=== PATIENT | male | born 1960 | race Caucasian/White ===

== ENCOUNTER 2017-12-13 15:13 | Emergency (ER) | payer BC, SELFPAY ==
[2017-12-13 15:14] VITALS: BP 144/106; PULSE 95; RESP 16; TEMP 37.2; O2SAT 99; BMI 25.1
--- NOTE | 2017-12-13 16:21 | RAD_ITS ---
STUDY: X-RAY - LEFT FEMUR REASON FOR STUDY: Male, 57 years old. Laceration TECHNIQUE: Frontal and lateral views of the femur were obtained. COMPARISON: None. FINDINGS: Bones: There are no acute osseous abnormalities. Joints: The visualized joints are normal in appearance. Soft tissues: The soft tissues are unremarkable. RAD/Femur Min 2 Views IMPRESSION: No acute abnormalities are seen in the left upper leg. Electronically Signed: Lalitha St MD at 17:15 EDT Tel Direct: [phone], Service support ,
[2017-12-13] MEDS: Diphth,Pertuss(Acell),Tet Vac 0.5 ML Vial IM (16:30)
--- NOTE | 2017-12-13 16:55 | ED.VISSUMM ---
- ER Visit Summary Date of Service: 12/13/17 Chief Complaint: Lacerations History of Present Illness: The patient is a 57 M with laceration to his left thigh. This happened just prior to arrival. He cut himself on a bark grinder wheel that broke apart. He is not sure of his last tetanus immunization. Patient is not on blood thinners. Physical Examination: Patient has 2 lacerations, one over the anterior mid thigh, 3 cm, partial-thickness, linear. The other laceration is more distal and medial, measuring 5 cm, full-thickness, mild contamination. No active bleeding. Neurovascular intact distally. Test Results: Official x-ray read is pending. I do not appreciate any significant, large foreign bodies, or any other acute issue. Emergency Department Course and Treatment: Tetanus updated. Wounds were infiltrated with lidocaine. Irrigated copiously with saline and Betadine. Particulate matter removed as much as possible. Procedure performed under good lighting. No active bleeding. 3 cm laceration was closed with 3 simple interrupted sutures. 5 center meter laceration was closed with 7 simple interrupted sutures. Patient tolerated this well. Dressings applied. Patient will be discharged to follow-up with primary care in about 10 days. Return for any new or worsening issues. Will put on Keflex prophylaxis. I advised him that there may be small foreign body still in the wounds, and he will monitor for any issues. Treatment Plan: As above Disposition: Discharged Impression: 1. Left thigh laceration, 3 cm, simple 2. Left thigh laceration, 5 cm, simple This note was generated with [employer] dictation software. It may contain incorrect words, spelling, and punctuation that were not noted in review of the chart prior to signing ED Disposition - Plan for ED Patient: Chief Complaint: Laceration Referrals: You Bragg MD [Primary Care Provider] -
--- NOTE | 2017-12-13 16:59 | ED.DCSUM_ITS ---
- ER Visit Summary Date of Service: 12/13/17 Chief Complaint: Lacerations History of Present Illness: The patient is a 57 M with laceration to his left thigh. This happened just prior to arrival. He cut himself on a tool and cutter grinder wheel that broke apart. He is not sure of his last tetanus immunization. Patient is not on blood thinners. Physical Examination: Patient has 2 lacerations, one over the anterior mid thigh , 3 cm, partial-thickness, linear. The other laceration is more distal and medial, measuring 5 cm, full-thickness, mild contamination. No active bleeding. Neurovascular intact distally. Test Results: Official x-ray read is pending. I do not appreciate any significant, large foreign bodies, or any other acute issue. Emergency Department Course and Treatment: Tetanus updated. Wounds were infiltrated with lidocaine. Irrigated copiously with saline and Betadine. Particulate matter removed as much as possible. Procedure performed under good lighting. No active bleeding. 3 cm laceration was closed with 3 simple interrupted sutures. 5 center meter laceration was closed with 7 simple interrupted sutures. Patient tolerated this well. Dressings applied. Patient will be discharged to follow-up with primary care in about 10 days. Return for any new or worsening issues. Will put on Keflex prophylaxis. I advised him that there may be small foreign body still in the wounds, and he will monitor for any issues. Treatment Plan: As above Disposition: Discharged Impression: 1. Left thigh laceration, 3 cm, simple 2. Left thigh laceration, 5 cm, simple This note was generated with [employer] dictation software. It may contain incorrect words, spelling, and punctuation that were not noted in review of the chart prior to signing ED Disposition - Plan for ED Patient: Chief Complaint: Laceration Referrals: You Bragg MD [Primary Care Provider] -
--- NOTE | 2017-12-13 16:59 | ED.DEP ---
ED Disposition - Plan for ED Patient: Chief Complaint: Laceration Instructions: ED Laceration All Prescriptions: Cephalexin [Keflex] 500 mg PO Q6 #20 cap Referrals: You Bragg MD [Primary Care Provider] -
[2017-12-13 17:17] VITALS: PULSE 66; RESP 17; O2SAT 98
== END 2017-12-13 17:20 | disposition home or self-care (01) ==
PROVIDERS: Emergency Provider Emergency Medicine; Family Provider Family Medicine; PCP Family Medicine
DX: S71.122A Laceration with foreign body, left thigh, initial encounter (principal); W26.8XXA Contact with other sharp object(s), not elsewhere classified, initial encounter; Y93.9 Activity, unspecified; Y92.9 Unspecified place or not applicable; I10 Essential (primary) hypertension; Z72.0 Tobacco use
CPT/HCPCS: 12004; 73552; 90471; 90715; 99282

== ENCOUNTER → 2018-07-15 10:36 | Outpatient (CLI) | payer BC, SELFPAY ==
[2018-07-15 12:03] LABS: Absolute Lymphocyte Count 2.65 X10^3/ul (0.83-4.51); Absolute Neutrophil Count 5.4 X10^3/uL (2.0-7.7); Basophil# 0.06 X10^3/uL; Basophil% 0.6 % (0-1); Eosinophil# 0.27 X10^3/uL; Eosinophils% 2.8 % (0-5); Hematocrit 47.1 % (40-54); Hemoglobin 15.7 g/dl (13.0-16.5); Lymphocyte # 2.65 X10^3/ul (4.0); Lymphocyte % 27.8 % (19-41); Mean Corp Hgb Conc 33.3 g/gl (32-36); Mean Corpuscular Hgb 30.1 pg (27.0-32.0); Mean Corpuscular Volume 90.2 fL (80-94); Mean Platelet Vol. 11.6 fl (6.2-12.0); Monocyte% 11.5 % (0-10); Neutrophil # 5.43 X10^3/uL (2.7-7.7); Neutrophil % 57.1 % (47-70); POSITIVE COUNT NO; POSITIVE DIFFERENTIAL NO; POSITIVE MORPHOLOGY NO; Platelet Count 236 K/mm3 (150-450); RBC Distribution Width CV 13.3 % (11.6-14.6); RBC Distribution Width SD 43.9 fl (35.1-43.9); Red Blood Count 5.22 M/mm3 (4.6-6.2); White Blood Count 9.5 K/mm3 (4.4-11.0)
[2018-07-15 12:42] LABS: ALB/GLOB Ratio 1.1 RATIO (0.9-2.4); AST(SGOT) 23 U/L (15-37); Alanine Aminotransfer ALT/SGPT 32 U/L (16-61); Alkaline Phosphatase 75 U/L (45-117); Anion Gap 9 (5-15); BUN 18 mg/dL (7-18); BUN/Creat Ratio 21.6 RATIO (10-20); CRP < 2.90 mg/L (0.0-3.0); Calcium,Total 9.1 mg/dL (8.5-10.1); Chloride 105 mmol/L (98-107); Creatinine, Serum 0.84 mg/dL (0.70-1.30); EST Glomerular Filtration Rate 101 mL/min (>60); Est Glom Filt Rate - Afr Amer 122 mL/min (>60); Globulin 3.6 g/dL (2.2-4.2); Glucose 87 mg/dL (74-106); Potassium 4.3 mmol/L (3.5-5.1); Protein, Total 7.6 g/dL (6.4-8.2); Sodium Level 140 mmol/L (136-145)
== END ==
PROVIDERS: Family Provider Family Medicine; PCP Family Medicine; Visit Provider Family Medicine
DX: R23.3 Spontaneous ecchymoses (principal)
CPT/HCPCS: 36415; 80053; 85025; 86140

== ENCOUNTER 2018-11-04 12:00 | Day surgery (SDC) | payer OTHER, SELFPAY ==
[2018-11-04 12:42] VITALS: BP 119/76; PULSE 66; RESP 16; TEMP 36.8; O2SAT 97; BMI 24.9
[2018-11-04] MEDS: Bupivacaine Mpf 0.5% 30 ML VIAL (13:35)
[2018-11-04] MEDS: Cefazolin 2 GM in 0.9% Normal Saline 100 ML IV (13:47)
--- NOTE | 2018-11-04 14:18 | OP.PCM_ITS ---
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 Patient wished to proceed with left open carpal tunnel release. After discussing risks and benefits including but not limited to blood loss, DVTs, PEs, neurovascular damage, infection, hematoma and general risk of anesthesia, the patient demonstrated understanding wish to proceed with left open carpal tunnel release Procedure: On the date of the procedure, the patient's left upper extremity was marked in the preoperative area. Patient was taken back to the operating room, where the tourniquet was placed on the right upper extremity. Patient was given light sedation. All bony prominences are identified well-padded. Anesthesia assumed control C-spine and airway and remained in control throughout the remainder the procedure. Deal block was administered by anesthesia. The left upper extremity was prepped in sterile fashion. Surgeon then scrub. Upon reentering the room, the left upper extremity was prepped in a standard orthopedic fashion. A timeout was called and everyone agreed upon the side, the site, the procedure to be performed, patient identity and antibiotics given. The incision was marked out. Incision was taken at the skin subtenons tissue fat down to fascia. Fascia was then lightly tethered until the median nerve was visible. A [place] was placed proximally and distally, and then scissors were placed proximally and distally to release the transverse carpal ligament. During the release the others were never completely closed. The [place] was then placed proximally and distally once more to verify the transverse carpal ligament had been adequately released. The wound was then copiously irrigated out with normal saline. Wound was then closed using 3-0 nylon suture. 10 cc of 50-50 mixture of 1% lidocaine and 0.5% Sensorcaine without epinephrine injection was given. Xeroform dressing was placed, sterile dressing was placed, compressive dressing was placed. Tourniquet was let down. Volar splint was placed. Patient was awakened by anesthesia and transferred to the PACU for recovery. Postoperative plan: The patient will follow up in 2 weeks for removal splint removal sutures. At that time if they are doing well they will follow-up as needed. - Complications No intraoperative complications - Admit VTE Documentation VTE Present on Admission: No VTE Mechan Device Prophylaxis: SCD's, Thigh High TAYLER Egan VTE Pharm Prophylaxis ordered?: Yes
[2018-11-04 14:23] VITALS: BP 119/76; BP 88/64; PULSE 54; RESP 18; TEMP 36.4; O2SAT 96
[2018-11-04 14:25] VITALS: BP 119/76; BP 90/65; PULSE 54; RESP 18; O2SAT 97
[2018-11-04 14:30] VITALS: BP 119/76; BP 96/67; PULSE 56; RESP 18; O2SAT 95
[2018-11-04 14:32] VITALS: BP 119/76; BP 96/67; PULSE 55; RESP 18; TEMP 36.2; O2SAT 96
== END 2018-11-04 15:19 | disposition home or self-care (01) ==
LOC: SDC 12:01 → AC 12:05
PROVIDERS: Family Provider Family Medicine; PCP Family Medicine; Referring Provider Specialist; Visit Provider Specialist
PROC: (CPT 64721; principal; 2018-11-04 14:00)
DX: G56.03 Carpal tunnel syndrome, bilateral upper limbs (principal); I10 Essential (primary) hypertension; F17.210 Nicotine dependence, cigarettes, uncomplicated
CPT/HCPCS: 01810; 64721; J7120

== ENCOUNTER 2019-03-17 07:54 | Emergency (ER) | payer OTHER, SELFPAY ==
[2019-03-17 07:55] VITALS: BP 118/85; PULSE 79; RESP 16; TEMP 36.6; BMI 25.1
--- NOTE | 2019-03-17 08:10 | RAD_ITS ---
STUDY: X-RAY - RIGHT FOOT CLINICAL: Male, 58 years old. Pain following injury. TECHNIQUE: 3z view(s) of the foot. COMPARISON: None. FINDINGS: Normal talus, calcaneus, and tarsal bones. Normal visualized subtalar, talonavicular, calcaneocuboid, tarsal and tarsometatarsal articulations. Normal metatarsi. Normal metatarsophalangeal joint of the great toe. Normal tibial and fibular sesamoid bones. Normal interphalangeal joint of the great toe. Normal phalanges of the great toe. Normal second through fifth metatarsophalangeal joints. Normal interphalangeal joints and phalanges of the lesser toes. Dorsal soft tissue swelling. RAD/Foot min 3 Views IMPRESSION: Dorsal soft tissue swelling. Electronically Signed: Thaddeus Farias, at 9:15 EDT , Service support ,
--- NOTE | 2019-03-17 08:18 | ED.VISSUMM ---
- ER Visit Summary Date of Service: 03/17/19 Chief Complaint: Right foot injury History of Present Illness: The patient is a 58 M who was at work this morning when a steel bar fell across the top of his foot. He was wearing boots at the time. He states he has increased pain with ambulation. Physical Examination: Vital signs unremarkable. Patient sitting upright in bed no acute distress. Right lower extremity examination reveals a small 2 cm area of erythema across the dorsum of the right foot with mild edema. Cap refill and sensation is noted distally. Minimal tenderness. Test Results: Right foot x-rays per my review reveals soft tissue swelling with no evidence of fracture. Emergency Department Course and Treatment: Prem wrap is applied to the foot. He started to develop some early ecchymosis along with the edema. He is already on meloxicam and will continue this. Treatment Plan: [] Disposition: Discharge Impression: Crush injury right foot This note was generated with [employer] dictation software. It may contain incorrect words, spelling, and punctuation that were not noted in review of the chart prior to signing ED Disposition - Plan for ED Patient: Disposition: Home or Assisted Living Instructions: CRUSH INJURY, Foot/Toe Referrals: [facility] [GROUP OF PHYSICIANS] - 3-5 Days
[2019-03-17 08:55] VITALS: BP 115/81; PULSE 65; RESP 16; O2SAT 100
== END 2019-03-17 08:57 | disposition home or self-care (01) ==
PROVIDERS: Emergency Provider Emergency Medicine; Family Provider Family Medicine; PCP Family Medicine
DX: S97.81XA Crushing injury of right foot, initial encounter (principal); W20.8XXA Other cause of strike by thrown, projected or falling object, initial encounter; Y93.9 Activity, unspecified; Y92.9 Unspecified place or not applicable; Y99.0 Civilian activity done for income or pay; I10 Essential (primary) hypertension; Z72.0 Tobacco use
CPT/HCPCS: 73630; 99282

== ENCOUNTER 2019-04-05 17:22 | Emergency (ER) | payer OTHER, SELFPAY ==
[2019-04-05 17:23] VITALS: BP 153/90; PULSE 72; RESP 16; TEMP 36.7; O2SAT 97; BMI 25.1
--- NOTE | 2019-04-05 17:27 | RAD_ITS ---
STUDY: X-RAY - RIGHT HAND, ATTENTION SECOND FINGER REASON FOR EXAM: Male, 58 years old. Injury TECHNIQUE: 3 view(s) of the finger were obtained. COMPARISON: None. FINDINGS: There is a comminuted moderately distracted fracture of the second distal phalanx tuft. There are no significant degenerative changes. There are no radiodense foreign bodies. RAD/Finger(s) Min 2 Views IMPRESSION: Comminuted moderately distracted fracture of the second distal phalanx tuft. Electronically Signed: Adalberto Comer, at 17:42 EDT Tel , Service support ,
--- NOTE | 2019-04-05 20:01 | ED.DCSUM_ITS ---
- ER Visit Summary Date of Service: 04/05/19 Chief Complaint: Finger injury History of Present Illness: The patient is a 58 M who injured his right index finger in an auto [employer] prior to arrival. Tetanus is up-to-date. Physical Examination: The proximal portion of his nail is displaced through the skin. The laceration extends medial and laterally. Otherwise skin is intact and nailbed is intact. Mild subungual hematoma. Good range of motion. Normal capillary refill. Test Results: X-rays show a comminuted tuft fracture of the distal phalanx. Emergency Department Course and Treatment: Digital block was performed by me. Wound was soaked by the patient. Nail was reduced. Anchored in place with a single suture. Patient will be started on Keflex and follow-up with hand surgery. Keep the area clean and dry. Return for signs of infection. Risks such as bone infection, loss of the finger, loss of the nail, and other complications were discussed. Treatment Plan: As above Disposition: Discharged Impression: 1. Tuft fracture right index finger 2. Nailbed repair This note was generated with [employer] dictation software. It may contain incorrect words, spelling, and punctuation that were not noted in review of the chart prior to signing ED Disposition - Plan for ED Patient: Referrals: You Bragg MD [Primary Care Provider] -
--- NOTE | 2019-04-05 20:04 | ED.DEP ---
ED Disposition - Plan for ED Patient: Instructions: FRACTURE, Finger (Open) Prescriptions: Cephalexin [Keflex] 500 mg PO Q6 #40 cap Prescription Printed Referrals: Dedrick Lawrence MD [STAFF PHYSICIAN] -
[2019-04-05] MEDS: Cephalexin 250 MG Capsule 500 MG PO (20:17)
[2019-04-05 20:24] VITALS: RESP 16
== END 2019-04-05 20:24 | disposition home or self-care (01) ==
LOC: ED 18:27
PROVIDERS: Emergency Provider Emergency Medicine; Family Provider Family Medicine; PCP Family Medicine
DX: S62.630A Displaced fracture of distal phalanx of right index finger, initial encounter for closed fracture (principal); X58.XXXA Exposure to other specified factors, initial encounter; Y93.9 Activity, unspecified; Y92.9 Unspecified place or not applicable; Y99.0 Civilian activity done for income or pay; Z72.0 Tobacco use
CPT/HCPCS: 11760; 73140; 99282

== ENCOUNTER 2019-04-07 12:47 | Day surgery (SDC) | payer OTHER, SELFPAY ==
[2019-04-06 15:02] VITALS: BMI 25.1
--- NOTE | 2019-04-07 09:59 | PCM.HP.BLA ---
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 He complains of pain in his right index finger. He went to the ED where an x-ray was obtained which showed a comminuted moderately distracted fracture of distal phalanx tuft right index finger. Sutures were used to stabilize the torn nail place off the nail bed. He was started on Keflex antibiotics. He complains of pain and swelling in his right index finger. He can bend his right index finger a little bit but he cannot make a fist completely. He is right hand dominant. He comes in today for further evaluation and treatment. PAST MEDICAL HISTORY Alcohol abuse Arthritis Back problem Carpal tunnel syndrome Frequent headaches Hepatitis C History of pneumonia High blood pressure PAST SURGICAL HISTORY carpal tunnel release ALLERGIES bee venom protein (honey bee) MEDICATIONS Lisinopril [Zestril] Meloxicam Cephalexin [Keflex] doxycycline hyclate hydrocodone 5 mg-acetaminophen FAMILY HISTORY Mother - History of blood clots, Cancer, Heart disease SOCIAL HISTORY Smoking Status: Current every day smoker counseling given: provider counseling, counseling >10 minutes alcohol intake: current substance use type: does not use REVIEW OF SYSTEMS General - Denies fever, fatigue, and weight loss. Eyes - Denies cataracts and glaucoma. ENT - Denies nasal congestion and sore throat. Endocrine - Denies excessive thirst and urination. Skin - Denies suspicious lesions and skin cancer. Musculoskeletal - Denies joint pain, joint stiffness, weakness of muscles and joints, and arthritis. Has back pain. Sustained crush injury to right index finger tip. Has comminuted moderately distracted fracture of the distal phalanx tuft of the right index finger. Also sustained a subungual hematoma and nail bed injury right index finger. Neuro - Has headaches. Cardiovascular - Denies chest pain, fatigue, and shortness of breath with exertion. Psych - Denies anxiety and depression. Respiratory - Denies chronic cough and shortness of breath. Patient is a smoker. Gastrointestinal - Denies nausea, vomiting, diarrhea, and constipation. Hematologic - Denies abnormal bruising and bleeding. Genitourinary - Denies hematuria and urinary frequency. PHYSICAL EXAMINATION General - Alert and Oriented. HEENT - PERRL. EOMI. Throat is clear. Neck - Supple and nontender. No cervical adenopathy. Lungs - Clear to auscultation. Heart - Regular rate and rhythm. Abdomen - Soft and nondistended. Extremities - FROM left upper extremity. No axillary adenopathy. Radial pulses are palpable. Fingers are warm with good capillary refill. Patient is right hand dominant. There is some swelling right index finger. Subungual hematoma noted underneath the nail plate right index finger. There is an injury to the eponychial fold. He can flex his right index finger at the PIP and DIP joints but not as easily as compared to his other fingers probably secondary to pain and swelling and associated crush injury component. Neuro - CN II-XII grossly intact. Psych - Normal mood and affect. ASSESSMENT 1. Open displaced fracture distal tuft of distal phalanx right index finger. 2. Subungual hematoma right index finger. 3. Nail bed injury right index finger. 4. Crushing injury right index finger tip. 5. Smoker. PLAN X-ray reviewed. There is a comminuted moderately distracted fracture of the distal phalanx tuft right index finger. Recommend operative intervention of the right index finger with drainage of the subungual hematoma and repair of the nail bed injury. Will also debride and excise the displaced multiple fracture fragments distal phalanx tuft right index finger for osteomyelitis. With the crushing nature of the injury, may need to explore the volar side of the right index finger with a zig zag incision to explore and evaluate the flexor tendons. Any injuries will be repaired. If the tendons are intact, then will irrigate the wound and proceed with a complex closure repair. Will place a tip splint postoperatively to minimize pain when he bumps his right index finger. A tendon injury that is repaired will necessitate a longer splint during the healing process. Will plan on the surgery this week under local anesthesia and IV sedation with digital tourniquet control on an outpatient basis. In the meantime, continue the Keflex. Will change the antibiotics at the time of surgery to Doxycycline which has better bony coverage for Staph because of possible risk of osteomyelitis. Wrote a script for [place] for pain (40 tabs). Wrote a script for Doxycycline (28 tabs) and 2 refills. Due to the crushing nature of the injury, he is at risk for ocean transportation intermediary pain and stiffness of his right index finger that may necessitate revision surgery in the future with a tip amputation. He is aware of that possibility and wishes to proceed. Patient was informed of the risks and complications of the procedure including alternatives to surgery. These were discussed with the patient personally. Patient voices understanding and wishes to proceed. Some of the risks and complications were included in a form from the [employer]. Some of the risks and complications that were discussed included but were not inclusive of failure to diagnose including symptom relief, pain, infection, numbness, stiffness, loss of digit, RSD (CRPS), need for further surgery, contracture, and wound healing problems. Encouraged patient to stop smoking as it may have deleterious effects on wound healing.
[2019-04-07 12:30] VITALS: BP 113/89; PULSE 58; RESP 16; TEMP 36.3; O2SAT 96; BMI 24.3
--- NOTE | 2019-04-07 14:30 | BON_PTH ---
PATIENT: CHERRIE TREVIÑO LOC: [facility] [place] U#:[id number] AGE/SX: 58/M ROOM: RE04/07/[address]: Dr. Dedrick Lawrence MD : 1960 BED: DIS: 04/07/2019 SPEC #: [id number] RECD: 04/07/19 16:44 STATUS: VAUGHN REQ #: [id number] WILTON: 04/07/19 14:[address]: Dedrick Lawrence DEPT: SURGICAL PATHOLOGY RECD BY: Jose A Wang ENTERED: 04/08/19 10:14 SP TYPE: Bone OTHR DR: Dr. You Bragg MD Tissues: A - Finger, NOS B - Finger, NOS Procedures: Decalcification bone/plaque Surgery Specimen Level IV HEADER OPERATION: Repair nailbed injury, index finger debridement PRE-OP DIAGNOSIS: Open displaced fracture right index finger; subungual hematoma right index finger; nailbed injury right index finger; crush injury right index finger TISSUE SUBMITTED: A - Bone right index finger, B - Soft tissue right index finger MICROSCOPIC DIAGNOSIS A. Bone, right index finger, biopsy: Focal changes suggestive of acute osteomyelitis. Reparative and reactive change. B. Soft tissue, right index finger, biopsy: Skin and soft tissue with minimal chronic inflammation. MAHI:biju 04/14/19 MICROSCOPIC DESCRIPTION Slides are reviewed. GROSS DESCRIPTION A - Received in fixative is one container labeled with the patient's name and designated bone right index finger. The specimen consists of two pieces of bone that in aggregate measure 1.5 x 0.5 x 0.3 cm. The entire specimen is submitted in one cassette after decalcification. B - Received in fixative is one container labeled with the patient's name and designated soft tissue right index finger. The specimen consists of multiple pieces of castro-white to brown soft tissue that in aggregate measure 1.5 x 1 x 0.2 cm. The specimen is totally submitted in one cassette. / SJ:rg 04/08/19 TC: 2 CPT: 95236 x2, [id number]
[2019-04-07] MEDS: Mupirocin Ointment 22gm Tube 1 APPLIC (15:40)
[2019-04-07 16:40] VITALS: BP 113/89; BP 124/70; PULSE 58; RESP 14; TEMP 36.3; O2SAT 98
--- NOTE | 2019-04-07 16:42 | PCM.OPRPT ---
Report of Operation Date of Procedure: 04/07/19 Pre-Operative Diagnosis: 1. Open displaced fracture distal tuft of distal phalanx right index finger. 2. Subungual hematoma right index finger. 3. Nail bed injury right index finger. 4. Crushing injury right index finger tip. 5. Smoker. Post-Operative Diagnosis: Same. Surgery/Procedure Performed:: 1. Repair of nail bed injury right index finger. 2. Drainage of subungual hematoma right index finger. 3. Excisional debridement displaced distal phalanx tuft fracture right index finger with partial ostectomy for osteomyelitis. 4. Exploration flexor tendon crushing injury volar aspect right index finger with excisional debridement and 3 cm complex closure repair. 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 He complains of pain in his right index finger. He went to the ED where an x-ray was obtained which showed a comminuted moderately distracted fracture of distal phalanx tuft right index finger. Sutures were used to stabilize the torn nail place off the nail bed. He was started on Keflex antibiotics. He complains of pain and swelling in his right index finger. He can bend his right index finger a little bit but he cannot make a fist completely. He is right hand dominant. Patient was informed of the risks and complications of the procedure including alternatives to surgery. These were discussed with the patient personally. Patient voices understanding and wishes to proceed. Some of the risks and complications were included in a form from the [employer]. Some of the risks and complications that were discussed included but were not inclusive of failure to diagnose including symptom relief, pain, infection, numbness, stiffness, loss of digit, RSD (CRPS), need for further surgery, contracture, and wound healing problems. Encouraged patient to stop smoking as it may have deleterious effects on wound healing. Total tourniquet time - 54 minutes. Flexor digitorum profundus (PDP) tendon and flexor digitorum superficialis (FDS) tendon are intact and a little swollen. 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 Right index finger tip soft tissue to Pathology and Microbiology. 2. Right index finger tip bone to Pathology and Microbiology. Drains: None. Estimated Blood Loss (mL): 10 ml. Description of Procedure: Patient was taken to OR in supine position and was placed under general anesthesia. The right upper extremity was prepped and draped in the usual fashion. A tourniquet was placed. SCD's were placed for DVT prophylaxis. Perioperative antibiotics were given intravenously. The right upper extremity was elevated and was wrapped with an Esmarch bandage as the tourniquet was elevated to 250 mmHg. Using xylocaine with epinephrine, a digital metacarpal block was infiltrated for postop pain relief for the right index finger. Under loupe magnification, I removed the nail plate. There was a congealed hematoma present that extended through the stellate nail bed injury and involved the distal phalanx. The hematoma was drained and the congealed portion of the hematoma was excised and debrided. Using an elevator, I elevated the remaining nail bed off the distal phalanx. Some loose pieces of bone were excised and debrided. Using a rongeur, I excised the distal portion of the distal phalanx to evaluate for osteomyelitis. A rasp was used to smooth out the bony edge. The stellate nail bed injury was swollen with presence of exudate which was excised and debrided. From the pressure of the subungual hematoma, there was some loss of nail bed and the bone was exposed. I shortened the nail bed a little bit to minimize a floppy finger tip. I wanted the soft tissue to be close to the bone to minimize this floppiness. By shortening the nail bed a little bit, I was able to repair the nail bed without having to resort to a nail bed graft. This complex nail bed repair was done with 7-0 Vicryl simple interrupted sutures. Since I was able to repair the nail bed, a two stage thenar flap will not be necessary at this time. I cleaned off any residual blood and debris from the nail plate and placed the nail plate back on the finger and underneath the eponychial fold. The nail plate was secured with 5-0 Nylon simple interrupted sutures. Half the soft tissue and half the bone was sent to Pathology for analysis to rule out carcinoma and to evaluate for osteomyelitis. Half the soft tissue and half the bone was sent to Microbiology for culture. A positive culture will necessitate antibiotic therapy. Because of the crushing nature of the injury, I explored the volar surface of the right index finger to evaluate the flexor tendons. There was some difficulty with flexion preoperatively which was probably secondary to swelling from the crushing injury, I wanted to make sure there was no associated flexor tendon injury as well. A zig zag incision was made on the volar surface of the right index finger at the level of the DIP joint crease to evaluate both tendons. Dissection was carried down to the flexor tendon sheath. There was a lot of swelling and some bleeding in the subcutaneous tissue. A small incision was made in the A5 cindy. The flexor tendons were visualized in the tendon sheath. They were quite swollen and yellowish in color as a result of the crushing injury. Both flexor tendons (flexor digitorum profundus and flexor digitorum superficialis) were intact. The wound was irrigated with saline. The wound was then closed with 5-0 Nylon simple interrupted sutures and vertical mattress sutures. The length of the zig zag complex closure was 3 cm. The tourniquet was released after 54 minutes. Hemostasis was obtained with gentle pressure and elevation. Antibiotic ointment was applied to the finger tip followed by Xeroform gauze and 2x2 gauze followed by 2 inch Sienna wrap and a compression mckay wrap. A new alumafoam splint will be given to the patient to help with protecting the finger tip when bumped. With a bulky surgical dressing at present, he won't need the splint until after the first dressing change in the office. Patient tolerated the procedure well and was sent to PACU in satisfactory condition. Patient will be sent home on antibiotics and pain medication. He will keep his right hand elevated during the initial postop period. He will wear a plastic bag over his right hand when showering. Patient will followup in a couple of days on Friday for a wound check and for discussion of the pathology report and for discussion of the Microbiology report. Will remove the sutures in 2-3 weeks. Depending on his degree of stiffness postop, may need OT for range of motion exercises, strengthening, and edema management. Grafts/Implants Used: None. - Complications None. - Admit VTE Documentation VTE Present on Admission: No VTE Mechan Device Prophylaxis: SCD's VTE Pharm Prophylaxis ordered?: No Code Visit Surgery Charges CPT - 95840 ICD-10 - S69.91xA, S62.630B, S67.190A, S60.121A, F17.200 33737 S60.121A, S62.630B, S67.190A, S69.91xA, F17.200 [id number] S62.630B, S67.190A, S69.91xA, S60.121A, F17.200 [id number] S67.190A, S62.630B, S69.91xA, S60.121A, F17.200
[2019-04-07 16:45] VITALS: BP 113/89; BP 115/73; PULSE 75; RESP 16; O2SAT 95
--- NOTE | 2019-04-07 16:45 | PCM.DC ---
You will use the following diet at home:: No restrictions Discharge Activity: May not drive while taking narcotic pain medications., May Shower - wear plastic bag over right hand when showering. Return to work on:: 05/16/19 - tentative. May shower in (days): 1 - wear plastic bag over right hand when showering. May resume sexual activity in: No Restrictions Weight Bearing Status: Weight bearing as tolerated Lifting Restrictions: no lifting with rigiht hand. Keep extremity elevated above heart level: Right Arm Call your doctor if your incision/area has: Continuous Slow Oozing, Sudden Increased Bleeding, Increased Pain/ Swelling, Increased Redness, Foul Smelling Discharge, Swelling at the incision site Call your doctor if you observe: Fever of 101 or Higher, Coldness, Increased Pain, Shortness of breath, Chest pain, Calf discomfort, Uncontrolled pain Suture Line Care: - - apply antibiotic ointment to suture line after dressing is removed in the office. Change Dressing in (Days):: 2 - will change dressing in the office. Cleanse incision/area with: - - wear plastic bag over right hand when showering. Additional Instructions: Patient has Doxycycline and [place] at home which he will continue. Allergies/Adverse Reactions: Allergies bee venom protein (honey bee) Allergy (Verified 04/06/19 14:47) Anaphylaxis Medications to take at Discharge Lisinopril [Zestril] 5 mg PO DAILY #30 tab 08/19/17 Meloxicam 15 mg PO DAILY 10/28/18 Cephalexin [Keflex] 500 mg PO Q6 #40 cap 04/05/19 doxycycline hyclate 100 mg capsule 100 mg PO BID 14 Days #28 cap 04/06/19 hydrocodone 5 mg-acetaminophen 325 mg tablet 1 tab PO Q4H PRN 7 Days #40 tab 04/06/19 Primary Care Physician: You Bragg MD [Primary Care Provider] - Test Results: Test results from this visit will be discussed in further detail at your follow-up appointment, if applicable. Please Follow Up With: Dedrick Lawrence MD When: Friday04/09/19. call [phone] for appt. Proposed Discharge Date: 04/07/19
[2019-04-07 17:00] VITALS: BP 113/89; BP 116/75; PULSE 68; RESP 16; O2SAT 98
[2019-04-07 17:07] VITALS: BP 113/89; BP 117/82; PULSE 63; RESP 16; TEMP 36.4; O2SAT 95
[2019-04-07 17:32] VITALS: BP 113/89; BP 124/85; PULSE 63; RESP 18; TEMP 36.6; O2SAT 98
== END 2019-04-07 17:39 | disposition home or self-care (01) ==
LOC: SDC 12:48 → AC 12:49
PROVIDERS: Family Provider Family Medicine; PCP Family Medicine; Referring Provider Surgery; Visit Provider Surgery
PROC: (CPT 11740; principal; 2019-04-07 14:15)
DX: S67.190A Crushing injury of right index finger, initial encounter (principal); S62.630B Displaced fracture of distal phalanx of right index finger, initial encounter for open fracture; S60.121A Contusion of right index finger with damage to nail, initial encounter; W31.89XA Contact with other specified machinery, initial encounter; Y93.K2 Activity, milking an animal; Y92.9 Unspecified place or not applicable; Y99.0 Civilian activity done for income or pay; M86.141 Other acute osteomyelitis, right hand; I10 Essential (primary) hypertension; M19.90 Unspecified osteoarthritis, unspecified site; F17.220 Nicotine dependence, chewing tobacco, uncomplicated; Z79.899 Other long term (current) drug therapy
CPT/HCPCS: 00400; 11740; 11760; 13132; 26236; 87070; 87075; 87077; 87102; 87186; 87205; 87206; 88305; 88311; J7120; J2405

== ENCOUNTER → 2020-01-31 | Outpatient (CLI) | payer OTHER, SELFPAY ==
[2020-01-31 09:31] VITALS: BMI 25.2
[2020-01-31 15:32] LABS: Bacteria 0 SEEN /hpf (None Seen); Mucous, Urine 0 SEEN /hpf (<or=2+); Red Blood Cells-Urine 0 SEEN /hpf (0-5); Squamous Epithelial Cells - UA 0 SEEN /hpf (0-5); White Blood Cells 0 SEEN /hpf (0-5)
[2020-01-31 15:50] LABS: Color, Urine Yellow (Yellow); Glucose, Dipstick Normal (Normal); Ketone-Dipstick Negative (Negative); Leukocyte Esterase-Dipstick Negative /ul (Negative); Nitrite-Dipstick Negative (Negative); Occult Blood-Urine Negative /ul (Negative); Protein-Dipstick Negative (Negative); Urine Bilirubin Dipstick Negative (Negative); Urine Clarity Clear (Clear); Urine Urobilinogen Normal (Normal)
== END | disposition home or self-care (01) ==
LOC: LABSPEC 14:34
PROVIDERS: PCP Family Medicine; Referring Provider Physician Assistant; Visit Provider Physician Assistant
DX: M54.5 Low back pain (principal)
CPT/HCPCS: 81001; 87086

== ENCOUNTER → 2020-02-01 10:31 | Outpatient (CLI) | payer OTHER, SELFPAY ==
[2020-01-31 09:31] VITALS: BMI 25.2
[2020-02-01 12:46] LABS: Absolute Lymphocyte Count 3.03 X10^3/uL (0.83-4.51); Absolute Neutrophil Count 6.2 X10^3/uL (2.0-7.7); Basophil# 0.06 X10^3/uL; Basophil% 0.6 % (0-1); Eosinophil# 0.24 X10^3/uL; Eosinophils% 2.3 % (0-5); Hematocrit 46.5 % (40-54); Hemoglobin 15.3 g/dL (13.0-16.5); Lymphocyte # 3.03 X10^3/ul (4.0); Mean Corp Hgb Conc 32.9 g/dL (32-36); Mean Corpuscular Hgb 29.7 pg (27.0-32.0); Mean Corpuscular Volume 90.3 fL (80-94); Mean Platelet Vol. 12.1 fl (6.2-12.0); Monocyte# 0.88 X10^3/uL; Monocyte% 8.4 % (0-10); NRBC Flagged by Analyzer 0 % (0-5); Neutrophil % 59.3 % (47-70); Platelet Count 228 K/mm3 (150-450); RBC Distribution Width CV 13.1 % (11.6-14.6); RBC Distribution Width SD 43.2 fl (35.1-43.9); Red Blood Count 5.15 M/mm3 (4.6-6.2); White Blood Count 10.5 K/mm3 (4.4-11.0)
[2020-02-01 13:14] LABS: AST(SGOT) 23 U/L (15-37); Alanine Aminotransfer ALT/SGPT 27 U/L (16-61); Albumin, Serum 3.8 g/dL (3.2-5.0); Alkaline Phosphatase 72 U/L (45-117); Anion Gap 6 (5-15); BUN 17 mg/dL (7-18); BUN/Creat Ratio 20.3 RATIO (10-20); Bilirubin, Direct 0.11 mg/dL (0.00-0.30); Calcium,Total 8.9 mg/dL (8.5-10.1); Chloride 105 mmol/L (98-107); Creatinine, Serum 0.84 mg/dL (0.70-1.30); EST Glomerular Filtration Rate 100 mL/min (>60); Est Glom Filt Rate - Afr Amer 121 mL/min (>60); Globulin 3.4 g/dL (2.2-4.2); Glucose 114 mg/dL (74-106); Potassium 3.7 mmol/L (3.5-5.1); Protein, Total 7.2 g/dL (6.4-8.2); Sodium Level 139 mmol/L (136-145)
== END ==
PROVIDERS: PCP Family Medicine; Visit Provider Family Medicine
DX: R10.32 Left lower quadrant pain (principal); Z86.19 Personal history of other infectious and parasitic diseases
CPT/HCPCS: 36415; 80048; 80076; 85025

== ENCOUNTER → 2020-02-02 06:35 | Outpatient (CLI) | payer OTHER, SELFPAY ==
[2020-01-31 09:31] VITALS: BMI 25.2
--- NOTE | 2020-02-02 06:48 | CT_ITS ---
STUDY: CT ABDOMEN AND PELVIS WITH CONTRAST REASON FOR EXAM: Male, 59 years old. LLQ PAIN/DIVERTICULITIS RADIATION DOSAGE (If Supplied By Facility): CTDIvol = ( 15.15 ) mGy, DLP = ( 668.13 ) mGycm TECHNIQUE: Transaxial images were obtained from the dome of the diaphragm to the symphysis pubis without oral contrast. Oral and amp; IV Readi-CAT and amp; 100mL Isovue-300 was administered. Sagittal and coronal images were reconstructed. Low density in the debris. Alternatively he Individualized dose optimization techniques were used for this CT. COMPARISON: None. FINDINGS: The visualized lung bases are unremarkable. The visualized portions of the heart are within normal limits. Normal liver. Normal gallbladder and extrahepatic biliary system. Normal spleen. Normal pancreas. Normal bilateral adrenal glands. Normal right kidney. There is a stone in the left kidney measures 12 mm without hydronephrosis. Normal visualized stomach. Normal small intestine. Normal colon. The appendix is visualized and appears normal. Normal abdominal aorta. Normal inferior vena cava. Normal retroperitoneum. Normal urinary bladder. Normal abdominal wall. There are diffuse degenerative changes of the visualized lumbar spine. There is mild old compression fracture of L1. CT/Abdomen/Pelvis WITH Contrast IMPRESSION: There is a stone in the left kidney measures 12 mm without hydronephrosis. Electronically Signed: Francia Dey, at 11:24 EDT Tel , Service support ,
== END ==
PROVIDERS: PCP Family Medicine; Referring Provider Family Medicine; Visit Provider Family Medicine
DX: R10.32 Left lower quadrant pain (principal)
CPT/HCPCS: 74177; Q9967

== ENCOUNTER 2020-06-14 09:10 | Emergency (ER) | payer OTHER, SELFPAY ==
[2020-01-31 09:31] VITALS: BMI 25.2
[2020-06-14 09:11] VITALS: BP 153/103; PULSE 83; RESP 17; TEMP 36.5; O2SAT 98; BMI 26.6
--- NOTE | 2020-06-14 09:25 | ED.VIS.GEN ---
History of Present Illness Chief Complaint: Dizziness Detail of Chief Complaint: Defined dizziness as lightheadedness Informant: Patient Onset: Today Context: Sudden Onset Timing: Intermittent Quality: Lightheadedness when he bent over also complained of wooziness, fatigue Location: Generalized and upper extremity electrical sensation Current Severity: Mild Maximum Severity: Moderate Worsened by: Bending over Relieved by: Improved in upright position Associated Symptoms: Electrical shocks upper extremities involving all digits Narrative: Is a middle-age male with history of smoking 1 pack/day x 40 years, 3-4 drinks per evening who presents with lightheadedness when he bent over to perform a task at work. He reports wooziness and electrical sensation in his right and left upper extremity distal the elbows. He denied headache, ocular, visual or auditory symptoms. No trouble with speech or swallowing. He did not appear pale. He states he went into the restroom. He did not vomit. He is on an NSAID. He denies black or maroon stool. He denies bruising easily. He denies chest discomfort, shortness of breath, dyspnea on exertion. He denies leg pain, swelling or discoloration. There is no history of VTE. He denies neck pain or problems with his neck. He denies history of TIA or CVA. Prior similar symptoms: No Recent Illness/Hospitalization: No - Colonoscopy/polypectomy 2 months ago, benign - Past Medical History (1) Smoker Status: Chronic (2) Nicotine abuse Status: Chronic (3) Chest pain Status: Acute Past Medical History - Allergies and Home Meds Allergies/Adverse Reactions: Allergies bee venom protein (honey bee) Allergy (Verified 06/14/20 09:13) Anaphylaxis codeine Allergy (Verified 06/14/20 09:13) Hives Primary Care Physician: You Bragg MD [Primary Care Provider] - Prior records reviewed: Yes - History of hypertension Surgical History: no surgical history, noncontributory, - - Colonoscopy with polypectomy x2 [address] Bragg Smoking Status: Current every day smoker Alcohol: Heavy Drugs: None Review of Systems General: Reports: Malaise. Denies: Chills, Fever, Subjective, Sweats Eyes: Denies: Visual changes - bilaterally, Blurred Vision - bilaterally, Diplopia ENT: Denies: Bilateral ear pain, Rhinorrhea, Sore throat Cardiovascular: Denies: Chest pain, Palpitations, Heart racing Respiratory: Denies: Dyspnea, Cough, Sputum, Dyspnea on exertion, Orthopnea, Paroxysmal nocturnal dyspnea Gastrointestinal: Denies: Abdominal pain, Nausea, Vomiting, Diarrhea, Melena, Hematochezia Genitourinary: Denies: Dysuria, Hematuria, Frequency Musculoskeletal: Denies: Myalgias, Arthralgias, Neck pain, Back pain, Swelling, Extremity Pain Skin: Denies: Rash, Wounds Neurological: Reports: Weakness, Parasthesia. Denies: Headache Endocrine: Denies: Polyuria, Polydipsia Hematologic: Denies: Easy bruising, Easy bleeding Physical Exam Vital Signs/Narrative: Vital Signs Temp Pulse Resp BP Pulse Ox 06/14/20 09:11 97.7 F L 83 17 153/103 H 98 Inital Vital Signs reviewed: Yes General: Well nourished, Well developed, No Acute Distress Head: Normocephalic, Atraumatic Eyes: Perrl, EOMI. Negative for: Pale conjunctiva, Scleral icterus ENT: Moist mucous membranes, No rhinorrhea Neck: Supple, Nontender, No lymphadenopathy, No JVD Cardiovascular: Regular rate, Regular rhythm, No murmurs Respiratory: No distress, CTA bilaterally, Chest nontender Abdomen: Soft, Nontender, Nondistended, Normal bowel sounds, No masses. Negative for: Hepatomegaly, Splenomegaly, Mass, Pulsatile mass Rectal: Deferred Back: Nontender, Normal Inspection Extremities: Nontender, No edema Skin: Normal color, No rash, No Trauma. Negative for: Cyanosis, Diaphoresis, Jaundice Neurological: Alert, Oriented x3, Cranial nerves II-XII grossly intact, Normal Strength, Normal Sensation, Normal DTR Psychological: Normal affect, Normal Mood Diagnostic/Tx/Re-eval Laboratory Results 06/14/20 06/14/20 06/14/20 09:32 09:32 10:07 WBC 8.3 RBC 5.15 Hgb 15.5 Hct 46.3 MCV 89.9 MCH 30.1 MCHC 33.5 RDW Std Deviation 43.0 RDW Coeff of Shila 13.1 Plt Count 232 MPV 10.8 Immature Gran % (Auto) 0.400 Neut % (Auto) 55.1 Lymph % (Auto) 33.0 [place] % (Auto) 8.9 Eos % (Auto) 1.9 Baso % (Auto) 0.7 Absolute Neuts (auto) 4.6 Absolute Lymphs (auto) 2.74 Nucleated RBC % 0 Sodium 138 Potassium 4.1 Chloride 105 Carbon Dioxide 30.0 Anion Gap 3 L BUN 17 Creatinine 0.85 Estim Creat Clear Calc 94.73 Est GFR (MDRD) Af Amer 119 Est GFR (MDRD) Non-Af 99 BUN/Creatinine Ratio 20.1 H Glucose 83 Calcium 9.1 Total Bilirubin 0.30 AST 19 ALT 29 Alkaline Phosphatase 73 Total Protein 7.8 Albumin 4.1 Globulin 3.7 Albumin/Globulin Ratio 1.1 Urine Color Yellow Urine Clarity Clear Urine pH 7.0 Ur Specific [place] 1.015 Urine Protein 15 H Urine Glucose (UA) Normal Urine Ketones Negative Urine Occult Blood 25 H Urine Nitrite Negative Urine Bilirubin Negative Urine Urobilinogen 1 H Ur Leukocyte Esterase 25 H Creatinine ratio is slightly greater than 20-1. Urine specific gravity is 1.015 which is not significant. Orthostatic vital signs indicates a 30 beat rise. - Medical Decision Making Diagnosis includes orthostatic hypotension, vasovagal near syncope, dysrhythmia. Patient placed on a monitor to assess rhythm and if he has any ectopy or dysrhythmia. Blood work to assess H&H, renal function, electrolytes and liver function since he has significant history with respect to drinking. Orthostatic vital signs were ordered since his complaint is lightheadedness. ED Disposition - Plan for ED Patient: Disposition: Home or Assisted Living Diagnosis: Orthostatic hypotension, Acute prerenal azotemia Instructions: ED Hypotension Orthostatic Referrals: You Bragg MD [Primary Care Provider] - 3-5 Days if not improving
[2020-06-14 09:38] VITALS: BP 144/87; PULSE 68; RESP 20; O2SAT 95
[2020-06-14 09:42] LABS: Absolute Lymphocyte Count 2.74 X10^3/uL (0.83-4.51); Absolute Neutrophil Count 4.6 X10^3/uL (2.0-7.7); Basophil# 0.06 X10^3/uL; Basophil% 0.7 % (0-1); Eosinophil# 0.16 X10^3/uL; Eosinophils% 1.9 % (0-5); Hematocrit 46.3 % (40-54); Hemoglobin 15.5 g/dL (13.0-16.5); Lymphocyte # 2.74 X10^3/ul (4.0); Mean Corp Hgb Conc 33.5 g/dL (32-36); Mean Corpuscular Hgb 30.1 pg (27.0-32.0); Mean Corpuscular Volume 89.9 fL (80-94); Mean Platelet Vol. 10.8 fl (6.2-12.0); Monocyte# 0.74 X10^3/uL; Monocyte% 8.9 % (0-10); NRBC Flagged by Analyzer 0 % (0-5); Neutrophil # 4.57 X10^3/uL (2.7-7.7); Neutrophil % 55.1 % (47-70); Platelet Count 232 K/mm3 (150-450); RBC Distribution Width CV 13.1 % (11.6-14.6); Red Blood Count 5.15 M/mm3 (4.6-6.2); White Blood Count 8.3 K/mm3 (4.4-11.0)
[2020-06-14 09:44] VITALS: BP 135/83; BP 140/99; BP 159/112; PULSE 67; PULSE 75; PULSE 91
[2020-06-14 10:09] LABS: ALB/GLOB Ratio 1.1 RATIO (0.9-2.4); AST(SGOT) 19 U/L (15-37); Alanine Aminotransfer ALT/SGPT 29 U/L (16-61); Albumin, Serum 4.1 g/dL (3.2-5.0); Alkaline Phosphatase 73 U/L (45-117); Anion Gap 3 (5-15); BUN 17 mg/dL (7-18); BUN/Creat Ratio 20.1 RATIO (10-20); Calcium,Total 9.1 mg/dL (8.5-10.1); Chloride 105 mmol/L (98-107); Creatinine, Serum 0.85 mg/dL (0.70-1.30); EST Glomerular Filtration Rate 99 mL/min (>60); Est Glom Filt Rate - Afr Amer 119 mL/min (>60); Estimated Creatinine Clearance 94.73 ml/min; Globulin 3.7 g/dL (2.2-4.2); Glucose 83 mg/dL (74-106); Potassium 4.1 mmol/L (3.5-5.1); Protein, Total 7.8 g/dL (6.4-8.2); Sodium Level 138 mmol/L (136-145)
[2020-06-14 10:20] LABS: Color, Urine Yellow (Yellow); Glucose, Dipstick Normal (Normal); Ketone-Dipstick Negative (Negative); Leukocyte Esterase-Dipstick 25 /ul (Negative); Nitrite-Dipstick Negative (Negative); Occult Blood-Urine 25 /ul (Negative); Protein-Dipstick 15 mg/dl (Negative); Specific Gravity, Urine 1.015 (1.002-1.030); Urine Bilirubin Dipstick Negative (Negative); Urine Clarity Clear (Clear); Urine Urobilinogen 1 mg/dl (Normal)
[2020-06-14] MEDS: 0.9% Normal Saline 1,000 ML 1000 ML IV (10:50)
[2020-06-14 12:08] VITALS: BP 151/79; PULSE 78; RESP 16; O2SAT 98
== END 2020-06-14 12:11 | disposition home or self-care (01) ==
PROVIDERS: Emergency Provider Emergency Medicine; PCP Family Medicine
DX: I95.1 Orthostatic hypotension (principal); F17.200 Nicotine dependence, unspecified, uncomplicated; R79.89 Other specified abnormal findings of blood chemistry; I10 Essential (primary) hypertension
CPT/HCPCS: 80053; 81002; 85025; 99285; J7030

== ENCOUNTER → 2020-08-29 14:38 | Outpatient (CLI) | payer OTHER, SELFPAY ==
[2020-08-29 14:12] VITALS: BMI 26.4
--- NOTE | 2020-08-29 14:43 | CT_ITS ---
STUDY: LOW DOSE CT LUNG CANCER SCREENING REASON FOR EXAM: Male, 59 years old. LUNG CANCER SCREENING, 46 YR SMOKER X 1 PPD, OA=428, HTN RADIATION DOSAGE (If Supplied By Facility): CTDIvol = ( 2.55 ) mGy, DLP = ( 88.06 ) mGycm TECHNIQUE: No contrast was administered. Low dose technique was utilized (average mAS-38 and kVp 120). 1.25 mm axial source images with a slice interval of 1.25-mm were reconstructed in lung windows. 2.5 mm axial source images with a slice interval of 2.5-mm were reconstructed in lung windows. 5.0 mm axial source images with a slice interval of 5.0-mm were reconstructed in soft tissue windows. Nodule measured using lung windows on PACS and/or independent workstation with automated measurement of minimum and maximum diameter. Nodule measurement reported as average diameter rounded to the nearest whole number. Growth is defined as an increase ins size of greater than 1.5 mm. COMPARISON: None. NODULES: No suspicious nodules are seen. Emphysema: No significant emphysematous changes. Endobronchial lesion: None Aorta: Atherosclerotic plaque at the level of the aortic arch. Coronary arteries: Unremarkable Heart: Unremarkable Mediastinal nodes: Small benign-appearing mediastinal lymph nodes. Other chest and abdominal findings: CT/Low Dose CT Lung Screening IMPRESSION: Lung-RADS category 2 - Continue annual screening with LDCT in 12 months. IMPORTANT NOTES FOR USE: ACR Lung-RADS Version 1.0 Assessment Categories Release Date: January 10, 2014 Category: Coded 0-4 bases on nodule(s) with highest degree of suspicion. Negative screen is defined as categories 1 and 2; a positive screen is defined as categories 3 and 4. Category 3 and 4A nodules that are unchanged on interval CT should be coded as category 2, and individuals returned to screening in 12 months. Category 4X: Category 3 or 4 nodules with additional imaging findings that increase the suspicion of lung cancer, such as spiculation, GGN that doubles in size in 1 year, enlarged lymph notes, etc. Category Modifiers: S (significant finding unrelated to lung cancer) and C (prior history of treated lung cancer) may be added to the 0-4 Lung-RADS Electronically Signed: Thaddeus Farias, at 15:42 EST , Service support ,
== END ==
PROVIDERS: PCP Family Medicine; Referring Provider Nurse Practitioner Family; Visit Provider Nurse Practitioner Family
DX: Z12.2 Encounter for screening for malignant neoplasm of respiratory organs (principal); F17.209 Nicotine dependence, unspecified, with unspecified nicotine-induced disorders
CPT/HCPCS: G0297

== ENCOUNTER 2021-01-23 19:08 | Emergency (ER) | payer OTHER, SELFPAY ==
[2020-08-29 14:12] VITALS: BMI 26.4
[2021-01-23 19:09] VITALS: BP 164/102; PULSE 77; RESP 15; TEMP 36; O2SAT 97; BMI 26.6
--- NOTE | 2021-01-23 19:37 | RAD_ITS ---
STUDY: X-RAY CHEST REASON FOR EXAM: Male, 60 years old. Shortness of breath. Inhalation of fumes TECHNIQUE: Frontal and lateral views of the chest. COMPARISON: 08/18/2017 FINDINGS: There is no new focal consolidation. The lungs remain hyperinflated. Normal size heart. Normal mediastinum and mihaela. Normal visualized pulmonary arteries. Normal visualized aortic arch and descending thoracic aorta. Normal visualized thoracic spine. Normal visualized ribs, clavicles, and shoulders. There is no demonstrated abnormality of the visualized soft tissue structures of the upper abdomen. RAD/Chest PA and Lateral IMPRESSION: No acute cardiopulmonary process. Electronically Signed: Corazon Mosley MD at 20:44 EDT Tel , Service support ,
[2021-01-23] MEDS: Ipratropium/Albuterol Sulfate 3 ML AMPUL.NEB INHALATION (19:46)
[2021-01-23 19:56] VITALS: O2SAT 98
[2021-01-23 20:20] VITALS: BP 135/82
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
[2021-01-23] MEDS: Ondansetron ODT 4 MG Tablet PO (21:23)
[2021-01-23 21:28] VITALS: BP 135/82
== END 2021-01-23 21:28 | disposition home or self-care (01) ==
PROVIDERS: Emergency Provider Emergency Medicine; PCP Family Medicine
DX: T65 Toxic effect of other and unspecified substances (principal); T30.4 Corrosion of unspecified body region, unspecified degree; Y93.89 Activity, other specified; Y92.9 Unspecified place or not applicable; Y99.0 Civilian activity done for income or pay; R06.02 Shortness of breath; I10 Essential (primary) hypertension; M19.90 Unspecified osteoarthritis, unspecified site; F17.210 Nicotine dependence, cigarettes, uncomplicated; F17.220 Nicotine dependence, chewing tobacco, uncomplicated; Z79.899 Other long term (current) drug therapy
CPT/HCPCS: 71046; 99283

== ENCOUNTER → 2021-05-31 | Outpatient (CLI) | payer OTHER, SELFPAY | END | disposition home or self-care (01) | LOC: LABSPEC 17:06 | PROVIDERS: PCP Family Medicine; Visit Provider Family Medicine | DX: Z20.822 Contact with and (suspected) exposure to COVID-19 (principal) | CPT/HCPCS: 87635; U0005; U0003 ==

== ENCOUNTER 2021-06-23 11:15 | Emergency (ER) | payer OTHER, SELFPAY ==
[2021-06-23 11:16] VITALS: BP 150/108; PULSE 82; RESP 16; TEMP 36.5; O2SAT 97; BMI 25.8
--- NOTE | 2021-06-23 11:35 | VDLE_ITS ---
Reason For Study: RLE PAIN RIGHT GSV is normal. CFV is compressible, spontaneous, phasic, competent and demonstrates normal augmentation. FV is compressible, spontaneous, phasic, competent and demonstrates normal augmentation. POP V is compressible, spontaneous, phasic, competent and demonstrates normal augmentation. T/P Trunk is compressible. PTV is compressible. RT PerV is compressible. Procedure This is a venous duplex using B-mode, color flow and spectral Doppler. Exam performed portable in ED. The exam was diagnostic. A preliminary report was called and/or faxed to Dr. Lozano @ 1:00pm. VL/Venous Duplex US, Unilateral Interpretation Summary Deep veins of the right lower extremity are patent and compressible segmentally . There is no evidence of right lower extremity deep vein thrombosis. Valvular competence papo ears intact within the proximal deep venous system on the right . The right great saphenous vein a ppears patent and compressible segmentally. Ordering Physician: Alfie Lozano Referring Physician: You Bragg Performed By: Tracy Griffin, KEENA, RVT
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
== END 2021-06-23 13:41 | disposition home or self-care (01) ==
PROVIDERS: Emergency Provider Emergency Medicine; PCP Family Medicine
DX: S83.91XA Sprain of unspecified site of right knee, initial encounter (principal); X50.1XXA Overexertion from prolonged static or awkward postures, initial encounter; Y93.9 Activity, unspecified; Y92.9 Unspecified place or not applicable; Y99.9 Unspecified external cause status; I10 Essential (primary) hypertension; M19.90 Unspecified osteoarthritis, unspecified site; F17.210 Nicotine dependence, cigarettes, uncomplicated; F17.220 Nicotine dependence, chewing tobacco, uncomplicated; Z79.899 Other long term (current) drug therapy
CPT/HCPCS: 93971; 99282

== ENCOUNTER 2021-10-09 15:01 | Outpatient (CLI) | payer OTHER, SELFPAY ==
--- NOTE | 2021-10-09 15:05 | CT_ITS ---
STUDY: LOW DOSE CT LUNG CANCER SCREENING REASON FOR EXAM: Male, 61 years old. Lung cancer screening -- 46 pk yr hx; current smoker; asymptomatic RADIATION DOSAGE (If Supplied By Facility): CTDIvol = ( 3.02 ) mGy, DLP = ( 111.74 ) mGycm TECHNIQUE: No contrast was administered. Low dose technique was utilized (average mAS-38 and kVp 120). 1.25 mm axial source images with a slice interval of 1.25-mm were reconstructed in lung windows. 2.5 mm axial source images with a slice interval of 2.5-mm were reconstructed in lung windows. 5.0 mm axial source images with a slice interval of 5.0-mm were reconstructed in soft tissue windows. Nodule measured using lung windows on PACS and/or independent workstation with automated measurement of minimum and maximum diameter. Nodule measurement reported as average diameter rounded to the nearest whole number. Growth is defined as an increase ins size of greater than 1.5 mm. COMPARISON: Comparison is made with prior study of 08/29/2020. NODULES: No suspicious nodules are seen. Emphysema: No significant emphysematous changes are present. Endobronchial lesion: None Aorta: Atherosclerotic plaque formation of the aortic arch. Coronary arteries: Unremarkable Heart: Unremarkable Pulmonary artery: Unremarkable Mediastinal nodes: Stable small benign-appearing mediastinal lymph nodes. Other chest and abdominal findings: CT/Low Dose CT Lung Screening IMPRESSION: Lung-RADS category 2 - Continue annual screening with LDCT in 12 months. IMPORTANT NOTES FOR USE: ACR Lung-RADS Version 1.1 Assessment Categories Release Date: 2018 Category: Coded 0-4 bases on nodule(s) with highest degree of suspicion. Negative screen is defined as categories 1 and 2; a positive screen is defined as categories 3 and 4. Category 3 and 4A nodules that are unchanged on interval CT should be coded as category 2, and individuals returned to screening in 12 months. Category 4X: Category 3 or 4 nodules with additional imaging findings that increase the suspicion of lung cancer, such as spiculation, GGN that doubles in size in 1 year, enlarged lymph notes, etc. Category Modifiers: S (significant finding unrelated to lung cancer) Electronically Signed: Thaddeus Farias MD at 15:26 EST ,
== END 2021-10-09 23:59 | disposition short-term general hospital (02) ==
PROVIDERS: PCP Family Medicine; Visit Provider Nurse Practitioner Family
DX: Z12.2 Encounter for screening for malignant neoplasm of respiratory organs (principal); Z87.891 Personal history of nicotine dependence
CPT/HCPCS: 71271

== ENCOUNTER → 2022-02-21 | Outpatient (CLI) | payer OTHER, SELFPAY ==
[2022-02-21 17:52] LABS: Absolute Neutrophil Count 4.7 X10^3/uL (2.0-7.7); Basophil# 0.07 X10^3/uL; Basophil% 0.7 % (0-1); Eosinophil# 0.24 X10^3/uL; Eosinophils% 2.5 % (0-5); Hematocrit 43.1 % (40-54); Hemoglobin 14.6 g/dL (13.0-16.5); Lymphocyte % 35.4 % (19-41); Mean Corp Hgb Conc 33.9 g/dL (32-36); Mean Corpuscular Volume 88.7 fL (80-94); Mean Platelet Vol. 11.6 fl (6.2-12.0); Monocyte# 1.13 X10^3/uL; Monocyte% 11.8 % (0-10); NRBC Flagged by Analyzer 0 % (0-5); Neutrophil # 4.74 X10^3/uL (2.7-7.7); Neutrophil % 49.3 % (47-70); Platelet Count 241 K/mm3 (150-450); RBC Distribution Width CV 12.7 % (11.6-14.6); RBC Distribution Width SD 41.7 fl (35.1-43.9); Red Blood Count 4.86 M/mm3 (4.6-6.2); White Blood Count 9.6 K/mm3 (4.4-11.0)
[2022-02-21 18:34] LABS: Albumin, Serum 3.8 g/dL (3.2-5.0); BUN 16 mg/dL (7-18); BUN/Creat Ratio 19.2 RATIO (10-20); Creatinine, Serum 0.83 mg/dL (0.70-1.30); EST Glomerular Filtration Rate 100 mL/min (>60); Est Glom Filt Rate - Afr Amer 121 mL/min (>60); Glucose 87 mg/dL (74-106); Protein, Total 7.2 g/dL (6.4-8.2)
[2022-02-21 18:35] LABS: ALB/GLOB Ratio 1.1 RATIO (0.9-2.4); AST(SGOT) 23 U/L (15-37); Alanine Aminotransfer ALT/SGPT 33 U/L (16-61); Alkaline Phosphatase 66 U/L (45-117); Anion Gap 7 (5-15); Calcium,Total 9.3 mg/dL (8.5-10.1); Chloride 107 mmol/L (98-107); Globulin 3.4 g/dL (2.2-4.2); Potassium 4.1 mmol/L (3.5-5.1); Sodium Level 140 mmol/L (136-145); Thyroid Stim Hormone (TSH) 2.25 uIU/mL (0.358-3.74)
== END | disposition home or self-care (01) ==
LOC: MTLAB 16:47
PROVIDERS: PCP Family Medicine; Referring Provider Family Medicine; Visit Provider Family Medicine
DX: R56.9 Unspecified convulsions (principal); I10 Essential (primary) hypertension
CPT/HCPCS: 36415; 80053; 84443; 85025

== ENCOUNTER → 2022-07-03 | Outpatient (CLI) | payer OTHER, SELFPAY ==
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
[2022-07-03 13:15] LABS: EGFR FINGERSTICK > 60.0000 mL/min (>60)
== END | disposition home or self-care (01) ==
PROVIDERS: PCP Family Medicine; Referring Provider Emergency Medicine; Visit Provider Emergency Medicine
DX: S32.039A Unspecified fracture of third lumbar vertebra, initial encounter for closed fracture (principal); S32.049A Unspecified fracture of fourth lumbar vertebra, initial encounter for closed fracture; S22.41XA Multiple fractures of ribs, right side, initial encounter for closed fracture; W19.XXXA Unspecified fall, initial encounter; R31.9 Hematuria, unspecified
CPT/HCPCS: 71250; 74160; Q9967

== ENCOUNTER → 2022-07-09 | Outpatient (CLI) | payer OTHER, SELFPAY ==
[2022-07-09 10:18] LABS: Hemoglobin 15.5 g/dL (13.0-16.5); Mean Corp Hgb Conc 34.4 g/dL (32-36); Mean Corpuscular Hgb 30.8 pg (27.0-32.0); Mean Corpuscular Volume 89.3 fL (80-94); Mean Platelet Vol. 10.9 fl (6.2-12.0); Platelet Count 248 K/mm3 (150-450); RBC Distribution Width CV 13.1 % (11.6-14.6); RBC Distribution Width SD 42.7 fl (35.1-43.9); Red Blood Count 5.04 M/mm3 (4.6-6.2); White Blood Count 8.2 K/mm3 (4.4-11.0)
[2022-07-09 10:42] LABS: ALB/GLOB Ratio 0.9 RATIO (0.9-2.4); AST(SGOT) 20 U/L (15-37); Alanine Aminotransfer ALT/SGPT 27 U/L (16-61); Albumin, Serum 3.4 g/dL (3.2-5.0); Alkaline Phosphatase 72 U/L (45-117); BUN 9 mg/dL (7-18); BUN/Creat Ratio 12.7 RATIO (10-20); Calcium,Total 8.8 mg/dL (8.5-10.1); Creatinine, Serum 0.71 mg/dL (0.70-1.30); EST Glomerular Filtration Rate 121 mL/min (>60); Est Glom Filt Rate - Afr Amer 146 mL/min (>60); Globulin 3.8 g/dL (2.2-4.2); Glucose 111 mg/dL (74-106); Protein, Total 7.2 g/dL (6.4-8.2)
[2022-07-09 10:43] LABS: Anion Gap 5 (5-15); Chloride 109 mmol/L (98-107); Potassium 3.8 mmol/L (3.5-5.1); Sodium Level 138 mmol/L (136-145); Thyroid Stim Hormone (TSH) 4.03 uIU/mL (0.358-3.74)
[2022-07-09 10:58] LABS: Amphetamine Urine VISTA NEGATIVE (<1000 ng/mL); Barbiturate Urine VISTA POSITIVE (< 200 ng/mL); Benzodiazepine Urine VISTA NEGATIVE (< 200 ng/mL); Cocaine Urine VISTA NEGATIVE (< 300 ng/mL); Ecstacy Urine VISTA NEGATIVE (< 500 ng/mL); Methadone Urine VISTA NEGATIVE (< 300 ng/mL); PCP Urine VISTA NEGATIVE (< 25 ng/mL); THC Urine VISTA NEGATIVE (< 50 ng/mL); Vista UDS pH Range 5
== END | disposition home or self-care (01) ==
LOC: MTLAB 08:01
PROVIDERS: PCP Family Medicine; Referring Provider Psychiatry & Neurology Neurology; Visit Provider Psychiatry & Neurology Neurology
DX: G25.0 Essential tremor (principal); G43.109 Migraine with aura, not intractable, without status migrainosus
CPT/HCPCS: 36415; 80053; 80307; 82140; 84443; 85027

== ENCOUNTER 2022-07-15 08:01 | Emergency (ER) | payer OTHER, SELFPAY ==
[2022-07-15 08:01] VITALS: BP 117/80; PULSE 60; RESP 16; TEMP 36.1; O2SAT 99; BMI 25.8
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
[2022-07-15] MEDS: Ondansetron 4 MG/2 ML Vial IV (08:25)
[2022-07-15] MEDS: 0.9% Normal Saline 1,000 ML 999 ML IV (08:25)
[2022-07-15 08:30] LABS: Absolute Lymphocyte Count 2.42 X10^3/uL (0.83-4.51); Absolute Neutrophil Count 4.1 X10^3/uL (2.0-7.7); Basophil# 0.04 X10^3/uL; Basophil% 0.5 % (0-1); Eosinophil# 0.03 X10^3/uL; Eosinophils% 0.4 % (0-5); Hematocrit 45.8 % (40-54); Hemoglobin 15.4 g/dL (13.0-16.5); Lymphocyte # 2.42 X10^3/ul (0.83-4.51); Lymphocyte % 29.4 % (19-41); Mean Corp Hgb Conc 33.6 g/dL (32-36); Mean Corpuscular Volume 89.1 fL (80-94); Mean Platelet Vol. 10.3 fl (6.2-12.0); Monocyte# 1.62 X10^3/uL; Monocyte% 19.7 % (0-10); NRBC Flagged by Analyzer 0 % (0-5); Neutrophil # 4.06 X10^3/uL (2.7-7.7); Neutrophil % 49.2 % (47-70); POSITIVE DIFFERENTIAL YES; Platelet Count 270 K/mm3 (150-450); RBC Distribution Width CV 13.2 % (11.6-14.6); RBC Distribution Width SD 43.1 fl (35.1-43.9); Red Blood Count 5.14 M/mm3 (4.6-6.2); White Blood Count 8.2 K/mm3 (4.4-11.0)
[2022-07-15 08:34] LABS: Differential Indicated SCAN CRITERIA MET
[2022-07-15 08:43] LABS: ALB/GLOB Ratio 0.9 RATIO (0.9-2.4); AST(SGOT) 26 U/L (15-37); Alanine Aminotransfer ALT/SGPT 28 U/L (16-61); Albumin, Serum 3.5 g/dL (3.2-5.0); Alkaline Phosphatase 72 U/L (45-117); Anion Gap 9 (5-15); BUN 13 mg/dL (7-18); BUN/Creat Ratio 13.5 RATIO (10-20); Calcium,Total 8.8 mg/dL (8.5-10.1); Chloride 102 mmol/L (98-107); Creatinine, Serum 0.96 mg/dL (0.70-1.30); EST Glomerular Filtration Rate 85 mL/min (>60); Est Glom Filt Rate - Afr Amer 102 mL/min (>60); Estimated Creatinine Clearance 81.83 ml/min; Globulin 3.7 g/dL (2.2-4.2); Glucose 98 mg/dL (74-106); Potassium 4.3 mmol/L (3.5-5.1); Protein, Total 7.2 g/dL (6.4-8.2); Sodium Level 136 mmol/L (136-145)
== END 2022-07-15 10:06 | disposition home or self-care (01) ==
PROVIDERS: Emergency Provider Emergency Medicine; PCP Family Medicine; Visit Provider Emergency Medicine
DX: K92.1 Melena (principal); F17.210 Nicotine dependence, cigarettes, uncomplicated; F17.220 Nicotine dependence, chewing tobacco, uncomplicated; I10 Essential (primary) hypertension; Z79.899 Other long term (current) drug therapy
CPT/HCPCS: 80053; 85025; 96365; 96375; 99283; J7030; A4216; J2405; J3490

== ENCOUNTER → 2022-07-18 | Outpatient (CLI) | payer OTHER, SELFPAY ==
[2022-07-18 18:07] LABS: Absolute Lymphocyte Count 3.61 X10^3/uL (0.83-4.51); Basophil# 0.03 X10^3/uL; Basophil% 0.4 % (0-1); Eosinophil# 0.17 X10^3/uL; Eosinophils% 2.2 % (0-5); Hematocrit 43.7 % (40-54); Hemoglobin 15.2 g/dL (13.0-16.5); Lymphocyte # 3.61 X10^3/ul (0.83-4.51); Lymphocyte % 45.9 % (19-41); Mean Corp Hgb Conc 34.8 g/dL (32-36); Mean Corpuscular Hgb 30.8 pg (27.0-32.0); Mean Corpuscular Volume 88.5 fL (80-94); Mean Platelet Vol. 11.3 fl (6.2-12.0); Monocyte# 0.97 X10^3/uL; Monocyte% 12.3 % (0-10); NRBC Flagged by Analyzer 0 % (0-5); Neutrophil # 3.04 X10^3/uL (2.7-7.7); Neutrophil % 38.7 % (47-70); Platelet Count 251 K/mm3 (150-450); RBC Distribution Width CV 13.2 % (11.6-14.6); RBC Distribution Width SD 42.5 fl (35.1-43.9); Red Blood Count 4.94 M/mm3 (4.6-6.2); White Blood Count 7.9 K/mm3 (4.4-11.0)
[2022-07-18 18:11] LABS: Prothrombin Time (Protime)PT. 12.6 SECONDS (11.7-14.9)
[2022-07-18 18:25] LABS: Erythrocyte Sedimentation Rate 16 mm/hr (0-20)
[2022-07-18 19:17] LABS: AST(SGOT) 23 U/L (15-37); Alanine Aminotransfer ALT/SGPT 28 U/L (16-61); Albumin, Serum 3.6 g/dL (3.2-5.0); Alkaline Phosphatase 80 U/L (45-117); Anion Gap 8 (5-15); BUN 13 mg/dL (7-18); BUN/Creat Ratio 17.2 RATIO (10-20); CRP < 2.90 mg/L (0.0-3.0); Calcium,Total 8.7 mg/dL (8.5-10.1); Chloride 108 mmol/L (98-107); Creatinine, Serum 0.76 mg/dL (0.70-1.30); EST Glomerular Filtration Rate 112 mL/min (>60); Est Glom Filt Rate - Afr Amer 135 mL/min (>60); Ferritin 454 ng/mL (26-388); Globulin 3.5 g/dL (2.2-4.2); Glucose 103 mg/dL (74-106); Iron 48 ug/dL (65-175); Iron Binding Capacity,Total 334 ug/dL (250-450); LDH 235 U/L (87-241); PERCENT IRON SATURATION 14.4 % (15.0-55.0); Potassium 3.8 mmol/L (3.5-5.1); Protein, Total 7.1 g/dL (6.4-8.2); Sodium Level 137 mmol/L (136-145)
[2022-07-20 14:10] LABS: Anti-Centromere B Ab <0.2 AI (0.0-0.9); Anti-Chromatin <0.2 AI (0.0-0.9); Anti-Jo <0.2 AI (0.0-0.9); Anti-Scleroderma-70 AB <0.2 AI (0.0-0.9); RNP Ab 0.2 AI (0.0-0.9); SJOGREN'S Anti-SS-A test < 0.2 AI (0.0-0.9); SJOGREN'S Anti-SS-B test < 0.2 AI (0.0-0.9); Smith Ab <0.2 AI (0.0-0.9)
[2022-07-20 15:22] LABS: Anti-Mitochondrial AB <20.0 Units (0.0-20.0); Anti-dsDNA Ab 2 IU/mL (0-9)
[2022-07-22 19:07] LABS: Cytoplasmic Ab (C-ANCA) <1:20 titer (Neg:<1:20); Endomysial Antibody IgA Negative (Negative); HCV Quant. RNA PCR HCV Not Detected IU/mL (.); Immunoglobulin A 281 mg/dL (90-386)
[2022-07-26 14:27] LABS: AFP, Tumor Marker 3.1 ng/mL (0.0-8.4); Anti-Smooth Muscle ABS 9 Units (0-19); Perinuclear Ab (P-ANCA) <1:20 titer (Neg:<1:20); t-Transglutaminase IgA <2 U/mL (0-3)
== END | disposition home or self-care (01) ==
LOC: MTLAB 14:53
PROVIDERS: PCP Family Medicine; Referring Provider Nurse Practitioner Adult Health; Visit Provider Nurse Practitioner Adult Health
DX: R19.7 Diarrhea, unspecified (principal); Z86.19 Personal history of other infectious and parasitic diseases
CPT/HCPCS: 36415; 80053; 82105; 82140; 82728; 82784; 83516; 83540; 83550; 83615; 85025; 85610; 85652; 86140; 86225; 86235; 86255; 86256; 87522

== ENCOUNTER → 2022-07-20 | Outpatient (CLI) | payer OTHER, SELFPAY ==
[2022-07-26 14:30] LABS: Calprotectin, Stool 135 ug/g (0-120)
== END | disposition home or self-care (01) ==
LOC: LABSPEC 09:30
PROVIDERS: PCP Family Medicine; Referring Provider Nurse Practitioner Adult Health; Visit Provider Nurse Practitioner Adult Health
DX: R19.7 Diarrhea, unspecified (principal); K58.9 Irritable bowel syndrome, unspecified; Z86.19 Personal history of other infectious and parasitic diseases
CPT/HCPCS: 83630; 83993; 87177; 87209; 87493; 87506

== ENCOUNTER 2022-07-26 09:51 | Day surgery (SDC) | payer OTHER, SELFPAY ==
--- NOTE | 2022-07-26 | CALC_PTH ---
PATIENT: CHERRIE TREVIÑO [place] [facility] [id number] AGE/SX: 61/M ROOM: RE07/26/[address]: Dr. Ted Jefferson MD : 1960 BED: DIS: 07/26/2022 SPEC #: [id number] RECD: 07/26/22 15:39 STATUS: VAUGHN LAI #: [id number] WILTON: 07/26/22 00:[address]: Ted Jefferson DEPT: SURGICAL PATHOLOGY RECD BY: Ivan Hernandez ENTERED: 07/29/22 09:36 SP TYPE: Calculi OTHR DR: Dr. You Bragg MD Tissues: CALCULI Procedures: Surgery Specimen Level I HEADER OPERATION: Left ureteroscopy, laser left ureteral calculi PRE-OP DIAGNOSIS: Left ureteral calculi TISSUE SUBMITTED: Left ureteral calculi pieces GROSS DIAGNOSIS A fragment of stone, clinically Left ureteral calculus. /SJ 07/30/22 COMMENT The calculus is submitted in its entirety for chemical stone analysis. The results from this study will be reported separately. GROSS DESCRIPTION Received without fixative labeled with the patient's name and designated ureteral calculi. The specimen consists of a fragment of brown stone measuring 0.2 x 0.1 x 0.1 cm. The entire specimen is submitted for stone analysis. /TY:alexander 07/29/22 CPT: 89194
[2022-07-26 10:09] VITALS: BP 136/81; PULSE 70; RESP 16; TEMP 36.4; O2SAT 97; BMI 24.7
[2022-07-26] MEDS: Lactated Ringers 1,000 ML 15 ML IV ×2 (10:13→13:00)
[2022-07-26] MEDS: Cefazolin 2 GM in 0.9% Normal Saline 100 ML IV (12:28)
--- NOTE | 2022-07-26 12:36 | DCINST_ITS ---
Discharge Instructions Diet Discharge Diet: No restrictions, Light diet - advance as tolerated and Soft diet Activity Discharge Activity: Return to Normal Activity Additional Activity Instructions:: use tylenol 500mg q 4h prn pain, Ibuprofen 600mg 1 po q4 hours prn pain, OTC AZO for bladder for burning with urination. Follow Up Care Please Follow Up With: Ted Jefferson MD When: next week to remove stent Test Results: Test results from this visit will be discussed in further detail at your follow- up appointment, if applicable. Discharge Plan Admission Primary Reason for Your Visit: kidney stone Attending Provider: Ted Jefferson Primary Care Provider: You Bragg Instructions Patient Instructions: Having a Ureteral Stent Discharge Orders/Prescriptions Prescriptions: New ciprofloxacin HCl [Cipro] 500 mg tablet 500 mg PO BID Qty: 6 0RF Continued tamsulosin 0.4 mg capsule 0.4 mg PO DAILY propranolol [Inderal LA] 60 mg capsule,extended release 24 hr 60 mg PO DAILY topiramate 50 mg tablet 50 mg .ROUTE .COMPLEX Qty: 60 4RF Rx Instructions: Take 1/2 tablet PO twice per day for 1 week then 1 tablet twice per day thereafter ondansetron HCl 4 mg tablet 4 mg PO TID PRN (Reason: nausea and vomiting) Qty: 90 3RF pantoprazole 40 mg tablet,delayed release (DR/EC) 40 mg PO DAILY Qty: 90 1RF lisinopril 5 MG tablet 5 mg PO DAILY Qty: 30 0RF meloxicam 15 MG tablet 15 mg PO DAILY albuterol sulfate [Ventolin HFA] 90 mcg/actuation HFA aerosol inhaler 1 - 2 puff inhalation Q4H PRN PRN (Reason: Wheezing) Qty: 1 0RF sumatriptan succinate 50 mg tablet 50 mg PO BID Rx Instructions: 50 mg PO every two hours as needed for headache up to two tablets per day sucralfate [Carafate] 1 gram tablet 1 g PO TID 14 Days Qty: 42 0RF Referrals / Follow Up: Ted Jefferson MD [Med Staff - Active Staff] - Yuo Bragg MD [Primary Care Provider] - Disposition Disposition (needs filled in before D/C Order can be placed): Home, Self Care
--- NOTE | 2022-07-26 12:38 | OP.PCM_ITS ---
Report of Operation Date of Procedure: 07/26/22 Pre-Operative Diagnosis: left mid ureterl calculi Post-Operative Diagnosis: same Surgery/Procedure Performed:: Cystoscopy, balloon dilation of the left ureter, left ureteroscopy laser lithotripsy of stone, left stent placement, left retrograde Polygram interpretation fluoroscopic images Description of Surgical Findings:: This is a patient who presents to the hospital for treatment for an obstructing distal ureter calculi. I discussed with the patient how the surgery would be performed and we reviewed the risks and benefits of the surgery. The risk and benefits include the risk of failure to remove the stone completely and that the patient may need multiple procedures. We discussed the risk of an infection, the risk of bleeding. We discussed the very rare risk of serious complicated injury to the ureter. The patient understands that if the stone is not able to be removed safely that we may abort the procedure and place a stent. After full discussion and all questions address with the patient the consent form was signed the side was marked appropriately and the patient was taken back to the operating room for the procedure. The patient was taken back to the operating room. After induction of anesthesia by the anesthesiology team the patient was placed in dorsolithotomy position. The genitals were prepped and draped in usual sterile fashion. I went into the bladder with a 21 Gabonese rigid cystourethroscope through the urethra. Upon entering the bladder I inspected the trigone the left and right ureteral orifice and the bladder itself. I then cannulated the LEFT ureteral orifice and advanced a 0.038 Glidewire up into the kidney. Then over the Glidewire I advanced a 5 Fr Ureteral catheter and performed a retrograde pyelogram with about 10cc of contrast, to delineate the anatomy and identify the stone location. Then a ureteral balloon dilator was advanced over the wire and the distal ureter was balloon dilated with a 12 Fr x 5cm balloon dilator. After 3 minutes of dilating the ureter the balloon was backloaded off the 0.038 glidewire then the safety wire was left in place. I then placed a second 0.038 Guidewire as a working wire and over the working 0.038 guidewire I went in with the flexible 7.5fr ureteroscope. I was able to go inside with the 7.5Fr utereroscope and I pulled out the working guidewire and then through the ureteroscope I engage the stone with laser lithotripsy using a 270miron laser fiber with energy setting of 6 Hertz and 0.6 J until the stone was lasered into tiny little pieces that should pass on their own. A retrograde pyelogram was performed with 10cc of contrast and no extravasation of contrast or perforation was identified in the ureter there was some mild irritation of the ureter where the stone was located. I then backed out of the ureter left the wire in place and then over the 0.038 guidewire I placed a double coiled pigtail ureteral stent. The ureteral stent was advanced over the 0.038 guidewire under direct fluoroscopic guidance and direct cystoscopic visual guidance, once the stent was in good position I pulled the wire and the stent coiled in the kidney and bladder in good position. I then drained the patient's bladder and the cystoscope was removed and the patient was taken back to the recovery room in good position. The patient was given discharge instructions to call the office for instructions on when to come to the office to have the stent removed. The stone was impacted in the ureter and the ureter is a risk for stricture so will leave a stent in for two weeks to hopefully avoid a stricture. Surgeon: Ted Jefferson Type of Anesthesia: General Drains: stent Admit VTE Documentation VTE Present on Admission: No
[2022-07-26 13:25] VITALS: BP 115/82; BP 136/81; PULSE 51; RESP 16; TEMP 35.8; O2SAT 98
[2022-07-26 13:30] VITALS: BP 111/71; BP 136/81; PULSE 53; RESP 16; O2SAT 97
[2022-07-26 13:45] VITALS: BP 117/83; BP 136/81; PULSE 60; RESP 16; O2SAT 98
[2022-07-26 13:55] VITALS: BP 136/81; BP 139/99; PULSE 57; RESP 16; TEMP 36.1; O2SAT 98
[2022-07-26 14:07] VITALS: BP 136/81
[2022-08-10 12:56] LABS: Source LEFT URETER
== END 2022-07-26 14:28 | disposition home or self-care (01) ==
LOC: SDC 09:53 → AC 09:54
PROVIDERS: PCP Family Medicine; Referring Provider Urology; Visit Provider Urology
PROC: 0TJ98ZZ Inspection of Ureter, Via Natural or Artificial Opening Endoscopic (ICD-10-PCS; CPT 52352; principal; 2022-07-26 11:50)
DX: N20.1 Calculus of ureter (principal)
CPT/HCPCS: 52353; 00918; 76000; 82360; 88300; J7120; C1769; C2617; J2405

== ENCOUNTER → 2022-08-12 | Outpatient (CLI) | payer OTHER, SELFPAY ==
--- NOTE | 2022-08-12 07:12 | US_ITS ---
STUDY: ABDOMINAL ULTRASOUND - RIGHT UPPER QUADRANT REASON FOR VISIT: Male, 61 years old elevated ammonia, hx hep c, elastography TECHNIQUE: Ultrasound evaluation of the right upper quadrant was performed with real-time and static mora-scale imaging. TECHNICAL QUALITY: Adequate. COMPARISON: Comparison is made with prior study 03/22/2015. FINDINGS: Liver: The liver measures 14.6 cm. There is normal echogenicity of the liver. The bile ducts are within normal limits. There is hepatic color flow. The direction of portal flow is hepatopetal. There is no demonstrated mass lesion. Gallbladder: Normal distended gallbladder. The gallbladder wall measures 1.7 mm. There is a negative sonographic Coffey''s sign. There is no pericholecystic fluid. There are no gallstones. Common Bile Duct (C.B.D.): The common bile duct measures 4.4 mm. Pancreas: Normal size of the head, body and tail of the pancreas. There is normal echogenicity of the pancreas. There is no demonstrated pancreatic mass or cyst. Right Kidney: Normal size of the right kidney. The right kidney measures 11.4 cm x 5.7 cm x 4.4 cm. Normal renal cortex. The right cortex measures 1.2 cm. There is a 1.2 cm x 1.2 cm x 1.1 cm cyst in the upper pole of the right kidney. There is no right hydronephrosis. US/Abdomen Limited IMPRESSION: Right renal cysts. Electronically Signed: Thaddeus Farias MD at 15:33 EST ,
--- NOTE | 2022-08-12 07:12 | US_ITS ---
STUDY: ABDOMINAL ULTRASOUND - ELASTOGRAPHY REASON FOR VISIT: Male, 61 years old. TECHNIQUE: Liver stiffness measurements were obtained on a [employer] RS 85 ultrasound machine using a CA 1-7 probe following the SRU guidelines. 3 measurements were obtained using a 2-D-SWE method. The IQR/M was 17% suggesting a quality data set. TECHNICAL QUALITY: Adequate. COMPARISON: Comparison is made with prior study done earlier in the day. FINDINGS: Liver: There is no demonstrated mass lesion. Median liver stiffness measured 5.9 kPa. US/Elastography Parenchyma/Organ IMPRESSION: Liver stiffness measures 5.9 kPa compatible with F2-F3 (Mild to moderate liver fibrosis) Metavir score. Electronically Signed: Thaddeus Farias MD at 15:34 EST ,
== END | disposition home or self-care (01) ==
PROVIDERS: PCP Family Medicine; Referring Provider Nurse Practitioner Adult Health; Visit Provider Nurse Practitioner Adult Health
DX: E72.20 Disorder of urea cycle metabolism, unspecified (principal); Z86.19 Personal history of other infectious and parasitic diseases
CPT/HCPCS: 76705; 76981

== ENCOUNTER 2022-09-19 06:11 | Day surgery (SDC) | payer OTHER, SELFPAY ==
[2022-09-19] VITALS (7 sets, daily range): BP systolic 80–155; BP diastolic 53–94; PULSE 57–69; RESP 16; TEMP 36.1–36.6; O2SAT 95–99; BMI 25.1
--- NOTE | 2022-09-19 06:31 | HP.PCM_ITS ---
History and Physical Date of Admission: 09/19/22 CHERRIE TREVIÑO, is a 61 M who presents to the office today for f/u ED visit on 07/15/22 for vomiting yellow and black goo and black stools. He had been taking lots of Pepto Bismol. Hgb was 15.4. He was put on sucralfate, ondansetron and pantoprazole. He does feel better--still has some nausea but much less, no further vomiting. He gets motion sickness easily now. No dysphagia. No heartburn. No abd pain. Still some intermittent cramps in mid and lower abdomen. Intermittent watery diarrhea, that follows a normal BM. Can have diarrhea 6x a day, can be urgent, the diarrhea has awoken him in the night. No hematochezia. GI symptoms began about a month ago. Has lost a few lbs of weight this past week, decreased appetite. 07/03/22 CT abd pel w/ IV: unremarkable GI; incidental finding obstructing left ureteral stone. He will have lithotripsy by Dr Jefferson next week for 8 mm left ureteral stone w/ hydronephrosis found incidentally on CT done following a fall for which he was seen in the ED. Has felt tired this past year. Seeing neurologist Dr Izaguirre for headaches. Takes meloxicam daily for back arthritis Colonosopy [facility] about 2 yrs ago, polyps, told to repeat 5 yrs Paternal grandmother colon cancer Hx hepatitis C treated at [facility] about 18 yrs ago Reports hx alcohol abuse. Smoker x 45 yrs, and chews tobacco. ROS Const Constitutional: Positive for fatigue ENT ENT: No difficulty swallowing Gastro GI: No abdominal pain, belching, bloating, change in bowel habits, change in stool character, coffee ground emesis, constipation, cramping, diarrhea, heartburn, difficulty swallowing, feeling full early, excessive flatus, incontinent of stools, Vomiting blood/hematemesis, Blood in stool, loose stools, Black,tarry stools, nausea/dyspepsia, pain with swallowing, vomiting or other Musc Musculoskeletal: Positive for muscle cramps, muscle weakness, numbness and Arthritis; No joint pain Skin Skin: No yellowing of the eye or itchy eyes Neuro Neurology: Positive for numbness Psych Psychiatric: No anxiety and No depression Endo Endocrine: Positive for fatigue Aller/Imm Allergy/Immunologic: No itchy eyes Barrera/Lymp Hematologic/Lymphatic: No easy bleeding or easy bruising Exam Const General: cooperative and comfortable Nutritional Appearance: average body habitus Orientation: alert, awake and oriented x3 HENMT Head: normal to inspection Eyes General: appearance normal, both eyes and all related structures Resp Effort & Inspection: normal respiratory effort GI Inspection: normal to inspection Palpation: soft, no hepatosplenomegaly, no masses and nontender Skin General: no rashes or lesions noted and no jaundice Neuro Gait: normal gait Quality Reporting Tobacco Screening (CMS 138) Smoking Status: Current every day smoker Assessment and Plan Assessment and Plan (1) Diarrhea: ?Status:?Acute ?Plan: 61-year-old male with recent ED visit for concern for coffee-ground emesis and black stools; with normal hemoglobin this was felt to be discoloration due to Pepto-Bismol.? He has been taking Pepto-Bismol due to diarrhea.? His nausea, vomiting have improved significantly on sucralfate, ondansetron and pantoprazole.? He is scheduled for lithotripsy for an obstructing left ureteral stone next week.? Today we will get blood tests and stool tests ordered.? He will be scheduled for EGD and colonoscopy.? He will continue pantoprazole, Rx was sent in.? Differential diagnosis includes esophagitis, peptic ulcer disease, malignancy, infection.? We will also get labs to follow-up his history of hepatitis C which was treated almost 20 years ago.? Follow-up after endoscopies. (2) Hx of hepatitis C: ?Status:?Acute ?Plan: Labs today ? ? ? Orders: Orders CRP Today R19.7 - Diarrhea, unspecified, Z86.19 - Personal history of other infectious and parasitic diseases ? Erythrocyte Sed Rate Today R19.7 - Diarrhea, unspecified, Z86.19 - Personal history of other infectious and parasitic diseases ? Celiac Disease Profile Today R19.7 - Diarrhea, unspecified, Z86.19 - Personal history of other infectious and parasitic diseases ? Comprehensive Metabolic Profil Today R19.7 - Diarrhea, unspecified, Z86.19 - Personal history of other infectious and parasitic diseases ? CBC W/Diff, Automated Today R19.7 - Diarrhea, unspecified, Z86.19 - Personal history of other infectious and parasitic diseases ? LDH Today R19.7 - Diarrhea, unspecified, Z86.19 - Personal history of other infectious and parasitic diseases ? Calprotectin, Stool Today R19.7 - Diarrhea, unspecified, Z86.19 - Personal history of other infectious and parasitic diseases ? Stool Lactoferrin/WBC Today K58.9 - Irritable bowel syndrome without diarrhea, R19.7 - Diarrhea, unspecified, Z86.19 - Personal history of other infectious and parasitic diseases ? AFP, Tumor Marker Today R19.7 - Diarrhea, unspecified, Z86.19 - Personal history of other infectious and parasitic diseases ? Hepatitis C,RNA PCR Viral Load Today R19.7 - Diarrhea, unspecified, Z86.19 - Personal history of other infectious and parasitic diseases ? Prothrombin Time w/INR Today R19.7 - Diarrhea, unspecified, Z86.19 - Personal history of other infectious and parasitic diseases ? Ammonia Today R19.7 - Diarrhea, unspecified, Z86.19 - Personal history of other infectious and parasitic diseases ? Ferritin Today R19.7 - Diarrhea, unspecified, Z86.19 - Personal history of other infectious and parasitic diseases ? OMAR Comprehensive Panel Today R19.7 - Diarrhea, unspecified, Z86.19 - Personal history of other infectious and parasitic diseases ? ANCA Today R19.7 - Diarrhea, unspecified, Z86.19 - Personal history of other infectious and parasitic diseases ? Anti-Smooth Muscle ABS Today R19.7 - Diarrhea, unspecified, Z86.19 - Personal history of other infectious and parasitic diseases ? Anti-Mitochondrial AB Today R19.7 - Diarrhea, unspecified, Z86.19 - Personal history of other infectious and parasitic diseases ? Iron+Iron Binding Capacity Today R19.7 - Diarrhea, unspecified, Z86.19 - Personal history of other infectious and parasitic diseases ? ENTERIC PATHOGEN PANEL STOOL Today K58.9 - Irritable bowel syndrome without diarrhea ? CDIFF (PCR) Today R19.7 - Diarrhea, unspecified ? Ova and Parasites 8623 Today K58.9 - Irritable bowel syndrome without diarrhea ? Medications: Refilled pantoprazole 40 mg? PO DAILY 90 tabs 1RF ? ? I have examined the patient and the H&P has been reviewed. There are no clinical changes since date of exam.
[2022-09-19] MEDS: Lactated Ringers 1,000 ML 15 ML IV (06:43)
--- NOTE | 2022-09-19 07:15 | EGD_PTH ---
PATIENT: CHERRIE TREVIÑO LOC: EN U#:[id number] AGE/SX: 62/M ROOM: RE09/19/[address]: Dr. Wiliam Squires DO : 1960 BED: DIS: 09/19/2022 SPEC #: [id number] RECD: 09/19/22 10:28 STATUS: VAUGHN RERe #: [id number] WILTON: 09/19/22 07:[address]: Wiliam Squires DEPT: SURGICAL PATHOLOGY RECD BY: Brandy Mitchell ENTERED: 09/19/22 12:23 SP TYPE: EGD BIOPSY OT DR: Dr. You Bragg MD Tissues: A - Duodenum, NOS B - Gastric mucous membrane C - Esophagus, NOS D - Ileum, NOS E - COLON BIOPSY Procedures: Special Stain Group II Surgery Specimen Level IV Alcian Blue/PAS (control) HEADER OPERATION: Colonoscopy, EGD [place] [place] PRE-OP DIAGNOSIS: Diarrhea, history of hepatitis C TISSUE SUBMITTED: A - Duodenal ulcer biopsy, B - Gastric cardia biopsy, C - Distal esophagus biopsy, D - Terminal ileum biopsy, E - Random colonic biopsy MICROSCOPIC DIAGNOSIS A. Duodenal ulcer, biopsy: Mild chronic inflammation and associated reactive epithelial changes. B. Gastric cardia, biopsy: Mild chronic gastritis. See comment. C. Distal esophagus, biopsy: Gastroesophageal junctional mucosa with chronic inflammation. 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 No evidence of dysplasia. See comment. D. Terminal ileum, biopsy: No pathologic change. E. Colon, random biopsy: No pathologic change. AM:sunita 09/20/2022 COMMENT B. The results of immunohistochemistry for Helicobacter pylori will be reported separately ([id number]). C. Immunohistochemistry ([id number]) for P53 and Ki-67 will be performed and results will be reported separately. Alcian blue/PAS stain with matched control supports the above diagnosis. MICROSCOPIC DESCRIPTION Slides are reviewed. GROSS DESCRIPTION A - Received in fixative is one container labeled with the patient's name and designated duodenal ulcer biopsy. The specimen consists of multiple irregular fragments of light castro soft tissue that in aggregate measure 0.6 x 0.5 x 0.1 cm. The specimen is totally submitted in one cassette. B - Received in fixative is one container labeled with the patient's name and designated gastric cardia biopsy. The specimen consists of one irregular fragment of light castro soft tissue that measures 0.7 x 0.2 x 0.1 cm. The specimen is totally submitted in one cassette. C - Received in fixative is one container labeled with the patient's name and designated distal esophagus biopsy. The specimen consists of two irregular fragments of light castro soft tissue that in aggregate measure 0.6 x 0.6 x 0.1 cm. The specimen is totally submitted in one cassette. D - Received in fixative is one container labeled with the patient's name and designated terminal ileum biopsy. The specimen consists of one irregular fragment of light castro soft tissue that measures 0.5 x 0.5 x 0.1 cm. The specimen is totally submitted in one cassette. E - Received in fixative is one container labeled with the patient's name and designated random colon biopsy. The specimen consists of multiple irregular fragments of light castro soft tissue that in aggregate measure 1.2 x 0.6 x 0.1 cm. The specimen is totally submitted in one cassette. / AM:sunita 09/19/2022 TC:3 CPT: 23968 x5, 36112
--- NOTE | 2022-09-19 07:15 | IMM_PTH ---
PATIENT: CHERRIE TREVIÑO LOC: EN U#:[id number] AGE/SX: 62/M ROOM: RE09/19/[address]: Dr. Wiliam Squires DO : 1960 BED: DIS: 09/19/2022 SPEC #: [id number] RECD: 09/19/22 14:49 STATUS: VAUGHN REQ #: [id number] WILTON: 09/19/22 07:[address]: Wiliam Squires DEPT: IMMUNOHISTOCHEMISTRY RECD BY: Whitney Matthew ENTERED: 09/19/22 14:50 SP TYPE: IMMUNO OTHR DR: Dr. You Bragg MD Tissues: B - Stomach, NOS C - Esophagus, NOS Procedures: H Pylori (initial) P53 (initial) KI-67 (add) PHYSICIAN & INSTITUTION [place] [id number] SPECIMEN INFORMATION: Tissue Source: B ? Gastric cardia biopsy, C ? Distal esophagus biopsy Clinical Info: Diarrhea, history of hepatitis C Specimen Number: [id number] B & C CPT code: 76396 x2, 00484 METHODOLOGY: Deparaffinized sections of prefer/formalin-fixed tissue or PAP/DQ stained slides are incubated with monoclonal/polyclonal antibodies/oligonucleotide probes. Localization is made via biotin free immunoperoxidase method. Appropriate controls are performed and reacted as expected. Results on target cell population are indicated in the following table: RESULTS: ANTIBODY / CLONE RESULT Block B H Pylori (polyclonal) negative Block C P53 (DO-7) negative Ki-67 (30-9) negative These tests were developed and their performance characteristics determined by [facility]. They may not have been cleared or approved by the U.S. Food and Drug Administration. The FDA has determined that such clearance or approval is not necessary. The above immunohistochemical/dualISH markers are ordered and reviewed by the Pathologist. INTERPRETATION: B. Gastric cardia, biopsy: Negative for Helicobacter pylori organisms. C. Distal esophagus, biopsy: No evidence of dysplasia. AM:sunita 09/23/2022
--- NOTE | 2022-09-19 07:48 | OP.EGD_ITS ---
Patient Name: Titus Morrow Procedure Date: 09/19/2022 7:12 AM Date of : 1960 Age: 62 Procedure: Upper GI endoscopy Indications: Epigastric abdominal pain Providers: Wiliam Squires DO Medicines: Monitored Anesthesia Care Patient Profile: This is a 62 year old male. Refer to note in patient chart for documentation of history and physical. Patient has symptoms of chronic right upper quadrant abdominal pain and chronic nausea. Complications: No immediate complications. Procedure: Pre-Anesthesia Assessment: - Prior to the procedure, a History and Physical was performed, and patient medications and allergies were reviewed. The risks and benefits of the procedure and the sedation options and risks were discussed with the patient. All questions were answered and informed consent was obtained. Patient identification and proposed procedure were verified by the physician in the pre-procedure area. Mental Status Examination: alert and oriented. Airway Examination: normal oropharyngeal airway and neck mobility. Respiratory Examination: clear to auscultation. CV Examination: normal. Prophylactic Antibiotics: The patient does not require prophylactic antibiotics. Prior Anticoagulants: The patient has taken no previous anticoagulant or antiplatelet agents. After reviewing the risks and benefits, the patient was deemed in satisfactory condition to undergo the procedure. The anesthesia plan was to use monitored anesthesia care (MAC). Immediately prior to administration of medications, the patient was re-assessed for adequacy to receive sedatives. The heart rate, respiratory rate, oxygen saturations, blood pressure, adequacy of pulmonary ventilation, and response to care were monitored throughout the procedure. The physical status of the patient was re-assessed after the procedure. After obtaining informed consent, the endoscope was passed under direct vision. Throughout the procedure, the patient's blood pressure, pulse, and oxygen saturations were monitored continuously. The colonoscope was introduced through the mouth, and advanced to the second part of duodenum. The upper GI endoscopy was accomplished without difficulty. The patient tolerated the procedure well. Scope In: 7:20:09 AM Scope Out: 7:25:16 AM Total Procedure Duration Time 0 hours 5 minutes 7 seconds Findings: LA Grade A (one or more mucosal breaks less than 5 mm, not extending between tops of 2 mucosal folds) esophagitis with no bleeding was found 36 to 38 cm from the incisors. Biopsies were taken with a cold forceps for histology. Verification of patient identification for the specimen was done. Estimated blood loss was minimal. A small hiatal hernia was present. No other significant abnormalities were identified in a careful examination of the stomach. Two non-bleeding cratered duodenal ulcers with no stigmata of bleeding were found in the duodenal bulb. The largest lesion was 8 mm in largest dimension. Biopsies were taken with a cold forceps for histology. Verification of patient identification for the specimen was done. Estimated blood loss was minimal. Impression: - LA Grade A reflux esophagitis. Biopsied. - Small hiatal hernia. - Multiple non-bleeding duodenal ulcers with no stigmata of bleeding. Biopsied. Recommendation: - Discharge patient to home. - Resume previous diet. - Continue present medications. - Await pathology results. - Repeat upper endoscopy in 3 months for surveillance. - No aspirin, ibuprofen, naproxen, or other non-steroidal anti-inflammatory drugs for 8 days. - Use Protonix (pantoprazole) 40 mg PO BID for 8 weeks. - Use sucralfate tablets 1 gram PO BID for 4 weeks. - Nystatin suspension 100,000 units PO QID for 5 days. Procedure Code(s): --- Professional --- 14649, Esophagogastroduodenoscopy, flexible, transoral; with biopsy, single or multiple CPT copyright 2017 [employer]. All rights reserved. The codes documented in this report are preliminary and upon broiler chef or cook review may be revised to meet current compliance requirements. Wiliam Squires DO 09/19/2022 7:47:42 AM This report has been signed electronically. Number of Addenda: 0 Note Initiated On: 09/19/2022 7:12 AM
--- NOTE | 2022-09-19 07:48 | OP.CCLET_ITS ---
09/19/2022 You Bragg Re : Upper GI endoscopy procedure for Titus Morrow Dear Mahsa This procedure was performed on September. My impressions and recommendations are as follows: Impressions : - LA Grade A reflux esophagitis. Biopsied. - Small hiatal hernia. - Multiple non-bleeding duodenal ulcers with no stigmata of bleeding. Biopsied. Recommendations : - Discharge patient to home. - Resume previous diet. - Continue present medications. - Await pathology results. - Repeat upper endoscopy in 3 months for surveillance. - No aspirin, ibuprofen, naproxen, or other non-steroidal anti-inflammatory drugs for 8 days. - Use Protonix (pantoprazole) 40 mg PO BID for 8 weeks. - Use sucralfate tablets 1 gram PO BID for 4 weeks. - Nystatin suspension 100,000 units PO QID for 5 days. My findings are described in the full procedure note, which is enclosed. If I can be of further assistance, please feel free to contact me at . Sincerely, Wiliam Friend, 09/19/2022 7:47:42 AM This report has been signed electronically.
--- NOTE | 2022-09-19 07:52 | OP.COLON_ITS ---
Patient Name: Titus Morrow Procedure Date: 09/19/2022 7:25 AM Date of : 1960 Age: 62 Procedure: Colonoscopy Indications: Screening for colorectal malignant neoplasm Providers: Wiliam Squires DO Medicines: Monitored Anesthesia Care Patient Profile: This is a 62 year old male. Refer to note in patient chart for documentation of history and physical. Patient has symptoms of chronic right upper quadrant abdominal pain and chronic nausea. Last Colonoscopy: none. The patient's first colonoscopy is today. Complications: No immediate complications. Procedure: Pre-Anesthesia Assessment: - Prior to the procedure, a History and Physical was performed, and patient medications and allergies were reviewed. The risks and benefits of the procedure and the sedation options and risks were discussed with the patient. All questions were answered and informed consent was obtained. Patient identification and proposed procedure were verified by the physician in the pre-procedure area. Mental Status Examination: alert and oriented. Airway Examination: normal oropharyngeal airway and neck mobility. Respiratory Examination: clear to auscultation. CV Examination: normal. Prophylactic Antibiotics: The patient does not require prophylactic antibiotics. Prior Anticoagulants: The patient has taken no previous anticoagulant or antiplatelet agents. After reviewing the risks and benefits, the patient was deemed in satisfactory condition to undergo the procedure. The anesthesia plan was to use monitored anesthesia care (MAC). Immediately prior to administration of medications, the patient was re-assessed for adequacy to receive sedatives. The heart rate, respiratory rate, oxygen saturations, blood pressure, adequacy of pulmonary ventilation, and response to care were monitored throughout the procedure. The physical status of the patient was re-assessed after the procedure. After I obtained informed consent, the scope was passed under direct vision. Throughout the procedure, the patient's blood pressure, pulse, and oxygen saturations were monitored continuously. The colonoscope was introduced through the anus and advanced to the terminal ileum. The terminal ileum, ileocecal valve, appendiceal orifice, and rectum were photographed. Moderate Sedation: Moderate (conscious) sedation was administered by the endoscopy nurse and supervised by the endoscopist. The following parameters were monitored: oxygen saturation, heart rate, blood pressure, respiratory rate, EKG, adequacy of pulmonary ventilation, and response to care. Scope In: 7:26:50 AM Scope Withdrawal Time 0 hours 7 minutes 12 seconds Scope Out: 7:36:37 AM Total Procedure Duration Time 0 hours 9 minutes 47 seconds Findings: The perianal and digital rectal examinations were normal. An area of mildly congested mucosa was found in the sigmoid colon, in the descending colon and in the transverse colon. Biopsies were taken with a cold forceps for histology. Verification of patient identification for the specimen was done. Estimated blood loss was minimal. The terminal ileum appeared normal. Biopsies were taken with a cold forceps for histology. Verification of patient identification for the specimen was done. Estimated blood loss was minimal. Non-bleeding internal hemorrhoids were found during retroflexion. The hemorrhoids were Grade II (internal hemorrhoids that prolapse but reduce spontaneously). Impression: - Congested mucosa in the sigmoid colon, in the descending colon and in the transverse colon. Biopsied. - The examined portion of the ileum was normal. Biopsied. Recommendation: - Discharge patient to home. - Resume previous diet. - Continue present medications. - Await pathology results. - Repeat colonoscopy in 10 years for screening purposes. Procedure Code(s): --- Professional --- 63673, Colonoscopy, flexible; with biopsy, single or multiple CPT copyright 2017 [employer]. All rights reserved. The codes documented in this report are preliminary and upon network technical analyst review may be revised to meet current compliance requirements. Wiliam Squires DO 09/19/2022 7:51:48 AM This report has been signed electronically. Number of Addenda: 0 Note Initiated On: 09/19/2022 7:25 AM
--- NOTE | 2022-09-19 07:52 | OP.CCLET_ITS ---
09/19/2022 You Bragg Re : Colonoscopy procedure for Titus Morrow Dear Mahsa This procedure was performed on September. My impressions and recommendations are as follows: Impressions : - Congested mucosa in the sigmoid colon, in the descending colon and in the transverse colon. Biopsied. - The examined portion of the ileum was normal. Biopsied. Recommendations : - Discharge patient to home. - Resume previous diet. - Continue present medications. - Await pathology results. - Repeat colonoscopy in 10 years for screening purposes. My findings are described in the full procedure note, which is enclosed. If I can be of further assistance, please feel free to contact me at . Sincerely, Wiliam Squires, 09/19/2022 7:51:48 AM This report has been signed electronically.
== END 2022-09-19 09:02 | disposition home or self-care (01) ==
LOC: EN 06:12 → AC 06:13
PROVIDERS: PCP Family Medicine; Referring Provider Family Medicine; Visit Provider Internal Medicine Gastroenterology
PROC: 0DJD8ZZ Inspection of Lower Intestinal Tract, Via Natural or Artificial Opening Endoscopic (ICD-10-PCS; CPT 45378; principal; 2022-09-19 07:10)
DX: K22.70 Barrett's esophagus without dysplasia (principal); K29.50 Unspecified chronic gastritis without bleeding; K26.7 Chronic duodenal ulcer without hemorrhage or perforation; K44.9 Diaphragmatic hernia without obstruction or gangrene; K21.00 Gastro-esophageal reflux disease with esophagitis, without bleeding; K64.1 Second degree hemorrhoids; K63.89 Other specified diseases of intestine; F17.200 Nicotine dependence, unspecified, uncomplicated; I10 Essential (primary) hypertension; Z79.899 Other long term (current) drug therapy
CPT/HCPCS: 43239; 45380; 88305; 88313; 88341; 88342; J7120; J2405

== ENCOUNTER → 2023-02-01 | Outpatient (CLI) | payer OTHER, SELFPAY ==
[2023-02-01 10:10] LABS: T4 Free Direct 0.91 ng/dL (0.76-1.46); Thyroid Stim Hormone (TSH) 1.53 uIU/mL (0.358-3.74)
[2023-02-04 15:08] LABS: Topiramate 2.1 ug/mL (2.0-25.0)
== END | disposition home or self-care (01) ==
LOC: LAB 09:14
PROVIDERS: PCP Family Medicine; Referring Provider Psychiatry & Neurology Neurology; Visit Provider Psychiatry & Neurology Neurology
DX: G43.109 Migraine with aura, not intractable, without status migrainosus (principal); G25.0 Essential tremor; R79.89 Other specified abnormal findings of blood chemistry
CPT/HCPCS: 36415; 80201; 82140; 84439; 84443

== ENCOUNTER 2023-07-10 07:43 | Observation (INO) | payer OTHER, SELFPAY ==
--- NOTE | 2023-06-23 06:45 | EKG12_ITS ---
Test Reason : PRE OP Blood Pressure : / mmHG Vent. Rate : 066 BPM Atrial Rate : 066 BPM P-R Int : 130 ms QRS Dur : 094 ms QT Int : 404 ms P-R-T Axes : 076 077 057 degrees QTc Int : 423 ms Normal sinus rhythm Normal ECG Confirmed by KARI HOOK, KEVIN ([id number]), health editor RITESH LUNDY ([id number]) on 06/24/2023 12:51:07 PM Referred By: Adalberto Murray Confirmed By:KEVIN PIERCE MD
--- NOTE | 2023-06-23 06:45 | RAD_ITS ---
INDICATION: PRE-OP EXAMINATION/TECHNIQUE: X-RAY - XR Chest 2 Views COMPARISON: Prior study dated: 01/23/2021 FINDINGS: LINES/DEVICES: None. LUNGS: The lungs are well expanded. No consolidation, edema or effusion. No pneumothorax. MEDIASTINUM AND CARDIOVASCULAR STRUCTURES: Cardiac silhouette not enlarged. Central airways and mediastinal contour are unremarkable. BONES AND SOFT TISSUES: No acute abnormality. Mild degenerative changes of the spine. RAD/Chest PA and Lateral IMPRESSION: No acute pulmonary finding. Electronically Signed: José Miguel Louis MD at 10:00 EDT ,
[2023-06-23 07:59] LABS: Partial Thromboplast Time 29.8 Seconds (24.1-36.2)
[2023-06-23 08:04] LABS: Absolute Neutrophil Count 5.1 X10^3/uL (2.0-7.7); Basophil# 0.09 X10^3/uL; Basophil% 0.9 % (0-1); Eosinophil# 0.13 X10^3/uL; Eosinophils% 1.4 % (0-5); Hematocrit 51.1 % (40-54); Hemoglobin 16.3 g/dL (13.0-16.5); Lymphocyte % 31.4 % (19-41); Mean Corp Hgb Conc 31.9 g/dL (32-36); Mean Corpuscular Hgb 30.5 pg (27.0-32.0); Mean Corpuscular Volume 95.5 fL (80-94); Mean Platelet Vol. 11.8 fl (6.2-12.0); Monocyte# 1.17 X10^3/uL; Monocyte% 12.2 % (0-10); NRBC Flagged by Analyzer 0 % (0-5); Neutrophil # 5.11 X10^3/uL (2.7-7.7); Neutrophil % 53.5 % (47-70); Platelet Count 214 K/mm3 (150-450); RBC Distribution Width CV 12.9 % (11.6-14.6); RBC Distribution Width SD 45.8 fl (35.1-43.9); Red Blood Count 5.35 M/mm3 (4.6-6.2); White Blood Count 9.6 K/mm3 (4.4-11.0)
[2023-06-23 08:28] LABS: Anion Gap 5 (5-15); BUN 8 mg/dL (7-18); BUN/Creat Ratio 9.7 RATIO (10-20); Calcium,Total 9.3 mg/dL (8.5-10.1); Chloride 106 mmol/L (98-107); Creatinine, Serum 0.82 mg/dL (0.70-1.30); EST Glomerular Filtration Rate 101 mL/min (>60); Est Glom Filt Rate - Afr Amer 122 mL/min (>60); Glucose 116 mg/dL (74-106); Potassium 3.9 mmol/L (3.5-5.1); Sodium Level 141 mmol/L (136-145)
[2023-07-10] VITALS (10 sets, daily range): BP systolic 105–137; BP diastolic 66–97; PULSE 55–94; RESP 16–18; TEMP 36.1–37.3; O2SAT 98–100; BMI 25.0
[2023-07-10] MEDS: Lactated Ringers 1,000 ML 15 ML IV ×2 (06:48→08:54)
--- NOTE | 2023-07-10 07:30 | RAD_ITS ---
PROCEDURE: L4-L5 lumbar fusion. DATE OF EXAMINATION: July 10, 2023. INDICATION: Male, 62 years old. Chronic low back pain. FLUOROSCOPY TIME (if supplied): (2 minutes and 17 seconds) minutes/seconds. 37.07 mGy. 6 images were obtained. RAD/Lumbar Spine 2 or 3 Views IMPRESSION: The patient is status post L4-L5 and L5-S1 level fusion with prosthetic disc placement. Electronically Signed: Thaddeus Farias MD at 15:23 EDT ,
--- NOTE | 2023-07-10 07:37 | PCM.OPRPT ---
Problems Associated Problem List Diagnoses (1) Lumbar stenosis: Report of Operation Date of Procedure: 07/10/23 Description of Surgical Findings:: Preop diagnosis: 1. Lumbar stenosis, L4-5, L5-S1 with spondylosis 2. Lumbar degenerative disc disease L4-5, L5-S1 Postop diagnosis: 1. Lumbar stenosis, L4-5, L5-S1 with spondylosis 2. Lumbar degenerative disc disease L4-5, L5-S1 Procedures performed: 1. L4-5 posterior lumbar interbody fusion 2. L5-S1 posterior lumbar interbody fusion 3.Insertion of intervertebral biomechanical device x2 4. Structural allograft for spinal fusion 5. L4 bilateral laminectomies, foraminotomies, facetectomies, decompression of bilateral nerve roots 6. L5 bilateral laminectomies, foraminotomies, facetectomies, decompression of bilateral nerve roots 7. S1 bilateral laminectomies, foraminotomies, facetectomies, decompression of bilateral nerve roots 8. L4-5 posterolateral fusion 9..L5-S1 posterolateral fusion 10.. Pedicle screw fixation 11.. Local autograft for spinal fusion 12.. Neuro monitoring bilateral upper and bilateral lower extremities Statement of medical necessity: The patient is a 62-year-old male with intractable back and leg pain. Image studies confirm the above diagnoses. They have failed conservative treatments to include medications physical therapy and injections and have opted for operative intervention understanding the risk to include but not limited to infection, bleeding, damage to nerves arteries and veins, possibility of spinal fluid leak, nonunion, hardware failure, continued pain, need for further surgery, deep vein thrombosis, pulmonary embolism, heart attack, risk of stroke or . Description of the procedure: The patient was identified in the preoperative holding area. There they received preoperative IV antibiotics and was then transferred to the operative suite. Once in the operative suite after general endotracheal anesthesia was established, the patient was positioned prone on the [place] operating table. All bony prominences were padded accordingly. The lumbar spine was prepped and draped in a standard fashion. Bear hugger's were not turned on until the drapes were placed and sealed with Ioban. A midline incision was made and taken down to the fascia. The fascia was divided and subperiosteal dissection was taken down to the level of the transverse processes and sacral ala of L4, L5, and S1 bilaterally. Deep retractors were placed. A bone scalpel was used to make cuts in the lamina and then a series of rongeurs and Kerrisons were used removing the spinous process and lamina of L4 and L5 and partially at S1. Then at L4-5 and L5-S1 facetectomies of greater than 50% were performed as well as foraminotomies decompressing the bilateral nerve roots. Given the severity of the stenosis I needed to perform wide bilateral laminectomies and near complete facetectomies in order to decompress the neural elements. Disc created instability necessitating the fusion. I then proceeded with interbody fusion. The nerve roots and dura were identified and retracted medially. A knife was utilized to perform an annulotomy at L4-5 on the right. Endplate elevators, curettes, and pituitaries were utilized to remove disc material. Endplates were prepared with a rasp. An appropriate sized intervertebral peek cage device measuring 10 mm was packed with structural allograft and impacted into position completing the posterior lumbar interbody fusion at the L4-5 level. The same steps were repeated at L5-S1 using an intervertebral peek cage device measuring 9 mm completing the interbody fusion at the L5-S1 level. I then proceeded with pedicle screw fixation. Starting points were found at the junction of the superior articular process and transverse processes and sacral ala of L4, L5, and S1. A power bur was used for the starting points. Pedicle probes were placed bilaterally and then 6.5 x 55 mm screws were placed bilaterally at L4 and L5, 6.5 x 50 mm screws were placed bilaterally at S1. The screws were tested with intraoperative neurophysiologic monitoring and tested within normal limits. Connector rods were applied and secured with set screws. I then proceeded with the posterolateral fusion. This was accomplished by decorticating the transverse processes bilaterally at L4 and L5 and the sacral ala bilaterally at S1. This decorticated bone was then bridged with local autograft from the decompression as well as morselized cancellous allograft completing the posterolateral fusion of the L4-5 and L5-S1 levels. The incision was thoroughly irrigated. Tisseel was placed over the dura as a hemostatic agent. A deep drain was placed. The fascia was closed with #1 Vicryl, subcutaneous with 2-0 Vicryl and skin with 2-0 nylon. A sterile dressing was applied with 4 x 4's ABD and tape. Sponge instrument and needle counts were correct at the end of the case. Neurophysiologic monitoring was maintained at baseline throughout the duration of the case. The patient was extubated and taken to the PACU without incident Surgeon: Adalberto Murray Type of Anesthesia: General Drains: Hemovac Estimated Blood Loss (mL): 480 cc Fluids Replaced: 2500 cc Grafts/Implants Used: Unified spine Complications None Admit VTE Documentation VTE Present on Admission: No
--- NOTE | 2023-07-10 07:38 | PCM.PN.ORT ---
Subjective Subjective Seen and examined postop. Resting comfortably. Pain controlled. No complaints Objective Data Objective Data Vital Signs: Vital Signs Temp Pulse Resp BP Pulse Ox O2 Del Method 97.3 F L 64 18 137/92 H 98 Room Air 07/10/23 06:30 07/10/23 06:30 07/10/23 06:30 07/10/23 06:30 07/10/23 06:30 07/10/23 06:30 Oxygen Delivery Method Room Air Weight: 169 lb 12.095 oz Body Mass Index (BMI) 25.0 Lab / Micro Data 06/23/23 06:39 06/23/23 06:39 Physical Exam Const alert and no apparent distress General Appearance: cooperative, comfortable and well kempt HEENT normocephalic and head/scalp atraumatic Head and Scalp: normal to inspection Eyes EOMs intact bilaterally and conjunctivae normal Neck full ROM General: normal visual inspection Chest inspection of chest normal and palpation of chest normal Resp normal respiratory effort and normal air movement Cardio regular rate, regular rhythm and peripheral pulses 2+ throughout GI soft to palpation, non-tender and non-distended Back/Spine Back/Spine Narrative: Dressing clean dry and intact. Cervical Spine: cervical ROM normal Lumbar Spine / Lower Back: normal to inspection Pelvis: buttocks normal Extremity normal to inspection, full ROM, normal capillary refill, no clubbing, cyanosis or edema and no calf tenderness Skin no rashes or lesions noted General Skin Exam: no breakdown Neuro oriented x3, CN's II-XII intact bilaterally, moves all extremities, no focal motor deficits, no sensory deficits noted and deep tendon reflexes 2+ bilaterally Motor Exam: muscle tone normal throughout Assessment & Plan Assessment/Plan (1) Lumbar stenosis: PLAN: Okay to admit See orders Discharge planning, likely home tomorrow
--- NOTE | 2023-07-10 07:38 | PCM.DC.SUM ---
Providers Date of Admission: 07/10/23 Primary Care Physician: Dr. Daljit Chou DO Reason For Visit: LUMBAR 4 - LUMBAR 5, LUMBAR 5 - SAC Diagnosis Discharge Diagnosis (1) Lumbar stenosis: Status: Acute Code(s): M48.061 - Spinal stenosis, lumbar region without neurogenic claudication Medications at Discharge Home Medications albuterol sulfate 90 mcg/actuation aerosol inhaler (Ventolin HFA) 1 - 2 puff inhalation Q4H PRN PRN Wheezing #1 pkg 01/23/21 ondansetron HCl 4 mg tablet 4 mg PO TID PRN nausea and vomiting #90 tabs 06/18/22 propranolol 60 mg capsule,24 hr,extended release (Inderal LA) 60 mg PO DAILY #30 caps 04/07/23 sumatriptan succinate 50 mg tablet 50 mg .Route .COMPLEX MIGRAINES #9 tabs 04/07/23 topiramate 50 mg tablet 50 mg PO BID #60 tabs 04/07/23 pantoprazole 40 mg tablet,delayed release See Rx Instructions .Route .COMPLEX #60 tabs 04/22/23 gabapentin 100 mg capsule 100 mg PO TID 06/19/23 tizanidine 2 mg tablet 2 mg PO TID 06/19/23 hydrocodone-acetaminophen 5-325mg 5mg-325mg 1 tab PO Q6H 7 days #28 tabs 07/10/23 Hospital Course Operations - (L4-5, L5-S1 posterior lumbar interbody fusion, decompression, posterior spinal fusion with instrumentation, use of allograft) Summary of Care Provided Minutes Spent on Discharge: 15 Hospital Course: The patient is a 62-year-old male who underwent L4-5 and L5-S1 fusion on 07/10/2023. He was subsequently admitted. The hospitalist was consulted for medical management. He progressed well. His pain was controlled and he was mobilizing well. His drain was pulled on POD 1. No significant medical issues were reported. He was subsequently discharged home on 07/11/2023 to follow-up with Dr. Murray in 3 weeks Physical Exam Const alert, oriented x3 and no apparent distress General Appearance: cooperative, comfortable and well kempt Neck full ROM General: normal visual inspection Chest inspection of chest normal and palpation of chest normal Resp normal respiratory effort and normal air movement Effort and Inspection: able to speak in complete sentences Cardio regular rate and peripheral pulses 2+ throughout GI soft to palpation, non-tender and non-distended Back/Spine Back/Spine Narrative: Dressing clean dry and intact. Incision well approximated with interrupted sutures in place. No tenderness erythema drainage or fluctuance Cervical Spine: cervical ROM normal Thoracic Spine / Upper Back: normal to inspection Lumbar Spine / Lower Back: normal to inspection Extremity normal to inspection, full ROM, normal capillary refill, no clubbing, cyanosis or edema and no calf tenderness Skin no rashes or lesions noted General Skin Exam: no breakdown Neuro oriented x3, CN's II-XII intact bilaterally, moves all extremities, no focal motor deficits, no sensory deficits noted and deep tendon reflexes 2+ bilaterally Motor Exam: strength 5/5 throughout and muscle tone normal throughout Weight / BMI Weight Weight: 169 lb 12.095 oz Body Mass Index (BMI) 25.0 ABG / Lab / Microbiology Data 06/23/23 06:39 06/23/23 06:39 D/C Instructions Discharge Diet: No restrictions Weight Bearing Status: Weight bearing as tolerated Additional Activity Instructions: Wear back brace at all times. No repetitive bending twisting or lifting greater than 5 pounds Call your doctor if your incision/area has: Continuous Slow Oozing, Sudden Increased Bleeding, Increased Pain/ Swelling, Increased Redness, Foul Smelling Discharge and Swelling at the incision site Call your doctor if you observe: Fever of 101 or Higher, Coldness, Increased Pain, Numbness or Tingling, Change in Color, Inability to urinate, Inability to have a bowel movement, Using more than 1 pad per hour, Shortness of breath, Dizziness, Fainting spells, Swelling in the ankles, Chest pain, Prolonged hiccupping, Increased palpitations (irregular heartbeat), Calf discomfort and Uncontrolled pain Cleanse incision/area with: Do not get Incision Wet and Keep Dressing Clean & Dry Additional Dressing/Incision Instructions: Change dressing daily with iodine gauze and tape. Use waterproof dressing to shower Please Follow Up With: Adalberto Murray DO When: 3 weeks Meaningful Use Info Meaningful Use Diagnoses (Choose all that apply): None applicable Discharge Plan Admission Admit Date/Time: 07/10/23 07:43 Attending Provider: Adalberto Murray Primary Care Provider: Daljit Chou Consulting Providers: Alfie Phillips Instructions Additional Instructions / Restrictions: 1. During your procedure, you received sedation through your IV. Please follow these instructions for the next 24 hours: Do not drive a motor vehicle, do not drink any alcoholic beverages, and do not sign any legal documents or make personal or business decisions. A responsible adult should stay with you at least 6 hours after the procedure. 2. Keep your surgical site/incision clean and the dressing dry and intact. You may use an ice pack at the surgical site to reduce any swelling or discomfort. 3. Monitor the incision site for any signs or symptoms of infection. Watch for redness, excessive swelling or drainage, or continued pain at the incision site after 3 days. Contact your physician immediately for a fever, chills or a temperature of 101.5? F or greater. 4. Take your medication exactly as prescribed by your physician. Do not attempt to wean yourself off any of your medications even though your pain is improving. This process needs to be carefully monitored by your doctor. Take any antibiotics prescribed exactly as directed and until they are gone. 5. Avoid stretching, bending, pulling, twisting or any sudden movements. Do not bend or twist at the waist. Wear back brace at all times 6. No lifting greater than 5 pounds. 7. Do not operate a motor vehicle, equipment or a power tool while taking pain medication 8. Do not have any manipulation done by a chiropractor or any other physician without first consulting with the surgeon 9. Please contact our office if you are even scheduled for a CT scan or an MRI. 10. Please call us if you have any questions, problems or concerns. Discharge Orders/Prescriptions Prescriptions: New hydrocodone-acetaminophen 5-325 mg tablet 1 tab PO Q6H 7 Days Qty: 28 0RF Continued ondansetron HCl 4 mg tablet 4 mg PO TID PRN (Reason: nausea and vomiting) Qty: 90 3RF propranolol [Inderal LA] 60 mg capsule,extended release 24 hr 60 mg PO DAILY Qty: 30 7RF topiramate 50 mg tablet 50 mg PO BID Qty: 60 6RF sumatriptan succinate 50 mg tablet 50 mg .ROUTE .COMPLEX Qty: 9 6RF Rx Instructions: Take one tablet PO every two hours as needed for headache up to two tablets per day albuterol sulfate [Ventolin HFA] 90 mcg/actuation HFA aerosol inhaler 1 - 2 puff inhalation Q4H PRN PRN (Reason: Wheezing) Qty: 1 0RF gabapentin 100 mg capsule 100 mg PO TID tizanidine 2 mg tablet 2 mg PO TID pantoprazole 40 mg tablet,delayed release (DR/EC) See Rx Instructions .ROUTE .COMPLEX Qty: 60 2RF Dose Instruction: TAKE 1 TABLET BY MOUTH TWICE A DAY Rx Instructions: TAKE 1 TABLET BY MOUTH TWICE A DAY Referrals / Follow Up: Adalberto Murray DO [Med Staff - Active Staff] - Daljit Chou DO [Primary Care Provider] - Disposition Disposition (needs filled in before D/C Order can be placed): Home, Self Care
[2023-07-10] MEDS: Cefazolin 2 GM in 0.9% Normal Saline (100mL Bag) 100 ML IV (07:40)
[2023-07-10] MEDS: Heparin 10,000 UNITS/10 ML Vial 10000 UNITS (08:30)
[2023-07-10] MEDS: THROMBIN (RECOMBINANT) 20,000 UNIT VIAL 20000 UNIT TOPICAL (08:30)
[2023-07-10] MEDS: 0.9% Normal Saline (1000mL) 1,000 ML 15 ML IV (11:15)
[2023-07-10] MEDS: Bupivacaine 0.25% 30 ML Vial (12:08)
--- NOTE | 2023-07-10 13:11 | PCM.PN.HOSP ---
Reason for Visit Reason for Visit: Lumbar spinal stenosis Subjective Subjective Mr. Valentine is a 62-year-old white male who presented for an elective L4-L5/L5-S1 lumbar interbody fusion along with bilateral laminectomies/foraminectomy/facetectomy/decompression of nerve roots at the same level. He been having intractable back and leg pain for some time and had failed outpatient conservative management including physical therapy and injections. He has a past medical history of alcohol abuse, essential tremor, migraine headaches, GERD with previous duodenal ulcers, hepatitis C, tobacco abuse, hypertension, and chronic pain. We have been consulted in the postoperative period to assist with management of his chronic medical issues. Patient was seen postoperatively on the medical floor. Intent is for discharge home tomorrow as long as he remains stable. Patient states he is feeling well. Is sitting up in bed eating dinner. Admits to smoking about a pack of cigarettes daily. Denies the need for any nicotine replacement therapy. We did discuss the importance of cessation especially in healing and he voiced understanding. He also states he does drink about 4-6 beers several nights a week. He has never had any issues with withdrawing if he is not drinking and states he is feeling fine right now. Objective Data Objective Data Vital Signs: Vital Signs Temp Pulse Resp BP Pulse Ox O2 Del Method 97.7 F L 55 L 18 120/76 100 Room Air 07/10/23 12:34 07/10/23 12:45 07/10/23 12:45 07/10/23 12:45 07/10/23 12:45 07/10/23 12:45 Oxygen Delivery Method Room Air Weight: 77 kg Body Mass Index (BMI) 25.0 Intake & Output: Intake and Output for Last 24 Hours 07/08/23 07/09/23 07/10/23 23:59 23:59 23:59 Intake Total 1110 / 1110 Output Total 300 / 300 Balance 810 / 810 Lab / Micro Data 06/23/23 06:39 06/23/23 06:39 Physical Exam Const alert, oriented x3, no apparent distress, healthy appearing and well nourished Constitutional Narrative: Pleasant, middle-aged, white male, sitting up in bed eating dinner watching television, appears comfortable and nontoxic HEENT head/scalp atraumatic and moist oral mucous membranes HEENT Narrative: Mallampati 2, no thrush Head and Scalp: normocephalic Resp normal respiratory effort, no retractions, no use of accessory muscles and clear to auscultation bilaterally Resp Narrative: Diffusely diminished but clear Auscultation: Negative for rales, rhonchi or wheezes Cardio regular rate, regular rhythm, S1 normal heart sound, S2 normal heart sound, no murmurs, no rub, no gallops and no clicks GI normal to inspection, nondistended, normoactive bowel sounds, soft to palpation and non-tender Extremity no clubbing, cyanosis or edema Extremity Narrative: Pedal pulses are 2+ Neuro oriented x3 and no focal motor deficits Speech: speech normal Psych affect normal Psych Narrative: Very pleasant, interacts appropriately Assessment & Plan Assessment/Plan (1) Lumbar stenosis: PLAN: Plan Lumbar spinal stenosis at L4-S1 -Postop day 0 L4-L5/L5-S1 lumbar interbody fusion along with bilateral laminectomies/foraminectomy/facetectomy/decompression of nerve roots at the same level -Management per primary service -We will add scheduled MiraLAX for potential constipation with use of narcotics and Flomax to facilitate Fel[place]o removal and avoid urinary retention -PT/OT per primary service GERD/history of duodenal ulcers/Pal's esophagus -Continue home Protonix 40 mg daily -Recommend continued outpatient follow-up with gastroenterology per Dr. Squires's recommendations Hypertension -Continue home propranolol History of migraines -Continue home sumatriptan -Continue home Topamax Alcohol abuse -Patient states he drinks 4-6 beers most nights but not every night -Never has any issues if he goes without alcohol -We will monitor clinically -No current signs of withdrawal Tobacco abuse -Still currently smokes about a pack of cigarettes daily -Denies the need for any nicotine replacement therapy -I did let him know that smoking cessation would improve his healing and help with his chronic low back issues -He voiced understanding DVT prophylaxis -Per primary service Disposition: Patient appears to be medically stable will sign off. Please reconsult if needed. Charges/Coding Visit Charges Inpatient E&M: 19199 Subs Hosp L2
[2023-07-10] MEDS: Lactated Ringers 1,000 ML 100 ML IV (14:15)
[2023-07-10] MEDS: Gabapentin 100 MG Capsule PO ×2 (14:15→21:01)
[2023-07-10] MEDS: Acetaminophen 500 MG Tablet 1000 MG PO ×2 (14:15→21:01)
[2023-07-10] MEDS: oxyCODONE 5 MG Tablet PO ×2 (14:32→21:01)
[2023-07-10] MEDS: Cefazolin 1 GM/50 ML BAG IV ×2 (15:14→23:24)
[2023-07-10] MEDS: Tamsulosin HCl 0.4 MG Capsule PO (16:58)
[2023-07-10] MEDS: 0.9% Saline Lock 10 ML Syringe IV (16:58)
[2023-07-10] MEDS: Polyethylene Glycol 3350 17 GM PACKET PO (16:59)
[2023-07-10] MEDS: Morphine 4 MG/ML Syringe IV ×2 (16:59→23:36)
[2023-07-10] MEDS: Topiramate 50 MG Tablet PO (21:02)
[2023-07-11 01:33] VITALS: BP 111/80; PULSE 91; RESP 16; TEMP 37.1; O2SAT 100
[2023-07-11] MEDS: oxyCODONE 5 MG Tablet PO ×3 (01:33→10:04)
[2023-07-11 03:51] VITALS: BP 112/80; PULSE 86; RESP 18; TEMP 36.4; O2SAT 99
[2023-07-11] MEDS: Morphine 4 MG/ML Syringe IV ×2 (03:55→07:41)
[2023-07-11] MEDS: Acetaminophen 500 MG Tablet 1000 MG PO (06:02)
[2023-07-11] MEDS: Gabapentin 100 MG Capsule PO (06:02)
[2023-07-11] MEDS: Propranolol LA 60 MG Capsule PO (07:40)
[2023-07-11] MEDS: Topiramate 50 MG Tablet PO (07:40)
[2023-07-11] MEDS: Ensure Surgery 237 ML LIQUID PO (07:40)
[2023-07-11] MEDS: Polyethylene Glycol 3350 17 GM PACKET PO (07:40)
[2023-07-11] MEDS: 0.9% Saline Lock 10 ML Syringe IV (07:41)
[2023-07-11 08:00] VITALS: BP 112/69; PULSE 85; RESP 18; TEMP 36.8; O2SAT 98
--- NOTE | 2023-07-11 09:48 | CASEMGMT ---
TRISTA OSORIO Assessment: Face to Face with pt for initial transition planning/care coordination assessment. TRISTA OSORIO introduced self and role at [facility], pt voices understanding and consents to assessment. Pt is A&O x4 and answers all questions appropriately at this time. Pt. is sitting up in chair at bedside. Care providers, pharmacy, and demographics verified/updated. Admitting Dx: Lumbar 4 - Lumbar 5, Lumbar 5 - SAC PCP: José Antonio Specialists:Pt. states none Preferred Pharmacy:[facility] ([place]) Insurance: [employer] [facility] Prescription Benefit: yes LNOK: Gillian Gaspar () Living Will/HCPOA: No and No. Pt's states he would like information on ADs. Pt. provided information on ADs in his discharge folder. Pt. informed that he can make an appt. with [facility] to establish these docuement if desired. Living Arrangements: Pt lives at home with in a 2 story home with FFSU. 2 steps no railing to enter; 10 steps wth railing to 2nd story. Prior to this admission, pt. states he was ambulating stairs without difficulty. Pt. is I in all ADLs/IADLs. Transportation: Pt drives self. States also drives DME: raised toilet seat (does not use), cane, crutches, hand held shower, walker. Pt. denies need for additional DME at this time. HHC/SNF: Denies any previous SNF or HHC. Pt states no concerns with going home at time of dc. Pt states no further concerns/needs. CM to follow. Advised pt to ask CM if any further question/concerns/needs arise, voices understanding. Pt Goal: Home with support of . Pt. states his is fine to do his dressing changes and pt. states he has ll supplies he needs for this. Plan: Pt. to discharge home with family support and follow-up plans in place.
[2023-07-11] MEDS: Influenza Virus Vac Quad 23-24 60 MCG/0.5 ML SYRINGE IM (10:55)
[2023-07-11 11:20] VITALS: BP 142/89; PULSE 83; RESP 18; TEMP 36.6; O2SAT 100
== END 2023-07-11 11:35 | disposition home or self-care (01) ==
LOC: ACINP 13:14 → SDC 13:15 → MS3 16:10
PROVIDERS: Admitting Provider Orthopaedic Surgery; PCP Family Medicine; Referring Provider Orthopaedic Surgery; Visit Provider Orthopaedic Surgery
PROC: 0SG10AJ Fusion of 2 or more Lumbar Vertebral Joints with Interbody Fusion Device, Posterior Approach, Anterior Column, Open Approach (ICD-10-PCS; CPT 22630; principal; 2023-07-10 07:00)
DX: M48.061 Spinal stenosis, lumbar region without neurogenic claudication (principal); M46.98 Unspecified inflammatory spondylopathy, sacral and sacrococcygeal region; M46.96 Unspecified inflammatory spondylopathy, lumbar region; F17.210 Nicotine dependence, cigarettes, uncomplicated; M51.36 Other intervertebral disc degeneration, lumbar region; M47.26 Other spondylosis with radiculopathy, lumbar region; I10 Essential (primary) hypertension; Z79.899 Other long term (current) drug therapy; M21.372 Foot drop, left foot; K21.9 Gastro-esophageal reflux disease without esophagitis; F17.290 Nicotine dependence, other tobacco product, uncomplicated; G25.0 Essential tremor; Z23 Encounter for immunization; R06.02 Shortness of breath
CPT/HCPCS: 20930; 22633; 22634; 63052; 63053 ×2; 20936; 22842; 22853; 00670; 36415; 71046; 72100; 76000; 80048; 85025; 85610; 85730; 93005; 94668; 96361; 96365; 96366; 96375; 96376; 97161; 97802; 99221; C1713; J7030; J7120; 90686; A4216; G0378; J2405

== ENCOUNTER 2023-08-12 12:28 | Observation (INO) | payer OTHER, SELFPAY ==
[2023-08-12] VITALS (12 sets, daily range): BP systolic 114–173; BP diastolic 71–154; PULSE 61–73; RESP 16–28; TEMP 36.2–36.8; O2SAT 93–100; BMI 25.5
[2023-08-12] MEDS: Lactated Ringers 1,000 ML 15 ML IV (11:16)
--- NOTE | 2023-08-12 12:24 | OP.PCM_ITS ---
Report of Operation Date of Procedure: 08/12/23 Description of Surgical Findings:: Preop diagnosis: 1. Delayed wound healing, lumbar Postop diagnosis: 1. Delayed wound healing, lumbar Procedures performed: 1. Lumbar irrigation, debridement, wound exploration 2. Application of wound VAC Statement of medical necessity: The patient is a 62-year-old male who underwent lumbar fusion and subsequently developed delayed wound healing. They have opted for operative intervention understanding the risk to include but not limited to infection, bleeding, damage to nerves arteries and veins, possibility of spinal fluid leak, continued pain, need for further surgery, deep vein thrombosis, pulmonary embolism, heart attack, risk of stroke or . Description of the procedure: The patient was identified in the preoperative holding area. There they received preoperative IV antibiotics and was then transferred to the operative suite. Once in the operative suite after general endotracheal anesthesia was established, the patient was positioned prone on the operating table. All bony prominences were padded accordingly. The lumbar spine was prepped and draped in a standard fashion. Bear hugger's were not turned on until the drapes were placed and sealed with Ioban. The previous midline incision was reopened. A moderate amount of dark fluid was encountered. Cultures were taken. Necrotic tissue around the wound margins was sharply excised with a 15 blade scalpel. The wound was thoroughly explored. All necrotic tissue and fluid was debrided. The incision and cavity measured 15 long x 5 wide x 3 cm deep. The fascia was inspected and found to be intact. The incision was thoroughly irrigated with 3 L of saline through a pulse 3 year olds preschool teacher. The wound VAC was then placed. Sponge instrument and needle counts were correct at the end of the case. . The patient was extubated and taken to the PACU without incident Surgeon: Adalberto Murray Type of Anesthesia: General Specimen's removed: Lumbar wound cultures Estimated Blood Loss (mL): 10 cc Fluids Replaced: 700 cc Complications None Admit VTE Documentation VTE Present on Admission: No
--- NOTE | 2023-08-12 12:24 | PCM.PN.ORT ---
Subjective Subjective Seen and examined postop. Resting comfortably. Pain controlled. No complaints Objective Data Objective Data Vital Signs: Vital Signs Temp Pulse Resp BP Pulse Ox O2 Del Method 97.5 F L 66 16 119/76 100 Room Air 08/12/23 11:11 08/12/23 11:11 08/12/23 11:11 08/12/23 11:11 08/12/23 11:11 08/12/23 11:11 Oxygen Delivery Method Room Air Weight: 167 lb 15.876 oz Body Mass Index (BMI) 25.5 Physical Exam Const alert, oriented x3 and no apparent distress General Appearance: cooperative, comfortable and well kempt HEENT normocephalic and head/scalp atraumatic Eyes EOMs intact bilaterally and conjunctivae normal Neck full ROM General: normal visual inspection Chest inspection of chest normal and palpation of chest normal Resp normal respiratory effort and normal air movement Cardio regular rate, regular rhythm and peripheral pulses 2+ throughout GI soft to palpation, non-tender and non-distended Back/Spine Back/Spine Narrative: Wound VAC in place and functioning Cervical Spine: cervical ROM normal Thoracic Spine / Upper Back: normal to inspection Lumbar Spine / Lower Back: normal to inspection Extremity normal to inspection, full ROM, normal capillary refill, no clubbing, cyanosis or edema and no calf tenderness Skin no rashes or lesions noted General Skin Exam: no breakdown Neuro oriented x3, CN's II-XII intact bilaterally, moves all extremities, no focal motor deficits, no sensory deficits noted and deep tendon reflexes 2+ bilaterally Motor Exam: strength 5/5 throughout and muscle tone normal throughout Assessment & Plan Assessment/Plan (1) Delayed surgical wound healing: PLAN: See orders (2) Back pain:
--- NOTE | 2023-08-12 12:26 | CASEMGMT ---
Discharge Planning A list of?HH providers including quality and resource use data and consistent with the patient's preferred geographic region, medical needs, and insurance network was created in [facility] Guide.? This list was provided to the RN JO. Iwona Davies, Discharge Planning Asst.
--- NOTE | 2023-08-12 12:36 | CASEMGMT ---
Addendum entered by Alta Pena 08/12/23 15:28: Received acceptance by [facility] for SOC on . No copay for visits and pt does not have to be homebound. TC to PACU, spoke with Brannon who will make pt aware that [facility] will see him on . Original Note: Received notification by [facility] nurse that pt has no preference of [employer]. TC to [facility], spoke with Katalina, referral made, will await acceptance.
--- NOTE | 2023-08-12 12:56 | WOUNDNOTE ---
Home VAC approved and was taken down to AC prior to patient having surgery. Talked with patient and about wound VAC alarms, returning VAC, dressing changes, etc. Pt aware he is only to shower on days the VAC dressing is changed and should be within the hour of home health care so the VAC is not off too long. pt will shower with dressing in place and then home health care will remove and reapply a wound VAC dressing. Dr Murray plans to place the VAC in the OR. TRISTA Holm CM working on getting home health care for VAC changes. Pt is scheduled for outpatient surgery today so plan is to discharge after recovery today.
[2023-08-12] MEDS: Cefazolin 2 GM in 0.9% Normal Saline (100mL Bag) 100 ML IV (13:07)
[2023-08-12] MEDS: Vancomycin IV 1,000 MG/20 ML Vial 1000 MG OPERA.SITE (14:00)
[2023-08-12] MEDS: oxyCODONE 5 MG Tablet PO ×2 (16:56→21:06)
[2023-08-12] MEDS: Lactated Ringers 1,000 ML 100 ML IV (17:27)
[2023-08-12] MEDS: Acetaminophen 500 MG Tablet 1000 MG PO (18:50)
--- NOTE | 2023-08-12 20:06 | PCM.PN.HOSP ---
Reason for Visit Reason for Visit: Consult requested by Dr. Murray for medical mgmt. Subjective Subjective Feels well. Had some severe back pain post op. Objective Data Objective Data Vital Signs: Vital Signs Temp Pulse Resp BP Pulse Ox O2 Del Method 36.2 C L 64 18 133/89 H 100 Room Air 08/12/23 18:40 08/12/23 18:40 08/12/23 18:40 08/12/23 18:40 08/12/23 18:40 08/12/23 18:40 Oxygen Delivery Method Room Air Weight: 76.2 kg Body Mass Index (BMI) 25.5 Intake & Output: Intake and Output for Last 24 Hours 08/10/23 08/11/23 08/12/23 23:59 23:59 23:59 Intake Total 1110 / 1110 Balance 1110 / 1110 Physical Exam Const alert and no apparent distress HEENT head/scalp atraumatic Resp normal respiratory effort Extremity normal to inspection Skin Skin Narrative: large back wound with clean margins and wound vac in place. Neuro oriented x3 and moves all extremities Sensorium / Orientation: awake and alert Psych affect normal Assessment & Plan Assessment/Plan (1) Delayed surgical wound healing: PLAN: Plan Delayed surgical wound healing: underwent I+D today where necrotic tissue was removed. Wound vac in place. On cephalexin. Cultures performed and pending. Continue current abx, but change if cultures show resistance. Chronic conditions: HTN, migraines: continue home meds Disposition: plan to monitor pt over night and discharge tomorrow. Patient is medically stable for discharge. Thank you for the consult. The Hospitalist service will follow. Charges/Coding Visit Charges Inpatient E&M: 02286 Subs Hosp L2
[2023-08-12] MEDS: Cefazolin 1 GM/50 ML BAG IV (20:43)
[2023-08-12] MEDS: Gabapentin 100 MG Capsule 200 MG PO (21:05)
[2023-08-12] MEDS: Topiramate 50 MG Tablet PO (21:06)
[2023-08-13 02:15] VITALS: BP 125/92; PULSE 75; RESP 16; TEMP 36.6; O2SAT 96
[2023-08-13] MEDS: Acetaminophen 500 MG Tablet 1000 MG PO ×2 (02:15→11:28)
[2023-08-13] MEDS: oxyCODONE 5 MG Tablet PO ×3 (02:20→11:34)
[2023-08-13] MEDS: Cefazolin 1 GM/50 ML BAG IV (05:51)
[2023-08-13 06:37] VITALS: BP 112/78; PULSE 78; RESP 16; TEMP 36.8; O2SAT 99
[2023-08-13] MEDS: Gabapentin 100 MG Capsule 200 MG PO ×2 (06:39→13:37)
[2023-08-13 08:00] VITALS: BP 114/74; PULSE 78; RESP 16; TEMP 37.1; O2SAT 99
--- NOTE | 2023-08-13 08:50 | WOUNDNOTE ---
In to assess the wound VAC dressing. patient already has the home VAC in place since patient was originally scheduled as an outpatient surgery. Pt states I just was in too much pain to go home last night. My didn't think I was ready either. This nurse had already reviewed the wound VAC. canister change, alarms, etc. with patient and prior to surgery yesterday. [facility] will be changing the VAC dressings at home. Pt will most likely be discharged home today. Pain appears to be well controlled. patient was able to easily sit at the edge of the bed for this nurse to assess the dressing and then was able to get legs back up into the bed easily himself. Did not appear to have any discomfort with movement. will monitor as needed. Pt denies further needs at this time.
[2023-08-13] MEDS: Losartan Potassium 25 MG Tablet PO (09:19)
[2023-08-13] MEDS: Propranolol LA 60 MG Capsule PO (09:19)
[2023-08-13] MEDS: Topiramate 50 MG Tablet PO (09:19)
[2023-08-13] MEDS: Cephalexin 500 MG Capsule PO (13:41)
[2023-08-13 13:42] VITALS: BP 113/67; PULSE 64; RESP 18; TEMP 36.9; O2SAT 99
--- NOTE | 2023-08-13 15:28 | DCINST_ITS ---
Discharge Instructions Diet Discharge Diet: No restrictions Activity Discharge Activity: - (No lifting greater than 5 pounds) Weight Bearing Status: Full weight bearing Dressing / Incision Call your doctor if your incision/area has: Foul Smelling Discharge Call your doctor if you observe: Fever of 101 or Higher and Uncontrolled pain Follow Up Care Test Results: Test results from this visit will be discussed in further detail at your follow- up appointment, if applicable. Discharge Plan Admission Admit Date/Time: 08/12/23 12:28 Primary Reason for Your Visit: wound infection back Attending Provider: Adalberto Murray Primary Care Provider: Daljit Chou Consulting Providers: Merline Chan; Peng Fisher; Mariella Cintron; Mariella Armstrong; King Randle; Filomena Hickman; Nita Llanos; Tesfaye Holguin; Tesfaye Eason; Nakul Bailey; Alfie Phillips; Julito Louise; Ahmet Garcia; Dedrick Lim; Chet White; Lina Conklin; Daljit Hobbs; Jenn Thurman; Donnell Peacock; Oswald Ramirez; Prasad Rice; Sangeetha Gary; Jose A Parham; Martha Hurt NP; Georgi Hurley Instructions Additional Instructions / Restrictions: 1. During your procedure, you received sedation through your IV. Please follow these instructions for the next 24 hours: Do not drive a motor vehicle, do not drink any alcoholic beverages, and do not sign any legal documents or make personal or business decisions. A responsible adult should stay with you at least 6 hours after the procedure. 2. Keep your surgical site/incision clean and the dressing dry and intact. Do not remove wound VAC. You may use an ice pack at the surgical site to reduce any swelling or discomfort. 3. Monitor the incision site for any signs or symptoms of infection. Watch for redness, excessive swelling or drainage, or continued pain at the incision site after 3 days. Contact your physician immediately for a fever, chills or a temperature of 101.5? F or greater. 4. Take your medication exactly as prescribed by your physician. Do not attempt to wean yourself off any of your medications even though your pain is improving. This process needs to be carefully monitored by your doctor. Take any antibiotics prescribed exactly as directed and until they are gone. 5. Avoid stretching, bending, pulling, twisting or any sudden movements. Wear back brace as instructed 6. No lifting greater than 5 pounds. 7. Do not operate a motor vehicle, equipment or a power tool while taking pain medication 8. Do not have any manipulation done by a chiropractor or any other physician without first consulting with the physician who placed your spinal cord stimulator. 9. Please contact our office if you are even scheduled for a CT scan or an MRI. 10. Please call us if you have any questions, problems or concerns. Discharge Orders/Prescriptions Prescriptions: New oxycodone 5 mg Tablet 2.5 - 5 mg PO Q4H PRN PRN (Reason: Pain Score 6-10) 5 Days Qty: 15 0RF Continued ondansetron HCl 4 mg tablet 4 mg PO TID PRN (Reason: nausea and vomiting) Qty: 90 3RF propranolol [Inderal LA] 60 mg capsule,extended release 24 hr 60 mg PO DAILY Qty: 30 7RF topiramate 50 mg tablet 50 mg PO BID Qty: 60 6RF sumatriptan succinate 50 mg tablet 50 mg .ROUTE .COMPLEX Qty: 9 6RF Rx Instructions: Take one tablet PO every two hours as needed for headache up to two tablets per day albuterol sulfate [Ventolin HFA] 90 mcg/actuation HFA aerosol inhaler 1 - 2 puff inhalation Q4H PRN PRN (Reason: Wheezing) Qty: 1 0RF gabapentin 100 mg capsule 200 mg PO TID losartan 25 mg tablet 25 mg PO DAILY cephalexin 500 mg capsule 500 mg PO TID pantoprazole 40 mg tablet,delayed release (DR/EC) See Rx Instructions .ROUTE .COMPLEX Qty: 60 2RF Dose Instruction: TAKE 1 TABLET BY MOUTH TWICE A DAY Rx Instructions: TAKE 1 TABLET BY MOUTH TWICE A DAY Referrals / Follow Up: Adalberto Murray DO [Med Staff - Active Staff] - See Referral Note (in one week- call for an appointment) Daljit Chou DO [Primary Care Provider] - Disposition Disposition (needs filled in before D/C Order can be placed): Home, Self Care
--- NOTE | 2023-08-13 15:29 | CASEMGMT ---
Addendum entered by Alta Pena 08/13/23 16:01: TRISTA OSORIO into pt room, pt aware that [facility] will be out tomorrow to see him. Discussed using the back brace with the vac as long as it does not kink the tubing and does not cause pressure issues. Pt is aware that [facility] is [employer] 07/04 and should he have any issue with the vac, to call. Pt ready for dc. Original Note: TC yecenia Darden at [facility], left vm that pt is being dc'd today.
--- NOTE | 2023-08-13 15:41 | PN.HOSP_ITS ---
Reason for Visit Reason for Visit: Diagnoses Dorsalgia, unspecified (08/12/23) Other complications of procedures, not elsewhere classified, initial encounter (08/12/23) Subjective Subjective Patient was seen and examined today, he had a bowel movement today and is up moving around. I talked to Dr. Murray by phone today who stated that the patient could be discharged home, I filled out his discharge paperwork and sent a prescription for narcotics for back pain to [facility] pharmacy for the patient. Objective Data Objective Data Vital Signs: Vital Signs Temp Pulse Resp BP Pulse Ox O2 Del Method 98.4 F 64 18 113/67 99 Room Air 08/13/23 13:42 08/13/23 13:42 08/13/23 13:42 08/13/23 13:42 08/13/23 13:42 08/13/23 13:42 Oxygen Delivery Method Room Air Weight: 76.2 kg Body Mass Index (BMI) 25.5 Intake & Output: Intake and Output for Last 24 Hours 08/11/23 08/12/23 08/13/23 23:59 23:59 23:59 Intake Total 1460 / 1460 1133.33 / 1133.33 Balance 1460 / 1460 1133.33 / 1133.33 Lab / Micro Data Micro: Microbiology 08/12/23 Unknown Wound Drainage - Aerobic & Anaerobic Swabs Gram Stain - Final 08/12/23 Unknown Wound Drainage - Aerobic & Anaerobic Swabs Gram Stain - Final 08/12/23 Unknown Wound Drainage - Aerobic & Anaerobic Swabs Wound Culture - Preliminary Coag Negative Staph Physical Exam Const alert, oriented x3, no apparent distress and healthy appearing General Appearance: cooperative, well kempt and well developed Orientation / Consciousness: awake, oriented to person, oriented to place and oriented to time HEENT normocephalic and moist oral mucous membranes Eyes PERRL, EOMs intact bilaterally and conjunctivae normal Neck supple, no JVD, thyroid normal and no carotid bruits General: trachea midline Resp normal respiratory effort and clear to auscultation bilaterally Auscultation: Negative for rales, rhonchi or wheezes Cardio regular rate, regular rhythm, no murmurs, no rub and no gallops GI normal to inspection, nondistended, normoactive bowel sounds, soft to palpation, non-tender and non-distended Extremity no clubbing, cyanosis or edema Skin Skin Narrative: Patient has a wound VAC in place over an open area in the mid lumbar spine area, the area does not look reddened Neuro oriented x3, CN's II-XII intact bilaterally, moves all extremities, no focal motor deficits and no sensory deficits noted Sensorium / Orientation: awake, alert, oriented to person, oriented to place and oriented to time Speech: speech normal Psych affect normal Assessment & Plan Assessment/Plan (1) Delayed surgical wound healing: PLAN: Plan 1. Essential hypertension-patient will remain on his present medications after discharge #2 lumbar stenosis-status post lumbar fusion #3 delayed surgical wound healing lumbar spine #4 chronic migraine-patient uses sumatriptan Patient appears medically stable for discharge, he will remain on Keflex as an outpatient per Dr. Murray Total clinical time spent by myself addressing the patient's medical issues, reviewing all of his data, and collaborating with patient's care team: 25 minutes Charges/Coding Visit Charges Inpatient E&M: 75872 Subs Hosp L1
== END 2023-08-13 16:25 | disposition home health service (06) ==
LOC: SDC 17:28 → MS3 17:28
PROVIDERS: Admitting Provider Orthopaedic Surgery; PCP Family Medicine; Referring Provider Orthopaedic Surgery; Visit Provider Orthopaedic Surgery
PROC: (CPT 20102; principal; 2023-08-12 12:10)
DX: T81.31XA Disruption of external operation (surgical) wound, not elsewhere classified, initial encounter (principal); K21.9 Gastro-esophageal reflux disease without esophagitis; M48.061 Spinal stenosis, lumbar region without neurogenic claudication; M48.07 Spinal stenosis, lumbosacral region; F17.210 Nicotine dependence, cigarettes, uncomplicated; M51.36 Other intervertebral disc degeneration, lumbar region; M51.37 Other intervertebral disc degeneration, lumbosacral region; I10 Essential (primary) hypertension; G43.709 Chronic migraine without aura, not intractable, without status migrainosus; Z79.899 Other long term (current) drug therapy; Y83.8 Other surgical procedures as the cause of abnormal reaction of the patient, or of later complication, without mention of misadventure at the time of the procedure; M47.27 Other spondylosis with radiculopathy, lumbosacral region; M47.26 Other spondylosis with radiculopathy, lumbar region
CPT/HCPCS: 20102; 00300; 87070; 87075; 87077; 87102; 87186; 87205; 87206; 94668; 96361; 96365; 96366; 97802; 99221; 99252; 99406; J7120; G0378; G0463; J2405

== ENCOUNTER 2023-08-13 18:20 | Emergency (ER) | payer OTHER, SELFPAY ==
[2023-08-13 18:21] VITALS: BP 146/82; PULSE 72; RESP 18; TEMP 36.2; O2SAT 100; BMI 27.1
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
== END 2023-08-13 18:43 | disposition home or self-care (01) ==
LOC: ED 18:37
PROVIDERS: Emergency Provider Emergency Medicine; PCP Family Medicine; Visit Provider Emergency Medicine
DX: Z51.89 Encounter for other specified aftercare (principal); J44.9 Chronic obstructive pulmonary disease, unspecified; F17.210 Nicotine dependence, cigarettes, uncomplicated
CPT/HCPCS: 99282

== ENCOUNTER → 2023-08-27 | Outpatient (CLI) | payer OTHER, SELFPAY ==
[2023-08-27 13:58] LABS: Absolute Neutrophil Count 6.6 X10^3/uL (2.0-7.7); Basophil# 0.07 X10^3/uL; Basophil% 0.6 % (0-1); Eosinophil# 0.15 X10^3/uL; Eosinophils% 1.4 % (0-5); Hemoglobin 12.6 g/dL (13.0-16.5); Lymphocyte % 24.7 % (19-41); Mean Corp Hgb Conc 31.5 g/dL (32-36); Mean Corpuscular Hgb 29.4 pg (27.0-32.0); Mean Corpuscular Volume 93.2 fL (80-94); Mean Platelet Vol. 10.4 fl (6.2-12.0); Monocyte# 1.33 X10^3/uL; Monocyte% 12.2 % (0-10); NRBC Flagged by Analyzer 0 % (0-5); Neutrophil % 60.3 % (47-70); Platelet Count 430 K/mm3 (150-450); RBC Distribution Width CV 13.2 % (11.6-14.6); RBC Distribution Width SD 45.3 fl (35.1-43.9); Red Blood Count 4.29 M/mm3 (4.6-6.2); White Blood Count 10.9 K/mm3 (4.4-11.0)
[2023-08-27 14:05] LABS: Prothrombin Time (Protime)PT. 13.5 SECONDS (11.7-14.9)
[2023-08-27 14:24] LABS: Vitamin D,25 Hydroxy 17.1 ng/mL
[2023-08-27 14:26] LABS: ALB/GLOB Ratio 0.7 RATIO (0.9-2.4); AST(SGOT) 14 U/L (15-37); Alanine Aminotransfer ALT/SGPT 17 U/L (16-61); Alkaline Phosphatase 77 U/L (45-117); Anion Gap 4 (5-15); BUN 13 mg/dL (7-18); BUN/Creat Ratio 17.9 RATIO (10-20); Calcium,Total 8.8 mg/dL (8.5-10.1); Chloride 108 mmol/L (98-107); Cholesterol 160 mg/dL (200); Creatinine, Serum 0.73 mg/dL (0.70-1.30); EST Glomerular Filtration Rate 116 mL/min (>60); Est Glom Filt Rate - Afr Amer 141 mL/min (>60); Ferritin 170 ng/mL (26-388); Globulin 4.2 g/dL (2.2-4.2); Glucose 96 mg/dL (74-106); High Density Lipoprotein 42 mg/dL; Iron 23 ug/dL (65-175); Iron Binding Capacity,Total 249 ug/dL (250-450); PERCENT IRON SATURATION 9.2 % (15.0-55.0); Potassium 4.1 mmol/L (3.5-5.1); Protein, Total 7.2 g/dL (6.4-8.2); Sodium Level 139 mmol/L (136-145); Triglycerides 124 mg/dL; Very Low Density Lipoprotein 25 mg/dL (5-40)
[2023-08-27 15:28] LABS: Hemoglobin A1c 5.2 % (3.8-5.6)
[2023-08-29 04:07] LABS: AFP, Tumor Marker 3.1 ng/mL (0.0-8.4)
== END | disposition home or self-care (01) ==
LOC: LAB 13:37
PROVIDERS: PCP Family Medicine; Referring Provider Internal Medicine; Visit Provider Internal Medicine
DX: K22.70 Barrett's esophagus without dysplasia (principal); K58.0 Irritable bowel syndrome with diarrhea; Z86.19 Personal history of other infectious and parasitic diseases
CPT/HCPCS: 36415; 80053; 80061; 82105; 82274; 82306; 82728; 83036; 83540; 83550; 83630; 85025; 85610; 86140; 87506

== ENCOUNTER 2023-09-05 11:58 | Outpatient (RCR) | payer OTHER, SELFPAY | END 2023-09-14 18:00 | disposition home or self-care (01) | LOC: HHLAB 11:58 | PROVIDERS: PCP Family Medicine | DX: M54.9 Dorsalgia, unspecified (principal); F17.210 Nicotine dependence, cigarettes, uncomplicated | CPT/HCPCS: 87493 ==

== ENCOUNTER 2023-09-17 08:52 | Emergency (ER) | payer OTHER, SELFPAY ==
[2023-09-17 08:53] VITALS: BP 129/99; PULSE 116; RESP 22; TEMP 36; O2SAT 99
--- NOTE | 2023-09-17 09:05 | CT_ITS ---
STUDY: CT LUMBAR SPINE WITH CONTRAST REASON FOR EXAM: Male, 63 years old. Wound Infection RADIATION DOSAGE (If Supplied By Facility): CTDIvol = ( 11.72 ) mGy, DLP = ( 367.00 ) mGycm TECHNIQUE: The patient was scanned in a multi detector CT scanner. High resolution transaxial imaging was performed following the intravenous administration of IV 100mL [id number]-300. Images were obtained from T12 to upper S5. Sagittal and coronal images were reconstructed. Individualized dose optimization techniques were used for this CT. COMPARISON: CT abdomen and pelvis with IV contrast 02/02/2020. FINDINGS: Normal lumbar lordosis. There is no substantial scoliosis. No acute fractures. No lytic or blastic lesions throughout the lumbar spine. T12-L1: Normal T12 inferior endplate. Old anterior wedge compression fracture of the upper L1 vertebral body causing increased anterior disc space height. Normal facet joints. Normal central canal and bilateral lateral recesses. Normal bilateral intervertebral neural foramina. L1-2: Normal endplates. Moderate disc space height narrowing. No significant facet arthropathy. Prominent dorsal epidural lipomatosis. Moderately pronounced central canal stenosis with an AP canal diameter of 6 mm. Normal bilateral lateral recesses. Normal bilateral intervertebral neural foramina. L2-3: Schmorl''s node in the anterior L3 superior endplate. Normal endplates. Minimal degenerative retrolisthesis of L2 on L3. Moderate posterior disc space height narrowing. Mild bilateral degenerative facet arthropathy. Prominent dorsal epidural lipomatosis. Moderately pronounced central canal stenosis with an AP canal diameter of 6 mm. Normal bilateral lateral recesses. Moderate stenosis of the right intervertebral neural foramen. Normal left intervertebral neural foramen. L3-4: Normal endplates. Mild disc space height narrowing. Minimal degenerative retrolisthesis of L3 on L4. Mild bilateral degenerative facet arthropathy. Mild dorsal epidural lipomatosis. Pronounced central canal stenosis with an AP canal diameter of 4.5 mm. Normal bilateral lateral recesses. Normal bilateral intervertebral neural foramina. L4-5: Normal endplates. Mild disc space height narrowing contains disc implant. Pedicular screws and rods causing streak artifacts. Postsurgical absence of the spinous processes and lamina. Limited visualization of the central canal due to absence of intrathecal contrast. Moderate stenosis of the left intervertebral neural foramen. Normal right intervertebral neural foramen. L5-S1: Normal endplates. Disc implant inside the disc space. Minimal degenerative retrolisthesis of L5 on S1. L5 and S1 pedicular screws and rods causing streak artifacts. Suboptimal visualization of the sac due to absence of intrathecal contrast. Postsurgical absence of the L5 spinous process and lamina. Moderately pronounced stenosis of the left intervertebral neural foramen. Mild stenosis of the right intervertebral neural foramen. Normal visualized paraspinous soft tissue structures. No obvious central intradural or extradural enhancing lesions with IV contrast. CT/Spine Lumbar WITH Contrast IMPRESSION: 1. Limited study due to absence of intrathecal contrast in addition to metallic streak artifacts coming from pedicular screws and rods at L4-L5 and L5-S1 disc space levels. 2. No obvious enhancing lesions intradurally and extradurally. 3. Postsurgical absence of the spinous processes and lamina with placement of disc implant, pedicular screws and rods at L4-L5 and L5-S1 disc space levels. 4. Pronounced central canal stenosis at L3-L4 disc space level with an AP canal diameter of 4.5 mm and minimal degenerative retrolisthesis of L3 on L4 but unchanged when compared to 07/03/2022. 5. Moderately pronounced stenosis of the left L5-S1 intervertebral neural foramen is unchanged. 6. Moderately pronounced central canal stenosis at L1-L2 and L2-L3 disc space levels are unchanged. Electronically Signed: Gabe Isidro MD at 10:30 EST ,
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
[2023-09-17] MEDS: 0.9% Normal Saline (1000mL) 1,000 ML 999 ML IV (09:15)
[2023-09-17] MEDS: Ondansetron 4 MG/2 ML Vial IV (09:15)
[2023-09-17 09:25] LABS: Absolute Lymphocyte Count 2.48 X10^3/uL (0.83-4.51); Absolute Neutrophil Count 16.7 X10^3/uL (2.0-7.7); Basophil# 0.05 X10^3/uL; Basophil% 0.2 % (0-1); Hematocrit 39.3 % (40-54); Hemoglobin 12.6 g/dL (13.0-16.5); Lymphocyte # 2.48 X10^3/ul (0.83-4.51); Lymphocyte % 11.4 % (19-41); Mean Corp Hgb Conc 32.1 g/dL (32-36); Mean Corpuscular Hgb 28.3 pg (27.0-32.0); Mean Corpuscular Volume 88.3 fL (80-94); Mean Platelet Vol. 10.2 fl (6.2-12.0); Monocyte# 2.42 X10^3/uL; Monocyte% 11.1 % (0-10); NRBC Flagged by Analyzer 0 % (0-5); Neutrophil # 16.69 X10^3/uL (2.7-7.7); Neutrophil % 76.3 % (47-70); POSITIVE DIFFERENTIAL YES; Platelet Count 462 K/mm3 (150-450); RBC Distribution Width CV 13.3 % (11.6-14.6); RBC Distribution Width SD 43.5 fl (35.1-43.9); Red Blood Count 4.45 M/mm3 (4.6-6.2); White Blood Count 21.9 K/mm3 (4.4-11.0)
[2023-09-17 09:27] LABS: Differential Indicated SCAN CRITERIA MET
[2023-09-17 09:40] LABS: Anion Gap 5 (5-15); BUN 10 mg/dL (7-18); BUN/Creat Ratio 11.7 RATIO (10-20); Calcium,Total 9.7 mg/dL (8.5-10.1); Chloride 100 mmol/L (98-107); Creatinine, Serum 0.85 mg/dL (0.70-1.30); EST Glomerular Filtration Rate 97 mL/min (>60); Est Glom Filt Rate - Afr Amer 117 mL/min (>60); Glucose 120 mg/dL (74-106); Potassium 3.9 mmol/L (3.5-5.1); Sodium Level 134 mmol/L (136-145)
[2023-09-17 09:44] LABS: Differential Comment SCANNED
[2023-09-17] MEDS: Morphine 4 MG/ML Syringe IV (10:32)
[2023-09-17 10:59] LABS: Lactic Acid 1.5 mmol/L (0.4-1.9)
[2023-09-17 11:24] VITALS: BP 130/78; PULSE 79; RESP 18; O2SAT 99; BMI 28.1
[2023-09-19 10:44] LABS: Pathologist Review Reviewed
== END 2023-09-17 11:28 | disposition home or self-care (01) ==
PROVIDERS: Emergency Provider Emergency Medicine; PCP Family Medicine; Visit Provider Emergency Medicine
DX: M48.061 Spinal stenosis, lumbar region without neurogenic claudication (principal); M54.42 Lumbago with sciatica, left side; T81.89XA Other complications of procedures, not elsewhere classified, initial encounter; X58.XXXA Exposure to other specified factors, initial encounter; D72.829 Elevated white blood cell count, unspecified; F17.220 Nicotine dependence, chewing tobacco, uncomplicated; Z98.1 Arthrodesis status
CPT/HCPCS: 72132; 80048; 83605; 85025; 87040; 87077; 87149; 87186; 96361; 96374; 96375; 99283; J7030; Q9967; A4216; J2405

== ENCOUNTER 2023-09-19 11:25 | Inpatient (IN) | payer OTHER, SELFPAY ==
[2023-09-19 11:26] VITALS: BP 136/93; PULSE 80; RESP 14; TEMP 37.2; O2SAT 97
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
[2023-09-19 12:27] VITALS: BMI 26.6
[2023-09-19] MEDS: Morphine 4 MG/ML Syringe IV ×2 (12:32→16:17)
[2023-09-19] MEDS: Ondansetron 4 MG/2 ML Vial IV (12:32)
[2023-09-19] MEDS: 0.9% Normal Saline (1000mL) 1,000 ML 150 ML IV ×2 (12:32→19:17)
[2023-09-19 12:40] LABS: Erythrocyte Sedimentation Rate 100 mm/hr (0-20)
[2023-09-19 12:42] LABS: Absolute Lymphocyte Count 1.39 X10^3/uL (0.83-4.51); Basophil# 0.07 X10^3/uL; Basophil% 0.4 % (0-1); Eosinophil# 0.03 X10^3/uL; Eosinophils% 0.2 % (0-5); Hematocrit 34.6 % (40-54); Hemoglobin 11.3 g/dL (13.0-16.5); Lymphocyte # 1.39 X10^3/ul (0.83-4.51); Lymphocyte % 8.6 % (19-41); Mean Corp Hgb Conc 32.7 g/dL (32-36); Mean Corpuscular Hgb 28.1 pg (27.0-32.0); Mean Corpuscular Volume 86.1 fL (80-94); Mean Platelet Vol. 11.1 fl (6.2-12.0); Monocyte# 1.56 X10^3/uL; Monocyte% 9.6 % (0-10); NRBC Flagged by Analyzer 0 % (0-5); Neutrophil # 12.98 X10^3/uL (2.7-7.7); Neutrophil % 80.3 % (47-70); POSITIVE DIFFERENTIAL YES; Platelet Count 371 K/mm3 (150-450); RBC Distribution Width CV 13.4 % (11.6-14.6); RBC Distribution Width SD 42.3 fl (35.1-43.9); Red Blood Count 4.02 M/mm3 (4.6-6.2); White Blood Count 16.2 K/mm3 (4.4-11.0)
[2023-09-19 12:46] LABS: Differential Indicated SCAN CRITERIA MET
[2023-09-19] MEDS: Piperacil/Tazobactam 3.375 GM in 0.9% Normal Saline (50mL MB+) 50 ML IV ×2 (12:49→23:29)
[2023-09-19 13:04] LABS: Anion Gap 8 (5-15); BUN 16 mg/dL (7-18); BUN/Creat Ratio 15.5 RATIO (10-20); Calcium,Total 8.9 mg/dL (8.5-10.1); Chloride 95 mmol/L (98-107); Creatinine, Serum 1.03 mg/dL (0.70-1.30); EST Glomerular Filtration Rate 78 mL/min (>60); Est Glom Filt Rate - Afr Amer 94 mL/min (>60); Estimated Creatinine Clearance 71.94 ml/min; Glucose 112 mg/dL (74-106); Potassium 3.6 mmol/L (3.5-5.1); Sodium Level 127 mmol/L (136-145)
[2023-09-19 13:09] LABS: Lactic Acid 1.3 mmol/L (0.4-1.9)
[2023-09-19] MEDS: Vancomycin HCl 1,250 MG in 0.9% Normal Saline (250mL Bag) 250 ML 167 MG IV (13:30)
[2023-09-19] MEDS: 0.9% Normal Saline (500mL Bag) 500 ML 999 ML IV (13:44)
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
[2023-09-19 14:42] VITALS: BP 102/76; PULSE 76; RESP 18; O2SAT 96
[2023-09-19 14:43] VITALS: BP 106/71; PULSE 76; RESP 14; TEMP 36.2; O2SAT 96
--- NOTE | 2023-09-19 14:49 | ECHOD_ITS ---
Reason For Study: Bacteremia Procedure This was a 2D Doppler, Color Flow transthoracic echocardiogram. Exam performed portable in ED. Left Ventricle Normal size and thickness. The left ventricular ejection fraction is 65 %. Normal diastology for age. Right Ventricle Normal right ventricle. Atria The left and right atria are normal. Mitral Valve Trivial mitral valve insufficiency. Tricuspid Valve Trivial tricuspid valve insufficiency. Unable to estimate RV systolic pressure due to insufficient tricuspid regurgitant envelope. Aortic Valve Trisinus/trileaflet aortic valve. Pulmonic Valve The pulmonic valve is not well visualized. Great Vessels The aortic root is not well visualized. Pericardium/Pleural No pericardial effusion. MMode/2D Measurements & Calculations LVIDd: 5.3 cm IVSd: 0.88 cm LA dimension: 3.7 cm LVIDs: 4.0 cm LVPWd: 0.94 cm RVDd: 3.8 cm FS: 25.0 % LAV(MOD-bp): 55.3 ml LVAd ap4: 30.9 cm2 SV(MOD-sp4): 47.3 ml LAV(MOD-bp) Indexed: 28.6 ml/m2 LVLd ap4: 8.0 cm LAV(MOD-sp2): 57.9 ml EDV(MOD-sp4): 97.2 ml LAV(MOD-sp4): 46.8 ml EDV(sp4-el): 101.0 ml LVAs ap4: 19.6 cm2 LVLs ap4: 6.6 cm ESV(MOD-sp4): 49.8 ml ESV(sp4-el): 49.1 ml EF(MOD-sp4): 48.7 % EF(sp4-el): 51.3 % SV(sp4-el): 51.9 ml LA A4 area: 17.9 cm2 RA A4 area: 19.5 cm2 Time Measurements MV dec time: 0.26 sec Doppler Measurements & Calculations MV E max matthew: 74.7 cm/sec Lat Peak E' Matthew: 14.5 cm/sec Med Peak E' Matthew: 11.8 cm/sec MV A max matthew: 39.6 cm/sec E/E' lat: 5.2 E/E' med: 6.3 MV E/A: 1.9 MV V2 max: 76.0 cm/sec MV P1/2t max matthew: 77.0 cm/sec Ao V2 max: 132.2 cm/sec MV max P.3 mmHg MV P1/2t: 74.1 msec Ao max P.0 mmHg MV V2 mean: 45.4 cm/sec Ao V2 mean: 93.5 cm/sec MV mean P.96 mmHg MV dec slope: 304.6 cm/sec2 Ao mean P.0 mmHg MV V2 VTI: 22.7 cm MVA(P1/2t): 3.0 cm2 Ao V2 VTI: 26.7 cm AV (velocity ratio): 0.71 LV V1 max: 106.1 cm/sec PA V2 max: 67.1 cm/sec LV V1 max P.5 mmHg LV V1 mean P.3 mmHg LV V1 mean: 70.2 cm/sec LV V1 VTI: 18.9 cm ECHO/Echo Complete Interpretation Summary The left ventricular ejection fraction is 65 %. No vegetations noted on the surface study. Consider ZOHAIB for further evaluation if clinically indicated. Ordering Physician: Sangeetha Gary Referring Physician: Daljit Chou Performed By: Carlos Cantu RCS
[2023-09-19 15:35] VITALS: BP 141/79; PULSE 75; RESP 16; TEMP 37.2; O2SAT 95
[2023-09-19 17:18] VITALS: BMI 26.6
[2023-09-19 17:28] VITALS: BP 136/80; PULSE 86; RESP 18; TEMP 37.1; O2SAT 99
--- NOTE | 2023-09-19 17:39 | PCM.RX.CS ---
Consult Antibiotic Management Pharmacy has been consulted to manage selected antibiotic: Vancomycin Type of Intervention Type of Consult: New start Suspected Infection Suspected Infection: Other (SPINAL POST-OP INFECTION) Labs Labs: Sodium 127 mmol/L (136-145) L 09/19/23 11:50 Potassium 3.6 mmol/L (3.5-5.1) 09/19/23 11:50 Chloride 95 mmol/L (98-107) L 09/19/23 11:50 Carbon Dioxide 24.0 mmol/L (21.0-32.0) 09/19/23 11:50 Anion Gap 8 (5-15) 09/19/23 11:50 BUN 16 mg/dL (7-18) 09/19/23 11:50 Creatinine 1.03 mg/dL (0.70-1.30) 09/19/23 11:50 Est GFR (MDRD) Af Amer 94 mL/min (>60) 09/19/23 11:50 Est GFR (MDRD) Non-Af 78 mL/min (>60) 09/19/23 11:50 BUN/Creatinine Ratio 15.5 RATIO (10-20) 09/19/23 11:50 Glucose 112 mg/dL (74-106) H 09/19/23 11:50 Microbiology Microbiology: Microbiology 09/19/23 12:40 Mucosa - Nasopharyngeal SARS-CoV-2, Influenza & RSV (PCR) - Final Pharmacy Plan for Drug Dosing Pharmacy Plan for Drug Dosing: NEW START IV VANCOMYCIN Consulting Physician: EDINSON Indication: POST-OP SPINAL INFECTION/BACTEREMIA Goal Trough: 15-20 MG/DL SrCr: SCR 1.03 MG/DL (09/19) CrCl: 71.94 ML/MIN Comments: STANDARD INITIAL DOSE OF 1250MG GIVEN 09/19 @ 1330 IN ER Vancomycin Dose: LOADING DOSE ENTERED FIRST DOSE BUT PATIENT HAD STANDARD DOSE IN ER SO WILL START NEXT SCHEDULED DOSE SOONER. WILL START 1000MG Q12 @ 2130 (8 HOURS AFTER ER DOSE) AND GET A LEVEL PRIOR TO 4TH TOTAL DOSE. Pending Level: 09/20/23 @ 2100 Pharmacy Service will continue to monitor and adjust dosing as required.
[2023-09-19] MEDS: Acetaminophen 500 MG Tablet 1000 MG PO ×2 (17:47→22:05)
[2023-09-19] MEDS: oxyCODONE 5 MG Tablet PO (18:37)
[2023-09-19 19:36] LABS: Osmolality, Serum 270 mOsm/KG (280-301)
[2023-09-19] MEDS: Vancomycin IV 1,000 MG/200 ML BAG 200 MG IV (21:52)
[2023-09-19 22:00] VITALS: BP 105/90; PULSE 71; RESP 18; TEMP 36.4; O2SAT 99
[2023-09-19] MEDS: Pantoprazole Sodium 40 MG Tablet PO (22:05)
[2023-09-19] MEDS: Gabapentin 100 MG Capsule 200 MG PO (22:05)
[2023-09-19] MEDS: Topiramate 50 MG Tablet PO (22:13)
[2023-09-19] MEDS: Morphine 2 MG/ML Syringe IV (22:13)
[2023-09-20 02:10] VITALS: BP 104/69; PULSE 64; RESP 16; TEMP 36.6; O2SAT 99
[2023-09-20] MEDS: oxyCODONE 5 MG Tablet PO ×5 (02:13→22:45)
[2023-09-20] MEDS: 0.9% Normal Saline (1000mL) 1,000 ML 150 ML IV ×3 (06:09→21:48)
[2023-09-20] MEDS: Piperacil/Tazobactam 3.375 GM in 0.9% Normal Saline (50mL MB+) 50 ML IV ×3 (06:09→22:43)
[2023-09-20] MEDS: Acetaminophen 500 MG Tablet 1000 MG PO ×3 (06:10→22:43)
[2023-09-20 06:22] LABS: Absolute Lymphocyte Count 0.72 X10^3/uL (0.83-4.51); Absolute Neutrophil Count 9.8 X10^3/uL (2.0-7.7); Basophil# 0.02 X10^3/uL; Basophil% 0.2 % (0-1); Eosinophil# 0.29 X10^3/uL; Eosinophils% 2.4 % (0-5); Hematocrit 34.3 % (40-54); Hemoglobin 10.8 g/dL (13.0-16.5); Lymphocyte # 0.72 X10^3/ul (0.83-4.51); Mean Corp Hgb Conc 31.5 g/dL (32-36); Mean Corpuscular Hgb 28.3 pg (27.0-32.0); Mean Platelet Vol. 10.7 fl (6.2-12.0); Monocyte# 1.09 X10^3/uL; Monocyte% 9.1 % (0-10); NRBC Flagged by Analyzer 0 % (0-5); Neutrophil # 9.82 X10^3/uL (2.7-7.7); Neutrophil % 81.7 % (47-70); Platelet Count 342 K/mm3 (150-450); RBC Distribution Width CV 13.6 % (11.6-14.6); RBC Distribution Width SD 45.1 fl (35.1-43.9); Red Blood Count 3.81 M/mm3 (4.6-6.2)
[2023-09-20 06:42] LABS: Erythrocyte Sedimentation Rate 45 mm/hr (0-20)
[2023-09-20 07:06] LABS: ALB/GLOB Ratio 0.5 RATIO (0.9-2.4); AST(SGOT) 19 U/L (15-37); Alanine Aminotransfer ALT/SGPT 17 U/L (16-61); Albumin, Serum 2.3 g/dL (3.2-5.0); Alkaline Phosphatase 63 U/L (45-117); Anion Gap 5 (5-15); BUN 13 mg/dL (7-18); BUN/Creat Ratio 15.9 RATIO (10-20); Calcium,Total 8.4 mg/dL (8.5-10.1); Chloride 103 mmol/L (98-107); Creatinine, Serum 0.82 mg/dL (0.70-1.30); EST Glomerular Filtration Rate 101 mL/min (>60); Est Glom Filt Rate - Afr Amer 122 mL/min (>60); Estimated Creatinine Clearance 90.37 ml/min; Globulin 4.2 g/dL (2.2-4.2); Glucose 99 mg/dL (74-106); Potassium 3.8 mmol/L (3.5-5.1); Protein, Total 6.5 g/dL (6.4-8.2); Sodium Level 134 mmol/L (136-145)
--- NOTE | 2023-09-20 08:10 | PN.HOSP_ITS ---
Subjective Subjective Still with back pain. States that it began after he was leaning forward to put on his socks. States he been having numbness down his left leg since event as well as pain that flares up periodically. Objective Data Objective Data Vital Signs: Vital Signs Temp Pulse Resp BP Pulse Ox O2 Del Method 36.6 C 64 16 104/69 99 Room Air 09/20/23 02:10 09/20/23 02:10 09/20/23 02:10 09/20/23 02:10 09/20/23 02:10 09/20/23 02:10 Oxygen Delivery Method Room Air Weight: 79.5 kg Body Mass Index (BMI) 26.6 Intake & Output: Intake and Output for Last 24 Hours 09/18/23 09/19/23 09/20/23 23:59 23:59 23:59 Intake Total 2024 1800 / 1800 Balance 2024 1800 / 1800 Lab / Micro Data 09/20/23 05:25 09/20/23 05:25 Labs: Laboratory Results - last 24 hr 09/19/23 11:50: WBC 16.2 H, RBC 4.02 L, Hgb 11.3 L, Hct 34.6 L, MCV 86.1, MCH 28.1, MCHC 32.7, RDW Std Deviation 42.3, RDW Coeff of Shila 13.4, Plt Count 371, MPV 11.1, Immature Gran % (Auto) 0.900, Neut % (Auto) 80.3 H, Lymph % (Auto) 8.6 L, [place] % (Auto) 9.6, Eos % (Auto) 0.2, Baso % (Auto) 0.4, Absolute Neuts (auto) 13.0 H, Absolute Lymphs (auto) 1.39, Nucleated RBC % 0, Diff Path Review January, ESR 100 H, Sodium 127 L, Potassium 3.6, Chloride 95 L, Carbon Dioxide 24.0, Anion Gap 8, BUN 16, Creatinine 1.03, Estim Creat Clear Calc 71.94, Est GFR (MDRD) Af Amer 94, Est GFR (MDRD) Non-Af 78, BUN/Creatinine Ratio 15.5, Glucose 112 H, Serum Osmolality 270 L, Lactic Acid 1.3, Calcium 8.9, C-React Prot Ext Range 240.00 H 09/20/23 05:25: WBC 12.0 H, RBC 3.81 L, Hgb 10.8 L, Hct 34.3 L, MCV 90.0, MCH 28.3, MCHC 31.5 L, RDW Std Deviation 45.1 H, RDW Coeff of Shila 13.6, Plt Count 342, MPV 10.7, Immature Gran % (Auto) 0.600, Neut % (Auto) 81.7 H, Lymph % (Auto) 6.0 L, [place] % (Auto) 9.1, Eos % (Auto) 2.4, Baso % (Auto) 0.2, Absolute Neuts (auto) 9.8 H, Absolute Lymphs (auto) 0.72 L, Nucleated RBC % 0, ESR 45 H, Sodium 134 L, Potassium 3.8, Chloride 103, Carbon Dioxide 26.0, Anion Gap 5, BUN 13, Creatinine 0.82, Estim Creat Clear Calc 90.37, Est GFR (MDRD) Af Amer 122, Est GFR (MDRD) Non-Af 101, BUN/Creatinine Ratio 15.9, Glucose 99, Calcium 8.4 L, Total Bilirubin 0.30, AST 19, ALT 17, Alkaline Phosphatase 63, C-React Prot Ext Range 208.00 H, Total Protein 6.5, Albumin 2.3 L, Globulin 4.2, Albumin/Globulin Ratio 0.5 L Micro: Microbiology 09/19/23 12:40 Mucosa - Nasopharyngeal SARS-CoV-2, Influenza & RSV (PCR) - Final Physical Exam Const alert and no apparent distress Resp normal respiratory effort, no retractions and no use of accessory muscles Cardio regular rate, regular rhythm, S1 normal heart sound and S2 normal heart sound GI normal to inspection, nondistended, normoactive bowel sounds, soft to palpation and non-tender Skin Skin Narrative: Back with wound with wound VAC sponge in place. No surrounding erythema. Assessment & Plan Assessment/Plan (1) Staphylococcus aureus bacteremia: (2) Wound infection after surgery: (3) Migraine headache with aura: QUALIFIERS: Intractability: not intractable Status migrainosus presence: without status migrainosus Qualified Code(s): G43.109 - Migraine with aura, not intractable, without status migrainosus (4) Tobacco use disorder, continuous: PLAN: Plan post op lumbar fusion infection * complicated by staph aureus (Likely MSSA) bacteremia * Initial surgery June 2023 at L4-5 and L5-S1 with Dr. Murray with subsequent necrotic tissue debrided in July and treated with cephalexin. * CT imaging 09/17/23 unremarkable (though limited given artifact) * abx with vancomycin and pip/tazo * Consult spine and ID * check MRI * ESR 100 to 45, CRP 208 S. aureus bacteremia * suspect MSSA. Suspect source if from his prior surgeries * ID and Spine consulted. * TTE negative. If ongoing, may need to consider ZOHAIB. Back pain * Secondary to potential lumbar infection but may also be a component of a herniated disc as patient was bent forward when the symptoms began. * Takes gabapentin 300 3 times daily at home, will increase that to 600 3 times daily. Schedule acetaminophen, as needed ketorolac and Lidoderm patch. Hyponatremia * improved. * likely benign and perhaps due to beer potomania (doubt SIADH, etc.), hold off on additional work up unless persists. Chronic conditions: * History of seizures-Continue Topamax and gabapentin * Hypertension-On losartan and propranolol * GERD-Continue PPI * Alcohol use-Drinks up to 4-6 12 oz 4% beers a night, denies withdrawal sx or concerns with cessation-CIWA without coverage at this time, can add coverage if pt begins to score or if further concerns * tobacco use-Advise cessation-Patient does not want nicotine replacement * HCV in history-Hepatitis C listed in patient history, HCV not detected 022 DVT ppx: SCDs Charges/Coding Visit Charges Inpatient E&M: 56322 Subs Hosp L2
[2023-09-20 08:18] VITALS: BP 91/71; PULSE 80; RESP 16; TEMP 36.7; O2SAT 98
[2023-09-20] MEDS: Gabapentin 100 MG Capsule 200 MG PO ×2 (08:23→12:08)
[2023-09-20] MEDS: Vancomycin IV 1,000 MG/200 ML BAG 200 MG IV (09:39)
[2023-09-20 09:41] LABS: Osmolality, Urine 494 mOsm/KG
[2023-09-20 09:47] LABS: Urea Nitrogen, Urine 767 mg/dL (NO RANGE EST.); Urine Chloride 56 mmol/L (Not Establ.); Urine Sodium 38 mmol/L (Not Establ.)
[2023-09-20] MEDS: Pantoprazole Sodium 40 MG Tablet PO ×2 (09:49→22:43)
[2023-09-20] MEDS: Losartan Potassium 25 MG Tablet PO (09:49)
[2023-09-20] MEDS: Topiramate 50 MG Tablet PO ×2 (09:49→22:43)
--- NOTE | 2023-09-20 13:52 | CASEMGMT ---
TRISTA OSORIO Assessment: Face to Face with pt for initial transition planning/care coordination assessment. RN JO introduced self and role at [facility], pt voices understanding and consents to assessment. Pt is A&O x4 and answers all questions appropriately at this time. Pt sitting up in bed in no distress with at bedside. Care providers, pharmacy, and demographics verified/updated. Admitting Dx: post op wound infection PCP:José Antonio Specialists:Terri, ortho; Dmitriy, neuro; Friend, GI Preferred Pharmacy: [facility] Insurance: MMO Prescription Benefit: yes LNOK: Gillian Gaspar, Living Arrangements: Pt lives with in a two story home with [facility] with 2 steps to enter. Pt reports he is I in ADL's and denies concerns at home. Transportation: Pt drives self and denies concerns with transportation. DME:shower chair, cane, crutches, BSC, FWW, bp cuff HHC/SNF: Pt is active with [facility] SN for wound vac changes. Pt denies SNF stays. Pt states no concerns with going home at time of dc. Discussed if the need is for IV atb pt preference, pt would like to do them at home if need be. Pt states she would be willing to learn as well. RN CM to follow ID rec. Pt states no further concerns/needs. CM to follow. Advised pt to ask CM if any further question/concerns/needs arise, voices understanding. Pt Goal: Home with [facility] resuming Plan: Home with [facility] resuming, follow for IV atb
[2023-09-20 14:51] VITALS: BP 130/72; PULSE 79; RESP 18; TEMP 37.4; O2SAT 98
[2023-09-20] MEDS: Gabapentin 600 MG Tablet PO (16:52)
[2023-09-20] MEDS: Ensure Plus High Protein 120 ML LIQUID PO (16:58)
[2023-09-20 20:00] VITALS: BP 114/70; PULSE 80; RESP 18; TEMP 36.6; O2SAT 98
[2023-09-20] MEDS: Ketorolac 15 MG/ML Vial IV (20:05)
[2023-09-20 21:29] LABS: Vancomycin, Trough Level 10.8 ug/mL (5.0-15.0)
--- NOTE | 2023-09-20 21:46 | PCM.RX.CS ---
Consult Antibiotic Management Pharmacy has been consulted to manage selected antibiotic: Vancomycin Type of Intervention Type of Consult: Follow-up Suspected Infection Suspected Infection: Bacteremia Labs Labs: Sodium 134 mmol/L (136-145) L 09/20/23 05:25 Potassium 3.8 mmol/L (3.5-5.1) 09/20/23 05:25 Chloride 103 mmol/L (98-107) 09/20/23 05:25 Carbon Dioxide 26.0 mmol/L (21.0-32.0) 09/20/23 05:25 Anion Gap 5 (5-15) 09/20/23 05:25 BUN 13 mg/dL (7-18) 09/20/23 05:25 Creatinine 0.82 mg/dL (0.70-1.30) 09/20/23 05:25 Est GFR (MDRD) Af Amer 122 mL/min (>60) 09/20/23 05:25 Est GFR (MDRD) Non-Af 101 mL/min (>60) 09/20/23 05:25 BUN/Creatinine Ratio 15.9 RATIO (10-20) 09/20/23 05:25 Glucose 99 mg/dL (74-106) 09/20/23 05:25 Vancomycin Trough 10.8 ug/mL (5.0-15.0) 09/20/23 20:30 Microbiology Microbiology: Microbiology 09/19/23 12:45 Blood Culture (Wb) - Left Forearm Bacteria Detection (PCR) - Preliminary Staphylococcus aureus 09/19/23 12:45 Blood Culture (Wb) - Left Forearm Blood Culture - Preliminary 09/19/23 12:40 Mucosa - Nasopharyngeal SARS-CoV-2, Influenza & RSV (PCR) - Final Dosing Weight Weight used for dosin.5 kg Estimated Creatinine Clearance Estimated Creatinine Clearance: 90 Goal Trough Goal Trough: 15-20 mcg/mL Pharmacy Plan for Drug Dosing Pharmacy Plan for Drug Dosing: Vancomycin trough level of 10.8, drawn 11hrs post-dose, was below the target range of 15-20. This coincides with improvement in renal function (SCr from 1.03 to 0.82). Will increase dose to 1500mg q12h, and will draw another trough prior to fourth dose of the new regimen. Pharmacy Service will continue to monitor and adjust dosing as required. Follow-Up Labs Follow-Up Labs: Trough: Vancomycin Date/Time Labs Ordered Labs to be done on [date and time ordered]: 09/22/23 @1800
[2023-09-20] MEDS: Vancomycin HCl 1,500 MG in 0.9% Normal Saline (500mL Bag) 500 ML 250 MG IV (21:49)
[2023-09-21 02:45] VITALS: BP 119/75; PULSE 77; RESP 16; TEMP 36.5; O2SAT 99
[2023-09-21] MEDS: Morphine 2 MG/ML Syringe IV ×2 (03:03→08:36)
[2023-09-21] MEDS: 0.9% Normal Saline (1000mL) 1,000 ML 150 ML IV ×3 (06:50→20:05)
[2023-09-21] MEDS: Piperacil/Tazobactam 3.375 GM in 0.9% Normal Saline (50mL MB+) 50 ML IV ×3 (06:51→21:43)
[2023-09-21] MEDS: Acetaminophen 500 MG Tablet 1000 MG PO ×3 (06:53→21:42)
[2023-09-21 07:37] LABS: Absolute Lymphocyte Count 1.35 X10^3/uL (0.83-4.51); Absolute Neutrophil Count 6.7 X10^3/uL (2.0-7.7); Basophil# 0.01 X10^3/uL; Basophil% 0.1 % (0-1); Eosinophil# 0.38 X10^3/uL; Hematocrit 31.1 % (40-54); Hemoglobin 9.6 g/dL (13.0-16.5); Lymphocyte # 1.35 X10^3/ul (0.83-4.51); Lymphocyte % 14.1 % (19-41); Mean Corp Hgb Conc 30.9 g/dL (32-36); Mean Corpuscular Hgb 28.1 pg (27.0-32.0); Mean Corpuscular Volume 90.9 fL (80-94); Monocyte# 1.05 X10^3/uL; NRBC Flagged by Analyzer 0 % (0-5); Neutrophil % 70.2 % (47-70); Platelet Count 315 K/mm3 (150-450); RBC Distribution Width CV 13.9 % (11.6-14.6); RBC Distribution Width SD 46.8 fl (35.1-43.9); Red Blood Count 3.42 M/mm3 (4.6-6.2); White Blood Count 9.6 K/mm3 (4.4-11.0)
[2023-09-21 07:45] LABS: Anion Gap 3 (5-15); BUN 7 mg/dL (7-18); Calcium,Total 8.2 mg/dL (8.5-10.1); Chloride 112 mmol/L (98-107); EST Glomerular Filtration Rate 121 mL/min (>60); Est Glom Filt Rate - Afr Amer 146 mL/min (>60); Estimated Creatinine Clearance 105.86 ml/min; Glucose 128 mg/dL (74-106); Potassium 3.5 mmol/L (3.5-5.1); Sodium Level 139 mmol/L (136-145)
[2023-09-21 08:07] VITALS: BP 118/72; PULSE 68; RESP 18; TEMP 36.4; O2SAT 100
[2023-09-21] MEDS: Ensure Plus High Protein 120 ML LIQUID PO ×3 (08:36→16:51)
[2023-09-21] MEDS: Gabapentin 600 MG Tablet PO ×3 (08:36→16:51)
--- NOTE | 2023-09-21 09:23 | PN.HOSP_ITS ---
Subjective Subjective Still with radicular back pain with movement at times. Objective Data Objective Data Vital Signs: Vital Signs Temp Pulse Resp BP Pulse Ox O2 Del Method 36.4 C L 68 18 118/72 100 Room Air 09/21/23 08:07 09/21/23 08:07 09/21/23 08:07 09/21/23 08:07 09/21/23 08:07 09/21/23 08:07 Oxygen Delivery Method Room Air Weight: 79.5 kg Body Mass Index (BMI) 26.6 Intake & Output: Intake and Output for Last 24 Hours 09/19/23 09/20/23 09/21/23 23:59 23:59 23:59 Intake Total 2024 4100 / 4600 2380 / 2380 Balance 2024 4100 / 4600 2380 / 2380 Lab / Micro Data 09/21/23 06:16 09/21/23 06:16 Labs: Laboratory Results - last 24 hr 09/20/23 09:10: Urine Osmolality 494, Ur Random Sodium 38, Urine Creatinine 129.00, Urine Potassium 29.0, Urine Chloride 56, Urine Urea Nitrogen 767 09/20/23 20:30: Vancomycin Trough 10.8 09/21/23 06:16: WBC 9.6, RBC 3.42 L, Hgb 9.6 L, Hct 31.1 L, MCV 90.9, MCH 28.1, MCHC 30.9 L, RDW Std Deviation 46.8 H, RDW Coeff of Shila 13.9, Plt Count 315, MPV 11.0, Immature Gran % (Auto) 0.600, Neut % (Auto) 70.2 H, Lymph % (Auto) 14.1 L, [place] % (Auto) 11.0 H, Eos % (Auto) 4.0, Baso % (Auto) 0.1, Absolute Neuts (auto) 6.7, Absolute Lymphs (auto) 1.35, Nucleated RBC % 0, Sodium 139, Potassium 3.5, Chloride 112 H, Carbon Dioxide 24.0, Anion Gap 3 L, BUN 7, Creatinine 0.70, Estim Creat Clear Calc 105.86, Est GFR (MDRD) Af Amer 146, Est GFR (MDRD) Non-Af 121, BUN/Creatinine Ratio 10.0, Glucose 128 H, Calcium 8.2 L Micro: Microbiology 09/19/23 12:45 Blood Culture (Wb) - Left Forearm Bacteria Detection (PCR) - Final Staphylococcus aureus 09/19/23 12:45 Blood Culture (Wb) - Left Forearm Blood Culture - Preliminary 09/19/23 12:40 Mucosa - Nasopharyngeal SARS-CoV-2, Influenza & RSV (PCR) - Final Radiography Diagnostic Testing: Radiology Impression Echocardiogram 09/19/23 14:49 Interpretation Summary The left ventricular ejection fraction is 65 %. No vegetations noted on the surface study. Consider ZOHAIB for further evaluation if clinically indicated. Ordering Physician: Sangeetha Gary Referring Physician: Daljit Chou Performed By: Carlos Cantu RCS Physical Exam Const alert and no apparent distress Resp normal respiratory effort Extremity normal to inspection and no clubbing, cyanosis or edema Neuro moves all extremities Sensorium / Orientation: awake and alert Psych affect normal Assessment & Plan Assessment/Plan (1) Staphylococcus aureus bacteremia: (2) Wound infection after surgery: (3) Migraine headache with aura: QUALIFIERS: Intractability: not intractable Status migrainosus presence: without status migrainosus Qualified Code(s): G43.109 - Migraine with aura, not intractable, without status migrainosus PLAN: Plan post op lumbar fusion infection * complicated by staph aureus (Likely MSSA) bacteremia * Initial surgery June 2023 at L4-5 and L5-S1 with Dr. Murray with subsequent necrotic tissue debrided in July and treated with cephalexin. * CT imaging 09/17/23 unremarkable (though limited given artifact) * abx with vancomycin and pip/tazo * Consult spine and ID. Wound care to managed wound vac. * check MRI * ESR 100 to 45, CRP 208 S. aureus bacteremia * suspect MSSA. Suspect source if from his prior surgeries * ID and Spine consulted. * TTE negative. If ongoing, may need to consider ZOHAIB. * Continue vanc and pip/tazo for now. Back pain * Secondary to potential lumbar infection but may also be a component of a herniated disc as patient was bent forward when the symptoms began. * Takes gabapentin 300 3 times daily at home, will increase that to 600 3 times daily. Schedule acetaminophen, as needed ketorolac and Lidoderm patch. * Advised pt to take oxycodone as needed, but perhaps take before getting up to amulate distances. Hyponatremia * resolved * likely benign and perhaps due to beer potomania (doubt SIADH, etc.), hold off on additional work up unless persists. Chronic conditions: * History of seizures-Continue Topamax and gabapentin * Hypertension-On losartan and propranolol * GERD-Continue PPI * Alcohol use-Drinks up to 4-6 12 oz 4% beers a night, denies withdrawal sx or concerns with cessation-CIWA without coverage at this time, can add coverage if pt begins to score or if further concerns * tobacco use-Advise cessation-Patient does not want nicotine replacement * HCV in history-Hepatitis C listed in patient history, HCV not detected 07/18/2022 DVT ppx: SCDs Charges/Coding Visit Charges Inpatient E&M: 91005 Subs Hosp L2
[2023-09-21] MEDS: Pantoprazole Sodium 40 MG Tablet PO ×2 (10:49→21:42)
[2023-09-21] MEDS: Losartan Potassium 25 MG Tablet PO (10:49)
[2023-09-21] MEDS: Vancomycin HCl 1,500 MG in 0.9% Normal Saline (500mL Bag) 500 ML 250 MG IV ×2 (10:49→21:42)
[2023-09-21] MEDS: Topiramate 50 MG Tablet PO ×2 (10:49→21:42)
[2023-09-21] MEDS: 0.9% Saline Lock 10 ML Syringe IV (10:52)
[2023-09-21] MEDS: Lidocaine 5% Patch 1 PATCH TOPICAL (10:59)
[2023-09-21] MEDS: oxyCODONE 5 MG Tablet PO (13:55)
[2023-09-21] MEDS: Loperamide 2 MG Capsule PO (16:34)
[2023-09-21 16:38] VITALS: BP 128/83; PULSE 74; RESP 16; TEMP 36.8; O2SAT 99
[2023-09-21 21:22] VITALS: BP 141/86; PULSE 88; RESP 16; TEMP 37.2; O2SAT 98
[2023-09-21] MEDS: Morphine 4 MG/ML Syringe IV (21:43)
[2023-09-22 02:58] VITALS: BP 130/80; PULSE 71; RESP 14; TEMP 36.8; O2SAT 100
[2023-09-22] MEDS: 0.9% Normal Saline (1000mL) 1,000 ML 150 ML IV ×3 (02:59→17:57)
[2023-09-22] MEDS: Ketorolac 15 MG/ML Vial IV ×3 (02:59→23:43)
[2023-09-22] MEDS: Loperamide 2 MG Capsule PO (03:00)
[2023-09-22] MEDS: Piperacil/Tazobactam 3.375 GM in 0.9% Normal Saline (50mL MB+) 50 ML IV ×2 (06:12→13:17)
[2023-09-22] MEDS: Acetaminophen 500 MG Tablet 1000 MG PO ×3 (06:12→21:28)
[2023-09-22 06:26] LABS: Absolute Lymphocyte Count 2.29 X10^3/uL (0.83-4.51); Absolute Neutrophil Count 6.8 X10^3/uL (2.0-7.7); Basophil# 0.03 X10^3/uL; Basophil% 0.3 % (0-1); Eosinophil# 0.27 X10^3/uL; Eosinophils% 2.5 % (0-5); Hematocrit 31.3 % (40-54); Hemoglobin 9.8 g/dL (13.0-16.5); Lymphocyte # 2.29 X10^3/ul (0.83-4.51); Lymphocyte % 21.2 % (19-41); Mean Corp Hgb Conc 31.3 g/dL (32-36); Mean Corpuscular Hgb 27.9 pg (27.0-32.0); Mean Corpuscular Volume 89.2 fL (80-94); Mean Platelet Vol. 10.3 fl (6.2-12.0); Monocyte# 1.34 X10^3/uL; Monocyte% 12.4 % (0-10); NRBC Flagged by Analyzer 0 % (0-5); Neutrophil # 6.82 X10^3/uL (2.7-7.7); Platelet Count 369 K/mm3 (150-450); RBC Distribution Width SD 45.4 fl (35.1-43.9); Red Blood Count 3.51 M/mm3 (4.6-6.2); White Blood Count 10.8 K/mm3 (4.4-11.0)
[2023-09-22 06:52] LABS: Anion Gap 3 (5-15); BUN 10 mg/dL (7-18); BUN/Creat Ratio 16.3 RATIO (10-20); Calcium,Total 8.6 mg/dL (8.5-10.1); Chloride 116 mmol/L (98-107); Creatinine, Serum 0.61 mg/dL (0.70-1.30); EST Glomerular Filtration Rate 142 mL/min (>60); Est Glom Filt Rate - Afr Amer 172 mL/min (>60); Estimated Creatinine Clearance 121.48 ml/min; Glucose 92 mg/dL (74-106); Potassium 3.9 mmol/L (3.5-5.1); Sodium Level 142 mmol/L (136-145)
[2023-09-22 08:04] VITALS: BP 134/88; PULSE 73; RESP 18; TEMP 36.6; O2SAT 98
[2023-09-22] MEDS: Topiramate 50 MG Tablet PO ×2 (08:19→21:28)
[2023-09-22] MEDS: Losartan Potassium 25 MG Tablet PO (08:19)
[2023-09-22] MEDS: oxyCODONE 5 MG Tablet PO ×2 (08:19→13:17)
[2023-09-22] MEDS: Ensure Plus High Protein 120 ML LIQUID PO ×3 (08:19→17:27)
[2023-09-22] MEDS: Lidocaine 5% Patch 1 PATCH TOPICAL (08:19)
[2023-09-22] MEDS: Pantoprazole Sodium 40 MG Tablet PO ×2 (08:19→21:28)
[2023-09-22] MEDS: Gabapentin 600 MG Tablet PO ×3 (08:19→17:26)
[2023-09-22] MEDS: 0.9% Saline Lock 10 ML Syringe IV (11:34)
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
[2023-09-22 12:13] LABS: Vancomycin, Trough Level 15.3 ug/mL (5.0-15.0)
--- NOTE | 2023-09-22 12:36 | PCM.RX.CS ---
Consult Antibiotic Management Pharmacy has been consulted to manage selected antibiotic: Vancomycin Type of Intervention Type of Consult: Follow-up Suspected Infection Suspected Infection: Skin/Soft tissue Prior Doses of Antibiotics Prior Doses of Antibiotics Received/Current Regimen: Vancomycin 1500 mg IV Q12H given 09/20 @ 2149, 09/21 @ 1049, 09/21 @ 2141 Labs Labs: Sodium 142 mmol/L (136-145) 09/22/23 06:17 Potassium 3.9 mmol/L (3.5-5.1) 09/22/23 06:17 Chloride 116 mmol/L (98-107) H 09/22/23 06:17 Carbon Dioxide 23.0 mmol/L (21.0-32.0) 09/22/23 06:17 Anion Gap 3 (5-15) L 09/22/23 06:17 BUN 10 mg/dL (7-18) 09/22/23 06:17 Creatinine 0.61 mg/dL (0.70-1.30) L 09/22/23 06:17 Est GFR (MDRD) Af Amer 172 mL/min (>60) 09/22/23 06:17 Est GFR (MDRD) Non-Af 142 mL/min (>60) 09/22/23 06:17 BUN/Creatinine Ratio 16.3 RATIO (10-20) 09/22/23 06:17 Glucose 92 mg/dL (74-106) 09/22/23 06:17 Vancomycin Trough 15.3 ug/mL (5.0-15.0) H 09/22/23 11:37 Microbiology Microbiology: Microbiology 09/19/23 12:45 Blood Culture (Wb) - Left Forearm Bacteria Detection (PCR) - Final Staphylococcus aureus 09/19/23 12:45 Blood Culture (Wb) - Left Forearm Blood Culture - Final Staphylococcus aureus 09/19/23 11:50 Blood Culture (Wb) - Right Forearm Blood Culture - Preliminary No growth in 48 hours. 09/19/23 12:40 Mucosa - Nasopharyngeal SARS-CoV-2, Influenza & RSV (PCR) - Final Dosing Weight Weight used for dosin.5 kg Estimated Creatinine Clearance Estimated Creatinine Clearance: > 120 Goal Trough Goal Trough: 15-20 mcg/mL Pharmacy Plan for Drug Dosing Pharmacy Plan for Drug Dosing: Vancomycin trough drawn 1130 this morning was 15.3, continue current dosing, trough in 2 days. Pharmacy Service will continue to monitor and adjust dosing as required. Follow-Up Labs Follow-Up Labs: Trough: Vancomycin Date/Time Labs Ordered Labs to be done on [date and time ordered]: 09/24 @ 0037
[2023-09-22] MEDS: Vancomycin HCl 1,500 MG in 0.9% Normal Saline (500mL Bag) 500 ML 250 MG IV (13:11)
--- NOTE | 2023-09-22 13:20 | MRI_ITS ---
EXAM: MR LUMBAR SPINE WITHOUT AND WITH INTRAVENOUS CONTRAST CLINICAL INDICATION: back pain. -- VO FROM DR BALTAZAR TO GIVE CONTRAST,, KD 09/22/23 TECHNIQUE: Multiplanar and multisequence MR images of the lumbar spine without and with intravenous contrast. CONTRAST: 17 CC IV CLARISCAN COMPARISON: CT lumbar spine 09/17/2023 FINDINGS: VERTEBRAE: No bone marrow edema. Normal alignment of the vertebral bodies. SPINAL CORD: Normal. Normal position and signal intensity of the conus medullaris. SOFT TISSUES: Soft tissue loss superficial to the dorsal spinous processes of L1-L5 related to postoperative scarring. Multiple foci of dark T1 and dark T2 signal intensity within the posterior soft tissues consistent with bone chips from spinal fusion. DISCS/SPINAL CANAL/NEURAL FORAMINA: T12-L1: Chronic superior endplate deformity of L1. No disc herniation. No spinal or neural foraminal narrowing. L1-L2: Moderate disc space narrowing. Right posterior lateral disc extrusion extends inferiorly causing marked narrowing of the right lateral recess, mild spinal stenosis and moderate narrowing of the right neural foramen. L2-L3: Moderate disc space narrowing. Broad-based disc osteophyte complex, ligamentous hypertrophy and facet arthropathy results in moderate spinal stenosis and severe right and moderate left neural foraminal narrowing. 2.5 x 1.4 cm collection is noted posterior to the right L2-3 facet joint without peripheral contrast enhancement suggestive of seroma. L3-L4: Broad-based disc protrusion, ligamentous hypertrophy and facet arthropathy result in mild to moderate spinal stenosis and moderate bilateral neural foraminal narrowing. L4-L5: Posterior laminectomy with bilateral interpedicular screw fixation. Disc implant in place with mild to moderate narrowing of the intervertebral disc space. Mild disc bulging, ligamentous hypertrophy and facet arthropathy result in mild narrowing of the thecal sac and severe left and moderate to severe right neural foraminal narrowing. Multiloculated collection noted along the dorsal epidural space at the level of the laminectomy defect which may represent postoperative seroma measuring 18 mm in cephalocaudad dimension, 11 mm in AP dimension and 2.8 cm in lateral dimension. An additional collection noted within the left posterior soft tissues at the L4-5 laminectomy level measuring 1.8 cm in cephalocaudad dimension, 2.9 cm in AP dimension and 4.3 cm in lateral dimension. No contrast enhancement of the periphery of these collections to suggest abscess. L5-S1: L5 laminectomy with interpedicular screw fixation has bilaterally. Disc implant in place. Moderate disc space narrowing. Central disc protrusion without significant impingement on the thecal sac. Moderate neural foraminal narrowing related to facet arthropathy. MRI/Spine Lumbar W/WO Contrast IMPRESSION: 1. Postoperative changes at L4-5 and L5-S1. 2. Posterior fluid collections at L4 and L5 which may represent postoperative seromas. 3. Multilevel spinal and neural foraminal stenoses as described. Electronically Signed: Haresh Roca MD at 11:20 EST ,
--- NOTE | 2023-09-22 13:38 | WOUNDNOTE ---
wound photo: mid lower back
[2023-09-22 14:17] VITALS: BP 135/90; PULSE 80; RESP 18; TEMP 36.8; O2SAT 100
[2023-09-22] MEDS: HYDROmorphone 0.5 MG/0.5 ML SYRINGE IV ×2 (16:12→21:27)
--- NOTE | 2023-09-22 16:24 | PCM.PN.HOSP ---
Reason for Visit Reason for Visit: Diagnoses Methicillin susceptible Staphylococcus aureus infection as the cause of diseases classified elsewhere (09/19/23) Nicotine dependence, unspecified, with unspecified nicotine-induced disorders (09/19/23) Migraine with aura, not intractable, without status migrainosus (09/19/23) Spinal stenosis, lumbar region without neurogenic claudication (09/19/23) Bacteremia (09/19/23) Infection following a procedure, other surgical site, initial encounter (09/19/23) Other complications of procedures, not elsewhere classified, initial encounter (09/19/23) Subjective Subjective Patient seen at bedside this afternoon, present. Patient was down getting his lumbar MRI done this morning. Patient was standing at edge of the bed on my interview, was reporting moderate back pain at that time. However, he did not have much difficulty ambulating to the bathroom to urinate during my interview. Patient states he has had neck pain and low left back radiating down his left buttock and thigh over the last several days. States the oxycodone has not been very helpful. Morphine has been moderately helpful. Unsure if the Toradol has been effective for him. Otherwise denies any acute concerns at this time. Objective Data Objective Data Vital Signs: Vital Signs Temp Pulse Resp BP Pulse Ox O2 Del Method 98.2 F 80 18 135/90 H 100 Room Air 09/22/23 14:17 09/22/23 14:17 09/22/23 14:17 09/22/23 14:17 09/22/23 14:17 09/22/23 14:17 Oxygen Delivery Method Room Air Weight: 79.5 kg Body Mass Index (BMI) 26.6 Intake & Output: Intake and Output for Last 24 Hours 09/20/23 09/21/23 09/22/23 23:59 23:59 23:59 Intake Total 4100 / 4600 5960 / 6360 4329.17 / 4329.17 Balance 4100 / 4600 5960 / 6360 4329.17 / 4329.17 Lab / Micro Data 09/22/23 06:17 09/22/23 06:17 Labs: Laboratory Results - last 24 hr 09/22/23 06:17: WBC 10.8, RBC 3.51 L, Hgb 9.8 L, Hct 31.3 L, MCV 89.2, MCH 27.9, MCHC 31.3 L, RDW Std Deviation 45.4 H, RDW Coeff of Shila 14.0, Plt Count 369, MPV 10.3, Immature Gran % (Auto) 0.600, Neut % (Auto) 63.0, Lymph % (Auto) 21.2, [place] % (Auto) 12.4 H, Eos % (Auto) 2.5, Baso % (Auto) 0.3, Absolute Neuts (auto) 6.8, Absolute Lymphs (auto) 2.29, Nucleated RBC % 0, Sodium 142, Potassium 3.9, Chloride 116 H, Carbon Dioxide 23.0, Anion Gap 3 L, BUN 10, Creatinine 0.61 L, Estim Creat Clear Calc 121.48, Est GFR (MDRD) Af Amer 172, Est GFR (MDRD) Non-Af 142, BUN/Creatinine Ratio 16.3, Glucose 92, Calcium 8.6 09/22/23 11:37: Vancomycin Trough 15.3 H Micro: Microbiology 09/19/23 12:45 Blood Culture (Wb) - Left Forearm Bacteria Detection (PCR) - Final Staphylococcus aureus 09/19/23 12:45 Blood Culture (Wb) - Left Forearm Blood Culture - Final Staphylococcus aureus 09/19/23 11:50 Blood Culture (Wb) - Right Forearm Blood Culture - Preliminary No growth in 48 hours. 09/19/23 12:40 Mucosa - Nasopharyngeal SARS-CoV-2, Influenza & RSV (PCR) - Final Radiography Diagnostic Testing: Radiology Impression Lumbar Spine MRI 09/22/23 13:20 IMPRESSION: 1. Postoperative changes at L4-5 and L5-S1. 2. Posterior fluid collections at L4 and L5 which may represent postoperative seromas. 3. Multilevel spinal and neural foraminal stenoses as described. Electronically Signed: Haresh Roca MD at 11:20 EST , Physical Exam Const alert, oriented x3, no apparent distress and average body habitus Constitutional Narrative: Sitting comfortably at edge of bed, conversing normally, no acute distress. General Appearance: cooperative and comfortable HEENT normocephalic, head/scalp atraumatic, hearing grossly normal bilaterally, nasal mucous membranes and turbinates normal and moist oral mucous membranes Eyes PERRL, EOMs intact bilaterally and conjunctivae normal Neck full ROM, no lymphadenopathy and supple Lymph Lymphatic: no lymphadenopathy noted Chest inspection of chest normal Resp normal respiratory effort, normal air movement, no use of accessory muscles and clear to auscultation bilaterally Cardio regular rate, regular rhythm, no murmurs and peripheral pulses 2+ throughout GI normal to inspection, nondistended, normoactive bowel sounds, soft to palpation, non-tender and non-distended Back/Spine normal ROM Back/Spine Narrative: Wound VAC in place in center of low back. Mild tenderness to palpation in left paraspinal muscular area, no point tenderness to palpation, no external abnormalities. Extremity normal to inspection, full ROM and no pedal edema Skin no rashes or lesions noted Neuro no focal motor deficits and no sensory deficits noted Speech: speech normal Psych mental status grossly normal Assessment & Plan Assessment/Plan (1) Wound infection after surgery: (2) Post-op pain: (3) Staphylococcus aureus bacteremia: PLAN: Plan Patient is a 63-year-old male who presented to [facility] ED on 09/19/2023 with worsening low back pain. 1. Postoperative lumbar fusion infection Initial surgery June 2023, had fusion of L4-5 and L5-S1 with Dr. Murray. Subsequently had necrotic tissue debrided in July, was treated with cephalexin at that time with wound VAC placement. CT L-spine was unremarkable but limited due to artifact. MRI L-spine on 09/22 showed fluid collection in subcutaneous tissue external to the dura. ? Orthopedics following. Planning for lumbar irrigation, debridement, wound exploration and reapplication of wound VAC on 09/24. N.p.o. at midnight on 09/23. Continue IV vancomycin for now, follow-up intraoperative wound cultures. Infectious disease consulted. 2. Staph aureus bacteremia ? Presumed secondary to postop infection as noted above. Blood cultures 09/19 positive for MSSA. Repeat blood cultures 09/20 pending. De-escalated from vancomycin to Ancef on 09/22. TTE negative, but if repeat blood cultures are positive may need to consider ZOHAIB. Infectious disease consulted. 3. Low back pain ? Presumed secondary to lumbar infection. Patient notably had resolution of pain for about 4 weeks postoperatively, followed by acute worsening of pain due to this infection. Will treat as acute pain for now with scheduled Tylenol, oxycodone as needed, IV Dilaudid as needed. Continue gabapentin at increased dose. As needed Toradol. Lidocaine patch. PT/OT/case management consulted. 4. Hyponatremia, resolved ? Sodium 127 on admit, possible secondary to beer potomania versus poor p.o. intake. Resolved by 09/21. Chronic medical conditions: ? History of seizures: Continue home Topamax and gabapentin. ? Hypertension: Continue home losartan and propranolol. ? GERD: Continue PPI. ? Alcohol use: Drinks up to 4 to 612 ounce beers at night. On CIWA protocol, no withdrawal symptoms noted, monitor. ? Tobacco use: Advised cessation. Denied need for nicotine replacement therapy. DVT prophylaxis: SCDs CODE STATUS: Full code, verified Expected disposition: Home with home health care, TBD Total clinical time spent by myself addressing the patient's medical issues, reviewing all the data, and collaborating with patient's care team: 35 minutes. Charges/Coding Visit Charges Inpatient E&M: 04926 Subs Hosp L2
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
[2023-09-22] MEDS: OXACILLIN SODIUM IV ×2 (17:26→21:30)
[2023-09-22] MEDS: NORMAL SALINE 0.9% IV ×2 (17:26→21:30)
[2023-09-22] MEDS: 0.9% Normal Saline (250mL Bag) 250 ML 15 ML IV (17:27)
[2023-09-22 20:20] VITALS: BP 130/89; PULSE 76; RESP 16; TEMP 36.6; O2SAT 99
[2023-09-23] MEDS: 0.9% Normal Saline (1000mL) 1,000 ML 150 ML IV ×3 (00:36→17:36)
[2023-09-23 02:07] VITALS: BP 129/79; PULSE 53; RESP 16; TEMP 36.6; O2SAT 98
[2023-09-23] MEDS: OXACILLIN SODIUM IV ×5 (02:07→20:09)
[2023-09-23] MEDS: NORMAL SALINE 0.9% IV ×5 (02:07→20:09)
[2023-09-23] MEDS: HYDROmorphone 0.5 MG/0.5 ML SYRINGE IV ×2 (04:50→14:35)
[2023-09-23] MEDS: Acetaminophen 500 MG Tablet 1000 MG PO ×3 (06:05→21:46)
[2023-09-23] MEDS: Ketorolac 15 MG/ML Vial IV ×3 (06:06→18:44)
[2023-09-23 07:56] LABS: Hematocrit 29.3 % (40-54); Hemoglobin 9.2 g/dL (13.0-16.5); Mean Corp Hgb Conc 31.4 g/dL (32-36); Mean Corpuscular Volume 89.3 fL (80-94); Mean Platelet Vol. 10.8 fl (6.2-12.0); Platelet Count 411 K/mm3 (150-450); RBC Distribution Width SD 45.5 fl (35.1-43.9); Red Blood Count 3.28 M/mm3 (4.6-6.2); White Blood Count 10.4 K/mm3 (4.4-11.0)
[2023-09-23 08:10] VITALS: BP 132/70; PULSE 71; RESP 18; TEMP 36.3; O2SAT 100
[2023-09-23] MEDS: Losartan Potassium 25 MG Tablet PO (08:11)
[2023-09-23] MEDS: Gabapentin 600 MG Tablet PO ×3 (08:11→17:36)
[2023-09-23] MEDS: Pantoprazole Sodium 40 MG Tablet PO ×2 (08:11→21:46)
[2023-09-23] MEDS: Topiramate 50 MG Tablet PO ×2 (08:12→21:47)
[2023-09-23] MEDS: Loperamide 2 MG Capsule PO (08:15)
[2023-09-23 08:21] LABS: Anion Gap 5 (5-15); BUN 12 mg/dL (7-18); BUN/Creat Ratio 25.4 RATIO (10-20); Calcium,Total 8.7 mg/dL (8.5-10.1); Chloride 116 mmol/L (98-107); Creatinine, Serum 0.47 mg/dL (0.70-1.30); EST Glomerular Filtration Rate 191 mL/min (>60); Est Glom Filt Rate - Afr Amer 232 mL/min (>60); Estimated Creatinine Clearance 157.66 ml/min; Glucose 86 mg/dL (74-106); Potassium 3.8 mmol/L (3.5-5.1); Sodium Level 142 mmol/L (136-145)
[2023-09-23 09:08] LABS: International Normalized Ratio 1.2; Prothrombin Time (Protime)PT. 15.4 SECONDS (11.7-14.9)
[2023-09-23 10:22] LABS: Pathologist Review Reviewed
--- NOTE | 2023-09-23 10:45 | PCM.PN.ID ---
Physical Exam Narrative Feeling a little better, no fever, some loose stool. Const alert and no apparent distress General Appearance: cooperative Resp normal air movement and clear to auscultation bilaterally Cardio regular rate, regular rhythm and no murmurs GI soft to palpation, non-tender and non-distended Skin no rashes or lesions noted ID ID: Route of nutrition/ use of supplements: [] Nutritional Intake: [] IV Site: [] Feliciano Catheter: [] Assessment & Plan Assessment/Plan (1) Staphylococcus aureus bacteremia: PLAN: MSSA bacteremia, suspected source is lumbar surgical site with possible hardware involvement. MRI done. OR planned with Dr. Murray. Prior surgical site cx 08/12/23 with MRSE which was resistant to keflex. Will cont vanc for the MRSE and oxacillin for the MSSA. TTE showed no sign of vegetation, and no evidence of endocarditis on exam. Will follow (2) Wound infection after surgery:
[2023-09-23] MEDS: 0.9% Saline Lock 10 ML Syringe IV ×5 (10:50→21:49)
--- NOTE | 2023-09-23 11:08 | PCM.RX.CS ---
Consult Antibiotic Management Pharmacy has been consulted to manage selected antibiotic: Vancomycin Type of Intervention Type of Consult: New start Suspected Infection Suspected Infection: Bacteremia Labs Labs: Sodium 142 mmol/L (136-145) 09/23/23 07:11 Potassium 3.8 mmol/L (3.5-5.1) 09/23/23 07:11 Chloride 116 mmol/L (98-107) H 09/23/23 07:11 Carbon Dioxide 21.0 mmol/L (21.0-32.0) 09/23/23 07:11 Anion Gap 5 (5-15) 09/23/23 07:11 BUN 12 mg/dL (7-18) 09/23/23 07:11 Creatinine 0.47 mg/dL (0.70-1.30) L 09/23/23 07:11 Est GFR (MDRD) Af Amer 232 mL/min (>60) 09/23/23 07:11 Est GFR (MDRD) Non-Af 191 mL/min (>60) 09/23/23 07:11 BUN/Creatinine Ratio 25.4 RATIO (10-20) H 09/23/23 07:11 Glucose 86 mg/dL (74-106) 09/23/23 07:11 Vancomycin Trough 15.3 ug/mL (5.0-15.0) H 09/22/23 11:37 Microbiology Microbiology: Microbiology 09/19/23 12:45 Blood Culture (Wb) - Left Forearm Bacteria Detection (PCR) - Final Staphylococcus aureus 09/19/23 12:45 Blood Culture (Wb) - Left Forearm Blood Culture - Final Staphylococcus aureus 09/19/23 11:50 Blood Culture (Wb) - Right Forearm Blood Culture - Preliminary No growth in 48 hours. 09/19/23 12:40 Mucosa - Nasopharyngeal SARS-CoV-2, Influenza & RSV (PCR) - Final Dosing Weight Weight used for dosin.8 kg Estimated Creatinine Clearance Estimated Creatinine Clearance: > 100 Goal Trough Goal Trough: 15-20 mcg/mL Pharmacy Plan for Drug Dosing Pharmacy Plan for Drug Dosing: NEW START IV VANCOMYCIN Consulting Physician: Dr. Morales Indication: MSSA bacteremia resistant to Keflex Goal Trough: 15-20 SrCr: 0.41 CrCl: > 100 (AdjBW 72.8 kg) Comments: Loading dose 1750mg x1 scheduled for 12:00 09/23/23 Vancomycin Dose: 1500mg Q12H to start @ 22:00 09/23/23 (based on previous therapeutic dosing) Pending Level: Vancomycin trough @ 21:30 09/24/23 Pharmacy Service will continue to monitor and adjust dosing as required. Follow-Up Labs Follow-Up Labs: Trough: Vancomycin (21:30 09/24/23)
[2023-09-23] MEDS: Vancomycin HCl 1,750 MG in 0.9% Normal Saline (500mL Bag) 500 ML 250 MG IV (12:40)
[2023-09-23 14:30] VITALS: BP 156/100; PULSE 70; RESP 18; TEMP 36.4; O2SAT 100
--- NOTE | 2023-09-23 15:54 | PN.HOSP_ITS ---
Reason for Visit Reason for Visit: Diagnoses Methicillin susceptible Staphylococcus aureus infection as the cause of diseases classified elsewhere (09/19/23) Nicotine dependence, unspecified, with unspecified nicotine-induced disorders (09/19/23) Migraine with aura, not intractable, without status migrainosus (09/19/23) Other acute postprocedural pain (09/19/23) Spinal stenosis, lumbar region without neurogenic claudication (09/19/23) Bacteremia (09/19/23) Infection following a procedure, other surgical site, initial encounter (09/19/23) Other complications of procedures, not elsewhere classified, initial encounter ( 09/19/23) Subjective Subjective Patient seen at bedside this morning. Sitting comfortably in bed, conversing normally, no acute distress. Patient states the intermittent doses of low-dose IV Dilaudid overnight were all for first pain and helped him to sleep. He has mild pain this morning, improved yesterday. Denies any fevers or chills. No other acute concerns morning. Objective Data Objective Data Vital Signs: Vital Signs Temp Pulse Resp BP Pulse Ox O2 Del Method 97.5 F L 70 18 156/100 H 100 Room Air 09/23/23 14:30 09/23/23 14:30 09/23/23 14:30 09/23/23 14:30 09/23/23 14:30 09/23/23 14:30 Oxygen Delivery Method Room Air Weight: 79.5 kg Body Mass Index (BMI) 26.6 Intake & Output: Intake and Output for Last 24 Hours 09/21/23 09/22/23 09/23/23 23:59 23:59 23:59 Intake Total 5960 / 6360 5490.17 / 6240.17 3305.0 / 3305.0 Balance 5960 / 6360 5490.17 / 6240.17 3305.0 / 3305.0 Lab / Micro Data 09/23/23 07:11 09/23/23 07:11 Labs: Laboratory Results - last 24 hr 09/19/23 11:50: Diff Path Review Reviewed 09/23/23 07:11: WBC 10.4, RBC 3.28 L, Hgb 9.2 L, Hct 29.3 L, MCV 89.3, MCH 28.0, MCHC 31.4 L, RDW Std Deviation 45.5 H, RDW Coeff of Shila 14.0, Plt Count 411, MPV 10.8, PT 15.4 H, INR 1.2, Sodium 142, Potassium 3.8, Chloride 116 H, Carbon Dioxide 21.0, Anion Gap 5, BUN 12, Creatinine 0.47 L, Estim Creat Clear Calc 157.66, Est GFR (MDRD) Af Amer 232, Est GFR (MDRD) Non-Af 191, BUN/Creatinine Ratio 25.4 H, Glucose 86, Calcium 8.7 Micro: Microbiology 09/19/23 12:45 Blood Culture (Wb) - Left Forearm Bacteria Detection (PCR) - Final Staphylococcus aureus 09/19/23 12:45 Blood Culture (Wb) - Left Forearm Blood Culture - Final Staphylococcus aureus 09/19/23 11:50 Blood Culture (Wb) - Right Forearm Blood Culture - Preliminary No growth in 48 hours. 09/19/23 12:40 Mucosa - Nasopharyngeal SARS-CoV-2, Influenza & RSV (PCR) - Final Physical Exam Const alert, oriented x3, no apparent distress and average body habitus Constitutional Narrative: Sitting comfortably at edge of bed, conversing normally, no acute distress. General Appearance: cooperative and comfortable HEENT normocephalic, head/scalp atraumatic, hearing grossly normal bilaterally, nasal mucous membranes and turbinates normal and moist oral mucous membranes Eyes PERRL, EOMs intact bilaterally and conjunctivae normal Neck full ROM, no lymphadenopathy and supple Lymph Lymphatic: no lymphadenopathy noted Chest inspection of chest normal Resp normal respiratory effort, normal air movement, no use of accessory muscles and clear to auscultation bilaterally Cardio regular rate, regular rhythm, no murmurs and peripheral pulses 2+ throughout GI normal to inspection, nondistended, normoactive bowel sounds, soft to palpation, non-tender and non-distended Back/Spine normal ROM Back/Spine Narrative: Wound VAC in place in center of low back. Mild tenderness to palpation in left paraspinal muscular area, no point tenderness to palpation, no external abnormalities. Extremity normal to inspection, full ROM and no pedal edema Skin no rashes or lesions noted Neuro no focal motor deficits and no sensory deficits noted Speech: speech normal Psych mental status grossly normal Assessment & Plan Assessment/Plan (1) Wound infection after surgery: (2) Post-op pain: (3) Staphylococcus aureus bacteremia: PLAN: Plan Patient is a 63-year-old male who presented to [facility] ED on 09/19/2023 with worsening low back pain. 1. Postoperative lumbar fusion infection Initial surgery June 2023, had fusion of L4-5 and L5-S1 with Dr. Murray. Subsequently had necrotic tissue debrided in July, was treated with cephalexin at that time with wound VAC placement. CT L-spine was unremarkable but limited due to artifact. MRI L-spine on 09/22 showed fluid collection in subcutaneous tissue external to the dura. ? Orthopedics following. Planning for lumbar irrigation, debridement, wound exploration and reapplication of wound VAC on 09/24. N.p.o. at midnight on 09/23. Continue IV vancomycin and oxacillin for now. 2. Staph aureus bacteremia ? Infectious disease following. Presumed secondary to postop infection as noted above. Blood cultures 09/19 positive for MSSA. Repeat blood cultures 09/20 with no growth to date. Notably had MRSE bacteremia after his procedure in 07/2023. TTE negative for vegetations, no clinical signs of endocarditis. Continue vancomycin and oxacillin. Will follow-up wound cultures postoperatively. 3. Low back pain ? Presumed secondary to lumbar infection. Patient notably had resolution of pain for about 4 weeks postoperatively, followed by acute worsening of pain due to this infection. Will treat as acute pain for now with scheduled Tylenol, oxycodone as needed, IV Dilaudid as needed. Continue gabapentin at increased dose. As needed Toradol. Lidocaine patch. PT/OT/case management consulted. 4. Hyponatremia, resolved ? Sodium 127 on admit, possible secondary to beer potomania versus poor p.o. intake. Resolved by 09/21. Chronic medical conditions: ? History of seizures: Continue home Topamax and gabapentin. ? Hypertension: Continue home losartan and propranolol. ? GERD: Continue PPI. ? Alcohol use: Drinks up to 4 to 612 ounce beers at night. On CIWA protocol, no withdrawal symptoms noted, monitor. ? Tobacco use: Advised cessation. Denied need for nicotine replacement therapy. DVT prophylaxis: SCDs CODE STATUS: Full code, verified Expected disposition: Home with home health care, 2 to 3 days Total clinical time spent by myself addressing the patient's medical issues, reviewing all the data, and collaborating with patient's care team: 35 minutes. Charges/Coding Visit Charges Inpatient E&M: 49665 Subs Hosp L2
--- NOTE | 2023-09-23 16:18 | CASEMGMT ---
Addendum entered by Lara Madera 09/23/23 16:26: [facility] called and this RN CM left a message stating the pt is anticipating DC Friday and the JORGE to be Friday as the IV med will most likely be due on Friday. Original Note: A list of [facility] providers including quality and resource use data and consistent with the patient's preferred geographic region, medical needs, and insurance network were printed and provided. Pt states he would be willing to go through [facility]. Pt states that he is still wanting to DC home with [facility] and refused all other options. Will follow for ATB needs.
[2023-09-23] MEDS: Ensure Plus High Protein 120 ML LIQUID PO (17:36)
[2023-09-23 20:00] VITALS: BP 142/86; PULSE 68; RESP 16; TEMP 36.6; O2SAT 100
[2023-09-23] MEDS: Vancomycin HCl 1,500 MG in 0.9% Normal Saline (500mL Bag) 500 ML 250 MG IV (21:47)
[2023-09-24] VITALS (12 sets, daily range): BP systolic 111–145; BP diastolic 59–90; PULSE 72–94; RESP 16–20; TEMP 36.2–37.1; O2SAT 93–100
[2023-09-24] MEDS: HYDROmorphone 0.5 MG/0.5 ML SYRINGE IV ×4 (00:12→21:59)
[2023-09-24] MEDS: 0.9% Normal Saline (1000mL) 1,000 ML 150 ML IV ×2 (00:12→05:33)
[2023-09-24] MEDS: Ketorolac 15 MG/ML Vial IV (00:12)
[2023-09-24] MEDS: NORMAL SALINE 0.9% IV ×5 (01:49→21:27)
[2023-09-24] MEDS: OXACILLIN SODIUM IV ×5 (01:49→21:27)
[2023-09-24 07:34] LABS: Hematocrit 32.7 % (40-54); Hemoglobin 10.1 g/dL (13.0-16.5); Mean Corp Hgb Conc 30.9 g/dL (32-36); Mean Corpuscular Hgb 27.5 pg (27.0-32.0); Mean Corpuscular Volume 89.1 fL (80-94); Mean Platelet Vol. 10.5 fl (6.2-12.0); Platelet Count 483 K/mm3 (150-450); RBC Distribution Width SD 45.4 fl (35.1-43.9); Red Blood Count 3.67 M/mm3 (4.6-6.2); White Blood Count 10.8 K/mm3 (4.4-11.0)
--- NOTE | 2023-09-24 08:10 | WOUNDNOTE ---
Pt will be going to surgery later today. will leave VAC dressing in place.
[2023-09-24 08:11] LABS: AST(SGOT) 16 U/L (15-37); Alanine Aminotransfer ALT/SGPT 22 U/L (16-61); Albumin, Serum 2.2 g/dL (3.2-5.0); Alkaline Phosphatase 74 U/L (45-117); Anion Gap 4 (5-15); BUN 10 mg/dL (7-18); BUN/Creat Ratio 16.8 RATIO (10-20); Bilirubin, Direct 0.12 mg/dL (0.00-0.30); Calcium,Total 8.5 mg/dL (8.5-10.1); Chloride 117 mmol/L (98-107); EST Glomerular Filtration Rate 146 mL/min (>60); Est Glom Filt Rate - Afr Amer 177 mL/min (>60); Globulin 3.9 g/dL (2.2-4.2); Glucose 83 mg/dL (74-106); Potassium 3.7 mmol/L (3.5-5.1); Protein, Total 6.1 g/dL (6.4-8.2); Sodium Level 142 mmol/L (136-145)
[2023-09-24] MEDS: Losartan Potassium 25 MG Tablet PO (08:14)
[2023-09-24] MEDS: Gabapentin 600 MG Tablet PO ×3 (08:15→18:15)
[2023-09-24] MEDS: Topiramate 50 MG Tablet PO ×2 (08:15→21:28)
[2023-09-24] MEDS: 0.9% Saline Lock 10 ML Syringe IV ×3 (08:15→21:59)
[2023-09-24 09:02] LABS: International Normalized Ratio 1.2; Prothrombin Time (Protime)PT. 14.7 SECONDS (11.7-14.9)
[2023-09-24 09:03] LABS: Partial Thromboplast Time 39.8 Seconds (24.1-36.2)
--- NOTE | 2023-09-24 09:52 | CASEMGMT ---
Discharge Planning Referral sent via [facility] to [facility]. Iwona Davies, Discharge Planning Asst.
[2023-09-24] MEDS: Vancomycin HCl 1,500 MG in 0.9% Normal Saline (500mL Bag) 500 ML 250 MG IV (09:56)
--- NOTE | 2023-09-24 10:34 | NURSING ---
[facility] called and said they were ready for pt. Pt slightly agitated about short notice, but compliant. Sent to OR with transport
--- NOTE | 2023-09-24 11:06 | OP.PCM_ITS ---
Report of Operation Date of Procedure: 09/24/23 Description of Surgical Findings:: Preop diagnosis: 1. Delayed wound healing 2. Postop wound infection status post lumbar fusion Postop diagnosis: 1. Delayed wound healing 2. Postop wound infection status post lumbar fusion Procedures performed: 1. Lumbar irrigation, debridement, wound exploration 2. Application of wound VAC, lumbar Statement of medical necessity: The patient is a 63-year-old male with postop wound infection status post lumbar fusion. Image studies confirm the above diagnoses. They have opted for operative intervention understanding the risk to include but not limited to infection, bleeding, damage to nerves arteries and veins, possibility of spinal fluid leak, nonunion, hardware failure, continued pain, need for further surgery, deep vein thrombosis, pulmonary embolism, heart attack, risk of stroke or . Description of the procedure: The patient was identified in the preoperative holding area. There they received preoperative IV antibiotics and was then transferred to the operative suite. Once in the operative suite after general endotracheal anesthesia was established, the patient was positioned prone on the [facility]dy operating table. All bony prominences were padded accordingly. The lumbar spine was prepped and draped in a standard fashion. Bear hugger's were not turned on until the drapes were placed and sealed with Ioban. Previous wound VAC in the lumbar region was removed. The previous incision was exposed measuring approximately 6 inches x 3 inches. A knife was utilized to reopen this incision. The fascia was found to be partially dehisced at the superior aspect. The fascia was reopened and all hardware was exposed. A small pocket of dark fluid was encountered and this was cultured. A small pocket of castro purulent material was also encountered around the left inferior screws and this was cultured as well. The incision was thoroughly irrigated with 3 L of saline solution from a pulse head school custodian. Minimal necrotic tissue was noted and this was sharply debrided. The wound edges were also sharply debrided of any necrotic tissue with a 15 blade scalpel.. A wound VAC was then applied to the incision. Sponge instrument and needle counts were correct at the end of the case. The patient was extubated and taken to the PACU without incident Surgeon: Adalberto Murray Type of Anesthesia: General Specimen's removed: Lumbar cultures Estimated Blood Loss (mL): 30 cc Fluids Replaced: 300 cc Grafts/Implants Used: Wound VAC Complications None Admit VTE Documentation VTE Present on Admission: No
[2023-09-24] MEDS: Acetaminophen 500 MG Tablet 1000 MG PO ×2 (14:02→21:27)
--- NOTE | 2023-09-24 15:26 | PN.HOSP_ITS ---
Reason for Visit Reason for Visit: Diagnoses Methicillin susceptible Staphylococcus aureus infection as the cause of diseases classified elsewhere (09/19/23) Nicotine dependence, unspecified, with unspecified nicotine-induced disorders (09/19/23) Migraine with aura, not intractable, without status migrainosus (09/19/23) Other acute postprocedural pain (09/19/23) Spinal stenosis, lumbar region without neurogenic claudication (09/19/23) Bacteremia (09/19/23) Infection following a procedure, other surgical site, initial encounter (09/19/23) Other complications of procedures, not elsewhere classified, initial encounter ( 09/19/23) Subjective Subjective Patient seen at bedside this morning prior to his planned procedure with orthopedic surgery today. Patient was sitting comfortably in bed, conversing normally, no acute distress. States his pain is fairly well-controlled this morning. States he is looking forward to getting this procedure done and going home soon. No other acute concerns. Objective Data Objective Data Vital Signs: Vital Signs Temp Pulse Resp BP Pulse Ox O2 Del Method O2 Flow Rate 98.4 F 74 18 118/75 97 Room Air 2 09/24/23 14:12 09/24/23 14:12 09/24/23 14:12 09/24/23 14:12 09/24/23 14:12 09/24/23 14:12 09/24/23 08:23 Oxygen Flow Rate (L/min) 2 Oxygen Delivery Method Room Air Weight: 79.5 kg Body Mass Index (BMI) 26.6 Intake & Output: Intake and Output for Last 24 Hours 09/22/23 09/23/23 09/24/23 23:59 23:59 23:59 Intake Total 5490.17 / 6240.17 4900.0 / 4900.0 2990.0 / 2990.0 Output Total 400 / 400 Balance 5490.17 / 6240.17 4900.0 / 4900.0 2590.0 / 2590.0 Lab / Micro Data 09/24/23 07:04 09/24/23 07:04 Labs: Laboratory Results - last 24 hr 09/24/23 07:04: WBC 10.8, RBC 3.67 L, Hgb 10.1 L, Hct 32.7 L, MCV 89.1, MCH 27.5, MCHC 30.9 L, RDW Std Deviation 45.4 H, RDW Coeff of Shila 14.0, Plt Count 483 H, MPV 10.5, PT 14.7, INR 1.2, APTT 39.8 H, Sodium 142, Potassium 3.7, Chloride 117 H, Carbon Dioxide 21.0, Anion Gap 4 L, BUN 10, Creatinine 0.60 L, Estim Creat Clear Calc 123.50, Est GFR (MDRD) Af Amer 177, Est GFR (MDRD) Non-Af 146, BUN/Creatinine Ratio 16.8, Glucose 83, Calcium 8.5, Total Bilirubin 0.30, Direct Bilirubin 0.12, AST 16, ALT 22, Alkaline Phosphatase 74, Total Protein 6.1 L, Albumin 2.2 L, Globulin 3.9 Micro: Microbiology 09/22/23 15:37 Blood Culture (Wb) - Anticubital Right Blood Culture - Preliminary No growth in 48 hours. 09/19/23 11:50 Blood Culture (Wb) - Right Forearm Blood Culture - Final No growth in 5 days. 09/19/23 12:45 Blood Culture (Wb) - Left Forearm Bacteria Detection (PCR) - Final Staphylococcus aureus 09/19/23 12:45 Blood Culture (Wb) - Left Forearm Blood Culture - Final Staphylococcus aureus 09/19/23 12:40 Mucosa - Nasopharyngeal SARS-CoV-2, Influenza & RSV (PCR) - Final Physical Exam Const alert, oriented x3, no apparent distress and average body habitus Constitutional Narrative: Sitting comfortably in bed, conversing normally, no acute distress. General Appearance: cooperative and comfortable HEENT normocephalic, head/scalp atraumatic, hearing grossly normal bilaterally, nasal mucous membranes and turbinates normal and moist oral mucous membranes Eyes PERRL, EOMs intact bilaterally and conjunctivae normal Neck full ROM, no lymphadenopathy and supple Lymph Lymphatic: no lymphadenopathy noted Chest inspection of chest normal Resp normal respiratory effort, normal air movement, no use of accessory muscles and clear to auscultation bilaterally Cardio regular rate, regular rhythm, no murmurs and peripheral pulses 2+ throughout GI normal to inspection, nondistended, normoactive bowel sounds, soft to palpation, non-tender and non-distended Back/Spine normal ROM Back/Spine Narrative: Wound VAC in place in center of low back. Mild tenderness to palpation in left paraspinal muscular area, no point tenderness to palpation, no external abnormalities. Extremity normal to inspection, full ROM and no pedal edema Skin no rashes or lesions noted Neuro no focal motor deficits and no sensory deficits noted Speech: speech normal Psych mental status grossly normal Assessment & Plan Assessment/Plan (1) Wound infection after surgery: (2) Post-op pain: (3) Staphylococcus aureus bacteremia: PLAN: Plan Patient is a 63-year-old male who presented to [facility] ED on 09/19/2023 with worsening low back pain. 1. Postoperative lumbar fusion infection Initial surgery June 2023, had fusion of L4-5 and L5-S1 with Dr. Murray. Subsequently had necrotic tissue debrided in July, was treated with c ephalexin at that time with wound VAC placement. CT L-spine was unremarkable but limited due to artifact. MRI L-spine on 09/22 showed fluid collection in subcutaneous tissue external to the dura. ? Orthopedics and infectious disease following. Planning for lumbar irrigation, debridement, wound exploration and reapplication of wound VAC on 09/24. Continue IV vancomycin and oxacillin as below. 2. Staph aureus bacteremia ? Infectious disease following as above. Presumed secondary to postop infection as noted above. Blood cultures 09/19 positive for MSSA. Repeat blood cultures 09/20 negative at 48 hours. Notably had MRSE bacteremia after his procedure in 07/2023. TTE negative for vegetations, no clinical signs of endocarditis. Continue vancomycin and oxacillin, will need at least 6 weeks of IV antibiotics. Follow-up postoperative wound cultures. Since blood cultures from 09/20 are negative, okay to have PICC line placed on 09/25 with likely discharge home soon after that. 3. Low back pain ? Presumed secondary to lumbar infection. Patient notably had resolution of pain for about 4 weeks postoperatively, followed by acute worsening of pain due to this infection. Will treat as acute pain for now with scheduled Tylenol, oxycodone as needed, IV Dilaudid as needed. Continue gabapentin at increased dose. As needed Toradol. Lidocaine patch. PT/OT/case management consulted, planning for home with home health care on discharge. Will need to decide on home pain regimen prior to discharge. 4. Hyponatremia, resolved ? Sodium 127 on admit, possible secondary to beer potomania versus poor p.o. intake. Resolved by 09/21. Chronic medical conditions: ? History of seizures: Continue home Topamax and gabapentin. ? Hypertension: Continue home losartan and propranolol. ? GERD: Continue PPI. ? Alcohol use: Drinks up to 4 to 612 ounce beers at night. On CIWA protocol, no withdrawal symptoms noted, monitor. ? Tobacco use: Advised cessation. Denied need for nicotine replacement therapy. DVT prophylaxis: SCDs CODE STATUS: Full code, verified Expected disposition: Home with home health care, 2 to 3 days Total clinical time spent by myself addressing the patient's medical issues, reviewing all the data, and collaborating with patient's care team: 35 minutes. Charges/Coding Visit Charges Inpatient E&M: 48812 Subs Hosp L2
--- NOTE | 2023-09-24 16:18 | CASEMGMT ---
[facility] states they are accepting the pt for IV infusion medications and supplies. They state Patient is covered at 100% once the annual deductible and OOP requirements are met, per their agreement with their health plan.
[2023-09-24] MEDS: oxyCODONE 5 MG Tablet PO (21:26)
[2023-09-24] MEDS: Pantoprazole Sodium 40 MG Tablet PO (21:27)
[2023-09-24 21:35] LABS: Vancomycin, Trough Level 23.6 ug/mL (5.0-15.0)
--- NOTE | 2023-09-24 21:40 | PCM.RX.CS ---
Consult Antibiotic Management Pharmacy has been consulted to manage selected antibiotic: Vancomycin Type of Intervention Type of Consult: Follow-up Labs Labs: Sodium 142 mmol/L (136-145) 09/24/23 07:04 Potassium 3.7 mmol/L (3.5-5.1) 09/24/23 07:04 Chloride 117 mmol/L (98-107) H 09/24/23 07:04 Carbon Dioxide 21.0 mmol/L (21.0-32.0) 09/24/23 07:04 Anion Gap 4 (5-15) L 09/24/23 07:04 BUN 10 mg/dL (7-18) 09/24/23 07:04 Creatinine 0.60 mg/dL (0.70-1.30) L 09/24/23 07:04 Est GFR (MDRD) Af Amer 177 mL/min (>60) 09/24/23 07:04 Est GFR (MDRD) Non-Af 146 mL/min (>60) 09/24/23 07:04 BUN/Creatinine Ratio 16.8 RATIO (10-20) 09/24/23 07:04 Glucose 83 mg/dL (74-106) 09/24/23 07:04 Vancomycin Trough 23.6 ug/mL (5.0-15.0) H 09/24/23 21:05 Microbiology Microbiology: Microbiology 09/22/23 15:37 Blood Culture (Wb) - Anticubital Right Blood Culture - Preliminary No growth in 48 hours. 09/19/23 11:50 Blood Culture (Wb) - Right Forearm Blood Culture - Final No growth in 5 days. 09/19/23 12:45 Blood Culture (Wb) - Left Forearm Bacteria Detection (PCR) - Final Staphylococcus aureus 09/19/23 12:45 Blood Culture (Wb) - Left Forearm Blood Culture - Final Staphylococcus aureus 09/19/23 12:40 Mucosa - Nasopharyngeal SARS-CoV-2, Influenza & RSV (PCR) - Final Goal Trough Goal Trough: 15-20 mcg/mL Pharmacy Plan for Drug Dosing Pharmacy Plan for Drug Dosing: Pharmacy Service will continue to monitor and adjust dosing as required. TROUGH 23.6 @ 11 HOURS. HOLD CURRENT DOSE, DRAW RANDOM LEVEL IN 10 HOURS Follow-Up Labs Follow-Up Labs: Trough: Vancomycin Date/Time Labs Ordered Labs to be done on [date and time ordered]: 09/25 @ 0700
[2023-09-25] MEDS: OXACILLIN SODIUM IV ×6 (01:38→22:33)
[2023-09-25] MEDS: NORMAL SALINE 0.9% IV ×6 (01:38→22:33)
[2023-09-25] MEDS: HYDROmorphone 0.5 MG/0.5 ML SYRINGE IV (03:54)
[2023-09-25] MEDS: 0.9% Saline Lock 10 ML Syringe IV (03:54)
[2023-09-25 04:01] VITALS: BP 119/78; PULSE 72; RESP 16; TEMP 36.5; O2SAT 95
[2023-09-25] MEDS: Acetaminophen 500 MG Tablet 1000 MG PO ×3 (06:47→22:34)
[2023-09-25 07:35] LABS: Hematocrit 29.6 % (40-54); Hemoglobin 8.9 g/dL (13.0-16.5); Mean Corp Hgb Conc 30.1 g/dL (32-36); Mean Corpuscular Hgb 27.6 pg (27.0-32.0); Mean Corpuscular Volume 91.6 fL (80-94); Mean Platelet Vol. 10.3 fl (6.2-12.0); Platelet Count 573 K/mm3 (150-450); RBC Distribution Width CV 14.2 % (11.6-14.6); Red Blood Count 3.23 M/mm3 (4.6-6.2)
[2023-09-25 08:06] LABS: Vancomycin, Random Level 22.8 ug/mL (0.0-15.0)
[2023-09-25 08:13] LABS: Anion Gap 6 (5-15); BUN 16 mg/dL (7-18); BUN/Creat Ratio 14.2 RATIO (10-20); Calcium,Total 8.9 mg/dL (8.5-10.1); Chloride 114 mmol/L (98-107); Creatinine, Serum 1.13 mg/dL (0.70-1.30); EST Glomerular Filtration Rate 70 mL/min (>60); Est Glom Filt Rate - Afr Amer 85 mL/min (>60); Estimated Creatinine Clearance 65.58 ml/min; Glucose 91 mg/dL (74-106); Potassium 3.8 mmol/L (3.5-5.1); Sodium Level 143 mmol/L (136-145)
--- NOTE | 2023-09-25 08:51 | PCM.RX.CS ---
Consult Antibiotic Management Pharmacy has been consulted to manage selected antibiotic: Vancomycin Type of Intervention Type of Consult: Follow-up Suspected Infection Suspected Infection: Bacteremia Prior Doses of Antibiotics Prior Doses of Antibiotics Received/Current Regimen: Previously on 1500mg iv q12h. Labs Labs: Sodium 143 mmol/L (136-145) 09/25/23 06:52 Potassium 3.8 mmol/L (3.5-5.1) 09/25/23 06:52 Chloride 114 mmol/L (98-107) H 09/25/23 06:52 Carbon Dioxide 23.0 mmol/L (21.0-32.0) 09/25/23 06:52 Anion Gap 6 (5-15) 09/25/23 06:52 BUN 16 mg/dL (7-18) 09/25/23 06:52 Creatinine 1.13 mg/dL (0.70-1.30) 09/25/23 06:52 Est GFR (MDRD) Af Amer 85 mL/min (>60) 09/25/23 06:52 Est GFR (MDRD) Non-Af 70 mL/min (>60) 09/25/23 06:52 BUN/Creatinine Ratio 14.2 RATIO (10-20) 09/25/23 06:52 Glucose 91 mg/dL (74-106) 09/25/23 06:52 Vancomycin Trough 23.6 ug/mL (5.0-15.0) H 09/24/23 21:05 Random Vancomycin 22.8 ug/mL (0.0-15.0) H 09/25/23 06:52 Microbiology Microbiology: Microbiology 09/22/23 15:37 Blood Culture (Wb) - Anticubital Right Blood Culture - Preliminary No growth in 48 hours. 09/19/23 11:50 Blood Culture (Wb) - Right Forearm Blood Culture - Final No growth in 5 days. 09/19/23 12:45 Blood Culture (Wb) - Left Forearm Bacteria Detection (PCR) - Final Staphylococcus aureus 09/19/23 12:45 Blood Culture (Wb) - Left Forearm Blood Culture - Final Staphylococcus aureus 09/19/23 12:40 Mucosa - Nasopharyngeal SARS-CoV-2, Influenza & RSV (PCR) - Final Dosing Weight Weight used for dosin.5 kg Estimated Creatinine Clearance Estimated Creatinine Clearance: 76 ml/min Goal Trough Goal Trough: 15-20 mcg/mL Pharmacy Plan for Drug Dosing Pharmacy Plan for Drug Dosing: Random level this AM elevated at 22.8. This was ~21 hrs post last dose. Trough last night 23.6 @2105. Will hold dosing for now. New random level ordered for this PM 12 hrs post this AM's. Pharmacy Service will continue to monitor and adjust dosing as required. Follow-Up Labs Follow-Up Labs: Trough: Other (random 1.11.24 @1900)
[2023-09-25 09:42] VITALS: BP 111/68; PULSE 80; RESP 18; TEMP 36.8; O2SAT 99
[2023-09-25] MEDS: Gabapentin 600 MG Tablet PO ×3 (09:44→17:02)
[2023-09-25] MEDS: Vancomycin Trough/Random Due 1 LAB MC (09:44)
[2023-09-25] MEDS: Losartan Potassium 25 MG Tablet PO (09:45)
[2023-09-25] MEDS: Pantoprazole Sodium 40 MG Tablet PO ×2 (09:46→22:34)
[2023-09-25] MEDS: Topiramate 50 MG Tablet PO ×2 (09:47→22:34)
[2023-09-25] MEDS: Ensure Plus High Protein 120 ML LIQUID PO ×3 (09:58→17:00)
[2023-09-25] MEDS: oxyCODONE 5 MG Tablet PO (09:58)
--- NOTE | 2023-09-25 10:51 | PCM.PN.ID ---
Physical Exam Narrative Feeling better, ongoing back pain. No fever. Const alert and no apparent distress General Appearance: cooperative Resp normal air movement and clear to auscultation bilaterally Cardio regular rate and regular rhythm GI soft to palpation, non-tender and non-distended Skin no rashes or lesions noted ID ID: Route of nutrition/ use of supplements: [] Nutritional Intake: [] IV Site: [] Feliciano Catheter: [] Assessment & Plan Assessment/Plan (1) Staphylococcus aureus bacteremia: PLAN: MSSA bacteremia, suspected source is lumbar surgical site with possible hardware involvement. MRI done. OR 09/24/23 for I&D of abscess with Dr. Murray. Prior surgical site cx 08/12/23 with MRSE which was resistant to keflex. Will cont vanc for the MRSE and oxacillin for the MSSA. TTE showed no sign of vegetation, and no evidence of endocarditis on exam. Will order picc. Plan on 6 weeks rifampin po and oxacillin iv with stop date 11/05/23 with weekly labs and ID followup in 2 weeks. Some new DEVON. Vanc trough mildly elevated. Will follow (2) Wound infection after surgery:
--- NOTE | 2023-09-25 11:03 | PCM.PN.ORT ---
Subjective Subjective Patient seen and examined postop day 1 status post lumbar I&D with wound VAC placement. Lying in bed resting comfortably. Pain minimal. No numbness tingling or weakness. Patient is mobilizing well Objective Data Objective Data Vital Signs: Vital Signs Temp Pulse Resp BP Pulse Ox O2 Del Method O2 Flow Rate 98.3 F 80 18 111/68 99 Room Air 2 09/25/23 09:42 09/25/23 09:42 09/25/23 09:42 09/25/23 09:42 09/25/23 09:42 09/25/23 09:42 09/24/23 08:23 Oxygen Flow Rate (L/min) 2 Oxygen Delivery Method Room Air Weight: 175 lb 4.28 oz Body Mass Index (BMI) 26.6 Intake & Output: Intake and Output for Last 24 Hours 09/23/23 09/24/23 09/25/23 23:59 23:59 23:59 Intake Total 4900.0 / 4900.0 3190.0 / 3190.0 200 / 200 Output Total 400 / 400 Balance 4900.0 / 4900.0 2790.0 / 2790.0 200 / 200 Lab / Micro Data 09/25/23 06:52 09/25/23 06:52 Labs: Laboratory Results - last 24 hr 09/24/23 21:05: Vancomycin Trough 23.6 H 09/25/23 06:52: WBC 14.0 H, RBC 3.23 L, Hgb 8.9 L, Hct 29.6 L, MCV 91.6, MCH 27.6, MCHC 30.1 L, RDW Std Deviation 48.0 H, RDW Coeff of Shila 14.2, Plt Count 573 H, MPV 10.3, Sodium 143, Potassium 3.8, Chloride 114 H, Carbon Dioxide 23.0, Anion Gap 6, BUN 16, Creatinine 1.13, Estim Creat Clear Calc 65.58, Est GFR (MDRD) Af Amer 85, Est GFR (MDRD) Non-Af 70, BUN/Creatinine Ratio 14.2, Glucose 91, Calcium 8.9, Random Vancomycin 22.8 H Micro: Microbiology 09/22/23 15:37 Blood Culture (Wb) - Anticubital Right Blood Culture - Preliminary No growth in 48 hours. 09/19/23 11:50 Blood Culture (Wb) - Right Forearm Blood Culture - Final No growth in 5 days. 09/19/23 12:45 Blood Culture (Wb) - Left Forearm Bacteria Detection (PCR) - Final Staphylococcus aureus 09/19/23 12:45 Blood Culture (Wb) - Left Forearm Blood Culture - Final Staphylococcus aureus 09/19/23 12:40 Mucosa - Nasopharyngeal SARS-CoV-2, Influenza & RSV (PCR) - Final Physical Exam Const alert, oriented x3 and no apparent distress General Appearance: cooperative, comfortable and well kempt Neck full ROM Resp normal respiratory effort and normal air movement Effort and Inspection: able to speak in complete sentences Cardio regular rate and peripheral pulses 2+ throughout GI soft to palpation, non-tender and non-distended Back/Spine Back/Spine Narrative: Wound VAC in place and functioning Cervical Spine: cervical ROM normal Thoracic Spine / Upper Back: normal to inspection Lumbar Spine / Lower Back: normal to inspection Extremity normal to inspection, full ROM, normal capillary refill, no clubbing, cyanosis or edema and no calf tenderness Skin no rashes or lesions noted General Skin Exam: no breakdown Neuro oriented x3, CN's II-XII intact bilaterally, moves all extremities, no focal motor deficits, no sensory deficits noted and deep tendon reflexes 2+ bilaterally Motor Exam: strength 5/5 throughout and muscle tone normal throughout Assessment & Plan Assessment/Plan (1) Wound infection after surgery: (2) Delayed surgical wound healing: (3) Lumbar stenosis: PLAN: Plan I had a lengthy discussion with the patient. He is doing well status post lumbar I&D with wound VAC placement. Okay to discharge from spine point of view when arrangements made for home health with VAC changes as well as antibiotics per infectious disease. Patient will follow-up with me in clinic in 3 weeks. He understands and agrees with the treatment plan
--- NOTE | 2023-09-25 11:12 | CASEMGMT ---
Per Dr. Fisher, the plan is DC the pt tomorrow around noon. This RN CM calls and updates [facility] and requests to come to the pt house around 3-4pm to start the IV ATB infusion. They state they are able to accommodate that. Prescription faxed to [facility]. Discharge mental health assistant to send prescription to [facility] and requests total costs for the week.
[2023-09-25] MEDS: oxyCODONE 5 MG Tablet 10 MG PO ×2 (13:15→19:59)
--- NOTE | 2023-09-25 15:16 | CASEMGMT ---
Addendum entered by Lara Madera 09/25/23 15:40: returns call and states they were not planning to send a SW to his house. Referral updated to have a SW come to the home. Original Note: Pt updated at this time regarding the POC. Pt updated that [facility] will be at his home tomorrow around 1600. Pt updated that the infusion company will deliver the medication prior to HH arriving. Pt is agreeable to this plan. Pt updated on the benefits on the infusion. Pt denies need for any therapy. Pt states that [facility] was going to send out a SW to assist with his short term disability. Left message with to confirm.
--- NOTE | 2023-09-25 15:21 | PCM.OP.PRO ---
Procedure Report Date of Procedure: 09/25/23 Assessment & Plan Assessment/Plan (1) Wound infection after surgery: (2) Staphylococcus aureus bacteremia: Procedures Radiology Radiology Access Procedures: PICC Procedure Time Out Time Out Informed consent given: Yes Consent signed: Yes Time out checklist: patient, procedure, site marked/identified, positioning of patient, supplies available and allergies confirmed Time out verified: Yes Time out date: 09/25/23 Time out time: 14:10 PICC Line Consent Screening tool completed:: Yes Consent obtained:: Yes Consent given by (patient or responsible constitution party):: patient Line successful (if no, document why in comments):: Yes Insertion Reason for Insertion: Fitting Room Attendant Medication Date of Insertion: 09/25/23 Ok to use: Yes Type of PICC inserted: Single Power PICC PICC Lot #: [id number] PICC Reference #: [id number] Microintroducer Used: Yes (in kit) Ultrasound/Equipment Used: Probe Cover Kit Trimmed Length (cm): 46 Insertion Length (cm): 43 Exposed Length (cm): 3 Tip Placement: Caval Atrial Junction Placement Confirmation: 3CG Insertion Vein: Right Brachial Insertion Attempts: 1 Local Anesthesia Used: Lidocaine 1% (in kit) Dressing Applied: Statlock and Tegaderm CHG Arm Measurement above site (in cm): 30 Patient Tolerated Procedure: Well Threading Difficulties: No Comments Comment: Patient identity was verified with two patient identifiers. Informed consent was obtained and time-out was completed. Hands were sanitized. The patient was positioned supine with right arm arm at 90 degrees. The patient's upper arm vasculature was assessed using ultrasound, and the right brachial vein was externally marked. An external measurement was obtained of 46 cm. External leads were applied to the patient's right upper chest and laterally and inferior of the umbilicus on the mid axillary line. Cap, mask, and prep gloves were donned. The underdrape was placed under the patient's arm. The site was prepped with chlorhexidine, and tourniquet was loosely applied. Prep gloves were discarded, and hands were sanitized. The sterile kit was opened with additional supplies dropped in. Sterile gown and gloves were donned, and the patient was draped. The sterile kit was assembled with all needle, introducer, connector, and catheter flushed with sterile normal saline. The marked site of insertion was anesthetized with 1% lidocaine. Patient tolerated well. The right brachial vein was then accessed using ultrasound guidance and guidewire was inserted to safety janene. The tourniquet was released. The access needle was removed while securing the guidewire in place. The site was again anesthetized with 1% lidocaine, prior to insertion of introducer sheath and dilator. Patient tolerated well. The catheter was trimmed to a length of 46 cm. Using 3C guidance, the catheter was then inserted through the introducer sheath, slowly. There was no resistance on insertion. Maximal p-wave, without deflection, was obtained at an insertion length of 43 cm, leaving 3 cm external. The introducer sheath was retracted and peeled away, incrementally, while keeping the catheter secured. The stylet was removed. A flushed needleless connector was attached to the single-lumen. Blood return was verified and the lumen was flushed with sterile normal saline in a pulsatile fashion. Total sterile flushes used for the insertion was 3 10 ml syringes, including 1 from the kit. Finally, the insertion site was cleaned with chlorhexidine, and the catheter was secured using a StatLock. The site was covered with a Tegaderm CHG Dressing. Baseline arm circumference was obtained at the insertion site and measured 30 cm. The patient was provided with a patient education handout on PICC line care and verbalized understanding of infection prevention, heavy lifting restriction, maintaining mobility, and watching for any signs of infection. Charge and primary nurse are aware that the PICC line is ready for use.
--- NOTE | 2023-09-25 15:27 | PN.HOSP_ITS ---
Reason for Visit Reason for Visit: Diagnoses Methicillin susceptible Staphylococcus aureus infection as the cause of diseases classified elsewhere (09/19/23) Nicotine dependence, unspecified, with unspecified nicotine-induced disorders (09/19/23) Migraine with aura, not intractable, without status migrainosus (09/19/23) Other acute postprocedural pain (09/19/23) Spinal stenosis, lumbar region without neurogenic claudication (09/19/23) Bacteremia (09/19/23) Infection following a procedure, other surgical site, initial encounter (09/19/23) Other complications of procedures, not elsewhere classified, initial encounter ( 09/19/23) Subjective Subjective Patient seen at bedside this morning. Laying comfortably in bed, conversing normally, no acute distress. Patient states that the IV Dilaudid has been helping his pain, but states the low-dose p.o. oxycodone has not seem to help as much. His pain is fairly similar now to prior to surgery. No worsening of his pain since then. Otherwise has been eating and drinking well, no other acute concerns today. Objective Data Objective Data Vital Signs: Vital Signs Temp Pulse Resp BP Pulse Ox O2 Del Method O2 Flow Rate 98.3 F 80 18 111/68 99 Room Air 2 09/25/23 09:42 09/25/23 09:42 09/25/23 09:42 09/25/23 09:42 09/25/23 09:42 09/25/23 09:42 09/24/23 08:23 Oxygen Flow Rate (L/min) 2 Oxygen Delivery Method Room Air Weight: 79.5 kg Body Mass Index (BMI) 26.6 Intake & Output: Intake and Output for Last 24 Hours 09/23/23 09/24/23 09/25/23 23:59 23:59 23:59 Intake Total 4900.0 / 4900.0 3190.0 / 3190.0 300 / 300 Output Total 400 / 400 Balance 4900.0 / 4900.0 2790.0 / 2790.0 300 / 300 Lab / Micro Data 09/25/23 06:52 09/25/23 06:52 Labs: Laboratory Results - last 24 hr 09/24/23 21:05: Vancomycin Trough 23.6 H 09/25/23 06:52: WBC 14.0 H, RBC 3.23 L, Hgb 8.9 L, Hct 29.6 L, MCV 91.6, MCH 27.6, MCHC 30.1 L, RDW Std Deviation 48.0 H, RDW Coeff of Shila 14.2, Plt Count 573 H, MPV 10.3, Sodium 143, Potassium 3.8, Chloride 114 H, Carbon Dioxide 23.0, Anion Gap 6, BUN 16, Creatinine 1.13, Estim Creat Clear Calc 65.58, Est GFR (MDRD) Af Amer 85, Est GFR (MDRD) Non-Af 70, BUN/Creatinine Ratio 14.2, Glucose 91, Calcium 8.9, Random Vancomycin 22.8 H Micro: Microbiology 09/24/23 Unknown Wound - Aerobic Swab Gram Stain - Final 09/24/23 Unknown Wound - Aerobic Swab Wound Culture - Preliminary Staphylococcus aureus 09/24/23 Unknown Wound - Aerobic Swab Gram Stain - Final 09/22/23 15:37 Blood Culture (Wb) - Anticubital Right Blood Culture - Preliminary No growth in 48 hours. 09/19/23 11:50 Blood Culture (Wb) - Right Forearm Blood Culture - Final No growth in 5 days. 09/19/23 12:45 Blood Culture (Wb) - Left Forearm Bacteria Detection (PCR) - Final Staphylococcus aureus 09/19/23 12:45 Blood Culture (Wb) - Left Forearm Blood Culture - Final Staphylococcus aureus 09/19/23 12:40 Mucosa - Nasopharyngeal SARS-CoV-2, Influenza & RSV (PCR) - Final Physical Exam Const alert, oriented x3, no apparent distress and average body habitus Constitutional Narrative: Sitting comfortably in bed, conversing normally, no acute distress. General Appearance: cooperative and comfortable HEENT normocephalic, head/scalp atraumatic, hearing grossly normal bilaterally, nasal mucous membranes and turbinates normal and moist oral mucous membranes Eyes PERRL, EOMs intact bilaterally and conjunctivae normal Neck full ROM, no lymphadenopathy and supple Lymph Lymphatic: no lymphadenopathy noted Chest inspection of chest normal Resp normal respiratory effort, normal air movement, no use of accessory muscles and clear to auscultation bilaterally Cardio regular rate, regular rhythm, no murmurs and peripheral pulses 2+ throughout GI normal to inspection, nondistended, normoactive bowel sounds, soft to palpation, non-tender and non-distended Back/Spine normal ROM Back/Spine Narrative: Wound VAC in place in center of low back. Mild tenderness to palpation in left paraspinal muscular area, no point tenderness to palpation, no external abnormalities. Extremity normal to inspection, full ROM and no pedal edema Skin no rashes or lesions noted Neuro no focal motor deficits and no sensory deficits noted Speech: speech normal Psych mental status grossly normal Assessment & Plan Assessment/Plan (1) Wound infection after surgery: (2) Post-op pain: (3) Staphylococcus aureus bacteremia: PLAN: Plan Patient is a 63-year-old male who presented to [facility] ED on 09/19/2023 with worsening low back pain. 1. Postoperative lumbar fusion infection Initial surgery June 2023, had fusion of L4-5 and L5-S1 with Dr. Murray. Subsequently had necrotic tissue debrided in July, was treated with cephalexin at that time with wound VAC placement. CT L-spine was unremarkable but limited due to artifact. MRI L-spine on 09/22 showed fluid collection in subcutaneous tissue external to the dura. S/p lumbar I&D with wound VAC placement with Dr. Murray on 09/24. ? Orthopedics and infectious disease following. Patient tolerated procedure well on 09/24, no acute postop issues. If remains stable tomorrow, okay for discharge home from orthopedic standpoint. Management of bacteremia and pain as noted below. 2. Staph aureus bacteremia ? Infectious disease following as above. Presumed secondary to postop infection as noted above. Blood cultures 09/19 positive for MSSA. Repeat blood cultures 09/20 negative at 48 hours. Notably had MRSE bacteremia after his procedure in 07/2023. TTE negative for vegetations, no clinical signs of endocarditis. PICC line placement planned for 09/25. Planning for 6 weeks of p.o. rifampin and IV o xacillin, stop date 11/05/2023 with weekly labs and ID follow-up in 2 weeks. 3. Low back pain ? Presumed secondary to lumbar infection. Patient notably had resolution of pain for about 4 weeks postoperatively, followed by acute worsening of pain due to this infection. Transitioned to p.o. oxycodone 10 mg every 4 hours as needed, discontinued IV Dilaudid on 09/25 and preparation for discharge. C ontinue gabapentin, lidocaine patch, scheduled Tylenol. 4. Hyponatremia, resolved ? Sodium 127 on admit, possible secondary to beer potomania versus poor p.o. intake. Resolved by 09/21. 5. Mild DEVON ? Creatinine 1.13 on 09/25, baseline creatinine 0.4-0.6. Suspect mild prerenal DEVON from volume depletion from surgery. Will give 1L LR bolus on 09/25, repeat BMP on 09/26. Monitor UOP. Holding home losartan for now. Chronic medical conditions: ? History of seizures: Continue home Topamax and gabapentin. ? Hypertension: Holding home losartan, continue home propanolol. ? GERD: Continue PPI. ? Alcohol use: Drinks up to 4 to 612 ounce beers at night. On CIWA protocol, no withdrawal symptoms noted, monitor. ? Tobacco use: Advised cessation. Denied need for nicotine replacement therapy. DVT prophylaxis: Lovenox CODE STATUS: Full code, verified Expected disposition: Home with home health care, tomorrow Total clinical time spent by myself addressing the patient's medical issues, reviewing all the data, and collaborating with patient's care team: 35 minutes. Charges/Coding Visit Charges Inpatient E&M: 51747 Subs Hosp L2
[2023-09-25] MEDS: 0.9% Normal Saline (250mL Bag) 250 ML 15 ML IV (15:40)
[2023-09-25] MEDS: Lactated Ringers 1,000 ML 999 ML IV (15:48)
[2023-09-25 15:53] VITALS: BP 117/70; PULSE 82; RESP 19; TEMP 36.9; O2SAT 97
--- NOTE | 2023-09-25 16:11 | CASEMGMT ---
PICC insertion information sent to I via [facility] at this time.
[2023-09-25 19:03] LABS: Vancomycin, Random Level 16.4 ug/mL (0.0-15.0)
--- NOTE | 2023-09-25 19:31 | PCM.RX.CS ---
Consult Antibiotic Management Pharmacy has been consulted to manage selected antibiotic: Vancomycin Type of Intervention Type of Consult: Follow-up Suspected Infection Suspected Infection: Bacteremia Prior Doses of Antibiotics Prior Doses of Antibiotics Received/Current Regimen: Vancomycin 1500 mg q12h given 09/23 @ 5397, and 09/24 @ 0911 Labs Labs: Sodium 143 mmol/L (136-145) 09/25/23 06:52 Potassium 3.8 mmol/L (3.5-5.1) 09/25/23 06:52 Chloride 114 mmol/L (98-107) H 09/25/23 06:52 Carbon Dioxide 23.0 mmol/L (21.0-32.0) 09/25/23 06:52 Anion Gap 6 (5-15) 09/25/23 06:52 BUN 16 mg/dL (7-18) 09/25/23 06:52 Creatinine 1.13 mg/dL (0.70-1.30) 09/25/23 06:52 Est GFR (MDRD) Af Amer 85 mL/min (>60) 09/25/23 06:52 Est GFR (MDRD) Non-Af 70 mL/min (>60) 09/25/23 06:52 BUN/Creatinine Ratio 14.2 RATIO (10-20) 09/25/23 06:52 Glucose 91 mg/dL (74-106) 09/25/23 06:52 Vancomycin Trough 23.6 ug/mL (5.0-15.0) H 09/24/23 21:05 Random Vancomycin 16.4 ug/mL (0.0-15.0) H 09/25/23 18:37 Microbiology Microbiology: Microbiology 09/24/23 Unknown Wound - Aerobic Swab Gram Stain - Final 09/24/23 Unknown Wound - Aerobic Swab Wound Culture - Preliminary Staphylococcus aureus 09/24/23 Unknown Wound - Aerobic Swab Gram Stain - Final 09/22/23 15:37 Blood Culture (Wb) - Anticubital Right Blood Culture - Preliminary No growth in 48 hours. 09/19/23 11:50 Blood Culture (Wb) - Right Forearm Blood Culture - Final No growth in 5 days. 09/19/23 12:45 Blood Culture (Wb) - Left Forearm Bacteria Detection (PCR) - Final Staphylococcus aureus 09/19/23 12:45 Blood Culture (Wb) - Left Forearm Blood Culture - Final Staphylococcus aureus 09/19/23 12:40 Mucosa - Nasopharyngeal SARS-CoV-2, Influenza & RSV (PCR) - Final Dosing Weight Weight used for dosin.5 kg Estimated Creatinine Clearance Estimated Creatinine Clearance: ~66 Goal Trough Goal Trough: 15-20 mcg/mL Pharmacy Plan for Drug Dosing Pharmacy Plan for Drug Dosing: Vancomycin random today 16.4, 32.5 jours since last dose, will reduce to 1000 mg q12h, calculations suggest dose should be somewhere between 1000 mg q12h and 1250 mg q12h, will go with lower dose d/t recently elevated trough. Trough in 2 days. Pharmacy Service will continue to monitor and adjust dosing as required. Follow-Up Labs Follow-Up Labs: Trough: Vancomycin Date/Time Labs Ordered Labs to be done on [date and time ordered]: 09/27/23 @ 0700
[2023-09-25] MEDS: Vancomycin IV 1,000 MG/200 ML BAG 200 MG IV (20:00)
[2023-09-25 20:06] VITALS: BP 138/75; PULSE 86; RESP 18; TEMP 36.8; O2SAT 99
[2023-09-25] MEDS: rifAMPin 300 MG Capsule PO (22:34)
[2023-09-26] MEDS: OXACILLIN SODIUM IV ×3 (01:44→10:05)
[2023-09-26] MEDS: NORMAL SALINE 0.9% IV ×3 (01:44→10:05)
[2023-09-26] MEDS: oxyCODONE 5 MG Tablet 10 MG PO ×3 (03:27→12:06)
[2023-09-26 03:31] VITALS: BP 128/85; PULSE 70; RESP 16; TEMP 36.6; O2SAT 96
[2023-09-26] MEDS: Acetaminophen 500 MG Tablet 1000 MG PO (05:11)
[2023-09-26 05:26] LABS: Mean Corp Hgb Conc 30.8 g/dL (32-36); Mean Corpuscular Hgb 27.7 pg (27.0-32.0); Mean Platelet Vol. 10.3 fl (6.2-12.0); Platelet Count 536 K/mm3 (150-450); RBC Distribution Width CV 14.1 % (11.6-14.6); RBC Distribution Width SD 46.1 fl (35.1-43.9); Red Blood Count 2.89 M/mm3 (4.6-6.2); White Blood Count 11.4 K/mm3 (4.4-11.0)
[2023-09-26 05:53] LABS: Anion Gap 7 (5-15); BUN 21 mg/dL (7-18); BUN/Creat Ratio 19.1 RATIO (10-20); Calcium,Total 8.5 mg/dL (8.5-10.1); Chloride 113 mmol/L (98-107); EST Glomerular Filtration Rate 72 mL/min (>60); Est Glom Filt Rate - Afr Amer 87 mL/min (>60); Estimated Creatinine Clearance 67.36 ml/min; Glucose 91 mg/dL (74-106); Potassium 3.4 mmol/L (3.5-5.1); Sodium Level 143 mmol/L (136-145)
[2023-09-26 07:00] VITALS: O2SAT 95
[2023-09-26] MEDS: Gabapentin 600 MG Tablet PO ×2 (07:55→12:06)
[2023-09-26] MEDS: Vancomycin IV 1,000 MG/200 ML BAG 200 MG IV (07:55)
[2023-09-26] MEDS: Ensure Plus High Protein 120 ML LIQUID PO ×2 (07:55→12:06)
[2023-09-26] MEDS: Pantoprazole Sodium 40 MG Tablet PO (08:00)
[2023-09-26] MEDS: rifAMPin 300 MG Capsule PO (08:02)
[2023-09-26] MEDS: Topiramate 50 MG Tablet PO (08:02)
--- NOTE | 2023-09-26 08:10 | WOUNDNOTE ---
wound photo: mid lower back
[2023-09-26 09:30] VITALS: BP 121/61; PULSE 82; RESP 18; TEMP 36.8; O2SAT 97
--- NOTE | 2023-09-26 11:09 | DCINST_ITS ---
Discharge Instructions Diet Discharge Diet: No restrictions Activity Discharge Activity: No Restrictions Weight Bearing Status: Full weight bearing Follow Up Care Test Results: Test results from this visit will be discussed in further detail at your follow- up appointment, if applicable. Discharge Plan Admission Admit Date/Time: 09/19/23 14:35 Attending Provider: Peng Fisher Primary Care Provider: Daljit Chou Consulting Providers: Adalberto Murray; Sangeetha Gary; Alfie Phillips; Payam Morales Discharge Orders/Prescriptions Prescriptions: New rifampin 300 mg Capsule 300 mg PO BID 40 Days Qty: 80 0RF oxacillin 10 gram recon soln 12 g IV Q24H 40 Days Qty: 40 0RF Rx Instructions: stop date 11/05/23. 12gm oxacillin daily given as continuous infusion. dx: MSSA osteomyelitis weekly bmp, cbc, LFT, and esr. Fax to [phone] gabapentin 600 mg Tablet 600 mg PO TIDCM 30 Days Qty: 90 0RF oxycodone 10 mg tablet 10 mg PO Q4H PRN (Reason: pain) 7 Days Qty: 42 0RF Continued propranolol [Inderal LA] 60 mg capsule,extended release 24 hr 60 mg PO DAILY Qty: 30 7RF topiramate 50 mg tablet 50 mg PO BID Qty: 60 6RF sumatriptan succinate 50 mg tablet 50 mg .ROUTE .COMPLEX Qty: 9 6RF Rx Instructions: Take one tablet PO every two hours as needed for headache up to two tablets per day albuterol sulfate [Ventolin HFA] 90 mcg/actuation HFA aerosol inhaler 1 - 2 puff inhalation Q4H PRN PRN (Reason: Wheezing) Qty: 1 0RF pantoprazole 40 mg tablet,delayed release (DR/EC) See Rx Instructions .ROUTE .COMPLEX Qty: 60 2RF Dose Instruction: TAKE 1 TABLET BY MOUTH TWICE A DAY Rx Instructions: TAKE 1 TABLET BY MOUTH TWICE A DAY Discontinued sulfamethoxazole-trimethoprim [Bactrim DS] 800-160 mg tablet 1 tab PO BID losartan 25 mg tablet 25 mg PO DAILY Hold Instructions: hasn't taken since 09/11 due to low blood pressures No Action gabapentin 100 mg capsule 200 mg PO TID Referrals / Follow Up: Daljit Chou DO [Primary Care Provider] - Disposition Disposition (needs filled in before D/C Order can be placed): Home Health Service
--- NOTE | 2023-09-26 11:14 | PCM.DC.SUM ---
Providers Date of Admission: 09/19/23 Primary Care Physician: Dr. 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 Routine Comment: Reason for Consult:: Wound VAC Consult: Orthopedics Routine Consulting Provider: Adalberto Murray Reason for Consult: concern for post op lumbnar infection, staph aureus in blood EMERGENT Consult: No MD Notified: Yes Date Notified: 09/19/23 Time Notified: 14:48 Method of Notification: ED Physician Initiated Reason For Visit: POSTOP WOUND INFECTION Diagnosis Discharge Diagnosis (1) Wound infection after surgery: Status: Acute Code(s): T81.49XA - Infection following a procedure, other surgical site, initial encounter (2) Post-op pain: Status: Acute Code(s): G89.18 - Other acute postprocedural pain (3) Staphylococcus aureus bacteremia: Status: Acute Code(s): R78.81 - Bacteremia; B95.61 - Methicillin susceptible Staphylococcus aureus infection as the cause of diseases classified elsewhere Medications at Discharge Home Medications albuterol sulfate 90 mcg/actuation aerosol inhaler (Ventolin HFA) 1 - 2 puff inhalation Q4H PRN PRN Wheezing #1 pkg 01/23/21 propranolol 60 mg capsule,24 hr,extended release (Inderal LA) 60 mg PO DAILY #30 caps 04/07/23 sumatriptan succinate 50 mg tablet 50 mg .Route .COMPLEX MIGRAINES #9 tabs 04/07/23 topiramate 50 mg tablet 50 mg PO BID #60 tabs 04/07/23 gabapentin 100 mg capsule 200 mg PO TID 06/19/23 pantoprazole 40 mg tablet,delayed release See Rx Instructions .Route .COMPLEX #60 tabs 07/15/23 oxacillin 10 gram solution for injection 12 g IV Q24H 40 days #40 ea 09/25/23 rifampin 300 mg capsule 300 mg PO BID 40 days #80 caps 09/25/23 gabapentin 600 mg tablet 600 mg PO TIDCM 30 days #90 tabs 09/26/23 oxycodone 10 mg tablet 10 mg PO Q4H PRN pain 7 days #42 tabs 09/26/23 Hospital Course Operations - (Lumbar irrigation, debridement, wound exploration and application of lumbar wound VAC) Procedures EKG, Transthoracic echo and - (CT lumbar spine, MRI lumbar spine ) Summary of Care Provided Minutes Spent on Discharge: 35 Hospital Course: Patient is a 63-year-old male who presented to [facility] ED on 09/19/2023 with worsening low back pain. Hospital course as noted below. Discharged home with home health care in stable condition on 09/26. 1. Postoperative lumbar fusion infection Initial surgery June 2023, had fusion of L4-5 and L5-S1 with Dr. Murray. Subsequently had necrotic tissue debrided in July, was treated with cephalexin at that time with wound VAC placement. CT L-spine was unremarkable but limited due to artifact. MRI L-spine on 09/22 showed fluid collection in subcutaneous tissue external to the dura. S/p lumbar I&D with wound VAC placement with Dr. Murray on 09/24. ? Orthopedics and infectious disease followed. Patient tolerated procedure well on 09/24, no acute postop issues. Management of bacteremia and pain as noted below. Discharged home with home health care in stable condition. 2. Staph aureus bacteremia Presumed secondary to postop infection as noted above. Blood cultures 09/19 positive for MSSA. Repeat blood cultures 09/20 negative at 48 hours. Notably had MRSE bacteremia after his procedure in 07/2023. TTE negative for vegetations, no clinical signs of endocarditis. Wound cultures 09/24 also grew MSSA. ? Infectious disease followed as above. PICC line placed prior to discharge. Discharged with plan for 6 weeks of p.o. rifampin and IV oxacillin, stop date 11/05/2023 with weekly labs and ID follow-up in 2 weeks. 3. Low back pain Presumed secondary to lumbar infection. Patient notably had resolution of pain for about 4 weeks postoperatively, followed by acute worsening of pain due to this infection. Initially required frequent IV Dilaudid for management of pain, in addition to conservative measures. Transitioned to p.o. oxycodone 10 mg every 4 hours as needed and IV Dilaudid discontinued on 09/25. ? Continue oxycodone 10 mg every 4 hours as needed on discharge, 7-day course prescribed. Continue gabapentin, lidocaine patch, scheduled Tylenol on discharge. 4. Hyponatremia, resolved ? Sodium 127 on admit, possible secondary to beer potomania versus poor p.o. intake. Resolved by 09/21. 5. Mild DEVON Presumed mild prerenal DEVON from line depletion post surgery. Creatinine 1.13 on 09/25, baseline creatinine 0.4-0.6. Creatinine mildly improved with LR bolus. Adequate urine output. ? Held home losartan on discharge. Recommend repeat BMP in 5 to 7 days to monitor for resolution of DEVON. Can consider restarting losartan at that time as needed. Chronic medical conditions: ? History of seizures: Continue home Topamax and gabapentin. ? Hypertension: Continued home propranolol. Held home losartan on discharge as noted above. ? GERD: Continue PPI. ? Alcohol use: Drinks up to 4 to 612 ounce beers at night. On CIWA protocol during hospitalization, no signs of alcohol withdrawal. ? Tobacco use: Advised cessation. Denied need for nicotine replacement therapy. Total clinical time spent by myself addressing the patient's discharge needs: 35 minutes. Physical Exam Const alert, oriented x3, no apparent distress and average body habitus Constitutional Narrative: Sitting comfortably in bed, conversing normally, no acute distress. General Appearance: cooperative and comfortable HEENT normocephalic, head/scalp atraumatic, hearing grossly normal bilaterally, nasal mucous membranes and turbinates normal and moist oral mucous membranes Eyes PERRL, EOMs intact bilaterally and conjunctivae normal Neck full ROM, no lymphadenopathy and supple Lymph Lymphatic: no lymphadenopathy noted Chest inspection of chest normal Resp normal respiratory effort, normal air movement, no use of accessory muscles and clear to auscultation bilaterally Cardio regular rate, regular rhythm, no murmurs and peripheral pulses 2+ throughout GI normal to inspection, nondistended, normoactive bowel sounds, soft to palpation, non-tender and non-distended Back/Spine normal ROM Back/Spine Narrative: Wound VAC in place in center of low back. Mild tenderness to palpation in left paraspinal muscular area, no point tenderness to palpation, no external abnormalities. Extremity normal to inspection, full ROM and no pedal edema Skin no rashes or lesions noted Neuro no focal motor deficits and no sensory deficits noted Speech: speech normal Psych mental status grossly normal Weight / BMI Weight Weight: 79.5 kg Body Mass Index (BMI) 26.6 ABG / Lab / Microbiology Data 09/26/23 04:56 09/26/23 04:56 Laboratory: Laboratory Results - last 24 hr 09/25/23 18:37: Random Vancomycin 16.4 H 09/26/23 04:56: WBC 11.4 H, RBC 2.89 L, Hgb 8.0 L, Hct 26.0 L, MCV 90.0, MCH 27.7, MCHC 30.8 L, RDW Std Deviation 46.1 H, RDW Coeff of Shila 14.1, Plt Count 536 H, MPV 10.3, Sodium 143, Potassium 3.4 L, Chloride 113 H, Carbon Dioxide 23.0, Anion Gap 7, BUN 21 H, Creatinine 1.10, Estim Creat Clear Calc 67.36, Est GFR (MDRD) Af Amer 87, Est GFR (MDRD) Non-Af 72, BUN/Creatinine Ratio 19.1, Glucose 91, Calcium 8.5 Microbiology: Microbiology 09/24/23 Unknown Wound - Aerobic Swab Gram Stain - Final 09/24/23 Unknown Wound - Aerobic Swab Wound Culture - Final Staphylococcus aureus 09/24/23 Unknown Wound - Aerobic Swab Gram Stain - Final 09/24/23 Unknown Wound - Aerobic Swab Wound Culture - Preliminary Staphylococcus aureus 09/24/23 Unknown Wound - Aerobic Swab Anaerobic Culture - Preliminary No growth in 48 hours. 09/20/23 15:48 Blood Culture (Wb) - Anticubital Right Blood Culture - Final No growth in 5 days. 09/20/23 15:53 Blood Culture (Wb) - Arm Right Blood Culture - Final No growth in 5 days. 09/22/23 15:37 Blood Culture (Wb) - Anticubital Right Blood Culture - Preliminary No growth in 48 hours. 09/19/23 11:50 Blood Culture (Wb) - Right Forearm Blood Culture - Final No growth in 5 days. 09/19/23 12:45 Blood Culture (Wb) - Left Forearm Bacteria Detection (PCR) - Final Staphylococcus aureus 09/19/23 12:45 Blood Culture (Wb) - Left Forearm Blood Culture - Final Staphylococcus aureus 09/19/23 12:40 Mucosa - Nasopharyngeal SARS-CoV-2, Influenza & RSV (PCR) - Final D/C Instructions Discharge Diet: No restrictions Weight Bearing Status: Full weight bearing Meaningful Use Info Meaningful Use Diagnoses (Choose all that apply): None applicable Discharge Plan Admission Admit Date/Time: 09/19/23 14:35 Attending Provider: Peng Fisher Primary Care Provider: Daljit Chou Consulting Providers: Adalberto Murray; Sangeetha Gary; Alfie Phillips; Payam Morales Discharge Orders/Prescriptions Prescriptions: New rifampin 300 mg Capsule 300 mg PO BID 40 Days Qty: 80 0RF oxacillin 10 gram recon soln 12 g IV Q24H 40 Days Qty: 40 0RF Rx Instructions: stop date 11/05/23. 12gm oxacillin daily given as continuous infusion. dx: MSSA osteomyelitis weekly bmp, cbc, LFT, and esr. Fax to [phone] gabapentin 600 mg Tablet 600 mg PO TIDCM 30 Days Qty: 90 0RF oxycodone 10 mg tablet 10 mg PO Q4H PRN (Reason: pain) 7 Days Qty: 42 0RF Continued propranolol [Inderal LA] 60 mg capsule,extended release 24 hr 60 mg PO DAILY Qty: 30 7RF topiramate 50 mg tablet 50 mg PO BID Qty: 60 6RF sumatriptan succinate 50 mg tablet 50 mg .ROUTE .COMPLEX Qty: 9 6RF Rx Instructions: Take one tablet PO every two hours as needed for headache up to two tablets per day albuterol sulfate [Ventolin HFA] 90 mcg/actuation HFA aerosol inhaler 1 - 2 puff inhalation Q4H PRN PRN (Reason: Wheezing) Qty: 1 0RF pantoprazole 40 mg tablet,delayed release (DR/EC) See Rx Instructions .ROUTE .COMPLEX Qty: 60 2RF Dose Instruction: TAKE 1 TABLET BY MOUTH TWICE A DAY Rx Instructions: TAKE 1 TABLET BY MOUTH TWICE A DAY Discontinued sulfamethoxazole-trimethoprim [Bactrim DS] 800-160 mg tablet 1 tab PO BID losartan 25 mg tablet 25 mg PO DAILY Hold Instructions: hasn't taken since 09/11 due to low blood pressures No Action gabapentin 100 mg capsule 200 mg PO TID Referrals / Follow Up: Daljit Chou DO [Primary Care Provider] - Disposition Disposition (needs filled in before D/C Order can be placed): Home Health Service Charges/Coding Visit Charges Inpatient E&M: 96440 Disch Hosp >30min
--- NOTE | 2023-09-26 11:35 | PHA.DC.MC.R ---
Pharmacy [facility] has performed discharge medication reconciliation and counseling for this patient. The patient's discharge medication list was reviewed for discrepancies and discrepancies were resolved. The patient was counseled on the following discharge medications and changes in medications for homegoing were reviewed. The Reason for Use, instructions for use, and potential side effects were reviewed for all new medications. The patient's questions regarding all of their medications were answered. 1. Oxacillin 12 grams daily via continuous infusoin 2. Rifampin 300 mg PO BID 3. Gabapentin 600 mg PO TID 4. Oxycodone 10 mg PO Q4H PRN pain The patient was able to verbally demonstrate an understanding of their discharge medications. Medications at Discharge Home Medications albuterol sulfate 90 mcg/actuation aerosol inhaler (Ventolin HFA) 1 - 2 puff inhalation Q4H PRN PRN Wheezing #1 pkg 01/23/21 propranolol 60 mg capsule,24 hr,extended release (Inderal LA) 60 mg PO DAILY #30 caps 04/07/23 sumatriptan succinate 50 mg tablet 50 mg .Route .COMPLEX MIGRAINES #9 tabs 04/07/23 topiramate 50 mg tablet 50 mg PO BID #60 tabs 04/07/23 gabapentin 100 mg capsule 200 mg PO TID 06/19/23 pantoprazole 40 mg tablet,delayed release See Rx Instructions .Route .COMPLEX #60 tabs 07/15/23 oxacillin 10 gram solution for injection 12 g IV Q24H 40 days #40 ea 09/25/23 rifampin 300 mg capsule 300 mg PO BID 40 days #80 caps 09/25/23 gabapentin 600 mg tablet 600 mg PO TIDCM 30 days #90 tabs 09/26/23 oxycodone 10 mg tablet 10 mg PO Q4H PRN pain 7 days #42 tabs 09/26/23
[2023-09-26 12:00] VITALS: BP 118/62; PULSE 68; RESP 18; TEMP 36.8; O2SAT 98
--- NOTE | 2023-09-26 12:16 | CASEMGMT ---
Spoke with Sneha at [facility], she is aware that DC plan is for noon today. 1210: DC Instructions sent to [facility] via [employer]. Pt nurse aware of hand-written script for ATB. To be given to pt. RN CM to pt room and pt states he is ready for DC.
== END 2023-09-26 12:48 | disposition home health service (06) | DRG 464 ==
LOC: ED 14:11 → MS3 17:19
PROVIDERS: Anesthesiology; Internal Medicine; Internal Medicine Infectious Disease; Orthopaedic Surgery; Admitting Provider Internal Medicine; Emergency Provider Emergency Medicine; PCP Family Medicine; Visit Provider Hospitalist
PROC: 0JB70ZZ Excision of Back Subcutaneous Tissue and Fascia, Open Approach (ICD-10-PCS; principal; 2023-09-24 11:20)
DX: T84.63XA Infection and inflammatory reaction due to internal fixation device of spine, initial encounter (principal); R78.81 Bacteremia; N17.9 Acute kidney failure, unspecified; E87.1 Hypo-osmolality and hyponatremia; T81.49XA Infection following a procedure, other surgical site, initial encounter; J44.9 Chronic obstructive pulmonary disease, unspecified; I10 Essential (primary) hypertension; F10.10 Alcohol abuse, uncomplicated; K21.9 Gastro-esophageal reflux disease without esophagitis; F17.220 Nicotine dependence, chewing tobacco, uncomplicated; M48.061 Spinal stenosis, lumbar region without neurogenic claudication; X58.XXXA Exposure to other specified factors, initial encounter; G89.18 Other acute postprocedural pain; B95.61 Methicillin susceptible Staphylococcus aureus infection as the cause of diseases classified elsewhere; Y90.9 Presence of alcohol in blood, level not specified; Z98.1 Arthrodesis status; Z79.2 Long term (current) use of antibiotics; Z79.891 Long term (current) use of opiate analgesic; Z79.899 Other long term (current) drug therapy; Z86.19 Personal history of other infectious and parasitic diseases
CPT/HCPCS: 36415; 36569; 72158; 80048; 80053; 80076; 80202; 82436; 82570; 83605; 83930; 83935; 84133; 84300; 84540; 85025; 85027; 85610; 85652; 85730; 86140; 87040; 87070; 87075; 87077; 87149; 87186; 87205; 87631; 93005; 93306; 97161; 97165; 97802; 99285; 99406; A9575; J7030; J7040; J7050; J7120; A4216; J2405

== ENCOUNTER → 2023-10-01 | Outpatient (CLI) | payer OTHER, SELFPAY ==
[2023-10-01 10:31] LABS: Erythrocyte Sedimentation Rate 73 mm/hr (0-20)
[2023-10-01 10:33] LABS: AST(SGOT) 9 U/L (15-37); Alanine Aminotransfer ALT/SGPT 13 U/L (16-61); Albumin, Serum 2.4 g/dL (3.2-5.0); Alkaline Phosphatase 77 U/L (45-117); Anion Gap 6 (5-15); BUN 9 mg/dL (7-18); BUN/Creat Ratio 7.7 RATIO (10-20); Bilirubin, Direct 0.21 mg/dL (0.00-0.30); Calcium,Total 9.4 mg/dL (8.5-10.1); Chloride 107 mmol/L (98-107); Creatinine, Serum 1.17 mg/dL (0.70-1.30); EST Glomerular Filtration Rate 67 mL/min (>60); Est Glom Filt Rate - Afr Amer 81 mL/min (>60); Globulin 4.4 g/dL (2.2-4.2); Glucose 124 mg/dL (74-106); Potassium 3.5 mmol/L (3.5-5.1); Protein, Total 6.8 g/dL (6.4-8.2); Sodium Level 138 mmol/L (136-145)
[2023-10-01 10:34] LABS: Hematocrit 28.9 % (40-54); Hemoglobin 9.1 g/dL (13.0-16.5); Mean Corp Hgb Conc 31.5 g/dL (32-36); Mean Corpuscular Hgb 27.9 pg (27.0-32.0); Mean Corpuscular Volume 88.7 fL (80-94); Mean Platelet Vol. 10.3 fl (6.2-12.0); POSITIVE COUNT YES; Platelet Count 845 K/mm3 (150-450); RBC Distribution Width CV 14.4 % (11.6-14.6); RBC Distribution Width SD 46.1 fl (35.1-43.9); Red Blood Count 3.26 M/mm3 (4.6-6.2); White Blood Count 12.3 K/mm3 (4.4-11.0)
[2023-10-01 10:36] LABS: Scan Indicated on CBC? Y/N YES- FLAGS NOTED
[2023-10-02 13:05] LABS: Pathologist Review Reviewed
== END | disposition home or self-care (01) ==
LOC: LABSPEC 10:09
PROVIDERS: PCP Family Medicine; Referring Provider Internal Medicine Infectious Disease; Visit Provider Internal Medicine Infectious Disease
DX: M86.9 Osteomyelitis, unspecified (principal); B95.61 Methicillin susceptible Staphylococcus aureus infection as the cause of diseases classified elsewhere
CPT/HCPCS: 80048; 80076; 85027; 85652

== ENCOUNTER 2023-10-08 07:56 | Outpatient (RCR) | payer OTHER, SELFPAY ==
[2023-10-08 08:08] VITALS: BP 130/58; PULSE 82; RESP 16; TEMP 36.8; BMI 25.1
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
== END 2023-10-15 23:59 | disposition home or self-care (01) ==
LOC: WC 07:56
PROVIDERS: PCP Family Medicine; Referring Provider Orthopaedic Surgery; Visit Provider Nurse Practitioner
DX: T81.49XA Infection following a procedure, other surgical site, initial encounter (principal); J44.9 Chronic obstructive pulmonary disease, unspecified; R78.81 Bacteremia; F17.220 Nicotine dependence, chewing tobacco, uncomplicated; B95.61 Methicillin susceptible Staphylococcus aureus infection as the cause of diseases classified elsewhere; Y83.8 Other surgical procedures as the cause of abnormal reaction of the patient, or of later complication, without mention of misadventure at the time of the procedure; T81.31XA Disruption of external operation (surgical) wound, not elsewhere classified, initial encounter; Z79.899 Other long term (current) drug therapy; K21.9 Gastro-esophageal reflux disease without esophagitis; I10 Essential (primary) hypertension
CPT/HCPCS: 11042; 11045; 99203; G0463

== ENCOUNTER → 2023-10-08 | Outpatient (CLI) | payer OTHER, SELFPAY ==
[2023-10-08 14:48] LABS: Erythrocyte Sedimentation Rate 80 mm/hr (0-20)
[2023-10-08 14:50] LABS: Hematocrit 30.3 % (40-54); Hemoglobin 9.4 g/dL (13.0-16.5); Mean Corpuscular Hgb 27.6 pg (27.0-32.0); Mean Corpuscular Volume 88.9 fL (80-94); Mean Platelet Vol. 10.2 fl (6.2-12.0); Platelet Count 694 K/mm3 (150-450); RBC Distribution Width CV 15.1 % (11.6-14.6); RBC Distribution Width SD 48.7 fl (35.1-43.9); Red Blood Count 3.41 M/mm3 (4.6-6.2); White Blood Count 10.3 K/mm3 (4.4-11.0)
[2023-10-08 15:15] LABS: AST(SGOT) 9 U/L (15-37); Alanine Aminotransfer ALT/SGPT 8 U/L (16-61); Albumin, Serum 2.3 g/dL (3.2-5.0); Alkaline Phosphatase 99 U/L (45-117); Anion Gap 3 (5-15); BUN 14 mg/dL (7-18); BUN/Creat Ratio 11.7 RATIO (10-20); Bilirubin, Direct 0.17 mg/dL (0.00-0.30); Calcium,Total 9.5 mg/dL (8.5-10.1); Chloride 104 mmol/L (98-107); EST Glomerular Filtration Rate 65 mL/min (>60); Est Glom Filt Rate - Afr Amer 79 mL/min (>60); Globulin 4.7 g/dL (2.2-4.2); Glucose 117 mg/dL (74-106); Potassium 3.8 mmol/L (3.5-5.1); Sodium Level 135 mmol/L (136-145)
== END | disposition home or self-care (01) ==
LOC: LABSPEC 14:23
PROVIDERS: PCP Family Medicine; Referring Provider Internal Medicine Infectious Disease; Visit Provider Internal Medicine Infectious Disease
DX: M86.9 Osteomyelitis, unspecified (principal); B95.61 Methicillin susceptible Staphylococcus aureus infection as the cause of diseases classified elsewhere
CPT/HCPCS: 80048; 80076; 85027; 85652

== ENCOUNTER → 2023-10-15 | Outpatient (CLI) | payer OTHER, SELFPAY ==
[2023-10-15 12:52] LABS: Erythrocyte Sedimentation Rate 77 mm/hr (0-20)
[2023-10-15 12:54] LABS: Hemoglobin 9.7 g/dL (13.0-16.5); Mean Corp Hgb Conc 30.3 g/dL (32-36); Mean Corpuscular Hgb 26.9 pg (27.0-32.0); Mean Corpuscular Volume 88.9 fL (80-94); Mean Platelet Vol. 10.7 fl (6.2-12.0); Platelet Count 380 K/mm3 (150-450); RBC Distribution Width CV 15.6 % (11.6-14.6); RBC Distribution Width SD 49.9 fl (35.1-43.9); White Blood Count 7.8 K/mm3 (4.4-11.0)
[2023-10-15 12:58] LABS: AST(SGOT) 17 U/L (15-37); Alanine Aminotransfer ALT/SGPT 10 U/L (16-61); Albumin, Serum 2.2 g/dL (3.2-5.0); Alkaline Phosphatase 87 U/L (45-117); Anion Gap 6 (5-15); BUN 8 mg/dL (7-18); BUN/Creat Ratio 8.6 RATIO (10-20); Bilirubin, Direct 0.15 mg/dL (0.00-0.30); Calcium,Total 9.2 mg/dL (8.5-10.1); Chloride 106 mmol/L (98-107); Creatinine, Serum 0.94 mg/dL (0.70-1.30); EST Glomerular Filtration Rate 87 mL/min (>60); Est Glom Filt Rate - Afr Amer 105 mL/min (>60); Globulin 4.6 g/dL (2.2-4.2); Glucose 121 mg/dL (74-106); Potassium 3.7 mmol/L (3.5-5.1); Protein, Total 6.8 g/dL (6.4-8.2); Sodium Level 137 mmol/L (136-145)
== END | disposition home or self-care (01) ==
LOC: LABSPEC 12:13
PROVIDERS: PCP Family Medicine; Referring Provider Internal Medicine Infectious Disease; Visit Provider Internal Medicine Infectious Disease
DX: M86.9 Osteomyelitis, unspecified (principal); B95.61 Methicillin susceptible Staphylococcus aureus infection as the cause of diseases classified elsewhere
CPT/HCPCS: 80048; 80076; 85027; 85652

== ENCOUNTER 2023-10-22 13:55 | Outpatient (RCR) | payer OTHER, SELFPAY ==
[2023-10-22 14:16] LABS: Hematocrit 33.8 % (40-54); Hemoglobin 10.5 g/dL (13.0-16.5); Mean Corp Hgb Conc 31.1 g/dL (32-36); Mean Corpuscular Hgb 26.7 pg (27.0-32.0); Mean Platelet Vol. 10.8 fl (6.2-12.0); Platelet Count 300 K/mm3 (150-450); RBC Distribution Width CV 15.9 % (11.6-14.6); RBC Distribution Width SD 49.9 fl (35.1-43.9); Red Blood Count 3.93 M/mm3 (4.6-6.2); White Blood Count 5.6 K/mm3 (4.4-11.0)
[2023-10-22 14:23] LABS: Erythrocyte Sedimentation Rate 73 mm/hr (0-20)
[2023-10-22 14:30] LABS: AST(SGOT) 32 U/L (15-37); Alanine Aminotransfer ALT/SGPT 22 U/L (16-61); Albumin, Serum 2.4 g/dL (3.2-5.0); Alkaline Phosphatase 93 U/L (45-117); Anion Gap 5 (5-15); BUN 8 mg/dL (7-18); BUN/Creat Ratio 9.3 RATIO (10-20); Bilirubin, Direct 0.15 mg/dL (0.00-0.30); Chloride 104 mmol/L (98-107); Creatinine, Serum 0.86 mg/dL (0.70-1.30); EST Glomerular Filtration Rate 96 mL/min (>60); Est Glom Filt Rate - Afr Amer 116 mL/min (>60); Globulin 4.4 g/dL (2.2-4.2); Glucose 159 mg/dL (74-106); Potassium 3.5 mmol/L (3.5-5.1); Protein, Total 6.8 g/dL (6.4-8.2); Sodium Level 136 mmol/L (136-145)
== END 2023-11-13 23:59 ==
LOC: LABSPEC 13:55
PROVIDERS: PCP Family Medicine; Referring Provider Internal Medicine Infectious Disease; Visit Provider Internal Medicine Infectious Disease
DX: M86.9 Osteomyelitis, unspecified (principal)
CPT/HCPCS: 80048; 80076; 85027; 85652

== ENCOUNTER → 2023-10-29 | Outpatient (CLI) | payer OTHER, SELFPAY ==
[2023-10-29 17:23] LABS: Absolute Lymphocyte Count 1.81 X10^3/uL (0.83-4.51); Basophil# 0.12 X10^3/uL; Eosinophil# 0.48 X10^3/uL; Eosinophils% 7.9 % (0-5); Hematocrit 34.1 % (40-54); Hemoglobin 10.4 g/dL (13.0-16.5); Lymphocyte # 1.81 X10^3/ul (0.83-4.51); Lymphocyte % 29.9 % (19-41); Mean Corp Hgb Conc 30.5 g/dL (32-36); Mean Corpuscular Hgb 26.9 pg (27.0-32.0); Mean Corpuscular Volume 88.1 fL (80-94); Mean Platelet Vol. 10.6 fl (6.2-12.0); Monocyte# 1.62 X10^3/uL; Monocyte% 26.8 % (0-10); NRBC Flagged by Analyzer 0 % (0-5); Neutrophil # 1.95 X10^3/uL (2.7-7.7); Neutrophil % 32.2 % (47-70); POSITIVE DIFFERENTIAL YES; Platelet Count 450 K/mm3 (150-450); RBC Distribution Width CV 16.9 % (11.6-14.6); RBC Distribution Width SD 54.2 fl (35.1-43.9); Red Blood Count 3.87 M/mm3 (4.6-6.2); White Blood Count 6.1 K/mm3 (4.4-11.0)
[2023-10-29 17:32] LABS: Differential Indicated SCAN CRITERIA MET
[2023-10-29 17:40] LABS: Differential Comment SCANNED; Erythrocyte Sedimentation Rate 54 mm/hr (0-20)
[2023-10-29 17:41] LABS: AST(SGOT) 19 U/L (15-37); Alanine Aminotransfer ALT/SGPT 22 U/L (16-61); Albumin, Serum 2.6 g/dL (3.2-5.0); Alkaline Phosphatase 92 U/L (45-117); Anion Gap 6 (5-15); BUN 15 mg/dL (7-18); BUN/Creat Ratio 19.7 RATIO (10-20); Bilirubin, Direct 0.12 mg/dL (0.00-0.30); Chloride 108 mmol/L (98-107); Creatinine, Serum 0.76 mg/dL (0.70-1.30); EST Glomerular Filtration Rate 110 mL/min (>60); Est Glom Filt Rate - Afr Amer 133 mL/min (>60); Globulin 4.2 g/dL (2.2-4.2); Glucose 86 mg/dL (74-106); Protein, Total 6.8 g/dL (6.4-8.2); Sodium Level 139 mmol/L (136-145)
== END | disposition home or self-care (01) ==
LOC: LABSPEC 17:12
PROVIDERS: PCP Family Medicine; Referring Provider Internal Medicine Infectious Disease; Visit Provider Internal Medicine Infectious Disease
DX: M86.9 Osteomyelitis, unspecified (principal); B95.61 Methicillin susceptible Staphylococcus aureus infection as the cause of diseases classified elsewhere
CPT/HCPCS: 80048; 80076; 85025; 85652

== ENCOUNTER 2023-11-12 08:00 | Outpatient (RCR) | payer OTHER, SELFPAY ==
[2023-10-16 00:33] VITALS: BP 130/58; PULSE 82; RESP 16; TEMP 36.8; BMI 25.1
[2023-11-05 07:57] VITALS: BP 158/117; PULSE 85; RESP 16; TEMP 36.6; BMI 25.1
--- NOTE | 2023-11-05 11:30 | PCM.WC.PN ---
History of Present Illness Date of Service: 11/05/23 Chief Complaint: Follow-up lumbar from infection after surgery. History of Wound: 63-year-old white male that had a fusion done of L4-5 and S1 in June. Then developed problems and needed to be cleaned out and August and then in September he was reopened because of infection and a pus pocket. This was all done by Dr. Murray over at [facility]. Has been seen by home health and Dr. Murray ordered a wound VAC to the lower lumbar at set at 125 mmHg. Patient is also being followed by infectious disease for his infection and is on an infusion pump. Patient also complains of black diarrhea. Patient is a smoker 1 pack a day and does drink alcohol 4 beers a day. Patient states he is drinking 1 Ensure a day. Progress of Wound: on the wound VAC.Since last seen patient in September patient has returned to work and is having a reaction now with the drape. There is no broken down skin but he does have a red well-demarcated areas where the drape is placed. Dr. Murray does not want to see patient again about the wound and therefore we will discontinue the wound VAC because it is not really doing anything at this point with closing. We will try to apply for TheraSkin and see if we can closed him with using skin subs. We cultured the wound today to make sure that there is no issues. Patient is currently on 2 antibiotics for his back anyways. No sign of any infection such as pus or drainage or redness at the wound site patient denies any pain at this time. Measurements are smaller since last seen in September. Subjective Subjective Patient is agreeable to plan of action Objective Data Objective Data Again we are going to discontinue the wound VAC we feel like it is not working anymore patient is not happy with it anyways because it irritating his skin. We will wait for the cultures to come back and in the meantime apply for skin substitutes of TheraSkin. Vital Signs: Vital Signs Temp Pulse Resp BP O2 Del Method 98 F 85 16 158/117 H Room Air 11/05/23 07:57 11/05/23 07:57 11/05/23 07:57 11/05/23 07:57 11/05/23 07:57 Oxygen Delivery Method Room Air Weight: 170 lb Body Mass Index (BMI) 25.1 Lab / Micro Data Attestation: I reviewed the patient's lab results. Physical Exam Const oriented x3 General Appearance: cooperative Exam Limitations: no limitations HEENT normocephalic Eyes General Eye: normal appearance of both eyes Neck full ROM Resp normal respiratory effort Effort and Inspection: able to speak in complete sentences Auscultation: clear to auscultation bilaterally Cardio regular rate and regular rhythm Palpation: normal PMI Rate: regular rate Rhythm: regular rhythm Back/Spine Cervical Spine: cervical ROM normal Thoracic Spine / Upper Back: normal to inspection and other soft tissue findings Skin Wounds: wounds noted Wound Narrative: Large open wound lumbar area with beefy skin exposed rolled edges currently on a wound VAC from home health care Neuro oriented x3 Psych Appearance: grossly normal Speech: normal speech Thought Content: normal thought content Judgement: judgement good Debridement Note Debridement Note Wound debrided: Lumbar wound postop infection Type of Debridement: Excisional debridement Anesthesia Used: 5% Lidocaine Gel Depth: in the subcutaneous layer Percentage of wound debrided: 100 Instrument Used: 7mm curette Tissue Removed: Fibrin Severity: Fat Layer Exposed Amount of bleeding with debridement: None Bleeding Controlled with: Compression and gauze Patient tolerated procedure: Patient tolerated procedure well Post-Debridement Measurements and Additional Note: Post-Debridement Measurements/Treatment - Nurse 1 - General Ulcer Assessment Start: 11/05/23 07:57 Freq: Status: Active Protocol: CHRISTIANO Activity Type Activity Date Activity User E-sign Co-sign Detail Recorded Client Recorded Date Recorded By Document 11/05/23 07:57 [facility] Desktop 11/05/23 08:07 [facility] Edit Result 11/05/23 07:57 [facility] (1) Desktop 11/05/23 08:07 [facility] (1) Comment => will update cm/telephone cleaner 11/05/23 07:57 - Today's Visit Information Type of service Follow-up Visit (Physician/ACUPRESSURE THERAPIST ) Arrival Mode Ambulatory Transfer Assistance None Patient Identification Verified (Name & Yes ) Patient Requires Transmission-Based No Precautions Height and Weight Body Mass Index (BMI) 25.1 BMI Classification Overweight Vital Signs Temperature (97.8 F-99.1 F) 98 F Temperature Source Temporal Pulse Rate (60-100) 85 Pulse Location Monitor Respiratory Rate (12-18) 16 Respiratory rate source Observation Oxygen Delivery Method Room Air Blood Pressure (90/60-120/80) 158/117 H Blood Pressure Mean (mm Hg) 130 Source Monitor Position Sitting Blood Pressure Location Right Arm Comment will update cm/ telephone cleaner History Since Last Visit- (Skip if this is Patient's initial visit) Have you changed medications since your No last visit? Any new allergies or adverse reactions No Had a fall/change in ADL's that may No increase risk of falls Signs or symptoms of abuse and/or No neglect since last visit Have you been in the hospital since your No last visit? Has dressing in place as prescribed No Has compression in place as prescribed N/A Has offloadiing in place as prescribed N/A Experienced any changes in pain level or No management Left Footwear Regular Shoe Right Footwear Regular Shoe Pain Scale: 0-10 Numeric Is Patient Pain Free? Yes - Nurse 1 - General Ulcer Measurement Start: 11/05/23 07:57 Freq: Status: Active Protocol: Activity Type Activity Date Activity User E-sign Co-sign Detail Recorded Client Recorded Date Recorded By Document 11/05/23 07:57 [facility] Desktop 11/05/23 08:07 [facility] 11/05/23 07:57 Wound Center Nurse 1 #1- LUMBAR POST SURGICAL -Combined with other wound No -Current Size (cm) - Length 11 -Current Size (cm) - Width 3.6 -Current Size (cm) - Depth 0.4 -Total Square Cm 39.6 -Date of Last Picture (Recall this 11/05/23 field) -Photo Taken Yes -Epithelialization Small 1-33% -Tunneling No -Undermining/Tunneling No -Circular Undermining No -Exudate Amt Medium -Exudate Type Serosanguineous -Wound Margin Distinct, Outline Attached -Granulation Amt Large (67-100%) -Granulation Quality [place] -Slough/Fibrin Yes -Necrosis Amt Small (1-33%) -Necrotic Tissue Type Adherent Slough -Texture (Gabrielle-wound Skin Appearance) Assessed, Scarring -Moisture (Gabrielle-wound Skin Appearance) Assessed -Color (Gabrielle-wound Skin Appearance) Assessed -Temperature (Gabrielle-wound Skin No Abnormality Appearance) (Pt Warm) -Tenderness on Palpation (Gabrielle-wound No Skin Appearance) -Ulcer Cleansing Soap and Water -Foul Odor after Cleansing No -Anesthetic Used 4% Lidocaine Solution - Nurse 2 - General Ulcer CM Notes Start: 11/05/23 07:57 Freq: Status: Active Protocol: Activity Type Activity Date Activity User E-sign Co-sign Detail Recorded Client Recorded Date Recorded By Document 11/05/23 08:18 [facility] Desktop 11/05/23 08:24 MW 11/05/23 08:18 Wound Center Nurse 2 -Time 08:18 -Correct Patient Yes -Correct Side, Site, Position Yes -Correct Procedure Yes -Procedure Performed Yes -Type of Procedure Debridement -Clinical Debridement Subcutaneous -Tissue Removed Subcutaneous -Post Debridement (cm) - Length 11.0 -Post Debridement (cm) - Width 3.6 -Post Debridement (cm) - Depth 0.4 -Total Square (Post) (cm) 39.60 -Area of Debridement (cm) - Length 11.0 -Area of Debridement (cm) - Width 3.6 -Total Square (Area) (cm) 39.60 -Tunneling No -Undermining/Tunneling No -Circular Undermining No -Wound/Ulcer Outcome Not Healed -Ulcer Cleansing Rinsed/ Irrigated with Saline -Foul Odor after Cleansing No -Bioengineered Tissue No -Bleeding Controlled with Pressure -Treatment Response Procedure Tolerated Well -Offloading No -Debridement - Subq, 1st 20sq cm Yes -Debridement, SubQ, ea addt'l 20sq cm 1 or part thereof Pain Scale: 0-10 Numeric Is Patient Pain Free? Yes - Nurse 3 - General Ulcer D/C NN Start: 11/05/23 07:57 Freq: Status: Active Protocol: Activity Type Activity Date Activity User E-sign Co-sign Detail Recorded Client Recorded Date Recorded By Document 11/05/23 08:36 [facility] Desktop 11/05/23 08:37 [facility] 11/05/23 08:36 Wound Care Center Nurse 3 #1- LUMBAR POST SURGICAL -Ulcer Cleansing Rinsed/ Irrigated with Saline -Foul Odor after Cleansing No -Primary Dressing Applied Fibracol Plus 4x4,NonAdherent Contact Layer -Other Dressing abd -Primary Dressing Covered/Secured with Secured with Tape -Fibracol Plus 4x4 1 Treatment Response Procedure Tolerated Well Pain Scale: 0-10 Numeric Is Patient Pain Free? Yes WC - Visit Discharge Discharge Condition Stable Ambulatory Status Ambulatory Transportation Private Auto Facility Type Home Health Assessment/Plan Assessment/Plan (1) Wound infection after surgery: CODE(S): T81.49XA - Infection following a procedure, other surgical site, initial encounter (2) Staphylococcus aureus bacteremia: CODE(S): R78.81 - Bacteremia; B95.61 - Methicillin susceptible Staphylococcus aureus infection as the cause of diseases classified elsewhere (3) Disruption of external operation (surgical) wound, not elsewhere classified, initial encounter: CODE(S): T81.31XA - Disruption of external operation (surgical) wound, not elsewhere classified, initial encounter PLAN: Wash area around wound with antibacterial soap and water pat dry Apply Fibracol moistened with Adaptic over top daily cover with ABD and tape Apply for TheraSkin to the lumbar open wound. Follow-up in 1 week Will call with the results of the cultures if he needs to be changed on his antibiotic will talk to infectious disease
[2023-11-12 08:10] VITALS: BP 146/86; PULSE 79; TEMP 36.6; BMI 25.1
--- NOTE | 2023-11-12 12:12 | PN.PCM_ITS ---
History of Present Illness Date of Service: 11/12/23 Chief Complaint: Follow-up lumbar from infection after surgery. History of Wound: 63-year-old white male that had a fusion done of L4-5 and S1 in June. Then developed problems and needed to be cleaned out and August and then in September he was reopened because of infection and a pus pocket. This was all done by Dr. Murray over at [facility]. Has been seen by home health and Dr. Murray ordered a wound VAC to the lower lumbar at set at 125 mmHg. Patient is also being followed by infectious disease for his infection and is on an infusion pump. Patient also complains of black diarrhea. Patient is a smoker 1 pack a day and does drink alcohol 4 beers a day. Patient states he is drinking 1 Ensure a day. Progress of Wound: The wound VAC is off and patient has used Fibracol for the last week and it looks wonderful. Patient is developing new skin over top will debrided off and reapply and continue using Fibracol follow-up in 2 weeks. Cultures came back negative for growth patient is still on a daily dose of antibiotics orally now. Will recheck with the culture to make sure that he is still on the right antibiotics. The skin subs were denied by his insurance company unless he has a diabetic foot ulcer on her venous ulcer. Subjective Subjective Patient was agreeable with plan Objective Data Objective Data As stated above and measurements are much smaller more shallow looking good continues to fill-in with skin the edges are nice and flat and filling in nicely no sign of infection no redness no swelling no extra discharge and no odor. We will culture again in 2 to 3 weeks Vital Signs: Vital Signs Temp Pulse Resp BP O2 Del Method 97.8 F 79 16 146/86 H Room Air 11/12/23 08:10 11/12/23 08:10 11/05/23 07:57 11/12/23 08:10 11/12/23 08:10 Oxygen Delivery Method Room Air Weight: 170 lb Body Mass Index (BMI) 25.1 Lab / Micro Data Attestation: I reviewed the patient's lab results. Micro: Microbiology 11/05/23 08:25 Wound - Back Gram Stain - Final 11/05/23 08:25 Wound - Back Wound Culture - Final No growth aerobically. 11/05/23 08:25 Wound - Back Anaerobic Culture - Final No growth in 5 days. Physical Exam Const oriented x3 General Appearance: cooperative Exam Limitations: no limitations HEENT normocephalic Eyes General Eye: normal appearance of both eyes Neck full ROM Resp normal respiratory effort Effort and Inspection: able to speak in complete sentences Auscultation: clear to auscultation bilaterally Cardio regular rate and regular rhythm Palpation: normal PMI Rate: regular rate Rhythm: regular rhythm Back/Spine Cervical Spine: cervical ROM normal Thoracic Spine / Upper Back: normal to inspection and other soft tissue findings Skin Wounds: wounds noted Wound Narrative: Large open wound lumbar area with beefy skin exposed rolled edges currently on a wound VAC from home health care Neuro oriented x3 Psych Appearance: grossly normal Speech: normal speech Thought Content: normal thought content Judgement: judgement good Debridement Note Debridement Note Wound debrided: Lumbar wound postop infection Type of Debridement: Excisional debridement Anesthesia Used: 5% Lidocaine Gel Depth: in the subcutaneous layer Percentage of wound debrided: 100 Instrument Used: 7mm curette Tissue Removed: Fibrin Severity: Fat Layer Exposed Amount of bleeding with debridement: None Bleeding Controlled with: Compression and gauze Patient tolerated procedure: Patient tolerated procedure well Post-Debridement Measurements and Additional Note: Post-Debridement Measurements/Treatment - Nurse 1 - General Ulcer Assessment Start: 11/05/23 07:57 Freq: Status: Active Protocol: CHRISTIANO Activity Type Activity Date Activity User E-sign Co-sign Detail Recorded Client Recorded Date Recorded By Document 11/05/23 07:57 BMF Desktop 11/05/23 08:07 BMF Edit Result 11/05/23 07:57 BMF (1) Desktop 11/05/23 08:07 BM Document 11/12/23 08:10 GM Desktop 11/12/23 08:13 GM (1) Comment => will update cm/weight calculator 11/05/23 11/12/23 07:57 08:10 - Today's Visit Information Type of service Follow-up Visit Follow-up Visit (Physician/INVESTIGATIVE REPORTER (Physician/INVESTIGATIVE REPORTER ) ) Arrival Mode Ambulatory Ambulatory Transfer Assistance None None Patient Identification Verified (Name & Yes Yes ) Patient Requires Transmission-Based No Precautions Height and Weight Body Mass Index (BMI) 25.1 25.1 BMI Classification Overweight Overweight Vital Signs Temperature (97.8 F-99.1 F) 98 F 97.8 F Temperature Source Temporal Temporal Pulse Rate (60-100) 85 79 Pulse Location Monitor Monitor Respiratory Rate (12-18) 16 Respiratory rate source Observation Observation Oxygen Delivery Method Room Air Room Air Blood Pressure (90/60-120/80) 158/117 H 146/86 H Blood Pressure Mean (mm Hg) 130 106 Source Monitor Monitor Position Sitting Sitting Blood Pressure Location Right Arm Right Arm Comment will update cm/ weight calculator History Since Last Visit- (Skip if this is Patient's initial visit) Have you changed medications since your No No last visit? Any new allergies or adverse reactions No No Had a fall/change in ADL's that may No No increase risk of falls Signs or symptoms of abuse and/or No No neglect since last visit Have you been in the hospital since your No No last visit? Has dressing in place as prescribed No Yes Has compression in place as prescribed N/A N/A Has offloadiing in place as prescribed N/A N/A Experienced any changes in pain level or No No management Left Footwear Regular Shoe Right Footwear Regular Shoe Pain Scale: 0-10 Numeric Is Patient Pain Free? Yes Yes - Nurse 1 - General Ulcer Measurement Start: 11/05/23 07:57 Freq: Status: Active Protocol: Activity Type Activity Date Activity User E-sign Co-sign Detail Recorded Client Recorded Date Recorded By Document 11/05/23 07:57 [facility] Desktop 11/05/23 08:07 [facility] Document 11/12/23 08:10 Desktop 11/12/23 08:13 11/05/23 11/12/23 07:57 08:10 Wound Center Nurse 1 #1- LUMBAR POST SURGICAL -Combined with other wound No -Current Size (cm) - Length 11 10.5 -Current Size (cm) - Width 3.6 3.1 -Current Size (cm) - Depth 0.4 0.4 -Total Square Cm 39.6 32.55 -Date of Last Picture (Recall this 11/05/23 11/12/23 field) -Photo Taken Yes Yes -Epithelialization Small 1-33% Small 1-33% -Tunneling No No -Undermining/Tunneling No No -Circular Undermining No No -Exudate Amt Medium Small -Exudate Type Serosanguineous Serous -Wound Margin Distinct, Distinct, Outline Outline Attached Attached -Granulation Amt Large (67-100%) Medium (34-66%) -Granulation Quality Darfur Darfur -Slough/Fibrin Yes Yes -Necrosis Amt Small (1-33%) Medium (34-66%) -Necrotic Tissue Type Adherent Slough Adherent Slough -Structure Exposed N/A -Texture (Gabrielle-wound Skin Appearance) Assessed, Assessed Scarring -Moisture (Gabrielle-wound Skin Appearance) Assessed Assessed -Color (Gabrielle-wound Skin Appearance) Assessed Assessed -Temperature (Gabrielle-wound Skin No Abnormality No Abnormality Appearance) (Pt Warm) (Pt Warm) -Tenderness on Palpation (Gabrielle-wound No No Skin Appearance) -Ulcer Cleansing Soap and Water Rinsed/ Irrigated with Saline -Foul Odor after Cleansing No No -Anesthetic Used 4% Lidocaine 4% Lidocaine Solution Solution WC - Nurse 2 - General Ulcer CM Notes Start: 11/05/23 07:57 Freq: Status: Active Protocol: Activity Type Activity Date Activity User E-sign Co-sign Detail Recorded Client Recorded Date Recorded By Document 11/05/23 08:18 MW Desktop 11/05/23 08:24 MW Document 11/12/23 08:22 MW Desktop 11/12/23 08:25 MW 11/05/23 11/12/23 08:18 08:22 Wound Center Nurse 2 #1- LUMBAR POST SURGICAL -Time 08:18 08:24 -Correct Patient Yes Yes -Correct Side, Site, Position Yes Yes -Correct Procedure Yes Yes -Procedure Performed Yes Yes -Type of Procedure Debridement Debridement -Clinical Debridement Subcutaneous Subcutaneous -Tissue Removed Subcutaneous Subcutaneous -Post Debridement (cm) - Length 11.0 10.4 -Post Debridement (cm) - Width 3.6 2.8 -Post Debridement (cm) - Depth 0.4 0.4 -Total Square (Post) (cm) 39.60 29.12 -Area of Debridement (cm) - Length 11.0 10.4 -Area of Debridement (cm) - Width 3.6 2.8 -Total Square (Area) (cm) 39.60 29.12 -Tunneling No No -Undermining/Tunneling No No -Circular Undermining No No -Wound/Ulcer Outcome Not Healed Not Healed -Ulcer Cleansing Rinsed/ Rinsed/ Irrigated with Irrigated with Saline Saline -Foul Odor after Cleansing No No -Bioengineered Tissue No No -Bleeding Controlled with Pressure Pressure -Treatment Response Procedure Procedure Tolerated Well Tolerated Well -Offloading No No -Debridement - Subq, 1st 20sq cm Yes Yes -Debridement, SubQ, ea addt'l 20sq cm 1 or part thereof Pain Scale: 0-10 Numeric Is Patient Pain Free? Yes Yes - Nurse 3 - General Ulcer D/C NN Start: 11/05/23 07:57 Freq: Status: Active Protocol: Activity Type Activity Date Activity User E-sign Co-sign Detail Recorded Client Recorded Date Recorded By Document 11/05/23 08:36 [facility] Desktop 11/05/23 08:37 [employer] Document 11/12/23 08:28 [employer] Desktop 11/12/23 08:29 [facility] 11/05/23 11/12/23 08:36 08:28 Wound Care Center Nurse 3 #1- LUMBAR POST SURGICAL -Ulcer Cleansing Rinsed/ Rinsed/ Irrigated with Irrigated with Saline Saline -Foul Odor after Cleansing No No -Primary Dressing Applied Fibracol Plus Fibracol Plus 4x4,NonAdherent 4x4,NonAdherent Contact Layer Contact Layer -Other Dressing abd abd -Primary Dressing Covered/Secured with Secured with Secured with Tape Tape -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 Yes Yes - Visit Discharge Discharge Condition Stable Stable Ambulatory Status Ambulatory Ambulatory Transportation Private [facility] Facility Type Home Health Assessment/Plan Assessment/Plan (1) Wound infection after surgery: CODE(S): T81.49XA - Infection following a procedure, other surgical site, initial encounter (2) Staphylococcus aureus bacteremia: CODE(S): R78.81 - Bacteremia; B95.61 - Methicillin susceptible Staphylococcus aureus infection as the cause of diseases classified elsewhere (3) Disruption of external operation (surgical) wound, not elsewhere classified, initial encounter: CODE(S): T81.31XA - Disruption of external operation (surgical) wound, not elsewhere classified, initial encounter PLAN: Wash area around wound with antibacterial soap and water pat dry Apply Fibracol moistened with Adaptic over top daily cover with ABD and tape Follow-up in 1 week with another provider
== END 2023-11-13 23:59 | disposition home or self-care (01) ==
LOC: WC 08:00
PROVIDERS: PCP Family Medicine; Referring Provider Orthopaedic Surgery; Visit Provider Nurse Practitioner
DX: T81.49XA Infection following a procedure, other surgical site, initial encounter (principal); F17.200 Nicotine dependence, unspecified, uncomplicated; Y83.8 Other surgical procedures as the cause of abnormal reaction of the patient, or of later complication, without mention of misadventure at the time of the procedure; R78.81 Bacteremia; T81.31XA Disruption of external operation (surgical) wound, not elsewhere classified, initial encounter
CPT/HCPCS: 11042; 11045; 87070; 87075; 87205

== ENCOUNTER 2023-11-25 06:04 | Emergency (ER) | payer OTHER, SELFPAY ==
[2023-11-25 06:05] VITALS: BP 157/96; PULSE 73; RESP 16; TEMP 36.1; O2SAT 100; BMI 23.9
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
[2023-11-25 07:05] LABS: Absolute Lymphocyte Count 3.42 X10^3/uL (0.83-4.51); Absolute Neutrophil Count 3.7 X10^3/uL (2.0-7.7); Basophil# 0.08 X10^3/uL; Basophil% 0.9 % (0-1); Eosinophil# 0.18 X10^3/uL; Eosinophils% 2.1 % (0-5); Hematocrit 42.1 % (40-54); Hemoglobin 13.3 g/dL (13.0-16.5); Lymphocyte # 3.42 X10^3/ul (0.83-4.51); Lymphocyte % 40.5 % (19-41); Mean Corp Hgb Conc 31.6 g/dL (32-36); Mean Corpuscular Hgb 26.7 pg (27.0-32.0); Mean Corpuscular Volume 84.4 fL (80-94); Mean Platelet Vol. 10.8 fl (6.2-12.0); Monocyte# 1.06 X10^3/uL; Monocyte% 12.6 % (0-10); NRBC Flagged by Analyzer 0 % (0-5); Neutrophil # 3.67 X10^3/uL (2.7-7.7); Neutrophil % 43.5 % (47-70); Platelet Count 328 K/mm3 (150-450); RBC Distribution Width CV 15.4 % (11.6-14.6); RBC Distribution Width SD 47.3 fl (35.1-43.9); Red Blood Count 4.99 M/mm3 (4.6-6.2); White Blood Count 8.4 K/mm3 (4.4-11.0)
[2023-11-25] MEDS: Docusate Sodium 100 MG/10 ML UDC PO (07:10)
[2023-11-25] MEDS: Ondansetron 4 MG/2 ML Vial IV (07:18)
[2023-11-25 07:19] LABS: Anion Gap 3 (5-15); BUN 13 mg/dL (7-18); BUN/Creat Ratio 17.6 RATIO (10-20); Calcium,Total 8.6 mg/dL (8.5-10.1); Chloride 107 mmol/L (98-107); Creatinine, Serum 0.74 mg/dL (0.70-1.30); EST Glomerular Filtration Rate 114 mL/min (>60); Est Glom Filt Rate - Afr Amer 138 mL/min (>60); Glucose 92 mg/dL (74-106); Potassium 4.8 mmol/L (3.5-5.1); Sodium Level 139 mmol/L (136-145)
--- NOTE | 2023-11-25 07:24 | CT_ITS ---
INDICATION: ataxia EXAMINATION: CTA HEAD - CTA Head and Neck W/ Contrast Injection (and W/O Contrast Images if performed) TECHNIQUE: [place]/head CT angiogram protocol was performed following IV contrast. Routine carotid CT angiogram protocol was performed without and with IV contrast. NASCET criteria using the distal ICAs for comparison were used for evaluation of stenoses. 3D reconstructions were reviewed of the CT angiogram head and neck. A radiation dose optimization technique was used for this scan. IV Contrast dosage and agent: 100 cc [id number] COMPARISON: None. FINDINGS: Unenhanced images of the brain demonstrate normal parenchymal attenuation. Normal mora-white matter density differentiation. Normal size ventricles. Normal posterior fossa. Normal basilar cisterns. Calvarium is intact. No sinus opacification. --Anterior cerebral circulation: ACAs: No significant stenosis at the visualized segments. ACOM: Present. MCAs: No significant stenosis at the visualized segments. --Posterior cerebral circulation: PCOMs: Not present. schedule clerk: No significant stenosis at the visualized segments. BASILAR ARTERY: No significant stenosis. --Carotid and vertebral circulation: AORTIC ARCH AND BRANCHES: Normal anatomy, patent. RIGHT CCA: No occlusion, significant stenosis or dissection. RIGHT ICA: Minimal calcification at the carotid bulb. No occlusion, significant stenosis or dissection. LEFT CCA: No occlusion, significant stenosis or dissection. LEFT ICA: Small ulcerated plaque at the origin of the left ICA. No occlusion, significant stenosis or dissection. 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 No occlusion, significant stenosis or dissection. LEFT VERTEBRAL ARTERY: No occlusion, significant stenosis or dissection. NECK SOFT TISSUES: Unremarkable. LUNG APICES: Clear. BONES: Moderate spondylosis most prominent at the C6-[address]/CTA Head AND Neck W/ Contrast IMPRESSION: Ulcerated plaque at the origin of the left internal carotid artery. No evidence of arterial occlusion, significant stenosis or intracranial aneurysm. Electronically Signed: Haresh Roca MD at 8:44 EDT ,
[2023-11-25] MEDS: Carbamide Peroxide 15 ML Bottle 5 DRP OTIC (08:01)
[2023-11-25 08:40] VITALS: BP 163/85; PULSE 67; RESP 20; O2SAT 98
--- NOTE | 2023-11-25 08:50 | ED.RN ---
THIS RN AT BEDSIDE TO IRRIGATE PT RIGHT EAR. PT DRAPED WITH TOWEL AND ABSORBABLE PAD. PT GIVEN BASIN TO HOLD AT BASE OF NECK THIS RN IRRIGATE PT EAR WITH WARM WATER AND PEROXIDE MIXTURE. PT WITH A LARGE COLLECTION OF WAX. MORE DEBROX DROPS PLACED TO SOFTEN WAX.
[2023-11-25 09:22] VITALS: BP 147/83; PULSE 70; RESP 16; TEMP 36.1; O2SAT 98
== END 2023-11-25 09:23 | disposition home or self-care (01) ==
PROVIDERS: Emergency Provider Emergency Medicine; PCP Family Medicine; Visit Provider Emergency Medicine
DX: R42 Dizziness and giddiness (principal); J44.9 Chronic obstructive pulmonary disease, unspecified; H93.13 Tinnitus, bilateral; H61.23 Impacted cerumen, bilateral; F17.210 Nicotine dependence, cigarettes, uncomplicated
CPT/HCPCS: 70496; 70498; 80048; 85025; 96374; 99284; Q9967; A4216; J2405

== ENCOUNTER 2023-12-03 05:54 | Day surgery (SDC) | payer OTHER, SELFPAY ==
[2023-12-03 06:25] VITALS: BP 134/81; PULSE 66; RESP 16; TEMP 36.3; O2SAT 99; BMI 24.5
[2023-12-03] MEDS: Lactated Ringers 1,000 ML 15 ML IV (06:31)
--- NOTE | 2023-12-03 07:00 | IMM_PTH ---
PATIENT: CHERRIE TREVIÑO LOC: EN U#:[id number] AGE/SX: 63/M ROOM: RE12/03/[address]: Dr. Wiliam Squires DO : 1960 BED: DIS: 12/03/2023 SPEC #: [id number] RECD: 12/03/23 13:38 STATUS: VAUGHN REQ #: [id number] WILTON: 12/03/23 07:[address]: Wiliam Squires DEPT: IMMUNOHISTOCHEMISTRY RECD BY: Wilber Naranjo ENTERED: 12/03/23 13:38 SP TYPE: IMMUNO OTHR DR: Dr. Daljit Chou DO Tissues: B - Stomach, NOS Procedures: H Pylori (initial) PHYSICIAN & INSTITUTION [place] [address] SPECIMEN INFORMATION: Tissue Source: B- Gastric body, biopsy Clinical Info: Diarrhea, History of Hepatitis C Specimen Number: [id number] CPT code: 05710 METHODOLOGY: Deparaffinized sections of prefer/formalin-fixed tissue or PAP/DQ stained slides are incubated with monoclonal/polyclonal antibodies/oligonucleotide probes. Localization is made via biotin free immunoperoxidase method. Appropriate controls are performed and reacted as expected. Results on target cell population are indicated in the following table: RESULTS: ANTIBODY / CLONE RESULT Block B H Pylori (polyclonal) negative These tests were developed and their performance characteristics determined by [facility]. They may not have been cleared or approved by the U.S. Food and Drug Administration. The FDA has determined that such clearance or approval is not necessary. The above immunohistochemical/dualISH markers are ordered and reviewed by the Pathologist. INTERPRETATION: B. Gastric body, biopsy: Negative for Helicobacter pylori organisms. AM:sunita 12/04/2023
--- NOTE | 2023-12-03 07:00 | EGD_PTH ---
PATIENT: CHERRIE TREVIÑO LOC: EN U#:[id number] AGE/SX: 63/M ROOM: RE12/03/[address]: Dr. Wiliam Squires DO : 1960 BED: DIS: 12/03/2023 SPEC #: [id number] RECD: 12/03/23 08:39 STATUS: VAUGHN REQ #: [id number] WILTON: 12/03/23 07:[address]: Wiliam Squires DEPT: SURGICAL PATHOLOGY RECD BY: Brandy Mitchell ENTERED: 12/03/23 10:03 SP TYPE: EGD BIOPSY OT DR: Dr. Daljit Chou DO Tissues: A - Duodenum, NOS B - Gastric mucous membrane C - Esophagus, NOS Procedures: Special Stain Group II Surgery Specimen Level IV Alcian Blue/PAS (control) HEADER OPERATION: EGD with biopsies PRE-OP DIAGNOSIS: Diarrhea, History of Hepatitis C TISSUE SUBMITTED: A- Duodenum biopsy, B- Gastric body biopsy, C- Distal esophagus biopsy MICROSCOPIC DIAGNOSIS A. Duodenum, biopsy; No pathologic change. B. Gastric body, biopsy; Minimal chronic inflammation. See comment. C. Distal esophagus, biopsy; Fragments of gastric mucosa with mild chronic inflammation. No evidence of goblet cell metaplasia. See comment. MAHI/ 12/04/2023 COMMENT B. The results of immunohistochemistry for Helicobacter pylori will be reported separately ([id number]). C. Alcian blue/PAS stain with matched control supports the above diagnosis. MICROSCOPIC DESCRIPTION Slides are reviewed. GROSS DESCRIPTION A. Received in fixative is one container labeled with the patient's name and designated Duodenum biopsy. The specimen consists of two irregular fragments of light castro soft tissue that in aggregate measure 0.8 x 0.4 x 0.1 cm. The specimen is totally submitted in one cassette. B. Received in fixative is one container labeled with the patient's name and designated Gastric body biopsy. The specimen consists of two irregular fragments of light castro soft tissue that in aggregate measure 1.0 x 0.3 x 0.1 cm. The specimen is totally submitted in one cassette. C. Received in fixative is one container labeled with the patient's name and designated Distal esophagus biopsy. The specimen consists of two irregular fragments of light castro soft tissue that in aggregate measure 0.8 x 0.3 x 0.1 cm. The specimen is totally submitted in one cassette. Kash 12/03/2023 TC:3 CPT: 96734k1,99592
--- NOTE | 2023-12-03 07:00 | PCM.HP.BLA ---
History and Physical Date of Admission: 12/03/23 61 M who presents to the office today for f/u ED visit on 07/15/22 for vomiting yellow and black goo and black stools. He had been taking lots of Pepto Bismol. Hgb was 15.4. He was put on sucralfate, ondansetron and pantoprazole. He does feel better--still has some nausea but much less, no further vomiting. He gets motion sickness easily now. No dysphagia. No heartburn. No abd pain. Still some intermittent cramps in mid and lower abdomen. Intermittent watery diarrhea, that follows a normal BM. Can have diarrhea 6x a day, can be urgent, the diarrhea has awoken him in the night. No hematochezia. GI symptoms began about a month ago. Has lost a few lbs of weight this past week, decreased appetite. 07/03/22 CT abd pel w/ IV: unremarkable GI; incidental finding obstructing left ureteral stone. He will have lithotripsy by Dr Jefferson next week for 8 mm left ureteral stone w/ hydronephrosis found incidentally on CT done following a fall for which he was seen in the ED. Has felt tired this past year. Seeing neurologist Dr Izaguirre for headaches. Takes meloxicam daily for back arthritis Colonosopy [facility] about 2 yrs ago, polyps, told to repeat 5 yrs Paternal grandmother colon cancer Hx hepatitis C treated at [facility] about 18 yrs ago Reports hx alcohol abuse. Smoker x 45 yrs, and chews tobacco. ROS Const Constitutional: Positive for fatigue ENT ENT: No difficulty swallowing Gastro GI: No abdominal pain, belching, bloating, change in bowel habits, change in stool character, coffee ground emesis, constipation, cramping, diarrhea, heartburn, difficulty swallowing, feeling full early, excessive flatus, incontinent of stools, Vomiting blood/hematemesis, Blood in stool, loose stools, Black,tarry stools, nausea/dyspepsia, pain with swallowing, vomiting or other Musc Musculoskeletal: Positive for muscle cramps, muscle weakness, numbness and Arthritis; No joint pain Skin Skin: No yellowing of the eye or itchy eyes Neuro Neurology: Positive for numbness Psych Psychiatric: No anxiety and No depression Endo Endocrine: Positive for fatigue Aller/Imm Allergy/Immunologic: No itchy eyes Barrera/Lymp Hematologic/Lymphatic: No easy bleeding or easy bruising Exam Const General: cooperative and comfortable Nutritional Appearance: average body habitus Orientation: alert, awake and oriented x3 HENMT Head: normal to inspection Eyes General: appearance normal, both eyes and all related structures Resp Effort & Inspection: normal respiratory effort GI Inspection: normal to inspection Palpation: soft, no hepatosplenomegaly, no masses and nontender Skin General: no rashes or lesions noted and no jaundice Neuro Gait: normal gait Quality Reporting Tobacco Screening ([facility] 138) Smoking Status: Current every day smoker Assessment and Plan Assessment and Plan (1) Diarrhea: ?Status:?Acute ?Plan: 61-year-old male with recent ED visit for concern for coffee-ground emesis and black stools; with normal hemoglobin this was felt to be discoloration due to Pepto-Bismol.? He has been taking Pepto-Bismol due to diarrhea.? His nausea, vomiting have improved significantly on sucralfate, ondansetron and pantoprazole.? He is scheduled for lithotripsy for an obstructing left ureteral stone next week.? Today we will get blood tests and stool tests ordered.? He will be scheduled for EGD as he had a EGD last year initial peptic ulcer disease.? He will undergo ulcer surveillance. He will continue pantoprazole, Rx was sent in.? Differential diagnosis includes esophagitis, peptic ulcer disease, malignancy, infection.? We will also get labs to follow-up his history of hepatitis C which was treated almost 20 years ago.? Follow-up after endoscopies. (2) Hx of hepatitis C: ?Status:?Acute ?Plan: Labs today ? ? ? Orders: Orders CRP Today R19.7 - Diarrhea, unspecified, Z86.19 - Personal history of other infectious and parasitic diseases ? Erythrocyte Sed Rate Today R19.7 - Diarrhea, unspecified, Z86.19 - Personal history of other infectious and parasitic diseases ? Celiac Disease Profile Today R19.7 - Diarrhea, unspecified, Z86.19 - Personal history of other infectious and parasitic diseases ? Comprehensive Metabolic Profil Today R19.7 - Diarrhea, unspecified, Z86.19 - Personal history of other infectious and parasitic diseases ? CBC W/Diff, Automated Today R19.7 - Diarrhea, unspecified, Z86.19 - Personal history of other infectious and parasitic diseases ? LDH Today R19.7 - Diarrhea, unspecified, Z86.19 - Personal history of other infectious and parasitic diseases ? Calprotectin, Stool Today R19.7 - Diarrhea, unspecified, Z86.19 - Personal history of other infectious and parasitic diseases ? Stool Lactoferrin/WBC Today K58.9 - Irritable bowel syndrome without diarrhea, R19.7 - Diarrhea, unspecified, Z86.19 - Personal history of other infectious and parasitic diseases ? AFP, Tumor Marker Today R19.7 - Diarrhea, unspecified, Z86.19 - Personal history of other infectious and parasitic diseases ? Hepatitis C,RNA PCR Viral Load Today R19.7 - Diarrhea, unspecified, Z86.19 - Personal history of other infectious and parasitic diseases ? Prothrombin Time w/INR Today R19.7 - Diarrhea, unspecified, Z86.19 - Personal history of other infectious and parasitic diseases ? Ammonia Today R19.7 - Diarrhea, unspecified, Z86.19 - Personal history of other infectious and parasitic diseases ? Ferritin Today R19.7 - Diarrhea, unspecified, Z86.19 - Personal history of other infectious and parasitic diseases ? OMAR Comprehensive Panel Today R19.7 - Diarrhea, unspecified, Z86.19 - Personal history of other infectious and parasitic diseases ? ANCA Today R19.7 - Diarrhea, unspecified, Z86.19 - Personal history of other infectious and parasitic diseases ? Anti-Smooth Muscle ABS Today R19.7 - Diarrhea, unspecified, Z86.19 - Personal history of other infectious and parasitic diseases ? Anti-Mitochondrial AB Today R19.7 - Diarrhea, unspecified, Z86.19 - Personal history of other infectious and parasitic diseases ? Iron+Iron Binding Capacity Today R19.7 - Diarrhea, unspecified, Z86.19 - Personal history of other infectious and parasitic diseases ? ENTERIC PATHOGEN PANEL STOOL Today K58.9 - Irritable bowel syndrome without diarrhea ? CDIFF (PCR) Today R19.7 - Diarrhea, unspecified ? Ova and Parasites 8623 Today K58.9 - Irritable bowel syndrome without diarrhea ? Medications: Refilled pantoprazole 40 mg? PO DAILY 90 tabs 1RF ? ? I have examined the patient and the H&P has been reviewed. There are no clinical changes since date of exam.
--- NOTE | 2023-12-03 07:59 | OP.EGD_ITS ---
Patient Name: Titus Morrow Procedure Date: 12/03/2023 7:45 AM Date of : 1960 Age: 63 Procedure: Upper GI endoscopy Indications: Epigastric abdominal pain, Peptic ulcer Providers: Wiliam Squires DO Referring MD: Wiliam Squires DO Medicines: Monitored Anesthesia Care Patient Profile: This is a 63 year old male. Refer to note in patient chart for documentation of history and physical. Patient has symptoms of chronic epigastric abdominal pain. Complications: No immediate complications. Procedure: Pre-Anesthesia Assessment: - Prior to the procedure, a History and Physical was performed, and patient medications and allergies were reviewed. The patient is competent. The risks and benefits of the procedure and the sedation options and risks were discussed with the patient. All questions were answered and informed consent was obtained. Patient identification and proposed procedure were verified by the physician in the pre-procedure area. Mental Status Examination: alert and oriented. Airway Examination: normal oropharyngeal airway and neck mobility. Prophylactic Antibiotics: The patient does not require prophylactic antibiotics. Prior Anticoagulants: The patient has taken no anticoagulant or antiplatelet agents. After reviewing the risks and benefits, the patient was deemed in satisfactory condition to undergo the procedure. The anesthesia plan was to use monitored anesthesia care (MAC). Immediately prior to administration of medications, the patient was re-assessed for adequacy to receive sedatives. The heart rate, respiratory rate, oxygen saturations, blood pressure, adequacy of pulmonary ventilation, and response to care were monitored throughout the procedure. The physical status of the patient was re-assessed after the procedure. After obtaining informed consent, the endoscope was passed under direct vision. Throughout the procedure, the patient's blood pressure, pulse, and oxygen saturations were monitored continuously. The Endoscope was introduced through the mouth, and advanced to the second part of duodenum. The upper GI endoscopy was accomplished without difficulty. The patient tolerated the procedure well. Scope In: 7:49:56 AM Scope Out: 7:54:04 AM Total Procedure Duration Time 0 hours 4 minutes 8 seconds Findings: Non-severe esophagitis with no bleeding was found 37 to 38 cm from the incisors. Biopsies were taken with a cold forceps for histology. Verification of patient identification for the specimen was done. Estimated blood loss was minimal. Diffuse mildly congested mucosa was found in the gastric body. Biopsies were taken with a cold forceps for histology. Verification of patient identification for the specimen was done. Estimated blood loss was minimal. Biopsies were taken with a cold forceps for histology. Verification of patient identification for the specimen was done. Estimated blood loss was minimal. Patchy mild inflammation characterized by erythema and granularity was found in the duodenal bulb. Biopsies were taken with a cold forceps for histology. Verification of patient identification for the specimen was done. Estimated blood loss was minimal. Impression: - Non-severe reflux esophagitis with no bleeding. Biopsied. - Congestive gastropathy. Biopsied. - Chronic duodenitis. Biopsied. Recommendation: - Discharge patient to home. - Resume previous diet. - Continue present medications. - Await pathology results. Procedure Code(s): --- Professional --- 80221, Esophagogastroduodenoscopy, flexible, transoral; with biopsy, single or multiple CPT copyright 2021 [employer]. All rights reserved. The codes documented in this report are preliminary and upon etiologist review may be revised to meet current compliance requirements. Wiliam Squires DO 12/03/2023 7:58:26 AM This report has been signed electronically. Number of Addenda: 0 Note Initiated On: 12/03/2023 7:45 AM
--- NOTE | 2023-12-03 07:59 | OP.CCLET_ITS ---
12/03/2023 Daljit Chou [address] [place] [address] Re : Upper GI endoscopy procedure for Titus Morrow Dear Dr. Chou This procedure was performed on Sunday, December 03, 2023. My impressions and recommendations are as follows: Impressions : - Non-severe reflux esophagitis with no bleeding. Biopsied. - Congestive gastropathy. Biopsied. - Chronic duodenitis. Biopsied. Recommendations : - Discharge patient to home. - Resume previous diet. - Continue present medications. - Await pathology results. My findings are described in the full procedure note, which is enclosed. If I can be of further assistance, please feel free to contact me at . Sincerely, Wiliam Squires, 12/03/2023 7:58:26 AM This report has been signed electronically.
[2023-12-03 08:00] VITALS: BP 105/64; BP 134/81; PULSE 63; RESP 16; TEMP 36.2; O2SAT 98
[2023-12-03 08:05] VITALS: BP 134/81; BP 92/69; PULSE 61; RESP 16; O2SAT 97
[2023-12-03 08:10] VITALS: BP 134/81; BP 96/71; PULSE 61; RESP 16; O2SAT 98
[2023-12-03 08:14] VITALS: BP 106/70; BP 134/81; PULSE 66; RESP 16; TEMP 36.6; O2SAT 99
[2023-12-03 08:20] VITALS: BP 134/81
== END 2023-12-03 08:26 | disposition home or self-care (01) ==
LOC: EN 05:54 → AC 05:55
PROVIDERS: PCP Family Medicine; Referring Provider Family Medicine; Visit Provider Internal Medicine Gastroenterology
PROC: 0DJ08ZZ Inspection of Upper Intestinal Tract, Via Natural or Artificial Opening Endoscopic (ICD-10-PCS; CPT 43235; principal; 2023-12-03 06:55)
DX: K21.00 Gastro-esophageal reflux disease with esophagitis, without bleeding (principal); J44.9 Chronic obstructive pulmonary disease, unspecified; K31.89 Other diseases of stomach and duodenum; K29.80 Duodenitis without bleeding; K22.70 Barrett's esophagus without dysplasia; R19.7 Diarrhea, unspecified; I10 Essential (primary) hypertension; F17.220 Nicotine dependence, chewing tobacco, uncomplicated; Z79.899 Other long term (current) drug therapy; Z86.19 Personal history of other infectious and parasitic diseases
CPT/HCPCS: 43239; 88305; 88313; 88342; J7120; J2405

== ENCOUNTER 2023-12-10 08:00 | Outpatient (RCR) | payer OTHER, SELFPAY ==
[2023-11-14 00:29] VITALS: BP 146/86; PULSE 79; RESP 16; TEMP 36.6; BMI 25.1
[2023-11-26 08:08] VITALS: BP 134/85; PULSE 94; RESP 16; TEMP 36.1; BMI 25.1
--- NOTE | 2023-11-26 12:16 | PCM.WC.PN ---
History of Present Illness Date of Service: 11/26/23 Chief Complaint: Follow-up lumbar from infection after surgery. History of Wound: 63-year-old white male that had a fusion done of L4-5 and S1 in June. Then developed problems and needed to be cleaned out and August and then in September he was reopened because of infection and a pus pocket. This was all done by Dr. Murray over at [facility]. Has been seen by home health and Dr. Murray ordered a wound VAC to the lower lumbar at set at 125 mmHg. Patient is also being followed by infectious disease for his infection and is on an infusion pump. Patient also complains of black diarrhea. Patient is a smoker 1 pack a day and does drink alcohol 4 beers a day. Patient states he is drinking 1 Ensure a day. Progress of Wound: Patient was 2 weeks out on his visit and still measuring smaller and less depth. Patient feels good and says pain is not there and doing better movements and but taking it easy. Starting to develop skin over the ends first which is good and feeling in the center. No sign of infection of redness pus smell or anything. We are using Fibracol at this time and I think we will continue using Fibracol for now Subjective Subjective Patient is pleased with outcomes and will continue with dressing changes. Objective Data Objective Data We will discontinue home health since he does not need home health anymore his can do the dressings are much simpler now we will continue using Fibracol off for the time being till more healing has occurred. Vital Signs: Vital Signs Temp Pulse Resp BP O2 Del Method 96.9 F L 94 16 134/85 H Room Air 11/26/23 08:08 11/26/23 08:08 11/26/23 08:08 11/26/23 08:08 11/26/23 08:08 Oxygen Delivery Method Room Air Weight: 170 lb Body Mass Index (BMI) 25.1 Lab / Micro Data Attestation: I reviewed the patient's lab results. Physical Exam Const oriented x3 General Appearance: cooperative Exam Limitations: no limitations HEENT normocephalic Eyes General Eye: normal appearance of both eyes Neck full ROM Resp normal respiratory effort Effort and Inspection: able to speak in complete sentences Auscultation: clear to auscultation bilaterally Cardio regular rate and regular rhythm Palpation: normal PMI Rate: regular rate Rhythm: regular rhythm Back/Spine Cervical Spine: cervical ROM normal Thoracic Spine / Upper Back: normal to inspection and other soft tissue findings Skin Wounds: wounds noted Wound Narrative: Large open wound lumbar area with beefy skin exposed rolled edges currently on a wound VAC from home health care Neuro oriented x3 Psych Appearance: grossly normal Speech: normal speech Thought Content: normal thought content Judgement: judgement good Debridement Note Debridement Note Wound debrided: Lumbar wound postop infection Type of Debridement: Excisional debridement Anesthesia Used: 5% Lidocaine Gel Depth: in the subcutaneous layer Percentage of wound debrided: 100 Instrument Used: 5mm curette Tissue Removed: Fibrin Severity: Fat Layer Exposed Amount of bleeding with debridement: None Bleeding Controlled with: Compression and gauze Patient tolerated procedure: Patient tolerated procedure well Post-Debridement Measurements and Additional Note: Post-Debridement Measurements/Treatment - Nurse 1 - General Ulcer Assessment Start: 11/26/23 08:08 Freq: Status: Active Protocol: .SALVADOR Activity Type Activity Date Activity User E-sign Co-sign Detail Recorded Client Recorded Date Recorded By Document 11/26/23 08:08 [facility] Desktop 11/26/23 08:13 [facility] 11/26/23 08:08 - Today's Visit Information Type of service Follow-up Visit (Physician/TOOL ANALYST ) Arrival Mode Ambulatory Transfer Assistance None Patient Identification Verified (Name & Yes ) Patient Requires Transmission-Based No Precautions Height and Weight Body Mass Index (BMI) 25.1 BMI Classification Overweight Vital Signs Temperature (97.8 F-99.1 F) 96.9 F L Temperature Source Temporal Pulse Rate (60-100) 94 Pulse Location Monitor Respiratory Rate (12-18) 16 Respiratory rate source Observation Oxygen Delivery Method Room Air Blood Pressure (90/60-120/80) 134/85 H Blood Pressure Mean (mm Hg) 101 Source Monitor Position Sitting Blood Pressure Location Right Arm History Since Last Visit- (Skip if this is Patient's initial visit) Have you changed medications since your No last visit? Any new allergies or adverse reactions No Had a fall/change in ADL's that may No increase risk of falls Signs or symptoms of abuse and/or No neglect since last visit Have you been in the hospital since your No last visit? Has dressing in place as prescribed Yes Has compression in place as prescribed N/A Has offloadiing in place as prescribed N/A Experienced any changes in pain level or No management Left Footwear Regular Shoe Right Footwear Regular Shoe Pain Scale: 0-10 Numeric Is Patient Pain Free? Yes - Nurse 1 - General Ulcer Measurement Start: 11/26/23 08:08 Freq: Status: Active Protocol: Activity Type Activity Date Activity User E-sign Co-sign Detail Recorded Client Recorded Date Recorded By Document 11/26/23 08:08 [facility] [employer] 11/26/23 08:13 [facility] 11/26/23 08:08 Wound Center Nurse 1 #1- LUMBAR POST SURGICAL -Combined with other wound No -Current Size (cm) - Length 9.1 -Current Size (cm) - Width 2.5 -Current Size (cm) - Depth 0.2 -Total Square Cm 22.75 -Date of Last Picture (Recall this 11/26/23 field) -Photo Taken Yes -Epithelialization Small 1-33% -Tunneling No -Undermining/Tunneling No -Circular Undermining No -Exudate Amt Medium -Exudate Type Serosanguineous -Wound Margin Distinct, Outline Attached -Granulation Amt Large (67-100%) -Granulation Quality Pale,[place] -Slough/Fibrin Yes -Necrosis Amt Small (1-33%) -Necrotic Tissue Type Adherent Slough -Texture (Gabrielle-wound Skin Appearance) Assessed, Scarring -Moisture (Gabrielle-wound Skin Appearance) Assessed -Color (Gabrielle-wound Skin Appearance) Assessed -Temperature (Gabrielle-wound Skin No Abnormality Appearance) (Pt Warm) -Tenderness on Palpation (Gabrielle-wound No Skin Appearance) -Ulcer Cleansing Soap and Water -Foul Odor after Cleansing No -Anesthetic Used 4% Lidocaine Solution - Nurse 2 - General Ulcer CM Notes Start: 11/26/23 08:08 Freq: Status: Active Protocol: Activity Type Activity Date Activity User E-sign Co-sign Detail Recorded Client Recorded Date Recorded By Document 11/26/23 08:26 [facility] [employer] 11/26/23 08:29 [facility] 11/26/23 08:26 Wound Center Nurse 2 -Time 08:26 -Correct Patient Yes -Correct Side, Site, Position Yes -Correct Procedure Yes -Procedure Performed Yes -Type of Procedure Debridement -Clinical Debridement Subcutaneous -Tissue Removed Subcutaneous -Post Debridement (cm) - Length 8 -Post Debridement (cm) - Width 2.5 -Post Debridement (cm) - Depth 0.3 -Total Square (Post) (cm) 20.0 -Area of Debridement (cm) - Length 8 -Area of Debridement (cm) - Width 2.5 -Total Square (Area) (cm) 20.0 -Tunneling No -Undermining/Tunneling No -Circular Undermining No -Wound/Ulcer Outcome Not Healed -Ulcer Cleansing Rinsed/ Irrigated with Saline -Foul Odor after Cleansing No -Bioengineered Tissue No -Bleeding Controlled with Pressure -Treatment Response Procedure Tolerated Well -Debridement - Subq, 1st 20sq cm Yes Pain Scale: 0-10 Numeric Is Patient Pain Free? Yes - Nurse 3 - General Ulcer D/C NN Start: 11/26/23 08:08 Freq: Status: Active Protocol: Activity Type Activity Date Activity User E-sign Co-sign Detail Recorded Client Recorded Date Recorded By Document 11/26/23 08:37 [facility] Desktop 11/26/23 08:37 [facility] 11/26/23 08:37 Wound Care Center Nurse 3 #1- LUMBAR POST SURGICAL -Ulcer Cleansing Rinsed/ Irrigated with Saline -Foul Odor after Cleansing No -Primary Dressing Applied Fibracol Plus 4x4,NonAdherent Contact Layer -Other Dressing abd -Primary Dressing Covered/Secured with Secured with Tape -Fibracol Plus 4x4 1 Treatment Response Procedure Tolerated Well Pain Scale: 0-10 Numeric Is Patient Pain Free? Yes - Visit Discharge Discharge Condition Stable Ambulatory Status Ambulatory,Cane Assessment/Plan Assessment/Plan (1) Wound infection after surgery: CODE(S): T81.49XA - Infection following a procedure, other surgical site, initial encounter (2) Staphylococcus aureus bacteremia: CODE(S): R78.81 - Bacteremia; B95.61 - Methicillin susceptible Staphylococcus aureus infection as the cause of diseases classified elsewhere (3) Disruption of external operation (surgical) wound, not elsewhere classified, initial encounter: CODE(S): T81.31XA - Disruption of external operation (surgical) wound, not elsewhere classified, initial encounter PLAN: Wash area around wound with antibacterial soap and water pat dry Apply Fibracol moistened with Adaptic over top daily cover with ABD and tape Follow-up in 1 week
[2023-12-10 08:02] VITALS: BP 132/81; PULSE 78; RESP 16; TEMP 36.1; BMI 25.1
--- NOTE | 2023-12-10 08:29 | PCM.WC.PN ---
History of Present Illness Date of Service: 11/11/23 Chief Complaint: Follow-up lumbar from infection after surgery. History of Wound: 63-year-old white male that had a fusion done of L4-5 and S1 in June. Then developed problems and needed to be cleaned out and August and then in September he was reopened because of infection and a pus pocket. This was all done by Dr. Murray over at [facility]. Has been seen by home health and Dr. Murray ordered a wound VAC to the lower lumbar at set at 125 mmHg. Patient is also being followed by infectious disease for his infection and is on an infusion pump. Patient also complains of black diarrhea. Patient is a smoker 1 pack a day and does drink alcohol 4 beers a day. Patient states he is drinking 1 Ensure a day. Progress of Wound: Patient was 2 weeks out on his visit and still measuring smaller and less depth. Patient feels good and says pain is not there and doing better movements and but taking it easy. Starting to develop skin over the ends first which is good and feeling in the center. No sign of infection of redness pus smell or anything. We are using Fibracol at this time and I think we will continue using Fibracol for now Subjective Subjective Patient is agreeable to being seen every 2 weeks and is doing the dressing changes at this time. Tolerating wound dressings very well at home. Home health care will be discharged this week Objective Data Objective Data Again healing well is like a giant see he started feeling with new skin mid back depth is much better no sign of infections or odor or discharge. Vital Signs: Vital Signs Temp Pulse Resp BP O2 Del Method 97 F L 78 16 132/81 H Room Air 12/10/23 08:02 12/10/23 08:02 12/10/23 08:02 12/10/23 08:02 12/10/23 08:02 Oxygen Delivery Method Room Air Weight: 170 lb Body Mass Index (BMI) 25.1 Physical Exam Const oriented x3 General Appearance: cooperative Exam Limitations: no limitations HEENT normocephalic Eyes General Eye: normal appearance of both eyes Neck full ROM Resp normal respiratory effort Effort and Inspection: able to speak in complete sentences Auscultation: clear to auscultation bilaterally Cardio regular rate and regular rhythm Palpation: normal PMI Rate: regular rate Rhythm: regular rhythm Back/Spine Cervical Spine: cervical ROM normal Thoracic Spine / Upper Back: normal to inspection and other soft tissue findings Skin Wounds: wounds noted Wound Narrative: Large open wound lumbar area with beefy skin exposed rolled edges currently on a wound VAC from home health care Neuro oriented x3 Psych Appearance: grossly normal Speech: normal speech Thought Content: normal thought content Judgement: judgement good Debridement Note Debridement Note Wound debrided: Lumbar wound dehisced surgical wound Type of Debridement: Excisional debridement Anesthesia Used: 5% Lidocaine Gel Depth: Down to and including healthy tissue Percentage of wound debrided: 100 Instrument Used: 5mm curette Tissue Removed: Fibrin and devitalized tissue Severity: Fat Layer Exposed Amount of bleeding with debridement: Mild Bleeding Controlled with: Compression and gauze Patient tolerated procedure: Patient tolerated procedure well Post-Debridement Measurements and Additional Note: Post-Debridement Measurements/Treatment - Nurse 1 - General Ulcer Assessment Start: 11/26/23 08:08 Freq: Status: Active Protocol: .SALVADOR Activity Type Activity Date Activity User E-sign Co-sign Detail Recorded Client Recorded Date Recorded By Document 11/26/23 08:08 [facility] 11/26/23 08:13 [facility] Document 12/10/23 08:02 [facility] Desktop 12/10/23 08:07 [facility] 11/26/23 12/10/23 08:08 08:02 - Today's Visit Information Type of service Follow-up Visit Follow-up Visit (Physician/RN IMCU (Physician/RN IMCU ) ) Arrival Mode Ambulatory Ambulatory Transfer Assistance None None Patient Identification Verified (Name & Yes Yes ) Patient Requires Transmission-Based No No Precautions Height and Weight Body Mass Index (BMI) 25.1 25.1 BMI Classification Overweight Overweight Vital Signs Temperature (97.8 F-99.1 F) 96.9 F L 97 F L Temperature Source Temporal Temporal Pulse Rate (60-100) 94 78 Pulse Location Monitor Monitor Respiratory Rate (12-18) 16 16 Respiratory rate source Observation Observation Oxygen Delivery Method Room Air Room Air Blood Pressure (90/60-120/80) 134/85 H 132/81 H Blood Pressure Mean (mm Hg) 101 98 Source Monitor Monitor Position Sitting Sitting Blood Pressure Location Right Arm Left Arm History Since Last Visit- (Skip if this is Patient's initial visit) Have you changed medications since your No No last visit? Any new allergies or adverse reactions No No Had a fall/change in ADL's that may No No increase risk of falls Signs or symptoms of abuse and/or No No neglect since last visit Have you been in the hospital since your No No last visit? Has dressing in place as prescribed Yes Yes Has compression in place as prescribed N/A N/A Has offloadiing in place as prescribed N/A N/A Experienced any changes in pain level or No No management Left Footwear Regular Shoe Regular Shoe Right Footwear Regular Shoe Regular Shoe Pain Scale: 0-10 Numeric Is Patient Pain Free? Yes Yes WC - Nurse 1 - General Ulcer Measurement Start: 11/26/23 08:08 Freq: Status: Active Protocol: Activity Type Activity Date Activity User E-sign Co-sign Detail Recorded Client Recorded Date Recorded By Document 11/26/23 08:08 [employer] Desktop 11/26/23 08:13 [employer] Document 12/10/23 08:02 [employer] Desktop 12/10/23 08:07 [facility] 11/26/23 12/10/23 08:08 08:02 Wound Center Nurse 1 #1- LUMBAR POST SURGICAL -Combined with other wound No No -Current Size (cm) - Length 9.1 8.2 -Current Size (cm) - Width 2.5 1.6 -Current Size (cm) - Depth 0.2 0.1 -Total Square Cm 22.75 13.12 -Date of Last Picture (Recall this 11/26/23 12/10/23 field) -Photo Taken Yes Yes -Epithelialization Small 1-33% Small 1-33% -Tunneling No No -Undermining/Tunneling No No -Circular Undermining No No -Exudate Amt Medium Medium -Exudate Type Serosanguineous Serosanguineous -Wound Margin Distinct, Distinct, Outline Outline Attached Attached -Granulation Amt Large (67-100%) Large (67-100%) -Granulation Quality Pale,[place] -Slough/Fibrin Yes Yes -Necrosis Amt Small (1-33%) Small (1-33%) -Necrotic Tissue Type Adherent Slough Adherent Slough -Texture (Gabrielle-wound Skin Appearance) Assessed, Assessed, Scarring Scarring -Moisture (Gabrielle-wound Skin Appearance) Assessed Assessed -Color (Gabrielle-wound Skin Appearance) Assessed Assessed -Temperature (Gabrielle-wound Skin No Abnormality No Abnormality Appearance) (Pt Warm) (Pt Warm) -Tenderness on Palpation (Gabrielle-wound No No Skin Appearance) -Ulcer Cleansing Soap and Water Rinsed/ Irrigated with Saline -Foul Odor after Cleansing No No -Anesthetic Used 4% Lidocaine 4% Lidocaine Solution Solution WC - Nurse 2 - General Ulcer CM Notes Start: 11/26/23 08:08 Freq: Status: Active Protocol: Activity Type Activity Date Activity User E-sign Co-sign Detail Recorded Client Recorded Date Recorded By Document 11/26/23 08:26 [facility] Desktop 11/26/23 08:29 BM Document 12/10/23 08:13 [employer] Desktop 12/10/23 08:16 [facility] 11/26/23 12/10/23 08:26 08:13 Wound Center Nurse 2 #1- LUMBAR POST SURGICAL -Time 08:26 08:13 -Correct Patient Yes Yes -Correct Side, Site, Position Yes Yes -Correct Procedure Yes Yes -Procedure Performed Yes Yes -Type of Procedure Debridement Debridement -Clinical Debridement Subcutaneous Subcutaneous -Tissue Removed Subcutaneous Subcutaneous -Post Debridement (cm) - Length 8 8 -Post Debridement (cm) - Width 2.5 1.8 -Post Debridement (cm) - Depth 0.3 0.1 -Total Square (Post) (cm) 20.0 14.4 -Area of Debridement (cm) - Length 8 8 -Area of Debridement (cm) - Width 2.5 1.8 -Total Square (Area) (cm) 20.0 14.4 -Tunneling No No -Undermining/Tunneling No No -Circular Undermining No No -Wound/Ulcer Outcome Not Healed Not Healed -Ulcer Cleansing Rinsed/ Rinsed/ Irrigated with Irrigated with Saline Saline -Foul Odor after Cleansing No No -Bioengineered Tissue No No -Bleeding Controlled with Pressure Pressure -Treatment Response Procedure Procedure Tolerated Well Tolerated Well -Debridement - Subq, 1st 20sq cm Yes Yes Pain Scale: 0-10 Numeric Is Patient Pain Free? Yes Yes ANA - Nurse 3 - General Ulcer D/C NN Start: 11/26/23 08:08 Freq: Status: Active Protocol: Activity Type Activity Date Activity User E-sign Co-sign Detail Recorded Client Recorded Date Recorded By Document 11/26/23 08:37 [employer] 11/26/23 08:37 [facility] Document 12/10/23 08:24 Desktop 12/10/23 08:25 GM 11/26/23 12/10/23 08:37 08:24 Wound Care Center Nurse 3 #1- LUMBAR POST SURGICAL -Ulcer Cleansing Rinsed/ Not Cleansed Irrigated with Saline -Foul Odor after Cleansing No No -Primary Dressing Applied Fibracol Plus Fibracol Plus 4x4,NonAdherent 4x4,NonAdherent Contact Layer Contact Layer -Other Dressing abd abd on top, medipore tape -Primary Dressing Covered/Secured with Secured with Dry Gauze, Tape Secured with Tape -Fibracol Plus 4x4 1 1 Treatment Response Procedure Tolerated Well Pain Scale: 0-10 Numeric Is Patient Pain Free? Yes Yes WC - Visit Discharge Discharge Condition Stable Stable Ambulatory Status Ambulatory,Cane Ambulatory Transportation Private Auto Clinical Summary of Care Provided Yes Assessment/Plan Assessment/Plan (1) Wound infection after surgery: CODE(S): T81.49XA - Infection following a procedure, other surgical site, initial encounter (2) Staphylococcus aureus bacteremia: CODE(S): R78.81 - Bacteremia; B95.61 - Methicillin susceptible Staphylococcus aureus infection as the cause of diseases classified elsewhere (3) Disruption of external operation (surgical) wound, not elsewhere classified, initial encounter: CODE(S): T81.31XA - Disruption of external operation (surgical) wound, not elsewhere classified, initial encounter PLAN: Wash area around wound with antibacterial soap and water pat dry Apply Fibracol moistened with Adaptic over top daily cover with ABD and tape Follow-up in 2 week
== END 2023-12-14 23:59 | disposition home or self-care (01) ==
LOC: WC 08:00
PROVIDERS: PCP Family Medicine; Referring Provider Orthopaedic Surgery; Visit Provider Nurse Practitioner
DX: T81.49XA Infection following a procedure, other surgical site, initial encounter (principal); F17.210 Nicotine dependence, cigarettes, uncomplicated; Y83.8 Other surgical procedures as the cause of abnormal reaction of the patient, or of later complication, without mention of misadventure at the time of the procedure; T81.31XA Disruption of external operation (surgical) wound, not elsewhere classified, initial encounter
CPT/HCPCS: 11042

== ENCOUNTER 2023-12-24 07:52 | Outpatient (RCR) | payer OTHER, SELFPAY ==
[2023-12-15 00:44] VITALS: BP 132/81; PULSE 78; RESP 16; TEMP 36.1; BMI 25.1
[2023-12-24 08:03] VITALS: BP 113/80; PULSE 72; RESP 20; TEMP 37.1; BMI 25.1
--- NOTE | 2023-12-24 10:09 | PCM.WC.PN ---
History of Present Illness Date of Service: 12/24/23 Chief Complaint: Follow-up lumbar from infection after surgery. History of Wound: 63-year-old white male that had a fusion done of L4-5 and S1 in June. Then developed problems and needed to be cleaned out and August and then in September he was reopened because of infection and a pus pocket. This was all done by Dr. Murary over at [facility]. Has been seen by home health and Dr. Murray ordered a wound VAC to the lower lumbar at set at 125 mmHg. Patient is also being followed by infectious disease for his infection and is on an infusion pump. Patient also complains of black diarrhea. Patient is a smoker 1 pack a day and does drink alcohol 4 beers a day. Patient states he is drinking 1 Ensure a day. Progress of Wound: Much smaller flatter healing well with no odor no issues. More superficial now just needs skin to cover. Subjective Subjective Patient is very pleased with outcomes has approve of continuing the Fibracol Objective Data Objective Data No sign of infections improvement is dramatic we will continue with the Fibracol that he will Vital Signs: Vital Signs Temp Pulse Resp BP 98.7 F 72 20 H 113/80 12/24/23 08:03 12/24/23 08:03 12/24/23 08:03 12/24/23 08:03 Weight: 170 lb Body Mass Index (BMI) 25.1 Lab / Micro Data Attestation: I reviewed the patient's lab results. Physical Exam Const oriented x3 General Appearance: cooperative Exam Limitations: no limitations HEENT normocephalic Eyes General Eye: normal appearance of both eyes Neck full ROM Resp normal respiratory effort Effort and Inspection: able to speak in complete sentences Auscultation: clear to auscultation bilaterally Cardio regular rate and regular rhythm Palpation: normal PMI Rate: regular rate Rhythm: regular rhythm Back/Spine Cervical Spine: cervical ROM normal Thoracic Spine / Upper Back: normal to inspection and other soft tissue findings Skin Wounds: wounds noted Wound Narrative: Large open wound lumbar area with beefy skin exposed rolled edges currently on a wound VAC from home health care Neuro oriented x3 Psych Appearance: grossly normal Speech: normal speech Thought Content: normal thought content Judgement: judgement good Debridement Note Debridement Note Wound debrided: Lower lumbar wound from surgery Type of Debridement: Excisional debridement Anesthesia Used: 5% Lidocaine Gel Depth: Down to and including healthy tissue Percentage of wound debrided: 100 Instrument Used: 5mm curette Tissue Removed: Fibrin Severity: Limited To Skin Breakdown Amount of bleeding with debridement: Mild Bleeding Controlled with: Compression and gauze Patient tolerated procedure: Patient tolerated procedure well Post-Debridement Measurements and Additional Note: Post-Debridement Measurements/Treatment ANA - Nurse 1 - General Ulcer Assessment Start: 12/24/23 08:03 Freq: Status: Active Protocol: CHRISTIANO Activity Type Activity Date Activity User E-sign Co-sign Detail Recorded Client Recorded Date Recorded By Document 12/24/23 08:03 [facility] 12/24/23 08:06 DL 12/24/23 08:03 WC - Today's Visit Information Type of service Follow-up Visit (Physician/PROGRAM SPECIALIST ) Arrival Mode Ambulatory Transfer Assistance None Patient Identification Verified (Name & Yes ) Patient Requires Transmission-Based No Precautions Height and Weight Body Mass Index (BMI) 25.1 BMI Classification Overweight Vital Signs Temperature (97.8 F-99.1 F) 98.7 F Temperature Source Temporal Pulse Rate (60-100) 72 Pulse Location Monitor Respiratory Rate (12-18) 20 H Respiratory rate source Observation Blood Pressure (90/60-120/80) 113/80 Blood Pressure Mean (mm Hg) 91 Source Monitor History Since Last Visit- (Skip if this is Patient's initial visit) Have you changed medications since your No last visit? Any new allergies or adverse reactions No Had a fall/change in ADL's that may No increase risk of falls Signs or symptoms of abuse and/or No neglect since last visit Have you been in the hospital since your No last visit? Has dressing in place as prescribed Yes Has compression in place as prescribed N/A Has offloadiing in place as prescribed N/A Experienced any changes in pain level or No management Pain Scale: 0-10 Numeric Is Patient Pain Free? Yes ANA - Nurse 1 - General Ulcer Measurement Start: 12/24/23 08:03 Freq: Status: Active Protocol: Activity Type Activity Date Activity User E-sign Co-sign Detail Recorded Client Recorded Date Recorded By Document 12/24/23 08:03 [facility] 12/24/23 08:06 DL 12/24/23 08:03 Wound Center Nurse 1 #1- LUMBAR POST SURGICAL -Current Size (cm) - Length 6.4 -Current Size (cm) - Width 1.2 -Current Size (cm) - Depth 0.2 -Total Square Cm 7.68 -Photo Taken Yes -Exudate Amt Medium -Exudate Type Serosanguineous -Wound Margin Distinct, Outline Attached -Granulation Amt Large (67-100%) -Granulation Quality Pale,[place] -Necrosis Amt Small (1-33%) -Necrotic Tissue Type Adherent Slough -Structure Exposed N/A -Texture (Gabrielle-wound Skin Appearance) Scarring -Moisture (Gabrielle-wound Skin Appearance) No Abnormality -Color (Gabrielle-wound Skin Appearance) No Abnormality -Temperature (Gabrielle-wound Skin No Abnormality Appearance) (Pt Warm) -Tenderness on Palpation (Gabrielle-wound No Skin Appearance) -Ulcer Cleansing Soap and Water -Foul Odor after Cleansing No -Anesthetic Used 4% Lidocaine Solution WC - Nurse 2 - General Ulcer CM Notes Start: 12/24/23 08:03 Freq: Status: Active Protocol: Activity Type Activity Date Activity User E-sign Co-sign Detail Recorded Client Recorded Date Recorded By Document 12/24/23 08:13 MW Desktop 12/24/23 08:16 MW 12/24/23 08:13 Wound Center Nurse 2 -Time 08:13 -Correct Patient Yes -Correct Side, Site, Position Yes -Correct Procedure Yes -Procedure Performed Yes -Type of Procedure Debridement -Clinical Debridement Subcutaneous -Tissue Removed Subcutaneous -Post Debridement (cm) - Length 6.5 -Post Debridement (cm) - Width 1.5 -Post Debridement (cm) - Depth 0.1 -Total Square (Post) (cm) 9.75 -Area of Debridement (cm) - Length 6.5 -Area of Debridement (cm) - Width 1.5 -Total Square (Area) (cm) 9.75 -Tunneling No -Undermining/Tunneling No -Circular Undermining No -Wound/Ulcer Outcome Not Healed -Ulcer Cleansing Rinsed/ Irrigated with Saline -Foul Odor after Cleansing No -Bioengineered Tissue No -Bleeding Controlled with Pressure -Treatment Response Procedure Tolerated Well -Offloading No -Debridement - Subq, 1st 20sq cm Yes Pain Scale: 0-10 Numeric Is Patient Pain Free? Yes ANA - Nurse 3 - General Ulcer D/C NN Start: 12/24/23 08:03 Freq: Status: Active Protocol: Activity Type Activity Date Activity User E-sign Co-sign Detail Recorded Client Recorded Date Recorded By Document 12/24/23 08:24 [facility] Desktop 12/24/23 08:24 [facility] 12/24/23 08:24 Wound Care Center Nurse 3 #1- LUMBAR POST SURGICAL -Ulcer Cleansing Rinsed/ Irrigated with Saline -Foul Odor after Cleansing No -Primary Dressing Applied Fibracol Plus 4x4,Mepilex Border, NonAdherent Contact Layer -Fibracol Plus 4x4 1 -Mepilex Border 2 Treatment Response Procedure Tolerated Well Pain Scale: 0-10 Numeric Is Patient Pain Free? Yes WC - Visit Discharge Discharge Condition Stable Ambulatory Status Ambulatory Transportation Private Auto Assessment/Plan Assessment/Plan (1) Wound infection after surgery: CODE(S): T81.49XA - Infection following a procedure, other surgical site, initial encounter (2) Staphylococcus aureus bacteremia: CODE(S): R78.81 - Bacteremia; B95.61 - Methicillin susceptible Staphylococcus aureus infection as the cause of diseases classified elsewhere (3) Disruption of external operation (surgical) wound, not elsewhere classified, initial encounter: CODE(S): T81.31XA - Disruption of external operation (surgical) wound, not elsewhere classified, initial encounter PLAN: Wash area around wound with antibacterial soap and water pat dry Apply Fibracol moistened with Adaptic over top daily cover with ABD and tape Follow-up in 2 week
== END 2024-01-13 23:59 | disposition home or self-care (01) ==
LOC: WC 07:52
PROVIDERS: PCP Family Medicine; Referring Provider Orthopaedic Surgery; Visit Provider Nurse Practitioner
DX: T81.49XA Infection following a procedure, other surgical site, initial encounter (principal); F17.200 Nicotine dependence, unspecified, uncomplicated; R19.7 Diarrhea, unspecified; R78.81 Bacteremia; T81.31XA Disruption of external operation (surgical) wound, not elsewhere classified, initial encounter; B95.61 Methicillin susceptible Staphylococcus aureus infection as the cause of diseases classified elsewhere; Z98.1 Arthrodesis status; Y83.8 Other surgical procedures as the cause of abnormal reaction of the patient, or of later complication, without mention of misadventure at the time of the procedure
CPT/HCPCS: 11042

== ENCOUNTER 2024-01-14 07:56 | Outpatient (RCR) | payer OTHER, SELFPAY ==
[2024-01-14 00:25] VITALS: BP 113/80; PULSE 72; RESP 20; TEMP 37.1; BMI 25.1
[2024-01-14 08:05] VITALS: BP 155/98; PULSE 74; RESP 16; TEMP 36.3; BMI 25.1
== END 2024-02-13 23:59 | disposition home or self-care (01) ==
LOC: WC 07:56
PROVIDERS: PCP Family Medicine; Referring Provider Orthopaedic Surgery; Visit Provider Nurse Practitioner
DX: Z09 Encounter for follow-up examination after completed treatment for conditions other than malignant neoplasm (principal)

== ENCOUNTER → 2024-04-20 | Outpatient (CLI) | payer OTHER, SELFPAY ==
[2024-04-20 14:52] LABS: Creatinine, Serum 0.87 mg/dL (0.70-1.30); EST Glomerular Filtration Rate 94 mL/min (>60); Est Glom Filt Rate - Afr Amer 114 mL/min (>60)
== END | disposition home or self-care (01) ==
LOC: LAB 13:32
PROVIDERS: PCP Family Medicine; Referring Provider Internal Medicine; Visit Provider Internal Medicine
DX: N28.9 Disorder of kidney and ureter, unspecified (principal)
CPT/HCPCS: 36415; 82565

== ENCOUNTER → 2024-05-04 | Outpatient (CLI) | payer OTHER, SELFPAY ==
--- NOTE | 2024-05-04 15:02 | CT_ITS ---
STUDY: LOW DOSE CT LUNG CANCER SCREENING REASON FOR EXAM: Male, 63 years old. Lung cancer screening -- and gt;20 pk yr hx;current smoker; asymptomatic RADIATION DOSAGE (If Supplied By Facility): CTDIvol = ( 3.02 ) mGy, DLP = ( 112.49 ) mGycm TECHNIQUE: No contrast was administered. Low dose technique was utilized (average mAS-38 and kVp 120). 1.25 mm axial source images with a slice interval of 1.25-mm were reconstructed in lung windows. 2.5 mm axial source images with a slice interval of 2.5-mm were reconstructed in lung windows. 5.0 mm axial source images with a slice interval of 5.0-mm were reconstructed in soft tissue windows. COMPARISON: Comparison is made with prior examination dated April 08, 2022 and July 03, 2022. NODULES: No suspicious nodules are seen. Emphysema: No significant emphysematous changes are present. Endobronchial lesion: None Aorta: Mild atherosclerotic plaque formation of the aortic arch. CORONARY ARTERIES: Coronary artery calcification is not seen. Heart: Unremarkable Pulmonary artery: Unremarkable Mediastinal nodes: Stable small benign appearing mediastinal lymph nodes. Other chest and abdominal findings: CT/Low Dose CT Lung Screening IMPRESSION: Lung-RADS category 2 - Continue annual screening with LDCT in 12 months. IMPORTANT NOTES FOR USE: ACR Lung-RADS Version 1.1 Assessment Categories Release Date: 2018 Category: Coded 0-4 bases on nodule(s) with highest degree of suspicion. Negative screen is defined as categories 1 and 2; a positive screen is defined as categories 3 and 4. Category 3 and 4A nodules that are unchanged on interval CT should be coded as category 2, and individuals returned to screening in 12 months. Category 4X: Category 3 or 4 nodules with additional imaging findings that increase the suspicion of lung cancer, such as spiculation, GGN that doubles in size in 1 year, enlarged lymph notes, etc. Category Modifiers: S (significant finding unrelated to lung cancer) Electronically Signed: Thaddeus Farias MD at 15:22 EDT ,
== END | disposition home or self-care (01) ==
LOC: CT 14:59
PROVIDERS: PCP Family Medicine; Referring Provider Nurse Practitioner Family; Visit Provider Nurse Practitioner Family
DX: Z87.891 Personal history of nicotine dependence (principal); Z12.2 Encounter for screening for malignant neoplasm of respiratory organs
CPT/HCPCS: 71271

== ENCOUNTER → 2024-05-27 | Outpatient (CLI) | payer OTHER, SELFPAY ==
--- NOTE | 2024-05-27 09:22 | US_ITS ---
STUDY: ABDOMINAL ULTRASOUND - RIGHT UPPER QUADRANT; ELASTOGRAPHY REASON FOR VISIT: Male, 63 years old. Hepatic fibrosis. TECHNIQUE: Ultrasound evaluation of the right upper quadrant was performed with real-time and static mora-scale imaging. Point quantification shear wave elastography was performed ([employer]). TECHNICAL QUALITY: Adequate. COMPARISON: Comparison is made with prior study August 04, 2022. FINDINGS: Liver: The liver measures 14.9 cm. There is normal echogenicity of the liver. The bile ducts are within normal limits. There is hepatic color flow. The direction of portal flow is hepatopetal. There is no demonstrated mass lesion. Median liver stiffness measured 5.6 kPa. Gallbladder: Normal distended gallbladder. The gallbladder wall measures 1.0 mm. There is a negative sonographic Coffey''s sign. There is no pericholecystic fluid. There are no gallstones. Common Bile Duct (C.B.D.): The common bile duct measures 5.0 mm. Pancreas: There is normal echogenicity of the visualized pancreas. There is no demonstrated pancreatic mass or cyst. Right Kidney: Normal size of the right kidney. The right kidney measures 12.3 cm x 5.6 cm x 5.3 cm. Normal renal cortex. The right cortex measures 1.3 cm. There is no demonstrated renal mass or cyst. There is no right hydronephrosis. US/ABD Limited w/ Elastography IMPRESSION: 1. Liver stiffness measures 5.6 kPa compatible with F0-F1 (Normal to mild liver fibrosis) Metavir score. Electronically Signed: Thaddeus Farias MD at 12:28 EDT ,
== END | disposition home or self-care (01) ==
LOC: US 09:21
PROVIDERS: PCP Family Medicine; Referring Provider Internal Medicine; Visit Provider Internal Medicine
DX: K22.70 Barrett's esophagus without dysplasia (principal); K26.9 Duodenal ulcer, unspecified as acute or chronic, without hemorrhage or perforation; Z86.19 Personal history of other infectious and parasitic diseases
CPT/HCPCS: 76705; 76981

== ENCOUNTER → 2024-06-14 | Outpatient (CLI) | payer OTHER, SELFPAY | END | disposition home or self-care (01) | LOC: BFHLAB 16:08 | PROVIDERS: PCP Family Medicine; Referring Provider Family Medicine; Visit Provider Family Medicine | DX: Z12.5 Encounter for screening for malignant neoplasm of prostate (principal) | CPT/HCPCS: 36415; 84153; G0103 ==

== ENCOUNTER 2024-08-19 10:47 | Emergency (ER) | payer OTHER, SELFPAY ==
[2024-08-19 10:47] VITALS: BP 145/86; PULSE 72; RESP 18; TEMP 36.6; O2SAT 95; BMI 26.9
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
[2024-08-19] MEDS: Naproxen 500 MG Tablet PO (11:25)
== END 2024-08-19 11:28 | disposition home or self-care (01) ==
PROVIDERS: Emergency Provider Emergency Medicine; PCP Family Medicine; Visit Provider Emergency Medicine
DX: M51.26 Other intervertebral disc displacement, lumbar region (principal); J44.9 Chronic obstructive pulmonary disease, unspecified; K22.70 Barrett's esophagus without dysplasia; F17.210 Nicotine dependence, cigarettes, uncomplicated; F17.220 Nicotine dependence, chewing tobacco, uncomplicated; G89.29 Other chronic pain
CPT/HCPCS: 99282

== ENCOUNTER 2024-09-24 13:39 | Emergency (ER) | payer OTHER, SELFPAY ==
[2024-09-24 13:40] VITALS: BP 125/83; PULSE 78; RESP 15; TEMP 35.7; O2SAT 99
--- NOTE | 2024-09-24 13:57 | CT_ITS ---
INDICATION: pain after fall EXAMINATION: CT LUMBAR SPINE - CT Spine Lumbar W/O Contrast Injection TECHNIQUE: Helically acquired images were obtained of the lumbar spine. 2D reformats were reviewed. A radiation dose optimization technique was used for this scan. The protocol utilizes one or more of the following dose reduction techniques: automated exposure control, adjustment of mA and/or kV according to patient size,and/or use of iterative reconstruction technique. IV Contrast dosage and agent: None. RADIATION DOSAGE (If Supplied By Facility): CTDIvol = ( 13.42 ) mGy, DLP = ( 430.18 ) mGycm COMPARISON: September 17, 2023 FINDINGS: VERTEBRAE: No fracture or traumatic subluxation. There is multilevel endplate spondylosis and facet hypertrophy. Normal alignment. There are postsurgical changes of L3-S1 with bilateral pedicle screws, posterior spinal rods and disc spacers. There is a defect within the left L5 pedicle screws consistent with a fracture. DISCS and SPINAL CANAL: There is multilevel degenerative disc disease. No critical stenosis. VISUALIZED ABDOMEN: Visualized abdominal aorta is not dilated. There are vascular calcifications. There is no retroperitoneal adenopathy. CT/Spine Lumbar without Contrast IMPRESSION: Multilevel degenerative changes. L4-S1 postsurgical changes with an associated broken left L5 pedicle screw. Atherosclerosis. Electronically Signed: Corazon Mosley MD at 14:51 EST ,
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
[2024-09-24] MEDS: oxyCODONE 5 MG Tablet PO (14:42)
[2024-09-24] MEDS: Ibuprofen 600 MG Tablet PO (14:42)
[2024-09-24 14:44] VITALS: BMI 26.9
[2024-09-24 16:07] VITALS: BP 112/87; PULSE 66; RESP 12; TEMP 36.8; O2SAT 99
== END 2024-09-24 16:08 | disposition home or self-care (01) ==
PROVIDERS: Emergency Provider Emergency Medicine; PCP Family Medicine; Visit Provider Emergency Medicine
DX: S32.009A Unspecified fracture of unspecified lumbar vertebra, initial encounter for closed fracture (principal); J44.9 Chronic obstructive pulmonary disease, unspecified; F17.220 Nicotine dependence, chewing tobacco, uncomplicated; F17.210 Nicotine dependence, cigarettes, uncomplicated; W00.0XXA Fall on same level due to ice and snow, initial encounter
CPT/HCPCS: 72131; 99282

== ENCOUNTER → 2024-09-30 | Outpatient (CLI) | payer OTHER, SELFPAY ==
[2024-09-30 17:42] LABS: Absolute Lymphocyte Count 3.52 X10^3/uL (0.83-4.51); Absolute Neutrophil Count 5.8 X10^3/uL (2.0-7.7); Basophil# 0.07 X10^3/uL; Basophil% 0.7 % (0-1); Eosinophil# 0.12 X10^3/uL; Eosinophils% 1.1 % (0-5); Hemoglobin 15.3 g/dL (13.0-16.5); Lymphocyte # 3.52 X10^3/ul (0.83-4.51); Lymphocyte % 33.5 % (19-41); Mean Corp Hgb Conc 33.3 g/dL (32-36); Mean Corpuscular Hgb 30.6 pg (27.0-32.0); Mean Platelet Vol. 11.7 fl (6.2-12.0); Monocyte# 0.96 X10^3/uL; Monocyte% 9.1 % (0-10); NRBC Flagged by Analyzer 0 % (0-5); Neutrophil # 5.79 X10^3/uL (2.7-7.7); Platelet Count 235 K/mm3 (150-450); RBC Distribution Width CV 13.6 % (11.6-14.6); White Blood Count 10.5 K/mm3 (4.4-11.0)
[2024-09-30 17:49] LABS: Erythrocyte Sedimentation Rate 5 mm/hr (0-20)
[2024-09-30 18:04] LABS: CRP 8.17 mg/L (0.0-3.0)
== END | disposition home or self-care (01) ==
PROVIDERS: PCP Family Medicine; Referring Provider Student in an Organized Health Care Education/Training Program; Visit Provider Student in an Organized Health Care Education/Training Program
DX: T81.49XA Infection following a procedure, other surgical site, initial encounter (principal)
CPT/HCPCS: 36415; 85025; 85652; 86140

== ENCOUNTER 2025-07-18 08:04 | Emergency (ER) | payer BC, SELFPAY ==
[2025-07-18 08:05] VITALS: BP 105/74; PULSE 54; RESP 16; TEMP 36.7; O2SAT 97; BMI 24.6
--- NOTE | 2025-07-18 08:46 | CT_ITS ---
PROCEDURE: CT/Abdomen/Pelvis without Cont
[2025-07-18 08:58] LABS: Mucous, Urine 0 SEEN /hpf (<or=2+); Red Blood Cells-Urine 0 SEEN /hpf (0-5)
[2025-07-18 09:01] LABS: Hematocrit 44.9 % (40-54); Hemoglobin 15.1 g/dL (13.0-16.5); Immature Granulocytes Count 0.060 X10^3/uL (0.0-0.0); Mean Corp Hgb Conc 33.6 g/dL (32-36); Mean Corpuscular Volume 94.3 fL (80-94); Mean Platelet Vol. 11.0 fl (6.2-12.0); NRBC Flagged by Analyzer 0 % (0-5); Platelet Count 233 K/mm3 (150-450); RBC Distribution Width CV 13.2 % (11.6-14.6); RBC Distribution Width SD 46.3 fl (35.1-43.9); Red Blood Count 4.76 M/mm3 (4.6-6.2); White Blood Count 8.1 K/mm3 (4.4-11.0)
[2025-07-18 09:02] LABS: Color, Urine Yellow (Yellow); Glucose, Dipstick Normal (Normal); Ketone-Dipstick 5 mg/dl (Negative); Leukocyte Esterase-Dipstick 25 /ul (Negative); Nitrite-Dipstick Negative (Negative); Occult Blood-Urine Negative /ul (Negative); Protein-Dipstick 30 mg/dl (Negative); Specific Gravity, Urine 1.020 (1.002-1.030); Urine Bilirubin Dipstick Negative (Negative)
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
[2025-07-18 09:28] LABS: Squamous Epithelial Cells - UA 0-5 SEEN /hpf (0-5)
[2025-07-18 09:37] LABS: Anion Gap 10 (5-15); BUN 22 mg/dL (4-19); BUN/Creat Ratio 23.3 RATIO (10-20); Calcium,Total 9.1 mg/dL (7.6-11.0); Carbon Dioxide 20.7 mmol/L (21.0-32.0); Chloride 106 mmol/L (98-108); Estimated Creatinine Clearance 77.00 ml/min (50-250); Glucose 105 mg/dL (70-99); Potassium 4.5 mmol/L (3.3-5.1)
[2025-07-18 10:09] VITALS: BP 122/76; PULSE 50; RESP 18; TEMP 36.6; O2SAT 97
[2025-07-18 11:05] VITALS: BP 137/65; PULSE 86; RESP 14; TEMP 36.8; O2SAT 94
== END 2025-07-18 11:06 | disposition home or self-care (01) ==
PROVIDERS: Emergency Provider Student in an Organized Health Care Education/Training Program; PCP Family Medicine; Visit Provider Student in an Organized Health Care Education/Training Program
DX: M79.10 Myalgia, unspecified site (principal); J44.9 Chronic obstructive pulmonary disease, unspecified; F17.210 Nicotine dependence, cigarettes, uncomplicated; R10.A0 Flank pain, unspecified side; F17.220 Nicotine dependence, chewing tobacco, uncomplicated; Z79.899 Other long term (current) drug therapy; K21.9 Gastro-esophageal reflux disease without esophagitis
CPT/HCPCS: 74176; 80048; 81001; 85025; 96374; 96376; 99283; A4216